=== PATIENT | female | born 1940 | race Caucasian/White ===

== ENCOUNTER → 2016-02-16 | Outpatient (CLI) | payer MEDICARE ==
[2016-02-16 12:26] LABS: Hemoglobin A1C 6.3 % (4.2-6.1)
== END | disposition home or self-care (01) ==
LOC: LABWHC1 11:14
PROVIDERS: ATTEND Family Medicine
DX: E11.9 Type 2 diabetes mellitus without complications (principal)
CPT/HCPCS: 36415; 83036

== ENCOUNTER → 2016-05-25 | Outpatient (CLI) | payer MEDICARE ==
[2016-05-25 08:27] LABS: CH 31.7; HDW 3.34; MCH 30.6 pg (25.0-35.0); MCHC 32.6 g/dL (31.0-37.0); Mean Platelet Volume 6.1; RBC 4.25 m/uL (3.80-5.40); RDW 14.9 % (11.5-15.5); WBC 7.7 k/uL (3.8-10.6)
[2016-05-25 08:42] LABS: ALT 33 U/L (9-52); AST 24 U/L (14-36); Alkaline Phosphatase 73 U/L (38-126); Anion Gap 12 mmol/L; Blood Urea Nitrogen 15 mg/dL (7-17); Calcium 9.3 mg/dL (8.4-10.2); Carbon Dioxide 30 mmol/L (22-30); Chloride 98 mmol/L (98-107); Cholesterol 159 mg/dL (<200); Glucose 171 mg/dL (74-99); HDL Cholesterol 44 mg/dL (40-60); Non-African American GFR(MDRD) >60 (>60 ml/min/1.73 sqM); Potassium 3.8 mmol/L (3.5-5.1); Sodium 140 mmol/L (137-145); Total Bilirubin 0.7 mg/dL (0.2-1.3); Total Protein 6.9 g/dL (6.3-8.2); Triglycerides 173 mg/dL (<150)
[2016-05-25 10:57] LABS: Hemoglobin A1C 6.3 % (4.2-6.1)
== END | disposition home or self-care (01) ==
LOC: LABWHC1 07:23
PROVIDERS: ATTEND Family Medicine
DX: I10 Essential (primary) hypertension (principal); M81.0 Age-related osteoporosis without current pathological fracture
CPT/HCPCS: 36415; 80053; 80061; 82306; 83036; 84443; 84550; 85027

== ENCOUNTER → 2016-08-25 | Outpatient (CLI) | payer MEDICARE ==
[2016-08-25 08:56] LABS: CH 31.8; CHCM 35.2; HCT 39.4 % (34.0-46.0); HDW 3.36; HGB 13.3 gm/dL (11.4-16.0); MCH 30.6 pg (25.0-35.0); MCHC 33.8 g/dL (31.0-37.0); MCV 90.7 fL (80.0-100.0); Mean Platelet Volume 6.7; RBC 4.34 m/uL (3.80-5.40); RDW 14.9 % (11.5-15.5); WBC 7.6 k/uL (3.8-10.6)
[2016-08-25 09:09] LABS: ALT 41 U/L (9-52); AST 25 U/L (14-36); Alkaline Phosphatase 73 U/L (38-126); Anion Gap 9 mmol/L; Blood Urea Nitrogen 15 mg/dL (7-17); Calcium 9.2 mg/dL (8.4-10.2); Carbon Dioxide 31 mmol/L (22-30); Chloride 99 mmol/L (98-107); Cholesterol 153 mg/dL (<200); Glucose 171 mg/dL (74-99); HDL Cholesterol 39 mg/dL (40-60); Non-African American GFR(MDRD) >60 (>60 ml/min/1.73 sqM); Potassium 3.7 mmol/L (3.5-5.1); Sodium 139 mmol/L (137-145); Total Bilirubin 0.6 mg/dL (0.2-1.3); Total Protein 6.6 g/dL (6.3-8.2); Triglycerides 160 mg/dL (<150); Uric Acid 4.9 mg/dL (3.7-7.4)
[2016-08-25 13:38] LABS: Hemoglobin A1C 6.6 % (4.2-6.1)
== END | disposition home or self-care (01) ==
LOC: LABWHC1 08:27
PROVIDERS: ATTEND Family Medicine
DX: M10.9 Gout, unspecified (principal); I10 Essential (primary) hypertension; E11.9 Type 2 diabetes mellitus without complications; M81.0 Age-related osteoporosis without current pathological fracture
CPT/HCPCS: 36415; 80053; 80061; 83036; 84550; 85027

== ENCOUNTER → 2017-04-26 | Outpatient (CLI) | payer MEDICARE ==
[2017-04-26 08:47] LABS: HCT 37.5 % (34.0-46.0); HGB 13.3 gm/dL (11.4-16.0); Hyperchromasia Slight; MCH 30.9 pg (25.0-35.0); MCHC 35.4 g/dL (31.0-37.0); MCV 87.2 fL (80.0-100.0); Platelet Count 241 k/uL (150-450); Poikilocytosis Slight; RDW 14.5 % (11.5-15.5); WBC 6.6 k/uL (3.8-10.6)
[2017-04-26 09:15] LABS: ALT 33 U/L (9-52); AST 22 U/L (14-36); Albumin 4.1 g/dL (3.5-5.0); Alkaline Phosphatase 73 U/L (38-126); Anion Gap 14 mmol/L; Blood Urea Nitrogen 14 mg/dL (7-17); Calcium 9.3 mg/dL (8.4-10.2); Carbon Dioxide 32 mmol/L (22-30); Chloride 97 mmol/L (98-107); Cholesterol 154 mg/dL (<200); Glucose 156 mg/dL (74-99); HDL Cholesterol 43 mg/dL (40-60); LDL Cholesterol,Calculated 80 mg/dL (0-99); Sodium 143 mmol/L (137-145); Total Bilirubin 0.6 mg/dL (0.2-1.3); Total Protein 6.7 g/dL (6.3-8.2); Triglycerides 154 mg/dL (<150); Uric Acid 5.8 mg/dL (3.7-7.4)
[2017-04-26 20:57] LABS: Hemoglobin A1C 6.1 % (4.0-6.0)
== END | disposition home or self-care (01) ==
LOC: LABWHC1 08:05
PROVIDERS: ATTEND Family Medicine
DX: I10 Essential (primary) hypertension (principal); M10.9 Gout, unspecified; R73.01 Impaired fasting glucose
CPT/HCPCS: 36415; 80053; 80061; 83036; 84443; 84550; 85027

== ENCOUNTER → 2017-08-11 | Outpatient (CLI) | payer MEDICARE ==
[2017-08-11 08:03] LABS: HCT 41.4 % (34.0-46.0); HGB 14.2 gm/dL (11.4-16.0); MCH 30.6 pg (25.0-35.0); MCHC 34.3 g/dL (31.0-37.0); MCV 89.4 fL (80.0-100.0); Platelet Count 259 k/uL (150-450); RBC 4.63 m/uL (3.80-5.40); WBC 8.4 k/uL (3.8-10.6)
[2017-08-11 08:07] LABS: ALT 40 U/L (9-52); AST 28 U/L (14-36); Albumin 4.2 g/dL (3.5-5.0); Alkaline Phosphatase 70 U/L (38-126); Anion Gap 13 mmol/L; Blood Urea Nitrogen 15 mg/dL (7-17); Calcium 9.1 mg/dL (8.4-10.2); Carbon Dioxide 31 mmol/L (22-30); Chloride 96 mmol/L (98-107); Glucose 144 mg/dL (74-99); Potassium 3.8 mmol/L (3.5-5.1); Sodium 140 mmol/L (137-145); Total Bilirubin 0.7 mg/dL (0.2-1.3); Total Protein 6.8 g/dL (6.3-8.2)
== END | disposition home or self-care (01) ==
LOC: LABWHC1 07:14
PROVIDERS: ATTEND Family Medicine
DX: E11.9 Type 2 diabetes mellitus without complications (principal)
CPT/HCPCS: 36415; 80053; 83036; 83721; 85027

== ENCOUNTER → 2018-01-16 | Outpatient (CLI) | payer MEDICARE ==
[2018-01-16 08:58] LABS: HCT 41.1 % (34.0-46.0); HGB 13.8 gm/dL (11.4-16.0); MCH 30.3 pg (25.0-35.0); MCHC 33.6 g/dL (31.0-37.0); MCV 90.4 fL (80.0-100.0); Mean Platelet Volume 6.5; Platelet Count 246 k/uL (150-450); RBC 4.55 m/uL (3.80-5.40); RDW 14.2 % (11.5-15.5); WBC 7.7 k/uL (3.8-10.6)
[2018-01-16 17:10] LABS: Albumin 4.4 g/dL (3.80-4.90); Albumin/Globulin Ratio 2.32 (1.20-2.10); Anion Gap 10.1 mmol/L (4.00-12.00); Calcium 9.1 mg/dL (8.7-10.3); Carbon Dioxide 29.9 mmol/L (21.6-31.8); Globulin 1.9 g/dL (2.1-3.7); LDL Cholesterol,Calculated 86.8 mg/dL (0.0-131.0); Potassium 3.9 mmol/L (3.5-5.5); Total Bilirubin 0.6 mg/dL (0.2-1.2); Total Protein 6.3 g/dL (6.2-8.2); VLDL Calculation 33.2 mg/dL (5.00-40.00)
[2018-01-16 18:18] LABS: Hemoglobin A1C 5.9 % (4.0-6.0)
== END ==
LOC: LABWHC1 07:48
PROVIDERS: ATTEND Family Medicine
DX: E11.9 Type 2 diabetes mellitus without complications (principal); E78.5 Hyperlipidemia, unspecified; I10 Essential (primary) hypertension
CPT/HCPCS: 36415; 80053; 80061; 83036; 84443; 85027

== ENCOUNTER → 2018-05-15 | Outpatient (CLI) | payer MEDICARE ==
[2018-05-15 16:29] LABS: Albumin 4.2 g/dL (3.80-4.90); Albumin/Globulin Ratio 2.21 (1.60-3.17); Anion Gap 12.2 mmol/L (4.00-12.00); Calcium 9.2 mg/dL (8.7-10.3); Carbon Dioxide 28.8 mmol/L (21.6-31.8); Globulin 1.9 g/dL (1.6-3.3); Total Bilirubin 0.6 mg/dL (0.2-1.2); Total Protein 6.1 g/dL (6.2-8.2); Uric Acid 5.1 mg/dL (2.9-7.7)
[2018-05-15 17:16] LABS: Hemoglobin A1C 6.2 % (4.0-6.0)
== END ==
LOC: LABWHC1 07:54
PROVIDERS: ATTEND Family Medicine
DX: E11.9 Type 2 diabetes mellitus without complications (principal); M10.9 Gout, unspecified
CPT/HCPCS: 36415; 80053; 83036; 84550

== ENCOUNTER → 2018-09-21 | Outpatient (CLI) | payer MEDICARE ==
[2018-09-21 16:04] LABS: African American GFR (CKD) 94.8 (60.0-200.0); Albumin 4.4 g/dL (3.80-4.90); Albumin/Globulin Ratio 2.32 (1.60-3.17); Anion Gap 10.4 mmol/L (4.00-12.00); BUN/Creat Ratio 24.29 Ratio (12.00-20.00); Calcium 9.2 mg/dL (8.7-10.3); Carbon Dioxide 31.6 mmol/L (21.6-31.8); Chol/HDL Ratio 3.45; Globulin 1.9 g/dL (1.6-3.3); LDL Cholesterol,Calculated 84.6 mg/dL (0.0-131.0); Potassium 3.9 mmol/L (3.5-5.5); Total Bilirubin 0.6 mg/dL (0.2-1.2); Total Protein 6.3 g/dL (6.2-8.2); Uric Acid 6.3 mg/dL (2.9-7.7); VLDL Calculation 35.4 mg/dL (5.00-40.00)
[2018-09-21 19:34] LABS: Hemoglobin A1C 6.4 % (4.0-6.0)
== END | disposition home or self-care (01) ==
LOC: LABWHC1 08:35
PROVIDERS: ATTEND Family Medicine
DX: E11.9 Type 2 diabetes mellitus without complications (principal); R82.998 Other abnormal findings in urine; M10.9 Gout, unspecified; I10 Essential (primary) hypertension
CPT/HCPCS: 36415; 80053; 80061; 83036; 84550

== ENCOUNTER → 2018-12-26 | Outpatient (CLI) | payer MEDICARE ==
[2018-12-26 08:47] LABS: HCT 41.8 % (34.0-46.0); MCH 30.1 pg (25.0-35.0); MCHC 33.4 g/dL (31.0-37.0); MCV 90.2 fL (80.0-100.0); Platelet Count 273 k/uL (150-450); RBC 4.64 m/uL (3.80-5.40); RDW 14.3 % (11.5-15.5); WBC 7.6 k/uL (3.8-10.6)
[2018-12-26 15:58] LABS: African American GFR (CKD) 94.8 (60.0-200.0); Albumin 4.3 g/dL (3.80-4.90); Albumin/Globulin Ratio 2.15 (1.60-3.17); Anion Gap 12.8 mmol/L (4.00-12.00); BUN/Creat Ratio 18.57 Ratio (12.00-20.00); Calcium 9.3 mg/dL (8.7-10.3); Carbon Dioxide 31.2 mmol/L (21.6-31.8); Chol/HDL Ratio 3.71; LDL Cholesterol,Calculated 84.2 mg/dL (0.0-131.0); Non-African American GFR(CKD) 81.8 (60.0-200.0); Potassium 3.6 mmol/L (3.5-5.5); Total Bilirubin 0.5 mg/dL (0.3-1.2); Total Protein 6.3 g/dL (6.2-8.2); VLDL Calculation 29.8 mg/dL (5.00-40.00)
[2018-12-26 16:38] LABS: Hemoglobin A1C 6.3 % (4.0-6.0)
== END | disposition home or self-care (01) ==
LOC: LABWHC1 07:38
PROVIDERS: ATTEND Family Medicine
DX: E11.9 Type 2 diabetes mellitus without complications (principal); I10 Essential (primary) hypertension
CPT/HCPCS: 36415; 80053; 80061; 83036; 85027

== ENCOUNTER → 2019-04-18 | Outpatient (CLI) | payer MEDICARE ==
[2019-04-18 09:48] LABS: Basophils % (A) 0 %; Eosinophils # (A) 0.2 k/uL (0-0.7); Eosinophils % (A) 3 %; HCT 40.9 % (34.0-46.0); HGB 13.6 gm/dL (11.4-16.0); Lymphocytes # (A) 2.3 k/uL (1.0-4.8); Lymphocytes % (A) 28 %; MCHC 33.3 g/dL (31.0-37.0); MCV 90.1 fL (80.0-100.0); Mean Platelet Volume 6.7; Monocytes # (A) 0.4 k/uL (0-1.0); Monocytes % (A) 5 %; Neutrophils % (A) 62 %; Platelet Count 249 k/uL (150-450); RBC 4.54 m/uL (3.80-5.40); RDW 14.2 % (11.5-15.5); WBC 8.1 k/uL (3.8-10.6)
[2019-04-18 16:51] LABS: African American GFR (CKD) 94.8 (60.0-200.0); Albumin 4.2 g/dL (3.80-4.90); Anion Gap 9.5 mmol/L (4.00-12.00); Calcium 9.3 mg/dL (8.7-10.3); Carbon Dioxide 33.5 mmol/L (21.6-31.8); Chol/HDL Ratio 3.73; Globulin 2.1 g/dL (1.6-3.3); LDL Cholesterol,Calculated 79.4 mg/dL (0.0-131.0); Non-African American GFR(CKD) 81.8 (60.0-200.0); Potassium 3.7 mmol/L (3.5-5.5); Total Bilirubin 0.6 mg/dL (0.2-1.2); Total Protein 6.3 g/dL (6.2-8.2); Uric Acid 6.1 mg/dL (2.9-7.7); VLDL Calculation 32.6 mg/dL (5.00-40.00)
[2019-04-18 18:11] LABS: Hemoglobin A1C 6.3 % (4.0-6.0)
== END | disposition home or self-care (01) ==
LOC: LABWHC1 07:57
PROVIDERS: ATTEND Physician Assistant
DX: E78.5 Hyperlipidemia, unspecified (principal); E79.0 Hyperuricemia without signs of inflammatory arthritis and tophaceous disease; E11.9 Type 2 diabetes mellitus without complications
CPT/HCPCS: 36415; 80053; 80061; 83036; 84443; 84550; 85025

== ENCOUNTER → 2019-11-07 | Outpatient (CLI) | payer MEDICARE ==
[2019-11-07 16:48] LABS: African American GFR (CKD) 99.1 (60.0-200.0); Albumin 4.3 g/dL (3.80-4.90); Albumin/Globulin Ratio 2.15 (1.60-3.17); Anion Gap 12.7 mmol/L (4.00-12.00); Calcium 9.3 mg/dL (8.7-10.3); Carbon Dioxide 30.3 mmol/L (21.6-31.8); Chol/HDL Ratio 3.97; LDL Cholesterol,Calculated 75.6 mg/dL (0.0-131.0); Non-African American GFR(CKD) 85.5 (60.0-200.0); Potassium 3.7 mmol/L (3.5-5.5); Total Bilirubin 0.6 mg/dL (0.3-1.2); Total Protein 6.3 g/dL (6.2-8.2); Uric Acid 5.8 mg/dL (2.9-7.7); VLDL Calculation 34.4 mg/dL (5.00-40.00)
== END | disposition home or self-care (01) ==
LOC: LABWHC1 07:58
PROVIDERS: ATTEND Family Medicine
DX: E11.9 Type 2 diabetes mellitus without complications (principal); M85.80 Other specified disorders of bone density and structure, unspecified site
CPT/HCPCS: 36415; 80053; 80061; 82306; 83036; 84550

== ENCOUNTER → 2020-04-17 | Outpatient (CLI) | payer MEDICARE ==
[2020-04-17 15:21] LABS: HCT 35.8 % (37.2-46.3); HGB 11.7 g/dL (12.0-15.0); MCH 28.5 pg (27.0-32.0); MCHC 32.7 g/dL (32.0-37.0); MCV 87.1 fL (80.0-97.0); Mean Platelet Volume 8.8 fL (9.5-12.2); Platelet Count 337 X 10*3/uL (140-440); RBC 4.11 X 10*6/uL (4.10-5.20); RDW 14.1 % (11.5-14.5); WBC 8.99 X 10*3/uL (4.50-10.00)
[2020-04-17 18:53] LABS: Hemoglobin A1C 5.4 % (4.0-6.0)
[2020-04-17 20:49] LABS: African American GFR (CKD) 99.1 (60.0-200.0); Albumin 4.6 g/dL (3.80-4.90); Albumin/Globulin Ratio 2.19 (1.60-3.17); BUN/Creat Ratio 18.33 Ratio (12.00-20.00); Calcium 9.8 mg/dL (8.7-10.3); Chol/HDL Ratio 4.47; Globulin 2.1 g/dL (1.6-3.3); LDL Cholesterol,Calculated 78.4 mg/dL (0.0-131.0); Non-African American GFR(CKD) 85.5 (60.0-200.0); Potassium 3.7 mmol/L (3.5-5.5); Total Bilirubin 0.5 mg/dL (0.2-1.2); Total Protein 6.7 g/dL (6.2-8.2); Uric Acid 5.9 mg/dL (2.9-7.7); VLDL Calculation 32.6 mg/dL (5.00-40.00)
== END | disposition home or self-care (01) ==
LOC: LABWHC1 07:25
PROVIDERS: ATTEND Family Medicine
DX: I10 Essential (primary) hypertension (principal); M10.9 Gout, unspecified
CPT/HCPCS: 36415; 80053; 80061; 83036; 84550; 85027

== ENCOUNTER 2020-04-24 13:27 | Inpatient (IN) | payer MEDICARE ==
[2020-04-24 14:58] LABS: Basophils % (A) 1 %; Eosinophils # (A) 0.1 k/uL (0-0.7); Eosinophils % (A) 2 %; HGB 12.7 gm/dL (11.4-16.0); Lymphocytes % (A) 23 %; MCH 29.2 pg (25.0-35.0); MCHC 34.3 g/dL (31.0-37.0); MCV 85.1 fL (80.0-100.0); Monocytes # (A) 0.6 k/uL (0-1.0); Monocytes % (A) 6 %; Neutrophils # (A) 5.8 k/uL (1.3-7.7); Neutrophils % (A) 67 %; Platelet Count 327 k/uL (150-450); RBC 4.35 m/uL (3.80-5.40); RDW 14.6 % (11.5-15.5); WBC 8.7 k/uL (3.8-10.6)
[2020-04-24 15:07] LABS: ALT 20 U/L (4-34); AST 32 U/L (14-36); African American GFR (CKD) >90 (>60 ml/min/1.73 sqM); Albumin 4.3 g/dL (3.5-5.0); Alkaline Phosphatase 69 U/L (38-126); Anion Gap 8 mmol/L; Blood Urea Nitrogen 11 mg/dL (7-17); Calcium 9.8 mg/dL (8.4-10.2); Carbon Dioxide 32 mmol/L (22-30); Chloride 92 mmol/L (98-107); Creatine Kinase 32 U/L (30-135); Glucose 111 mg/dL (74-99); Lipase 131 U/L (23-300); Magnesium 1.5 mg/dL (1.6-2.3); Non-African American GFR(CKD) >90 (>60 ml/min/1.73 sqM); Potassium 3.6 mmol/L (3.5-5.1); Sodium 132 mmol/L (137-145); Total Bilirubin 0.7 mg/dL (0.2-1.3); Total Protein 7.1 g/dL (6.3-8.2)
--- NOTE | 2020-04-24 15:12 | XR ---
EXAMINATION TYPE: XR chest 2V DATE OF EXAM: 04/24/2020 COMPARISON: 03/29/2011 HISTORY: 79-year-old female with chest pain TECHNIQUE: PA and lateral views FINDINGS: Heart normal size. Atherosclerotic arch calcifications. Mild interstitial prominence of the chronic a ppearance. No consolidation or pleural effusion. IMPRESSION: Chronic changes without acute cardiopulmonary process.
--- NOTE | 2020-04-24 15:13 | XR ---
EXAMINATION TYPE: XR KUB DATE OF EXAM: 04/24/2020 Comparison: 03/26/2011 Clinical History: 79-year-old female Left upper quadrant pain Findings: Cholecystectomy clips. Degenerated levoconvex scoliosis of the lumbar spine. Suspect a dropped clip i n the midline pelvis. Mild stool in the right side of the colon. Nonobstructive bowel gas pattern. No evidence for free intraperitoneal air. No suspicious calcifications seen. Impression: Mild stool in the right-sided the abdomen. No evidence for free air or bowel obstruction. Degenerated levoconvex scoliosis of the lumbar spine.
[2020-04-24 15:17] LABS: Prothrombin Time 10.9 sec (9.0-12.0)
[2020-04-24 15:20] LABS: D-Dimer 0.74 mg/L FEU (<0.60)
[2020-04-24] MEDS ORDERED: fentaNYL (PF) 50 MCG/ML 2 ML AMP IVP STA (15:26)
--- NOTE | 2020-04-24 15:39 | ED ---
Chest Pain HPI - General Chief Complaint: Chest Pain Stated Complaint: Chest pain Time Seen by Provider: 04/24/20 14:22 Source: patient, family, RN notes reviewed Mode of arrival: ambulatory Limitations: no limitations - History of Present Illness Initial Comments: This 79-year-old female who presents with complaints of chest and abdominal pain. She states that she started about one month ago but is getting progressively worse she states it's 8-9/10 severity achy in nature goes from her left upper quadrant area up into her lower chest. She states that years but her bra on. No fevers chills nausea vomiting sweats no cough no phlegm production no diarrhea no constipation reported she does have a history of a cholecystectomy in the past. No other current complaints or modifying factors nothing seems make the pain better or worse except for possibly landing on her left side. MD Complaint: chest pain, other - Related Data Home Medications Medication Instructions Recorded Confirmed Allopurinol [Zyloprim] 100 mg PO SUTUTH 04/24/20 04/24/20 Aspirin EC [Ecotrin Low Dose] 81 mg PO DAILY 04/24/20 04/24/20 Atenolol [Tenormin] 50 mg PO DAILY 04/24/20 04/24/20 Atorvastatin [Lipitor] 80 mg PO HS 04/24/20 04/24/20 Biotin 5 mg PO DAILY 04/24/20 04/24/20 Cholecalciferol (Vitamin D3) 125 mcg PO DAILY 04/24/20 04/24/20 [Vitamin D3 (5000 Iu)] Ferrous Sulfate [Slow Release Iron] 140 mg PO DAILY 04/24/20 04/24/20 Multivitamins, Thera [Multivitamin 1 tab PO DAILY 04/24/20 04/24/20 (formulary)] [place]-3 Fatty Acids/Fish Oil [Fish 1 cap PO DAILY 04/24/20 04/24/20 Oil 1,000 mg Softgel] Raloxifene [Evista] 60 mg PO DAILY 04/24/20 04/24/20 Triple Flex 1 tab PO DAILY 04/24/20 04/24/20 Ubidecarenone [Co Q-10] 100 mg PO DAILY 04/24/20 04/24/20 amLODIPine BESYLATE/BENAZEPRIL 1 cap PO DAILY 04/24/20 04/24/20 [Lotrel 10-40 MG] hydroCHLOROthiazide [Hydrodiuril] 25 mg PO MOWESA 04/24/20 04/24/20 metFORMIN HCL [Glucophage] 500 mg PO DAILY 04/24/20 04/24/20 Allergies Allergy/AdvReac Type Severity Reaction Status Date / Time shellfish derived [Lobster] Allergy Nausea & Verified 04/24/20 15:46 Vomiting Review of Systems ROS Statement: Those systems with pertinent positive or pertinent negative responses have been documented in the HPI. ROS Other: All systems not noted in ROS Statement are negative. EKG Findings - EKG Results: EKG: interpreted by ABEL, sinus rhythm (Normal sinus rhythm 84 PA interval 180 QRS 92 QT/QTC 384/[address]-T wave changes) Past Medical History Past Medical History: Hyperlipidemia, Hypertension History of Any Multi-Drug Resistant Organisms: None Reported Past Surgical History: Cholecystectomy, Tubal Ligation Past Psychological History: No Psychological Hx Reported Smoking Status: Never smoker Past Alcohol Use History: None Reported Past Drug Use History: None Reported General Exam - General Exam Comments Initial Comments: This is a well-developed well-nourished awake alert oriented 3 female Limitations: no limitations General appearance: alert, in no apparent distress Head exam: Present: atraumatic, normocephalic, normal inspection Eye exam: Present: normal appearance, PERRL, EOMI. Absent: scleral icterus, conjunctival injection, periorbital swelling ENT exam: Present: mucous membranes dry Neck exam: Present: normal inspection. Absent: tenderness, meningismus, lymphadenopathy Respiratory exam: Present: normal lung sounds bilaterally. Absent: respiratory distress, wheezes, rales, rhonchi, stridor Cardiovascular Exam: Present: regular rate, normal rhythm, normal heart sounds. Absent: systolic murmur, diastolic murmur, rubs, gallop, clicks GI/Abdominal exam: Present: soft, tenderness (Tenderness palpation of the left upper quadrant no overt guarding rebound), normal bowel sounds. Absent: distended, guarding, rebound, rigid Rectal exam: Present: deferred Extremities exam: Present: normal inspection, full ROM, normal capillary refill. Absent: tenderness, pedal edema, joint swelling, calf tenderness Back exam: Present: normal inspection Neurological exam: Present: alert, oriented X3, CN II-XII intact Psychiatric exam: Present: normal affect, normal mood Skin exam: Present: warm, dry, intact, normal color. Absent: rash Course Vital Signs 04/24/20 04/24/20 04/24/20 13:33 14:42 14:51 Temperature 99.2 F 100.6 F H Pulse Rate 87 77 Respiratory 18 16 18 Rate Blood Pressure 142/58 145/73 O2 Sat by Pulse 98 97 Oximetry 04/24/20 04/24/20 04/24/20 15:19 16:37 19:03 Temperature 98.6 F 98.8 F Pulse Rate 70 75 Respiratory 20 18 Rate Blood Pressure 142/67 142/70 O2 Sat by Pulse 96 97 Oximetry Chest Pain MDM - MDM I did review the imaging and report no evidence of pulmonary embolism there is however evidence of a mass likely pancreatic mass versus a gastric mass in the retroperitoneum. Please see complete CAT scan report. Evaluation patient finds that she is pain-free at this time. I did a long discussion with her and her son was present about the findings. Patient be admitted with consultation by surgery as well as by medical oncology. Case is discussed with Dr. España Disposition Clinical Impression: Abdominal pain, Pancreatic mass, Atypical chest pain Disposition: ADMITTED IP TO THIS HOSP Condition: Fair Referrals: Ely Aguero DO [Primary Care Provider] - 1-2 days
[2020-04-24] MEDS ORDERED: KETOROLAC 15 MG/ML 1 ML VIAL IVP STA (16:27)
[2020-04-24] MEDS ORDERED: diphenhydrAMINE 50 MG/ML 1 ML VIAL IVP STA (16:28)
[2020-04-24] MEDS ORDERED: methylPREDNISolone SOD SUCCI 125 MG/2 ML VIAL IV STA (16:28)
[2020-04-24] MEDS ORDERED: FAMOTIDINE 20 MG/2 ML VIAL IV STA (16:28)
[2020-04-24] MEDS ORDERED: MAGNESIUM SULFATE-D5W PMX 1 GM in DEXTROSE/WATER 1 100ML.BAG IVPB ONE (17:33)
--- NOTE | 2020-04-24 19:04 | CT ---
EXAMINATION TYPE: CT angio chest DATE OF EXAM: 04/24/2020 COMPARISON: None HISTORY: Chest and abdomen pain. Elevated d dimer CT DLP: 1355.7 mGycm Automated exposure control for dose reduction was used. CONTRAST: Performed with IV Contrast, patient injected with 100 mL of Isovue 370. There are 3-D post processed images. There is a patchy mild groundglass interstitial infiltrate in both lungs. There is no pleural effusio n. Heart appears slightly enlarged. There is no pericardial effusion. There are no hilar masses. There is no mediastinal adenopathy. Thoracic aorta is intact. There is no aneurysm or dissection. There is normal contrast opacification of the pulmonary arteries. There are no filling defects. Thora cic aorta is intact. There is no aneurysm or dissection. Bony thorax is intact. There is no thoracic compression fracture. Upper abdominal soft tissues are intact. IMPRESSION: No evidence of pulmonary embolism. Mild pulmonary groundglass interstitial edema. Cardiomegaly.
--- NOTE | 2020-04-24 19:32 | CT ---
EXAMINATION TYPE: CT abdomen pelvis w con DATE OF EXAM: 04/24/2020 COMPARISON: Pain HISTORY: Chest and abdomen pain. Elevated d dimer CT DLP: 1355.7 mGycm Automated exposure control for dose reduction was used. CONTRAST: Performed with IV Contrast, patient injected with 100 mL of Isovue 370. Images were obtained from the diaphragm to the floor the pelvis with IV contrast. Lung bases are clear. There is no pleural effusion. Heart size is normal. There is no pericardial eff usion. There are clips from cholecystectomy. Liver shows no focal defect. Spleen is intact. There is a irregular 10 x 11 cm mixed density mass in the upper abdomen. This is likely mass arising from the anterior head of the pancreas. There is anterior displacement of the transverse colon from t he mass. The gastric antrum is not distended and is adjacent to the mass. There is no evidence of a bowel obstruction. Stomach is not dilated. There is 3 cm fat-containing umb ilical hernia. There is no adrenal mass. Kidneys show satisfactory contrast opacification. There is n o hydronephrosis. Delayed images show normal renal excretion. Bladder distends smoothly. There is no retroperitoneal adenopathy. There is no mesenteric edema. There is no sign of mesenteric adenopathy. There is no ascites. There i s no evidence of free air. There are multiple diverticula of the sigmoid colon. There is no evidence of diverticulitis. Uterus is anteverted and has normal size and contour. There is thoracolumbar levoscoliosis. I see no focal bone destruction. The bony pelvis is intact. 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 Large gastric tumor is possible but less likely. No bowel obstruction. No dilated ducts.
[2020-04-24] MEDS ORDERED: NALOXONE 0.4 MG/ML 1 ML VIAL IV PRN (20:10)
[2020-04-24] MEDS ORDERED: ONDANSETRON 4 MG/2 ML VIAL IVP PRN (20:10)
[2020-04-24 21:23] LABS: Glucose,Whole Blood 179 mg/dL (75-99)
[2020-04-24] MEDS: SODIUM CHLORIDE 0.9% 1,000 ML IV SCH (21:27)
[2020-04-24] MEDS: ATORVASTATIN 80 MG TAB PO SCH (21:27)
[2020-04-24] MEDS: INSULIN ASPART (NovoLOG) 100 UNIT/ML VIAL SQ SCH (21:31)
[2020-04-24] MEDS: HYDROmorphone 0.5 MG/0.5 ML SYRINGE IVP PRN (22:10)
[2020-04-25] MEDS: amLODIPine 10 MG TAB PO SCH (08:32)
[2020-04-25] MEDS: lisinopriL 20 MG TAB PO SCH (08:32)
[2020-04-25] MEDS: atenoloL 50 MG TAB PO SCH (08:32)
[2020-04-25] MEDS: PANTOPRAZOLE 40 MG/10 ML VIAL IV SCH (08:33)
[2020-04-25] MEDS: HYDROmorphone 0.5 MG/0.5 ML SYRINGE IVP PRN ×3 (08:34→19:21)
[2020-04-25 08:45] LABS: Glucose,Whole Blood 160 mg/dL (75-99)
[2020-04-25] MEDS: INSULIN ASPART (NovoLOG) 100 UNIT/ML VIAL SQ SCH ×4 (09:02→21:16)
--- NOTE | 2020-04-25 11:51 | P.GSCN ---
<Manjula Dominguez - Last Filed: 04/25/20 11:40> History of Present Illness Consult date: 04/25/20 History of present illness: CHIEF COMPLAINT: Abdominal pain HISTORY OF PRESENT ILLNESS: This is a 79-year-old female with a known history of nicotine dependence several years ago, hypertension, hyperlipidemia and diabetic. She also has a history of cholecystectomy. Patient presents to the emergency room with complaints of upper abdominal pain that the pressure up into her chest. She does rates the pain about 8 out of 10. Patient reports having this pain for about 2 months. And over the last couple of days the severity of the pain has increased. She's had decrease in her appetite. She is noted await loss of about 30 pounds over the last 6 months. She does report she intentionally was trying to lose weight and with dieting. She denies any nausea or vomiting, fever, chills or sweats or bowel movement changes. She denies any family history of cancer. Patient had a computed tomography scan of the abdomen and pelvis showing a large retroperitoneal epigastric mass is probably a primary tumor of the pancreatic head. Large gastric tumor is possible but less likely. No bowel obstruction. No dilated ducts. Surgical service has been consulted regarding the epigastric mass. PAST MEDICAL HISTORY: See list. PAST SURGICAL HISTORY: See list. MEDICATIONS: See list. ALLERGIES: See list. SOCIAL HISTORY: No illicit drug use. REVIEW OF SYSTEMS: CONSTITUTIONAL: Denies fever or chills. HEENT: Denies blurred vision, vision changes, or eye pain. Denies hemoptysis CARDIOVASCULAR: Denies chest pain or pressure. RESPIRATORY: No shortness of breath. GASTROINTESTINAL: See HPI for pertinent findings HEMATOLOGIC: Denies bleeding disorders. GENITOURINARY: Denies any blood in urine or increased urinary frequency. SKIN: Denies pruitis. Denies rash. PHYSICAL EXAM: VITAL SIGNS: Reviewed GENERAL: Well-developed in no acute distress. HEENT: No sclera icterus. Extraocular movements grossly intact. Moist buccal mucosa. Head is atraumatic, normocephalic. No nasal drainage. ABDOMEN: Soft. Nondistended. Patient has a fullness and tenderness with palpation of the mid abdomen between the epigastric area and umbilicus NEUROLOGIC: Alert and oriented. Cranial nerves II through XII grossly intact. LABORATORY DATA: WBC 8.7 Hgb 12.7 platelets 327 d-dimer 0.74 creatinine 0.42 Magnesium 1.5 LFTs and total bilirubin normal lipase 131 IMAGING: Computed tomography scan of the abdomen and pelvis showing a large retroperitoneal epigastric mass is probably a primary tumor of the pancreatic head. Large gastric tumor is possible but less likely. No bowel obstruction. No dilated ducts. CT of the chest no evidence of PE. Mild pulmonary groundglass interstitial edema. Cardiomegaly ASSESSMENT: 1. Large retroperitoneal epigastric mass probably a primary tumor of the pancreatic head versus large gastric tumor which is less likely per computed tomography scan findings PLAN: -Patient scheduled for EGD today, 04/25/[address] Dias -Keep patient nothing by mouth -Agree with oncology consult -Further recommendations forthcoming per surgeon Thank you for this consultation Physician Finance Assistant note has been reviewed by physician. Signing provider agrees with the documented findings, assessment, and plan of care. Past Medical History Past Medical History: Hyperlipidemia, Hypertension History of Any Multi-Drug Resistant Organisms: None Reported Past Surgical History: Cholecystectomy, Tubal Ligation Past Psychological History: No Psychological Hx Reported Smoking Status: Never smoker Past Alcohol Use History: None Reported Past Drug Use History: None Reported Medications and Allergies Home Medications Medication Instructions Recorded Confirmed Type Allopurinol [Zyloprim] 100 mg PO SUTUTH 04/24/20 04/24/20 History Aspirin EC [Ecotrin Low Dose] 81 mg PO DAILY 04/24/20 04/24/20 History Atenolol [Tenormin] 50 mg PO DAILY 04/24/20 04/24/20 History Atorvastatin [Lipitor] 80 mg PO HS 04/24/20 04/24/20 History Biotin 5 mg PO DAILY 04/24/20 04/24/20 History Cholecalciferol (Vitamin D3) 125 mcg PO DAILY 04/24/20 04/24/20 History [Vitamin D3 (5000 Iu)] Ferrous Sulfate [Slow Release Iron] 140 mg PO DAILY 04/24/20 04/24/20 History Multivitamins, Thera [Multivitamin 1 tab PO DAILY 04/24/20 04/24/20 History (formulary)] [place]-3 Fatty Acids/Fish Oil [Fish 1 cap PO DAILY 04/24/20 04/24/20 History Oil 1,000 mg Softgel] Raloxifene [Evista] 60 mg PO DAILY 04/24/20 04/24/20 History Triple Flex 1 tab PO DAILY 04/24/20 04/24/20 History Ubidecarenone [Co Q-10] 100 mg PO DAILY 04/24/20 04/24/20 History amLODIPine BESYLATE/BENAZEPRIL 1 cap PO DAILY 04/24/20 04/24/20 History [Lotrel 10-40 MG] hydroCHLOROthiazide [Hydrodiuril] 25 mg PO MOWESA 04/24/20 04/24/20 History metFORMIN HCL [Glucophage] 500 mg PO DAILY 04/24/20 04/24/20 History Allergies Allergy/AdvReac Type Severity Reaction Status Date / Time shellfish derived [Lobster] Allergy Nausea & Verified 04/24/20 15:46 Vomiting Surgical - Exam Vital Signs Temp Pulse Resp BP Pulse Ox 99.2 F 87 18 142/58 98 04/24/20 13:33 04/24/20 13:33 04/24/20 13:33 04/24/20 13:33 04/24/20 13:33 Results - Labs 04/24/20 13:44 04/24/20 13:44 Abnormal Lab Results - Last 24 Hours (Table) 04/24/20 04/24/20 04/24/20 Range/Units 13:44 13:44 21:20 D-Dimer 0.74 H (<0.60) mg/L FEU Sodium 132 L (137-145) mmol/L Chloride 92 L (98-107) mmol/L Carbon Dioxide 32 H (22-30) mmol/L Creatinine 0.42 L (0.52-1.04) mg/dL Glucose 111 H (74-99) mg/dL POC Glucose (mg/dL) 179 H (75-99) mg/dL Magnesium 1.5 L (1.6-2.3) mg/dL 04/25/20 Range/Units 08:43 D-Dimer (<0.60) mg/L FEU Sodium (137-145) mmol/L Chloride (98-107) mmol/L Carbon Dioxide (22-30) mmol/L Creatinine (0.52-1.04) mg/dL Glucose (74-99) mg/dL POC Glucose (mg/dL) 160 H (75-99) mg/dL Magnesium (1.6-2.3) mg/dL Diabetes panel 04/24/20 Range/Units 13:44 Sodium 132 L (137-145) mmol/L Potassium 3.6 (3.5-5.1) mmol/L Chloride 92 L (98-107) mmol/L Carbon Dioxide 32 H (22-30) mmol/L BUN 11 (7-17) mg/dL Creatinine 0.42 L (0.52-1.04) mg/dL Glucose 111 H (74-99) mg/dL Calcium 9.8 (8.4-10.2) mg/dL AST 32 (14-36) U/L ALT 20 (4-34) U/L Alkaline Phosphatase 69 (38-126) U/L Total Protein 7.1 (6.3-8.2) g/dL Albumin 4.3 (3.5-5.0) g/dL Calcium panel 04/24/20 Range/Units 13:44 Calcium 9.8 (8.4-10.2) mg/dL Albumin 4.3 (3.5-5.0) g/dL Pituitary panel 04/24/20 Range/Units 13:44 Sodium 132 L (137-145) mmol/L Potassium 3.6 (3.5-5.1) mmol/L Chloride 92 L (98-107) mmol/L Carbon Dioxide 32 H (22-30) mmol/L BUN 11 (7-17) mg/dL Creatinine 0.42 L (0.52-1.04) mg/dL Glucose 111 H (74-99) mg/dL Calcium 9.8 (8.4-10.2) mg/dL Adrenal panel 04/24/20 Range/Units 13:44 Sodium 132 L (137-145) mmol/L Potassium 3.6 (3.5-5.1) mmol/L Chloride 92 L (98-107) mmol/L Carbon Dioxide 32 H (22-30) mmol/L BUN 11 (7-17) mg/dL Creatinine 0.42 L (0.52-1.04) mg/dL Glucose 111 H (74-99) mg/dL Calcium 9.8 (8.4-10.2) mg/dL Total Bilirubin 0.7 (0.2-1.3) mg/dL AST 32 (14-36) U/L ALT 20 (4-34) U/L Alkaline Phosphatase 69 (38-126) U/L Total Protein 7.1 (6.3-8.2) g/dL Albumin 4.3 (3.5-5.0) g/dL <Stew Dias - Last Filed: 04/25/20 14:47> History of Present Illness History of present illness: As above. CAT scan reviewed. Large mass between the antrum and the head of the pancreas. Difficult to say whether the stomach is involved. We'll proceed with upper endoscopy to see if biopsies can be obtained endoscopically. If not we'll consult interventional radiology for percutaneous biopsy. Await oncology evaluation. Surgical - Exam Vital Signs Temp Pulse Resp BP Pulse Ox 99.2 F 87 18 142/58 98 04/24/20 13:33 04/24/20 13:33 04/24/20 13:33 04/24/20 13:33 04/24/20 13:33 Results - Labs 04/24/20 13:44 04/24/20 13:44 Abnormal Lab Results - Last 24 Hours (Table) 04/24/20 04/24/20 04/24/20 Range/Units 13:44 13:44 21:20 D-Dimer 0.74 H (<0.60) mg/L FEU Sodium 132 L (137-145) mmol/L Chloride 92 L (98-107) mmol/L Carbon Dioxide 32 H (22-30) mmol/L Creatinine 0.42 L (0.52-1.04) mg/dL Glucose 111 H (74-99) mg/dL POC Glucose (mg/dL) 179 H (75-99) mg/dL Magnesium 1.5 L (1.6-2.3) mg/dL 04/25/20 04/25/20 Range/Units 08:43 12:47 D-Dimer (<0.60) mg/L FEU Sodium (137-145) mmol/L Chloride (98-107) mmol/L Carbon Dioxide (22-30) mmol/L Creatinine (0.52-1.04) mg/dL Glucose (74-99) mg/dL POC Glucose (mg/dL) 160 H 151 H (75-99) mg/dL Magnesium (1.6-2.3) mg/dL Diabetes panel 04/24/20 Range/Units 13:44 Sodium 132 L (137-145) mmol/L Potassium 3.6 (3.5-5.1) mmol/L Chloride 92 L (98-107) mmol/L Carbon Dioxide 32 H (22-30) mmol/L BUN 11 (7-17) mg/dL Creatinine 0.42 L (0.52-1.04) mg/dL Glucose 111 H (74-99) mg/dL Calcium 9.8 (8.4-10.2) mg/dL AST 32 (14-36) U/L ALT 20 (4-34) U/L Alkaline Phosphatase 69 (38-126) U/L Total Protein 7.1 (6.3-8.2) g/dL Albumin 4.3 (3.5-5.0) g/dL Calcium panel 04/24/20 Range/Units 13:44 Calcium 9.8 (8.4-10.2) mg/dL Albumin 4.3 (3.5-5.0) g/dL Pituitary panel 04/24/20 Range/Units 13:44 Sodium 132 L (137-145) mmol/L Potassium 3.6 (3.5-5.1) mmol/L Chloride 92 L (98-107) mmol/L Carbon Dioxide 32 H (22-30) mmol/L BUN 11 (7-17) mg/dL Creatinine 0.42 L (0.52-1.04) mg/dL Glucose 111 H (74-99) mg/dL Calcium 9.8 (8.4-10.2) mg/dL Adrenal panel 04/24/20 Range/Units 13:44 Sodium 132 L (137-145) mmol/L Potassium 3.6 (3.5-5.1) mmol/L Chloride 92 L (98-107) mmol/L Carbon Dioxide 32 H (22-30) mmol/L BUN 11 (7-17) mg/dL Creatinine 0.42 L (0.52-1.04) mg/dL Glucose 111 H (74-99) mg/dL Calcium 9.8 (8.4-10.2) mg/dL Total Bilirubin 0.7 (0.2-1.3) mg/dL AST 32 (14-36) U/L ALT 20 (4-34) U/L Alkaline Phosphatase 69 (38-126) U/L Total Protein 7.1 (6.3-8.2) g/dL Albumin 4.3 (3.5-5.0) g/dL
[2020-04-25 12:53] LABS: Glucose,Whole Blood 151 mg/dL (75-99)
[2020-04-25] MEDS ORDERED: PROPOFOL 10 MG/ML 20 ML VIAL IV ONE (16:20)
[2020-04-25] MEDS ORDERED: LIDOCAINE 1% INJ 10MG/ML (20 ML MDV) ONE (16:20)
[2020-04-25] MEDS ORDERED: IV FLUID CONTINUATION 1,000 ML IV ONE (16:28)
--- NOTE | 2020-04-25 17:01 | P.PCN ---
Date of Procedure: 04/25/20 Procedure(s) Performed: Preoperative Dx: Epigastric pain, epigastric mass Postoperative Dx: Gastritis, small hiatal hernia Procedure: EGD with Bx Anesthesia: Sedation Endoscopist: Dr. Dias Specimens: Antrum Endoscopic Procedure: The patient was on the endoscopy table in the left decubitus position. The Olympus gastroscope was inserted into the oropharynx and passed under direct visualization to the region of the third portion of the duodenum. From that point the scope was slowly withdrawn inspecting all surfaces carefully. There were no neoplastic inflammatory or polypoid lesions throughout the duodenum. The ampulla appeared normal. There was no extrinsic compression visualized. The pylorus was widely patent. The stomach was carefully inspected. There was gastritis. There was no extrinsic compression appreciated with certainty. A biopsy of the antrum took place to rule out H. pylori. Retroflexion revealed a small sliding hiatal hernia. The esophagus was then carefully examined. There were no neoplastic inflammatory or polypoid lesions throughout the visualized esophagus. The patient was then taken to the recovery room in stable condition per anesthesia guidelines. Recommendations: Will discuss with oncology regarding possible percutaneous biopsy of this epigastric mass. Continue analgesics. Resume diet.
[2020-04-25 17:45] LABS: Glucose,Whole Blood 106 mg/dL (75-99)
--- NOTE | 2020-04-25 17:48 | P.CONS ---
History of Present Illness - Reason for Consult Consult date: 04/25/20 mid abdominal and back pain. Epigastric mass on imaging - History of Present Illness the patient is an 79-year-old white female with overall well-controlled medical problems. The patient even to the emergency room, with complains of left upper abdomen/left lower chest pain. On questioning it appears that the pain appears to be localized towards the left mid abdomen with radiation into the left upper chest. There is also some radiation around and through to the back. In retrospect the patient feels that he started having some discomfort initially in late 11/26. Initially it was mild and intermittent, but has slowly become more persistent and progressive. She could not identify any obvious aggravating factors. There was some mild relief with laming on the left side. She feels that her appetite is mildly diminished, and she has lost some weight but has been trying to . He denied any difficulty in swallowing or early satiety. She also denied any major changes in her bowel habits. On admission the patient had x-ray of the abdomen including KUB, which did not show any significant pathology. CTA of the chest was also negative other than some minor bilateral groundglass opacities. However CT of the abdomen and pelvis with contrast showed a 10 x 11 cm mass in the epigastrium causing anterior displacement of the transverse colon. Report mentioned the mass to be retroperitoneal and possibly arising from the pancreatic head. There was no evidence of any biliary obstruction. Consult was placed for further evaluation and recommendations. She denied any prior history of malignancy. She states that her last colonoscopy was about 7 years ago, and last EGD 9-10 years ago. Review of Systems Constitutional: Reports chronic pain, Reports poor appetite Eyes: denies blurred vision, denies pain Ears: deny: decreased hearing, ear discharge, earache, tinnitus Ears, nose, mouth and throat: Denies headache, Denies sore throat Cardiovascular: Reports chest pain, Reports decreased exercise tolerance, Denies shortness of breath Respiratory: Denies cough Gastrointestinal: Reports abdominal pain Genitourinary: Reports urinary frequency, Denies dysuria, Denies hematuria Menstruation: Reports postmenopausal Musculoskeletal: Denies myalgias Integumentary: Denies pruritus, Denies rash Neurological: Denies numbness, Denies weakness Psychiatric: Denies anxiety, Denies depression Endocrine: Reports fatigue Hematologic/Lymphatic: Reports as per HPI Past Medical History Past Medical History: Hyperlipidemia, Hypertension History of Any Multi-Drug Resistant Organisms: None Reported Past Surgical History: Cholecystectomy, Tubal Ligation Past Psychological History: No Psychological Hx Reported Smoking Status: Never smoker Past Alcohol Use History: None Reported Past Drug Use History: None Reported Medications and Allergies Home Medications Medication Instructions Recorded Confirmed Type Allopurinol [Zyloprim] 100 mg PO SUTUTH 04/24/20 04/24/20 History Aspirin EC [Ecotrin Low Dose] 81 mg PO DAILY 04/24/20 04/24/20 History Atenolol [Tenormin] 50 mg PO DAILY 04/24/20 04/24/20 History Atorvastatin [Lipitor] 80 mg PO HS 04/24/20 04/24/20 History Biotin 5 mg PO DAILY 04/24/20 04/24/20 History Cholecalciferol (Vitamin D3) 125 mcg PO DAILY 04/24/20 04/24/20 History [Vitamin D3 (5000 Iu)] Ferrous Sulfate [Slow Release Iron] 140 mg PO DAILY 04/24/20 04/24/20 History Multivitamins, Thera [Multivitamin 1 tab PO DAILY 04/24/20 04/24/20 History (formulary)] [place]-3 Fatty Acids/Fish Oil [Fish 1 cap PO DAILY 04/24/20 04/24/20 History Oil 1,000 mg Softgel] Raloxifene [Evista] 60 mg PO DAILY 04/24/20 04/24/20 History Triple Flex 1 tab PO DAILY 04/24/20 04/24/20 History Ubidecarenone [Co Q-10] 100 mg PO DAILY 04/24/20 04/24/20 History amLODIPine BESYLATE/BENAZEPRIL 1 cap PO DAILY 04/24/20 04/24/20 History [Lotrel 10-40 MG] hydroCHLOROthiazide [Hydrodiuril] 25 mg PO MOWESA 04/24/20 04/24/20 History metFORMIN HCL [Glucophage] 500 mg PO DAILY 04/24/20 04/24/20 History Allergies Allergy/AdvReac Type Severity Reaction Status Date / Time shellfish derived [Lobster] Allergy Nausea & Verified 04/24/20 15:46 Vomiting Physical Exam Vitals: Vital Signs Temp Pulse Resp BP Pulse Ox 04/25/20 16:17 97.8 F 61 18 134/60 95 04/25/20 12:59 97.8 F 61 18 134/60 95 04/25/20 11:01 99.1 F 82 16 152/52 97 04/25/20 08:39 99.1 F 80 16 149/63 100 04/24/20 22:11 98.7 F 76 18 142/65 98 04/24/20 20:21 98.7 F 80 18 153/74 98 04/24/20 19:03 98.8 F 75 18 142/70 97 Intake and Output 04/25/20 04/25/20 04/25/20 06:59 14:59 22:59 Intake Total 200 Balance 200 Intake: IV 200 - Constitutional General appearance: no acute distress - EENT Eyes: EOMI, PERRLA ENT: hearing grossly normal, normal oropharynx - Neck Neck: lymphadenopathy (questionable, indistinct 1-2 lymph nodes left medial supraclavicular) Thyroid: bilateral: normal size - Respiratory Respiratory: bilateral: CTA - Cardiovascular Rhythm: regular Heart sounds: normal: S1, S2 - Gastrointestinal General gastrointestinal: normal bowel sounds, soft Localized gastrointestinal: tender: epigastric periumbilical - Integumentary Integumentary: normal - Neurologic Neurologic: CNII-XII intact - Musculoskeletal Musculoskeletal: strength equal bilaterally - Psychiatric Psychiatric: A&O x's 3, appropriate affect Results CBC & Chem 7: 04/24/20 13:44 04/24/20 13:44 Labs: Abnormal Lab Results - Last 24 Hours (Table) 04/24/20 04/25/20 04/25/20 Range/Units 21:20 08:43 12:47 POC Glucose (mg/dL) 179 H 160 H 151 H (75-99) mg/dL Chest x-ray: report reviewed Abdominal x-ray: report reviewed CT scan - abdomen: report reviewed CT scan - chest: report reviewed CT scan - pelvis: report reviewed Assessment and Plan (1) Epigastric mass Narrative/Plan: the patient is presenting with progressive upper abdominal pain, located in the left epigastrium. CT scan large mass in this area. Report states that the mass is retroperitoneal, and could be arising from the pancreatic head. It was however not definite for the organ of origin She was advised that the clinical presentation and imaging is definitely suspicious for malignancy. However at this time the origin of malignancy includes number of differentials. The next step would be to obtain a a tissue diagnosis. Patient has been seen by General surgery. Consult was reviewed. An EGD is planned. - they were advised that if an obvious lesion is seen, then it can be biopsied. If no gross abnormality is seen, but there is obvious extrinsic compression, then it returns bowel wall biopsy is also possibility. However if this procedure is not successful in obtaining a tissue diagnosis, then other options would include CT-guided needle biopsy, versus EUS. Given the location of the mass, will need to discuss with radiology if an image guided procedure will be able to get a good core biopsy. I did contact IR and am reading a call back. - If EGD is negative, and the patient is not felt to be a good candidate for image guided biopsy, then we would need to schedule EUS as an outpatient - CT chest abdomen and pelvis does not show any other obvious target. On my exam that appeared to be possibly palpable supraclavicular notes but these were indistinct. We will discuss with surgery if that area could also be a possible target, if needed. - Further recommendations will depend on tissue diagnosis. Current Visit: Yes Status: Acute Code(s): R19.06 - EPIGASTRIC SWELLING, MASS OR LUMP SNOMED Code(s): 165737744 Plan: defer to the admitting service for management of other medical problems
[2020-04-25] MEDS: ATORVASTATIN 80 MG TAB PO SCH (19:21)
[2020-04-25 20:41] LABS: Glucose,Whole Blood 176 mg/dL (75-99)
[2020-04-25] MEDS: SODIUM CHLORIDE 0.9% 1,000 ML IV SCH (20:52)
--- NOTE | 2020-04-25 22:47 | P.HPIM ---
History of Present Illness H&P Date: 04/25/20 Chief Complaint: abdominal pain Eli Cruz is an 79 yo F with PMH of HTN, T2DM who presented to the ED with worsening abdominal pain. She states that over the past few weeks she has noticed early satiety and bloating as well as pain. She feels things recently worsened and she began to experience some chest discomfort as well so came to the ED. No sweating or vomiting. On presentation vitals stable, labs unremarkable, trop negative, CT abd/pelvis with large pancreatic head mass. Review of Systems All systems: negative Constitutional: Reports malaise, Denies chills, Denies fever Eyes: denies blurred vision, denies pain Ears, nose, mouth and throat: Denies headache, Denies sore throat Cardiovascular: Denies chest pain, Denies shortness of breath Respiratory: Denies cough Gastrointestinal: Reports abdominal pain, Reports nausea, Denies diarrhea, Denies vomiting Genitourinary: Denies dysuria, Denies hematuria Musculoskeletal: Denies myalgias Integumentary: Denies pruritus, Denies rash Neurological: Denies numbness, Denies weakness Psychiatric: Denies anxiety, Denies depression Endocrine: Denies fatigue, Denies weight change Past Medical History Past Medical History: Hyperlipidemia, Hypertension History of Any Multi-Drug Resistant Organisms: None Reported Past Surgical History: Cholecystectomy, Tubal Ligation Past Anesthesia/Blood Transfusion Reactions: No Reported Reaction Past Psychological History: No Psychological Hx Reported Smoking Status: Never smoker Past Alcohol Use History: None Reported Past Drug Use History: None Reported Medications and Allergies Home Medications Medication Instructions Recorded Confirmed Type Allopurinol [Zyloprim] 100 mg PO SUTUTH 04/24/20 04/24/20 History Aspirin EC [Ecotrin Low Dose] 81 mg PO DAILY 04/24/20 04/24/20 History Atenolol [Tenormin] 50 mg PO DAILY 04/24/20 04/24/20 History Atorvastatin [Lipitor] 80 mg PO HS 04/24/20 04/24/20 History Biotin 5 mg PO DAILY 04/24/20 04/24/20 History Cholecalciferol (Vitamin D3) 125 mcg PO DAILY 04/24/20 04/24/20 History [Vitamin D3 (5000 Iu)] Ferrous Sulfate [Slow Release Iron] 140 mg PO DAILY 04/24/20 04/24/20 History Multivitamins, Thera [Multivitamin 1 tab PO DAILY 04/24/20 04/24/20 History (formulary)] [place]-3 Fatty Acids/Fish Oil [Fish 1 cap PO DAILY 04/24/20 04/24/20 History Oil 1,000 mg Softgel] Raloxifene [Evista] 60 mg PO DAILY 04/24/20 04/24/20 History Triple Flex 1 tab PO DAILY 04/24/20 04/24/20 History Ubidecarenone [Co Q-10] 100 mg PO DAILY 04/24/20 04/24/20 History amLODIPine BESYLATE/BENAZEPRIL 1 cap PO DAILY 04/24/20 04/24/20 History [Lotrel 10-40 MG] hydroCHLOROthiazide [Hydrodiuril] 25 mg PO MOWESA 04/24/20 04/24/20 History metFORMIN HCL [Glucophage] 500 mg PO DAILY 04/24/20 04/24/20 History Allergies Allergy/AdvReac Type Severity Reaction Status Date / Time shellfish derived [Lobster] Allergy Nausea & Verified 04/24/20 15:46 Vomiting Physical Exam Vitals: Vital Signs Temp Pulse Pulse Resp BP BP Pulse Ox 04/25/20 21:06 98.0 F 64 16 133/68 97 04/25/20 19:20 18 04/25/20 16:17 97.8 F 61 18 134/60 95 04/25/20 12:59 97.8 F 61 18 134/60 95 04/25/20 11:01 99.1 F 82 16 152/52 97 04/25/20 08:39 99.1 F 80 16 149/63 100 Intake and Output 04/25/20 04/25/20 04/25/20 06:59 14:59 22:59 Intake Total 200 Balance 200 Intake: IV 200 Other: # Voids 1 Weight 90.718 kg General: well nourished, well developed, NAD. Vitals reviewed Eyes: PERRL, EOMI, conjunctiva normal HENT: normocephalic, mucus membranes moist Neck: supple, no JVD Lungs: normal respiratory effort, no wheezes or rales CV: Regular rate and rhythm, no murmur. Peripheral pulses 2+ Abdomen: soft, nondistended, no organomegaly. generalized tenderness Lymph: no cervical or axillary LAD Skin: warm and dry. Neuro: A&Ox3, normal mood and affect Results CBC & Chem 7: 04/24/20 13:44 04/24/20 13:44 Labs: Abnormal Lab Results - Last 24 Hours (Table) 04/25/20 04/25/20 04/25/20 Range/Units 08:43 12:47 17:43 POC Glucose (mg/dL) 160 H 151 H 106 H (75-99) mg/dL 04/25/20 Range/Units 20:40 POC Glucose (mg/dL) 176 H (75-99) mg/dL Thrombosis Risk Factor Assmnt - Choose All That Apply Any of the Below Risk Factors Present?: Yes Each Factor Represents 1 point: Obesity (BMI >25) Other Risk Factors: Yes Each Risk Factor Represents 3 Points: Age 75 years or older Thrombosis Risk Factor Assessment Total Risk Factor Score: 4 Thrombosis Risk Factor Assessment Level: Moderate Risk Assessment and Plan (1) Hypertension Current Visit: Yes Status: Acute Code(s): I10 - ESSENTIAL (PRIMARY) HYPERTENSION SNOMED Code(s): 36180190 (2) Abdominal pain Current Visit: Yes Status: Acute Code(s): R10.9 - UNSPECIFIED ABDOMINAL PAIN SNOMED Code(s): 34450954 (3) Epigastric mass Current Visit: Yes Status: Acute Code(s): R19.06 - EPIGASTRIC SWELLING, MASS OR LUMP SNOMED Code(s): 579743858 (4) Pancreatic mass Current Visit: Yes Status: Acute Code(s): K86.89 - OTHER SPECIFIED DISEASES OF PANCREAS SNOMED Code(s): 477386158 Plan: 1. Pancreatic head mass. Consult to Oncology and Surgery. IV fluids, pain control 2. HTN. Continue lisinopril 3. T2DM. Accucheck, sliding scale. Hold metformin
[2020-04-26] MEDS: HYDROmorphone 0.5 MG/0.5 ML SYRINGE IVP PRN ×4 (03:31→19:03)
[2020-04-26 07:40] LABS: Glucose,Whole Blood 124 mg/dL (75-99)
[2020-04-26] MEDS: INSULIN ASPART (NovoLOG) 100 UNIT/ML VIAL SQ SCH ×4 (08:19→20:33)
[2020-04-26] MEDS: PANTOPRAZOLE 40 MG/10 ML VIAL IV SCH (08:22)
[2020-04-26] MEDS: amLODIPine 10 MG TAB PO SCH (08:22)
[2020-04-26] MEDS: lisinopriL 20 MG TAB PO SCH (08:22)
[2020-04-26] MEDS ORDERED: hydroCHLOROthiazide 25 MG TAB PO SCH (09:00)
--- NOTE | 2020-04-26 11:36 | P.PN ---
Subjective Progress Note Date: 04/26/20 Principal diagnosis: Pancreatic mass Patient still having pain in the upper abdomen and back. She is hungry. Tolerating liquids. Objective - Vital Signs Vital signs: Vital Signs Temp 97.6 F 04/26/20 04:57 Pulse 66 04/26/20 04:57 Resp 16 04/26/20 04:57 BP 136/69 04/26/20 04:57 Pulse Ox 97 04/26/20 04:57 Intake & Output 04/25/20 04/26/20 04/26/20 18:59 06:59 18:59 Intake Total 200 830 Balance 200 830 Weight 90.718 kg Intake: IV 200 Oral 830 Other: # Voids 1 2 - Exam Abdomen: Soft, nondistended, epigastric fullness and mild tenderness - Labs CBC & Chem 7: 04/24/20 13:44 04/24/20 13:44 Labs: Abnormal Lab Results - Last 24 Hours (Table) 04/25/20 04/25/20 04/25/20 Range/Units 12:47 17:43 20:40 POC Glucose (mg/dL) 151 H 106 H 176 H (75-99) mg/dL 04/26/20 Range/Units 07:38 POC Glucose (mg/dL) 124 H (75-99) mg/dL Assessment and Plan (1) Pancreatic mass Narrative/Plan: Will increase diet. We'll consult interventional radiology for percutaneous biopsy. Current Visit: Yes Status: Acute Code(s): K86.89 - OTHER SPECIFIED DISEASES OF PANCREAS SNOMED Code(s): 744276024
[2020-04-26 12:21] LABS: Glucose,Whole Blood 118 mg/dL (75-99)
[2020-04-26] MEDS: atenoloL 50 MG TAB PO SCH (12:57)
--- NOTE | 2020-04-26 13:30 | P.PN ---
Subjective Patient is admitted for epigastric abdominal and found to have recovered her renal mass underwent unsuccessful EGD and biopsy of the mass and patient will undergo CT-guided biopsy on Tuesday and pressure was consulted patient pain is better controlled on present pain regimen Constitutional: Denied any fatigue denied any fever. Cardio vascular: denied any chest pain, palpitations Gastrointestinal denied any nausea vomiting Pulmonary: Denied any shortness of breath cough Neurologic denied any new focal deficits All inpatient medications were reviewed and appropriate changes in these medications as dictated in the interval history and assessment and plan. Objective - Vital Signs Vital signs: Vital Signs Temp 97.6 F 04/26/20 04:57 Pulse 66 04/26/20 08:00 Resp 16 04/26/20 08:00 BP 136/69 04/26/20 04:57 Pulse Ox 97 04/26/20 04:57 Intake & Output 04/25/20 04/26/20 04/26/20 18:59 06:59 18:59 Intake Total 200 830 Balance 200 830 Weight 90.718 kg Intake: IV 200 Oral 830 Other: # Voids 1 2 - Exam PHYSICAL EXAMINATION: GENERAL: The patient is alert and oriented x3, not in any acute distress. Well developed, well nourished. HEENT: Pupils are round and equally reacting to light. EOMI. No scleral icterus. No conjunctival pallor. Normocephalic, atraumatic. No pharyngeal erythema. No thyromegaly. CARDIOVASCULAR: S1 and S2 present. No murmurs, rubs, or gallops. PULMONARY: Chest is clear to auscultation, no wheezing or crackles. ABDOMEN: Soft, nontender, nondistended, normoactive bowel sounds. No palpable organomegaly. MUSCULOSKELETAL: No joint swelling or deformity. EXTREMITIES: No cyanosis, clubbing, or pedal edema. NEUROLOGICAL: Gross neurological examination did not reveal any focal deficits. SKIN: No rashes. - Labs CBC & Chem 7: 04/24/20 13:44 04/24/20 13:44 Labs: Abnormal Lab Results - Last 24 Hours (Table) 04/25/20 04/25/20 04/26/20 Range/Units 17:43 20:40 07:38 POC Glucose (mg/dL) 106 H 176 H 124 H (75-99) mg/dL 04/26/20 Range/Units 12:18 POC Glucose (mg/dL) 118 H (75-99) mg/dL Assessment and Plan Plan: -Epigastric abdominal pain continue with her gastritis treatment and probably related to the retroperitoneal mass continue with present pain medications. Possible pancreatic mass -Hyponatremia secondary to diuretics which will be discontinued -Hypertension -Hyperlipidemia DVT prophylaxis with Lovenox
[2020-04-26] MEDS: MAGNESIUM SULFATE-D5W PMX 1 GM in DEXTROSE/WATER 1 100ML.BAG IVPB SCH ×2 (14:31→16:03)
[2020-04-26 18:08] LABS: Glucose,Whole Blood 159 mg/dL (75-99)
--- NOTE | 2020-04-26 19:39 | P.PN ---
Subjective Progress Note Date: 04/26/20 Patient's pain is currently well controlled. She reports a reasonable appetite. No significant nausea or vomiting, or change in bowel habits. Objective - Vital Signs Vital signs: Vital Signs Temp 97.9 F 04/26/20 13:33 Pulse 73 04/26/20 13:33 Resp 14 04/26/20 13:33 BP 160/69 04/26/20 13:33 Pulse Ox 99 04/26/20 13:33 Intake & Output 04/26/20 04/26/20 04/27/20 06:59 18:59 06:59 Intake Total 830 240 Balance 830 240 Intake: Oral 830 240 Other: # Voids 2 3 - Constitutional General appearance: Present: no acute distress - EENT Eyes: Present: EOMI ENT: Present: hearing grossly normal, normal oropharynx - Respiratory Respiratory: bilateral: CTA - Cardiovascular Rhythm: regular Heart sounds: normal: S1, S2 - Gastrointestinal General gastrointestinal: Present: normal bowel sounds, soft - Integumentary Integumentary: Present: normal - Neurologic Neurologic: Present: CNII-XII intact - Musculoskeletal Musculoskeletal: Present: strength equal bilaterally - Psychiatric Psychiatric: Present: A&O x's 3 - Labs CBC & Chem 7: 04/24/20 13:44 04/24/20 13:44 Labs: Abnormal Lab Results - Last 24 Hours (Table) 04/25/20 04/26/20 04/26/20 Range/Units 20:40 07:38 12:18 POC Glucose (mg/dL) 176 H 124 H 118 H (75-99) mg/dL 04/26/20 Range/Units 18:07 POC Glucose (mg/dL) 159 H (75-99) mg/dL Assessment and Plan (1) Epigastric mass Narrative/Plan: Patient's symptom of abdominal pain improved today with medication. EGD was negative for any target amenable to biopsy. Case was discussed in detail with the patient. She was advised that further surgical evaluation, the mass should be amenable to IR guided biopsy, as a portion of it appeared to be palpable on his exam. In addition on his review of the CT scans, there appeared to be a window for needle placement. - Consult to IR will be placed for image guided biopsy. Hold aspirin Current Visit: Yes Status: Acute Code(s): R19.06 - EPIGASTRIC SWELLING, MASS OR LUMP SNOMED Code(s): 912480341
[2020-04-26 20:26] LABS: Glucose,Whole Blood 132 mg/dL (75-99)
[2020-04-26] MEDS: SODIUM CHLORIDE 0.9% 1,000 ML IV SCH (20:32)
[2020-04-26] MEDS: ATORVASTATIN 80 MG TAB PO SCH (20:33)
[2020-04-27] MEDS: HYDROmorphone 0.5 MG/0.5 ML SYRINGE IVP PRN ×6 (00:03→23:40)
[2020-04-27 07:53] LABS: Glucose,Whole Blood 133 mg/dL (75-99)
[2020-04-27] MEDS ORDERED: allopurinoL 100 MG TAB PO SCH (09:00)
[2020-04-27] MEDS: amLODIPine 10 MG TAB PO SCH (09:04)
[2020-04-27] MEDS: PANTOPRAZOLE 40 MG/10 ML VIAL IV SCH (09:05)
[2020-04-27] MEDS: lisinopriL 20 MG TAB PO SCH (09:05)
[2020-04-27] MEDS: atenoloL 50 MG TAB PO SCH (09:05)
[2020-04-27] MEDS: INSULIN ASPART (NovoLOG) 100 UNIT/ML VIAL SQ SCH ×4 (09:06→21:42)
--- NOTE | 2020-04-27 11:38 | P.PN ---
Subjective Progress Note Date: 04/27/20 Principal diagnosis: Pancreatic mass Patient has no complaints. Pain is well-controlled. Tolerating diet. Objective - Vital Signs Vital signs: Vital Signs Temp 97.8 F 04/27/20 04:48 Pulse 76 04/27/20 08:00 Resp 16 04/27/20 08:00 BP 121/63 04/27/20 04:48 Pulse Ox 93 L 04/27/20 04:48 Intake & Output 04/26/20 04/27/20 04/27/20 18:59 06:59 18:59 Intake Total 240 950 Balance 240 950 Intake: Oral 240 950 Other: # Voids 3 3 - Exam No palpable supraclavicular adenopathy today. Abdomen soft nondistended, mild epigastric tenderness with fullness - Labs CBC & Chem 7: 04/24/20 13:44 04/24/20 13:44 Labs: Abnormal Lab Results - Last 24 Hours (Table) 04/26/20 04/26/20 04/26/20 Range/Units 12:18 18:07 20:25 POC Glucose (mg/dL) 118 H 159 H 132 H (75-99) mg/dL 04/27/20 Range/Units 07:52 POC Glucose (mg/dL) 133 H (75-99) mg/dL Assessment and Plan (1) Pancreatic mass Narrative/Plan: Nothing by mouth after midnight for percutaneous biopsy epigastric/pancreatic mass. We'll follow. Current Visit: Yes Status: Acute Code(s): K86.89 - OTHER SPECIFIED DISEASES OF PANCREAS SNOMED Code(s): 964096303
[2020-04-27 13:17] LABS: Glucose,Whole Blood 126 mg/dL (75-99)
[2020-04-27] MEDS ORDERED: KETOROLAC 15 MG/ML 1 ML VIAL IVP PRN (13:51)
--- NOTE | 2020-04-27 15:00 | P.PN ---
Subjective Patient is admitted for epigastric abdominal and found to have recovered her renal mass underwent unsuccessful EGD and biopsy of the mass and patient will undergo CT-guided biopsy on Tuesday and pressure was consulted patient pain is better controlled on present pain regimen 04/27/[address]-guided biopsy of the pancreatic/retroperitoneal mass tomorrow pain is well-controlled patient will be started on os her Dilantin fluid medications along with Pepcid for pain Constitutional: Denied any fatigue denied any fever. Cardio vascular: denied any chest pain, palpitations Gastrointestinal denied any nausea vomiting Pulmonary: Denied any shortness of breath cough Neurologic denied any new focal deficits All inpatient medications were reviewed and appropriate changes in these medications as dictated in the interval history and assessment and plan. Objective - Vital Signs Vital signs: Vital Signs Temp 98.3 F 04/27/20 13:00 Pulse 64 04/27/20 13:00 Resp 18 04/27/20 13:00 BP 126/75 04/27/20 13:00 Pulse Ox 97 04/27/20 13:00 Intake & Output 04/26/20 04/27/20 04/27/20 18:59 06:59 18:59 Intake Total 240 950 Balance 240 950 Intake: Oral 240 950 Other: # Voids 3 3 3 - Exam PHYSICAL EXAMINATION: GENERAL: The patient is alert and oriented x3, not in any acute distress. Well developed, well nourished. HEENT: Pupils are round and equally reacting to light. EOMI. No scleral icterus. No conjunctival pallor. Normocephalic, atraumatic. No pharyngeal erythema. No thyromegaly. CARDIOVASCULAR: S1 and S2 present. No murmurs, rubs, or gallops. PULMONARY: Chest is clear to auscultation, no wheezing or crackles. ABDOMEN: Soft, nontender, nondistended, normoactive bowel sounds. No palpable organomegaly. MUSCULOSKELETAL: No joint swelling or deformity. EXTREMITIES: No cyanosis, clubbing, or pedal edema. NEUROLOGICAL: Gross neurological examination did not reveal any focal deficits. SKIN: No rashes. - Labs CBC & Chem 7: 04/24/20 13:44 04/24/20 13:44 Labs: Abnormal Lab Results - Last 24 Hours (Table) 04/26/20 04/26/20 04/27/20 Range/Units 18:07 20:25 07:52 POC Glucose (mg/dL) 159 H 132 H 133 H (75-99) mg/dL 04/27/20 Range/Units 13:15 POC Glucose (mg/dL) 126 H (75-99) mg/dL Assessment and Plan Plan: -Epigastric abdominal pain continue with her gastritis treatment and probably related to the retroperitoneal mass continue with present pain medications. Possible pancreatic mass -Hyponatremia secondary to diuretics which will be discontinued. Repeat basic metabolic profile tomorrow -Hypertension -Hyperlipidemia DVT prophylaxis with Lovenox
[2020-04-27 18:00] LABS: Glucose,Whole Blood 145 mg/dL (75-99)
[2020-04-27 20:53] LABS: Glucose,Whole Blood 155 mg/dL (75-99)
[2020-04-27] MEDS: FAMOTIDINE 20 MG TAB PO SCH (21:42)
[2020-04-27] MEDS: ATORVASTATIN 80 MG TAB PO SCH (21:42)
[2020-04-28] MEDS: SODIUM CHLORIDE 0.9% 1,000 ML IV SCH (00:24)
[2020-04-28 05:32] VITALS: BP 152/75; PULSE 75; RESP 16; TEMP 97.3
[2020-04-28] MEDS: HYDROmorphone 0.5 MG/0.5 ML SYRINGE IVP PRN (06:00)
[2020-04-28 07:26] LABS: Glucose,Whole Blood 147 mg/dL (75-99)
[2020-04-28] MEDS: atenoloL 50 MG TAB PO SCH (08:17)
[2020-04-28] MEDS: INSULIN ASPART (NovoLOG) 100 UNIT/ML VIAL SQ SCH (08:17)
[2020-04-28] MEDS: FAMOTIDINE 20 MG TAB PO SCH (08:17)
[2020-04-28] MEDS: PANTOPRAZOLE 40 MG/10 ML VIAL IV SCH (08:17)
[2020-04-28] MEDS: amLODIPine 10 MG TAB PO SCH (08:17)
[2020-04-28] MEDS: lisinopriL 20 MG TAB PO SCH (08:17)
[2020-04-28 09:17] LABS: HCT 33.8 % (37.2-46.3); HGB 11.2 g/dL (12.0-15.0); MCH 28.9 pg (27.0-32.0); MCHC 33.1 g/dL (32.0-37.0); MCV 87.3 fL (80.0-97.0); Mean Platelet Volume 8.5 fL (9.5-12.2); Platelet Count 295 X 10*3/uL (140-440); RBC 3.87 X 10*6/uL (4.10-5.20); RDW 14.6 % (11.5-14.5); WBC 8.45 X 10*3/uL (4.50-10.00)
[2020-04-28 09:20] LABS: African American GFR (CKD) 105.2 (60.0-200.0); Calcium 9.2 mg/dL (8.7-10.3); Non-African American GFR(CKD) 90.8 (60.0-200.0); Potassium 3.8 mmol/L (3.5-5.5)
--- NOTE | 2020-04-28 10:57 | P.PN ---
<AngelicaManjula - Last Filed: 04/28/20 10:52> Subjective Progress Note Date: 04/28/20 CHIEF COMPLAINT: Pancreatic mass HISTORY OF PRESENT ILLNESS: Patient is being followed in regards to epigastric/pancreatic mass. She reports that her pain is controlled. She was currently nothing by mouth for a biopsy of the pancreatic mass by interventional radiology today. Unfortunately, her aspirin has only been on hold for 4 days. IR recommends a total of 7 days to hold the aspirin. Therefore biopsy was canceled for today. Patient denies any nausea or vomiting. She is afebrile. WBC 8.45 Hgb 11.2 platelets 295 creatinine 0.5 PHYSICAL EXAM: VITAL SIGNS: Reviewed. GENERAL: Well-developed in no acute distress. HEENT: No sclera icterus. Extraocular movements grossly intact. Moist buccal mucosa. Head is atraumatic, normocephalic. ABDOMEN: Soft. Nondistended. Mild epigastric tenderness with fullness noted NEUROLOGIC: Alert and oriented. Cranial nerves II through XII grossly intact. ASSESSMENT: 1. Epigastric/Pancreatic mass PLAN: -Patient can be discharge from surgical standpoint -Start patient on regular diet -Patient to follow-up outpatient with interventional radiology for percutaneous biopsy of the epigastric/pancreatic mass -Continue to hold aspirin in anticipation of biopsy Physician [employer] note has been reviewed by physician. Signing provider agrees with the documented findings, assessment, and plan of care. Objective - Vital Signs Vital signs: Vital Signs Temp 97.3 F L 04/28/20 05:00 Pulse 75 04/28/20 05:00 Resp 16 04/28/20 05:00 BP 152/75 04/28/20 05:00 Pulse Ox 95 04/28/20 05:00 Intake & Output 04/27/20 04/28/20 04/28/20 18:59 06:59 18:59 Intake Total 240 0 Balance 240 0 Intake: Oral 240 0 Other: Voiding Method Toilet # Voids 3 2 1 - Labs CBC & Chem 7: 04/28/20 05:01 04/28/20 05:01 Labs: Abnormal Lab Results - Last 24 Hours (Table) 04/27/20 04/27/20 04/27/20 Range/Units 13:15 17:54 20:52 RBC (4.10-5.20) X 10*6/uL Hgb (12.0-15.0) g/dL Hct (37.2-46.3) % RDW (11.5-14.5) % MPV (9.5-12.2) fL Carbon Dioxide (21.6-31.8) mmol/L Creatinine (0.6-1.5) mg/dL BUN/Creatinine Ratio (12.00-20.00) Ratio Glucose (70-110) mg/dL POC Glucose (mg/dL) 126 H 145 H 155 H (75-99) mg/dL 04/28/20 04/28/20 04/28/20 Range/Units 05:01 05:01 07:17 RBC 3.87 L (4.10-5.20) X 10*6/uL Hgb 11.2 L (12.0-15.0) g/dL Hct 33.8 L (37.2-46.3) % RDW 14.6 H (11.5-14.5) % MPV 8.5 L (9.5-12.2) fL Carbon Dioxide 33.0 H (21.6-31.8) mmol/L Creatinine 0.5 L (0.6-1.5) mg/dL BUN/Creatinine Ratio 22.00 H (12.00-20.00) Ratio Glucose 132 H (70-110) mg/dL POC Glucose (mg/dL) 147 H (75-99) mg/dL <Stew Dias - Last Filed: 04/28/20 14:49> Subjective As above. Spoke with radiology. They would recommend waiting until later this week to perform procedure. Patient will be discharged. Follow-up with oncology after biopsy. Objective - Vital Signs Vital signs: Vital Signs Temp 97.3 F L 04/28/20 05:00 Pulse 75 04/28/20 05:00 Resp 16 04/28/20 05:00 BP 152/75 04/28/20 05:00 Pulse Ox 95 04/28/20 05:00 Intake & Output 04/27/20 04/28/20 04/28/20 18:59 06:59 18:59 Intake Total 240 0 Balance 240 0 Intake: Oral 240 0 Other: Voiding Method Toilet # Voids 3 2 1 - Labs CBC & Chem 7: 04/28/20 05:01 04/28/20 05:01 Labs: Abnormal Lab Results - Last 24 Hours (Table) 04/27/20 04/27/20 04/28/20 Range/Units 17:54 20:52 05:01 RBC 3.87 L (4.10-5.20) X 10*6/uL Hgb 11.2 L (12.0-15.0) g/dL Hct 33.8 L (37.2-46.3) % RDW 14.6 H (11.5-14.5) % MPV 8.5 L (9.5-12.2) fL Carbon Dioxide (21.6-31.8) mmol/L Creatinine (0.6-1.5) mg/dL BUN/Creatinine Ratio (12.00-20.00) Ratio Glucose (70-110) mg/dL POC Glucose (mg/dL) 145 H 155 H (75-99) mg/dL 04/28/20 04/28/20 Range/Units 05:01 07:17 RBC (4.10-5.20) X 10*6/uL Hgb (12.0-15.0) g/dL Hct (37.2-46.3) % RDW (11.5-14.5) % MPV (9.5-12.2) fL Carbon Dioxide 33.0 H (21.6-31.8) mmol/L Creatinine 0.5 L (0.6-1.5) mg/dL BUN/Creatinine Ratio 22.00 H (12.00-20.00) Ratio Glucose 132 H (70-110) mg/dL POC Glucose (mg/dL) 147 H (75-99) mg/dL Assessment and Plan (1) Pancreatic mass Current Visit: Yes Status: Acute Code(s): K86.89 - OTHER SPECIFIED DISEASES OF PANCREAS SNOMED Code(s): 859531500
[2020-04-28] MEDS ORDERED: HYDROcodone/APAP 7.5-325MG 1 EACH TAB PO ONE (11:30)
--- NOTE | 2020-04-28 12:27 | P.DS ---
Providers Date of admission: 04/24/20 20:10 Expected date of discharge: 04/28/20 Attending physician: Raymond Coleman MD Consults: 04/24/20 20:11 Consult Physician Routine Consulting Provider: Deepak Ag Consult Reason/Comments: Pancreatic mass Do you want consulting provider notified?: Yes, Notify in am Consult Physician Routine Consulting Provider: Stew Dias Consult Reason/Comments: Pancreatic mass, abdominal pain Do you want consulting provider notified?: Yes, Notify in am Primary care physician: Ely Aguero [facility] Course: Final Diagnoses: -Epigastric abdominal pain continue with her gastritis treatment and probably related to the retroperitoneal mass, Possible pancreatic mass, biopsy pending -Hyponatremia, resolved -Hypertension -Hyperlipidemia Hospital course: Patient was admitted with epigastric/pancreatic mass. Initially scheduled for biopsy of pancreatic mass with interventional radiology. Biopsy to be rescheduled as patient had consumed an aspirin on and interventional radiology recommending patient to be off aspirin for a total of 7 days prior to procedure. Pain controlled. Denies any nausea vomiting or diarrhea. Denies chest pain, palpitations or shortness of breath. Afebrile, normal WBC. Hemoglobin 11.2, platelets 295, creatinine 0.5. Cleared by surgery for discharge. Patient will be discharged home today in stable condition with guarded prognosis, pending outpatient visit scheduled prior to discharge with interventional radiology for percutaneous biopsy of the epigastric/pancreatic mass. Patient has been instructed to continue holding aspirin. Patient will be sent home on [place] 7.5 for pain management. Patient will follow-up with Dr. Raymond Coleman for pain management. The impression and plan of care has been dictated as directed. : I performed a history and examination of this patient, discussed the same with the dictator. I agree with the dictator's note ,documented as a scribe. Any additional findings or plans will be noted. Patient Condition at Discharge: Stable Plan - Discharge Summary Discharge Rx Participant: Yes New Discharge Prescriptions: New HYDROcodone/APAP 7.5-325MG [[place] 7.5-325] 1 tab PO Q4H PRN 3 Days #18 tab PRN Reason: Pain Continue Wells-3 Fatty Acids/Fish Oil [Fish Oil 1,000 mg Softgel] 1 cap PO DAILY Cholecalciferol (Vitamin D3) [Vitamin D3 (5000 Iu)] 125 mcg PO DAILY Biotin 5 mg PO DAILY metFORMIN HCL [Glucophage] 500 mg PO DAILY Ubidecarenone [Co Q-10] 100 mg PO DAILY Raloxifene [Evista] 60 mg PO DAILY Multivitamins, Thera [Multivitamin (formulary)] 1 tab PO DAILY Ferrous Sulfate [Slow Release Iron] 140 mg PO DAILY hydroCHLOROthiazide [Hydrodiuril] 25 mg PO MOWESA Allopurinol [Zyloprim] 100 mg PO SUTUTH Atorvastatin [Lipitor] 80 mg PO HS amLODIPine BESYLATE/BENAZEPRIL [Lotrel 10-40 MG] 1 cap PO DAILY Atenolol [Tenormin] 50 mg PO DAILY Triple Flex 1 tab PO DAILY Discontinued Aspirin EC [Ecotrin Low Dose] 81 mg PO DAILY Discharge Medication List Allopurinol [Zyloprim] 100 mg PO SUTUTH 04/24/20 [History] Atenolol [Tenormin] 50 mg PO DAILY 04/24/20 [History] Atorvastatin [Lipitor] 80 mg PO HS 04/24/20 [History] Biotin 5 mg PO DAILY 04/24/20 [History] Cholecalciferol (Vitamin D3) [Vitamin D3 (5000 Iu)] 125 mcg PO DAILY 04/24/20 [History] Ferrous Sulfate [Slow Release Iron] 140 mg PO DAILY 04/24/20 [History] Multivitamins, Thera [Multivitamin (formulary)] 1 tab PO DAILY 04/24/20 [History] Wells-3 Fatty Acids/Fish Oil [Fish Oil 1,000 mg Softgel] 1 cap PO DAILY 04/24/20 [History] Raloxifene [Evista] 60 mg PO DAILY 04/24/20 [History] Triple Flex 1 tab PO DAILY 04/24/20 [History] Ubidecarenone [Co Q-10] 100 mg PO DAILY 04/24/20 [History] amLODIPine BESYLATE/BENAZEPRIL [Lotrel 10-40 MG] 1 cap PO DAILY 04/24/20 [H istory] hydroCHLOROthiazide [Hydrodiuril] 25 mg PO MOWESA 04/24/20 [History] metFORMIN HCL [Glucophage] 500 mg PO DAILY 04/24/20 [History] HYDROcodone/APAP 7.5-325MG [[place] 7.5-325] 1 tab PO Q4H PRN 3 Days #18 tab 04/28/20 [Rx] Follow up Appointment(s)/Referral(s): Stevan Chopra MD [STAFF PHYSICIAN] - 1 Week (new patient .office to get records together and then they will call her to schedule appt.) Ely Aguero DO [Primary Care Provider] - 05/05/20 4:45 pm Patient Instructions/Handouts: Hydrocodone/Acetaminophen (By mouth) Activity/Diet/Wound Care/Special Instructions: Hold ASA until after procedure. BX to be arranged as per surgery prior to dc.
== END 2020-04-28 15:00 | disposition home or self-care (01) | DRG 439 ==
LOC: EC 13:27 → 5NMEDONC 20:10
PROVIDERS: ADMIT Family Medicine; ATTEND Family Medicine
PROC: 0DB78ZX Excision of Stomach, Pylorus, Via Natural or Artificial Opening Endoscopic, Diagnostic (ICD-10-PCS; principal; 2020-04-25 09:30)
DX: K86.9 Disease of pancreas, unspecified (principal); E87.1 Hypo-osmolality and hyponatremia; R07.89 Other chest pain; R07.9 Chest pain, unspecified; Z79.82 Long term (current) use of aspirin; Z79.84 Long term (current) use of oral hypoglycemic drugs; E78.5 Hyperlipidemia, unspecified; I10 Essential (primary) hypertension; Z90.49 Acquired absence of other specified parts of digestive tract; K29.70 Gastritis, unspecified, without bleeding; K44.9 Diaphragmatic hernia without obstruction or gangrene; E11.9 Type 2 diabetes mellitus without complications; Z87.891 Personal history of nicotine dependence; N28.89 Other specified disorders of kidney and ureter; Z20.822 Contact with and (suspected) exposure to COVID-19
CPT/HCPCS: 36415; 43239; 71046; 71275; 74018; 74177; 80048; 80053; 82550; 83690; 83735; 83880; 84484; 85025; 85027; 85379; 85610; 85730; 87635; 88305; 93005; 96374; 96375; 99285

== ENCOUNTER 2020-05-05 09:09 | Day surgery (SDC) | payer MEDICARE ==
[2020-05-05 10:04] LABS: Mean Platelet Volume 6.4; Platelet Count 357 k/uL (150-450)
[2020-05-05 10:25] VITALS: RESP 16; TEMP 98.2
[2020-05-05] MEDS ORDERED: HYDROmorphone 0.5 MG/0.5 ML SYRINGE IVP STA (10:49)
--- NOTE | 2020-05-05 12:08 | US ---
EXAMINATION TYPE: US biopsy abd/retroperi mass DATE OF EXAM: 05/05/2020 HISTORY: Pancreatic mass., Correlation CT scan 04/24/2020 FINDINGS: Maximal barrier technique was utilized. Hand hygiene achieved with soap and water and alco hol-based hand rub. The skin overlying a suitable path to the patient's mass in the mid anterior abdo men was localized with ultrasound and the overlying skin prepped and draped. Ultrasound was utilized with sterile technique. Lidocaine was used for local anesthesia. A skin phillip was made with a scalp el. An 18-gauge needle was advanced under direct ultrasound guidance and core specimen obtained of t he mass. Single pass made. Specimen submitted in formalin to Pathology. Following the procedure, he mostasis achieved and the patient is discharged in stable condition without complication. IMPRESSION:STATUS POST ULTRASOUND GUIDED CORE BIOPSY OF pancreatic MASS, PATHOLOGY IS PENDING. THIS PROCEDURE IS PERFORMED BY THE UNDERSIGNED.
[2020-05-05 15:39] VITALS: BP 134/61; PULSE 72
== END 2020-05-05 14:59 | disposition home or self-care (01) ==
LOC: RADPROMAIN 09:09
PROVIDERS: ATTEND Surgery
DX: C76.2 Malignant neoplasm of abdomen (principal)
CPT/HCPCS: 88305; 82947; 85049; 85610; 96374; 36415; 76942; 48102; J1170; 49180

== ENCOUNTER → 2020-05-16 | Outpatient (CLI) | payer MEDICARE ==
--- NOTE | 2020-05-19 06:44 | PE ---
EXAMINATION TYPE: PET CT fusion skull to thigh DATE OF EXAM: 05/16/2020 COMPARISON: CTA chest April 24, 2020. CT abdomen and pelvis same date. HISTORY: Newly diagnosed adenocarcinoma of pancreatic origin on mesenteric mass biopsy May 05, 2020 . TECHNIQUE: Following the intravenous administration of 10.32 mCi of F-18 FDG, whole body images are performed from the skull base to the midthigh. Images are reviewed on the computer in the coronal, a xial, and sagittal planes. Reconstructed rotating images are created on independent workstation and reviewed on the computer. A localization and attenuation correction CT is performed in conjunction with the PET scan. Blood glucose level equals 158. SCAN: Initial Scan FINDINGS: SKULL BASE AND NECK: No areas of abnormal hypermetabolic uptake. CHEST, MEDIASTINUM, AND HILAR REGION: No areas of abnormal hypermetabolic uptake. ABDOMEN AND PELVIS: Persistent large anterior lobulated heterogeneous right mid abdominal mass with l ocal mass effect measuring roughly 11 x 11 cm axial image 151, abnormalHypermetabolic uptake greatest in the periphery, max SUV is 11.22 on axial image 150 along the right aspect. Some adjacent scattered subcentimeter nodules without abnormal hypermetabolic uptake. Nonspecific are as of bowel uptake. No definitive areas of suspicious hypermetabolic pancreatic uptake. No pancreatic ductal dilatation. No additional areas of abnormal hypermetabolic uptake clearly seen. OSSEOUS STRUCTURES: No areas of abnormal hypermetabolic uptake. OTHER CT: [id number] calcified plaque bilateral carotid bulb level. Cardiomegaly is present. Mild underlying emphysematous change is seen. Coronary artery calcification redemonstrated. Calcification at level of the aortic valve. Cholecystectomy clips. Some displaced clips. No bowel obstruction. Large umbilical hernia containing fat and tiny mesenteric vessels. Levoconvex scoliosis centered at L3 level. [id number] calcified plaque of the aorta extends int o branch vessels. IMPRESSION: Abnormal hypermetabolic uptake in large right-sided peritoneal mass or biopsy-proven neop lasm. Local mass effect redemonstrated. No additional areas of abnormal hypermetabolic uptake to sugg est metastatic disease.
== END | disposition home or self-care (01) ==
LOC: RADPETMAIN 10:32
PROVIDERS: ATTEND Internal Medicine Hematology & Oncology
DX: C25.1 Malignant neoplasm of body of pancreas (principal)
CPT/HCPCS: 78815; A9552

== ENCOUNTER 2020-05-19 09:16 | Day surgery (SDC) | payer MEDICARE ==
[2020-05-15 16:19] VITALS: BMI 31.6
[~2020-05-19 09:16] MED LIST: ACETAMINOPHEN TAB 500 MG TAB PO PRN; HEPARIN SODIUM,PORCINE/PF 5,000 UNIT/0.5 ML SYRINGE SQ PRN
[2020-05-19] MEDS ORDERED: LACTATED RINGERS 1,000 ML IV ONE (09:36)
[2020-05-19 09:48] LABS: Glucose,Whole Blood 158 mg/dL (75-99)
[2020-05-19] MEDS ORDERED: ONDANSETRON 4 MG/2 ML VIAL IVP ONE (09:58)
[2020-05-19] MEDS ORDERED: DEXAMETHASONE SOD PHOSPHATE 4 MG/ML 1 ML VIAL IVP ONE (09:59)
--- NOTE | 2020-05-19 10:17 | P.GSHP ---
History of Present Illness H&P Date: 05/19/20 Chief Complaint: Pancreatic cancer 79-year-old female known to our service. Patient was recently admitted after findings of a large retroperitoneal/epigastric mass. Biopsies suggest pancreatic cancer. Here today for Port-A-Cath placement for IV chemotherapy administration. She has an appointment with [facility] this week for evaluation urine Past Medical History Past Medical History: Cancer, Diabetes Mellitus, Hyperlipidemia, Hypertension Additional Past Medical History / Comment(s): colon polyps History of Any Multi-Drug Resistant Organisms: None Reported Past Surgical History: Breast Surgery, Cholecystectomy, Tubal Ligation Additional Past Surgical History / Comment(s): colonoscopy, bx of mass 05/05/20, left breast lumpectomy benign 40 years ago, jaw surgery 50 years ago r/t broken jaw, eyelid surgery to "get the bags out" Past Anesthesia/Blood Transfusion Reactions: Motion Sickness Smoking Status: Former smoker - Past Family History Mother Additional Family Medical History / Comment(s): addisons disease Father Family Medical History: Coronary Artery Disease (CAD) Medications and Allergies Home Medications Medication Instructions Recorded Confirmed Type Allopurinol [Zyloprim] 100 mg PO SUTUTH 04/24/20 05/15/20 History Atenolol [Tenormin] 50 mg PO HS 04/24/20 05/15/20 History Atorvastatin [Lipitor] 80 mg PO HS 04/24/20 05/15/20 History Biotin 5 mg PO DAILY 04/24/20 05/15/20 History Cholecalciferol (Vitamin D3) 125 mcg PO LAWSON 04/24/20 05/15/20 History [Vitamin D3 (5000 Iu)] Ferrous Sulfate [Slow Release Iron] 140 mg PO DAILY 04/24/20 05/15/20 History Multivitamins, Thera [Multivitamin 1 tab PO DAILY 04/24/20 05/15/20 History (formulary)] Elora-3 Fatty Acids/Fish Oil [Fish 1 cap PO DAILY 04/24/20 05/15/20 History Oil 1,000 mg Softgel] Raloxifene [Evista] 60 mg PO DAILY 04/24/20 05/15/20 History Triple Flex 1 tab PO DAILY 04/24/20 05/15/20 History Ubidecarenone [Co Q-10] 100 mg PO DAILY 04/24/20 05/15/20 History amLODIPine BESYLATE/BENAZEPRIL 1 cap PO QAM 04/24/20 05/15/20 History [Lotrel 10-40 MG] hydroCHLOROthiazide [Hydrodiuril] 25 mg PO MOWESA 04/24/20 05/15/20 History metFORMIN HCL [Glucophage] 500 mg PO DAILY 04/24/20 05/15/20 History Aspirin [Adult Low Dose Aspirin EC] 81 mg PO DAILY 04/29/20 05/15/20 History HYDROcodone/APAP 7.5-325MG [[place] 2 tab PO Q6H PRN 05/15/20 05/15/20 History 7.5-325] Allergies Allergy/AdvReac Type Severity Reaction Status Date / Time shellfish derived [Lobster] Allergy Nausea & Verified 05/15/20 16:13 Vomiting Surgical - Exam Vital Signs Temp Pulse Resp BP Pulse Ox 97.3 F L 75 18 167/58 98 05/19/20 09:35 05/19/20 09:35 05/19/20 09:35 05/19/20 09:35 05/19/20 09:35 Physical exam: General: Well-developed, well-nourished HEENT: Normocephalic, sclerae nonicteric Abdomen: Epigastric tenderness and fullness, nondistended Extremities: No edema Neuro: Alert and oriented Results - Labs Abnormal Lab Results - Last 24 Hours (Table) 05/19/20 Range/Units 09:46 POC Glucose (mg/dL) 158 H (75-99) mg/dL Assessment and Plan (1) Pancreatic cancer Narrative/Plan: Will proceed with Port-A-Cath placement at this time. Risks of bleeding, infection, DVT, pneumothorax, catheter malfunction, anesthesia related complications were discussed. The patient understands and wishes to proceed. Current Visit: Yes Status: Acute Code(s): C25.9 - MALIGNANT NEOPLASM OF PANCREAS, UNSPECIFIED SNOMED Code(s): 452105565
[2020-05-19] MEDS ORDERED: MIDAZOLAM 2 MG/2 ML VIAL ONE (10:55)
[2020-05-19] MEDS ORDERED: SUCCINYLCHOLINE CHLORIDE 100 MG/5 ML SYR IV ONE (10:55)
[2020-05-19] MEDS ORDERED: fentaNYL (PF) 50 MCG/ML 2 ML AMP ONE (10:55)
[2020-05-19] MEDS ORDERED: PROPOFOL 10 MG/ML 20 ML VIAL IV ONE (10:55)
[2020-05-19] MEDS ORDERED: LIDOCAINE 1% INJ 10MG/ML (20 ML MDV) ONE (10:55)
[2020-05-19] MEDS ORDERED: PHENYLEPHRINE-0.9% NACL SYG 1,000 MCG/10 ML SYRINGE ONE (10:55)
[2020-05-19] MEDS ORDERED: LIDOCAINE (PF) 10 MG/ML 2 ML VIAL SQ ONE ×2 (11:11)
[2020-05-19] MEDS ORDERED: HEPARIN SODIUM,PORCINE 100 UNIT/ML 5 ML VIAL IV ONE (11:11)
[2020-05-19] MEDS ORDERED: NALOXONE 0.4 MG/ML 1 ML VIAL IV PRN (11:41)
[2020-05-19] MEDS ORDERED: HYDROcodone/APAP 5-325MG 1 EACH TAB PO PRN (11:41)
--- NOTE | 2020-05-19 11:43 | P.OP ---
Date of Procedure: 05/19/20 Procedure(s) Performed: PREOPERATIVE DIAGNOSIS: Pancreatic cancer POSTOPERATIVE DIAGNOSIS: Same PROCEDURE: Port-A-Cath placement with fluoroscopic and ultrasound guidance SURGEON: Larissa EBL: Minimal ANESTHESIA: Sedation COMPLICATIONS: None OPERATIVE PROCEDURE: Patient was brought and placed on the operative table in the supine position. The patient was sedated per anesthesia that time. The chest and neck were prepped and draped in usual sterile fashion. The ultrasound probe was used to identify the location of the right internal jugular vein. The skin was localized with lidocaine. The Seldinger needle was advanced into the IJ under ultrasound guidance. The wire was advanced through the needle under fluoroscopic guidance into the superior vena cava. A port pocket was created in the right infraclavicular location. The catheter was tunneled from the wire entrance site to the port pocket. The port was then connected to the catheter. The dilator introducer was threaded over the guidewire. The guidewire and dilator were then removed. The catheter was advanced through the introducer and introducer was then removed. The tip was seen to be in the right atrial junction via fluoroscopy. A picture of the radiograph showing the tip at the radial digital junction was taken. Port was flushed with both saline and a Hep- Lock solution. There was good flow both in and out of the port. The port was sutured in underlying tissues using 3-0 silk sutures. The subcutaneous tissues were reapproximated using 3-0 Vicryl sutures and the skin at both locations using 4-0 Monocryl sutures. Skin glue and sterile dressings then applied. DISPOSITION: Stable to recovery room
[2020-05-19 11:47] VITALS: TEMP 97.9
[2020-05-19 11:55] LABS: Glucose,Whole Blood 168 mg/dL (75-99)
--- NOTE | 2020-05-19 12:25 | XR ---
EXAMINATION TYPE: XR chest 1V confirm line plcnm DATE OF EXAM: 05/19/2020 COMPARISON: 04/24/2020 HISTORY: 79-year-old female check line placement TECHNIQUE: Single frontal view of the chest is obtained. FINDINGS: Right anterior chest wall injection port with catheter tip at the lower SVC. Heart upper limits of no rmal in size. Atherosclerotic arch calcifications. No consolidation or pleural effusion seen. IMPRESSION: Right-sided injection port. Catheter tip at the lower SVC. No acute process seen.
[2020-05-19 12:36] VITALS: RESP 18
[2020-05-19 12:52] VITALS: BP 144/77; PULSE 74
--- NOTE | 2020-05-19 21:00 | FL ---
EXAMINATION TYPE: FL guided central line placement DATE OF EXAM: 05/19/2020 FLUOROSCOPY Fluoroscopy time of 16 seconds was used during Port-A-Cath insertion. 1 image/s document/s sofya dejesus.
== END 2020-05-19 13:07 | disposition home or self-care (01) ==
LOC: OR 09:16
PROVIDERS: ATTEND Surgery
DX: C25.9 Malignant neoplasm of pancreas, unspecified (principal); E11.9 Type 2 diabetes mellitus without complications; E78.5 Hyperlipidemia, unspecified; I10 Essential (primary) hypertension; K21.9 Gastro-esophageal reflux disease without esophagitis; Z79.82 Long term (current) use of aspirin; Z79.84 Long term (current) use of oral hypoglycemic drugs; Z79.899 Other long term (current) drug therapy; Z86.010 Personal history of colon polyps; Z87.891 Personal history of nicotine dependence; Z82.49 Family history of ischemic heart disease and other diseases of the circulatory system; Z84.89 Family history of other specified conditions; Z91.013 Allergy to seafood
CPT/HCPCS: 77001; 36561; C1788; J2250; J2001 ×2; J1642; J1100; J0690; J2405; J3010; J2370; J0330; J2704; J1644

== ENCOUNTER 2020-06-04 08:58 | Inpatient (IN) | payer MEDICARE ==
[2020-06-04] MEDS ORDERED: HYDROcodone/APAP 10-325MG 1 EACH TAB PO ONE (09:46)
[2020-06-04 10:09] LABS: Basophils % (A) 0 %; Eosinophils # (A) 0.1 k/uL (0-0.7); Eosinophils % (A) 1 %; HCT 25.4 % (34.0-46.0); Lymphocytes # (A) 0.6 k/uL (1.0-4.8); Lymphocytes % (A) 7 %; MCH 28.6 pg (25.0-35.0); MCV 81.7 fL (80.0-100.0); Monocytes # (A) 0.5 k/uL (0-1.0); Monocytes % (A) 6 %; Neutrophils # (A) 7.3 k/uL (1.3-7.7); Neutrophils % (A) 85 %; Platelet Count 279 k/uL (150-450); Poikilocytosis Slight; RBC 3.11 m/uL (3.80-5.40); WBC 8.6 k/uL (3.8-10.6)
[2020-06-04] MEDS: SODIUM CHLORIDE 0.9% 1,000 ML IV SCH ×2 (10:09→16:55)
[2020-06-04 10:16] LABS: HGB 8.9 gm/dL (11.4-16.0)
[2020-06-04 10:25] LABS: ALT 31 U/L (4-34); AST 28 U/L (14-36); African American GFR (CKD) >90 (>60 ml/min/1.73 sqM); Albumin 2.9 g/dL (3.5-5.0); Alkaline Phosphatase 94 U/L (38-126); Anion Gap 10 mmol/L; Blood Urea Nitrogen 26 mg/dL (7-17); Calcium 8.4 mg/dL (8.4-10.2); Carbon Dioxide 27 mmol/L (22-30); Chloride 87 mmol/L (98-107); Glucose 175 mg/dL (74-99); Magnesium 1.5 mg/dL (1.6-2.3); Non-African American GFR(CKD) 81 (>60 ml/min/1.73 sqM); Potassium 3.8 mmol/L (3.5-5.1); Sodium 124 mmol/L (137-145); Total Bilirubin 0.7 mg/dL (0.2-1.3); Total Protein 5.3 g/dL (6.3-8.2)
[2020-06-04 10:32] LABS: INR 1.1 (<1.2); Prothrombin Time 11.6 sec (9.0-12.0)
[2020-06-04 10:52] LABS: Partial Thromboplastin Time 18.5 sec (22.0-30.0)
--- NOTE | 2020-06-04 11:50 | CT ---
EXAMINATION TYPE: CT abdomen pelvis w con DATE OF EXAM: 06/04/2020 HISTORY: Rectal bleeding CT DLP: 1120.1mGycm Automated Exposure Control for Dose Reduction was Utilized. CONTRAST: CT scan of the abdomen and pelvis is performed without oral but with IV Contrast, patient injected wi th 100 ml mL of Isovue 300. COMPARISON: CT abdomen and pelvis April 24, 2020 FINDINGS: LUNG BASES: No significant abnormality is appreciated. LIVER/GB: Cholecystectomy clips are redemonstrated. PANCREAS: Large heterogeneous mass in the mid abdominal mesentery with lobulated margins and measures approximately 10.0 x 10.7 x 13 cm craniocaudal dimension axial image 42 and coronal image 29 on curr ent study is redemonstrated. Significant local mass effect is redemonstrated. This mass redemonstrate s indistinct margins from the inferior head and uncinate process of the pancreas. It is redemonstrated causing focal suspected ductal dilatation in the pancreatic head up to 15 mm cor onal image 39. There is no significant pancreatic dilatation distal to this or more central intrahepa tic or extrahepatic biliary dilatation. Difficult to localize but suspect this is distal common bile duct. There is now heterogeneous foci of gas along the anterior aspect of the lesion greater right of midli ne. SPLEEN: No significant abnormality is seen. ADRENALS: No significant abnormality is seen. KIDNEYS: No significant abnormality is seen. BOWEL: Suboptimal evaluation of bowel without enteric contrast. No suspicious new small or large kale l dilatation. Mass effect on the gastric antrum deviated superiorly with severe wall thickening is re demonstrated extending into first portion of duodenum. No new areas of colonic wall thickening identi fied. Mild wall thickening left colon favor Proctocort distention. Some distal diverticula greatest i n sigmoid colon without convincing CT evidence for acute diverticulitis. UTERUS/ADNEXA: Anteverted uterus. Slight prominence of the central hypodense endometrium for a postme nopausal female sagittal image 66 is redemonstrated. No abnormal hypermetabolic uptake on recent PET/ CT. This could reflect entrapped fluid. Consider correlating with pelvic ultrasound. Tiny amount of f ree fluid in the pelvis on current study right of midline axial image 68 is new from older studies. LYMPH NODES: Prominent but subcentimeter lymph nodes near pancreatic head and superior aspect of mass are noted. OSSEOUS STRUCTURES: Underlying scoliosis redemonstrated centered L3 level. Multilevel spondylolisthes is and disc space narrowing in the mid to lower lumbar spine. Moderate narrowing of both hip joints. OTHER: Moderate sized Umbilical hernia containing fat and tiny mesenteric vessels redemonstrated. IMPRESSION: Source of new rectal bleeding not identified. Redemonstration of large mesenteric mass or neoplasm with local mass effect. Indistinct margins with mass effect near gastroduodenal junction no karen. New Foci of air in the anterior right aspect of heterogeneous lesion could reflect product of sa mpling, product of new infection within this mass cannot be excluded.
[2020-06-04] MEDS ORDERED: NALOXONE 0.4 MG/ML 1 ML VIAL IV PRN (12:24)
--- NOTE | 2020-06-04 12:24 | ED ---
GI Bleed HPI - General Chief complaint: GI Bleed Stated complaint: rectal bleeding Time Seen by Provider: 06/04/20 09:00 Source: patient, EMS Mode of arrival: EMS Limitations: no limitations - History of Present Illness Initial comments: Patient is an 79-year-old female with past medical history of pancreatic cancer on current chemotherapy who presents emergency Department with melanic stools. Patient reports that she had 2 episodes of loose stool that was dark in color and concerning for blood. Patient is not on any blood thinners. Has had associ ated nausea with poor oral intake. No previous history of GI bleeding in the past. She denies any abdominal pain. Patient does have a known pancreatic mass invading her mesentery. She is under chemotherapy treatment with Dr. Ag. Last treatment was on . She usually goes to exam with only cough. Patient had a colonoscopy greater than 10 years ago. Reports is positive for polyps. Denies any changes in her urination. Admits to fatigue. No known fevers. No other alleviating, precipitating or modifying factors - Related Data Home Medications Medication Instructions Recorded Confirmed Allopurinol [Zyloprim] 100 mg PO SUTUTH 04/24/20 06/04/20 Atenolol [Tenormin] 50 mg PO HS 04/24/20 06/04/20 Atorvastatin [Lipitor] 80 mg PO HS 04/24/20 06/04/20 Biotin 5 mg PO DAILY 04/24/20 06/04/20 Cholecalciferol (Vitamin D3) 125 mcg PO LAWSON 04/24/20 06/04/20 [Vitamin D3 (5000 Iu)] Ferrous Sulfate [Slow Release Iron] 140 mg PO DAILY 04/24/20 06/04/20 Multivitamins, Thera [Multivitamin 1 tab PO DAILY 04/24/20 06/04/20 (formulary)] [place]-3 Fatty Acids/Fish Oil [Fish 1 cap PO DAILY 04/24/20 06/04/20 Oil 1,000 mg Softgel] Raloxifene [Evista] 60 mg PO DAILY 04/24/20 06/04/20 Triple Flex 1 tab PO DAILY 04/24/20 06/04/20 Ubidecarenone [Co Q-10] 100 mg PO DAILY 04/24/20 06/04/20 amLODIPine BESYLATE/BENAZEPRIL 1 cap PO DAILY 04/24/20 06/04/20 [Lotrel 10-40 MG] hydroCHLOROthiazide [Hydrodiuril] 25 mg PO MOWESA 04/24/20 06/04/20 metFORMIN HCL [Glucophage] 500 mg PO DAILY 04/24/20 06/04/20 Aspirin [Adult Low Dose Aspirin EC] 81 mg PO DAILY 04/29/20 06/04/20 HYDROcodone/APAP 10-325MG [[place] 1 tab PO Q4HR PRN 06/04/20 06/04/20 10-325] Ondansetron Odt [Zofran Odt] 4 mg PO Q6H PRN 06/04/20 06/04/20 Sennosides/Docusate Sodium [Senna 1 cap PO HS 06/04/20 06/04/20 Plus 8.6-50 mg Softgel] fentaNYL 25MCG/HR PATCH [Duragesic 1 patch TRANSDERM Q72H 06/04/20 06/04/20 25MCG/HR] Allergies Allergy/AdvReac Type Severity Reaction Status Date / Time shellfish derived [Lobster] Allergy Nausea & Verified 06/04/20 12:17 Vomiting Review of Systems ROS Statement: Those systems with pertinent positive or pertinent negative responses have been documented in the HPI. ROS Other: All systems not noted in ROS Statement are negative. Past Medical History Past Medical History: Cancer, Diabetes Mellitus, Hyperlipidemia, Hypertension Additional Past Medical History / Comment(s): colon polyps History of Any Multi-Drug Resistant Organisms: None Reported Past Surgical History: Breast Surgery, Cholecystectomy, Tubal Ligation Additional Past Surgical History / Comment(s): colonoscopy, bx of mass 05/05/20, left breast lumpectomy benign 40 years ago, jaw surgery 50 years ago r/t broken jaw, eyelid surgery to "get the bags out" Past Anesthesia/Blood Transfusion Reactions: Motion Sickness Past Psychological History: No Psychological Hx Reported Smoking Status: Former smoker - Past Family History Mother Additional Family Medical History / Comment(s): addisons disease Father Family Medical History: Coronary Artery Disease (CAD) General Exam Limitations: no limitations General appearance: alert, in no apparent distress Head exam: Present: atraumatic, normocephalic, normal inspection Eye exam: Present: normal appearance, PERRL, EOMI. Absent: scleral icterus, conjunctival injection, periorbital swelling ENT exam: Present: normal exam, mucous membranes moist Neck exam: Present: normal inspection. Absent: meningismus, lymphadenopathy Respiratory exam: Present: normal lung sounds bilaterally. Absent: respiratory distress, wheezes, rales, rhonchi, stridor Cardiovascular Exam: Present: regular rate, normal rhythm, normal heart sounds. Absent: systolic murmur, diastolic murmur, rubs, gallop, clicks GI/Abdominal exam: Present: soft, distended, tenderness (ruq), normal bowel sounds, organomegaly. Absent: guarding, rebound, rigid Rectal exam: Present: bloody stool, hemorrhoids Extremities exam: Present: normal inspection, full ROM, normal capillary refill. Absent: tenderness, pedal edema, joint swelling, calf tenderness Back exam: Present: normal inspection Neurological exam: Present: alert, oriented X3, CN II-XII intact Psychiatric exam: Present: normal affect, normal mood Skin exam: Present: warm, dry, intact, normal color. Absent: rash Course Vital Signs 06/04/20 06/04/20 06/04/20 08:58 10:14 11:59 Temperature 100.8 F H Pulse Rate 78 78 70 Respiratory 18 18 18 Rate Blood Pressure 114/56 119/49 116/52 O2 Sat by Pulse 96 96 93 L Oximetry 06/04/20 12:49 Temperature Pulse Rate 67 Respiratory 18 Rate Blood Pressure 104/60 O2 Sat by Pulse 94 L Oximetry Medical Decision Making - Medical Decision Making Upon arrival patient was placed into room 21. Thorough history and physical exam was performed. Rectal exam is performed and does demonstrate gross melenic stools. PIV is established. We did access the patient's port. Laboratory studies were conducted. Hemoglobin is 8.9 from previous of 11.2. Sodium 124. Occult is positive. CT of abdomen and pelvis was performed because the patient's known pancreatic mass. It does demonstrate a large mesenteric mass with mass affect. Indistinct margins are GE junction. Source of new rectal bleeding identified. There is a foci of air within the lesion which could reflect infection. As the patient is febrile upon vitals here that she is covered with dose of Zosyn. Patient has had no further episodes in the emergency room. Blood pressure remained stable. Recommend admission for consult with surgery, GI and oncology. Patient did agree to this. She is made nothing by mouth, given a dose of protonix and is currently waiting on the floor - Lab Data Result diagrams: 06/05/20 15:39 06/05/20 04:17 Lab Results 06/04/20 06/04/20 06/04/20 Range/Units 09:41 09:41 09:41 WBC 8.6 (3.8-10.6) k/uL RBC 3.11 L (3.80-5.40) m/uL Hgb 8.9 L D (11.4-16.0) gm/dL Hct 25.4 L (34.0-46.0) % MCV 81.7 (80.0-100.0) fL MCH 28.6 (25.0-35.0) pg MCHC 35.0 (31.0-37.0) g/dL RDW 15.0 (11.5-15.5) % Plt Count 279 (150-450) k/uL MPV 6.0 Neutrophils % 85 % Lymphocytes % 7 % Monocytes % 6 % Eosinophils % 1 % Basophils % 0 % Neutrophils # 7.3 (1.3-7.7) k/uL Lymphocytes # 0.6 L (1.0-4.8) k/uL Monocytes # 0.5 (0-1.0) k/uL Eosinophils # 0.1 (0-0.7) k/uL Basophils # 0.0 (0-0.2) k/uL Poikilocytosis Slight PT 11.6 (9.0-12.0) sec INR 1.1 (<1.2) APTT 18.5 L (22.0-30.0) sec Sodium (137-145) mmol/L Potassium (3.5-5.1) mmol/L Chloride (98-107) mmol/L Carbon Dioxide (22-30) mmol/L Anion Gap mmol/L BUN (7-17) mg/dL Creatinine (0.52-1.04) mg/dL Est GFR (CKD-EPI)AfAm (>60 ml/min/1.73 sqM) Est GFR (CKD-EPI)NonAf (>60 ml/min/1.73 sqM) Glucose (74-99) mg/dL Plasma Lactic Acid Zohaib (0.7-2.0) mmol/L Calcium (8.4-10.2) mg/dL Magnesium (1.6-2.3) mg/dL Total Bilirubin (0.2-1.3) mg/dL AST (14-36) U/L ALT (4-34) U/L Alkaline Phosphatase (38-126) U/L Troponin I (0.000-0.034) ng/mL Total Protein (6.3-8.2) g/dL Albumin (3.5-5.0) g/dL Stool Occult Blood Positive H (Negative) Blood Type Blood Type Confirm Blood Type Recheck Bld Type Recheck Status Antibody Screen Crossmatch Spec Expiration Date 06/04/20 06/04/20 06/04/20 Range/Units 09:41 09:41 09:41 WBC (3.8-10.6) k/uL RBC (3.80-5.40) m/uL Hgb (11.4-16.0) gm/dL Hct (34.0-46.0) % MCV (80.0-100.0) fL MCH (25.0-35.0) pg MCHC (31.0-37.0) g/dL RDW (11.5-15.5) % Plt Count (150-450) k/uL MPV Neutrophils % % Lymphocytes % % Monocytes % % Eosinophils % % Basophils % % Neutrophils # (1.3-7.7) k/uL Lymphocytes # (1.0-4.8) k/uL Monocytes # (0-1.0) k/uL Eosinophils # (0-0.7) k/uL Basophils # (0-0.2) k/uL Poikilocytosis PT (9.0-12.0) sec INR (<1.2) APTT (22.0-30.0) sec Sodium 124 L (137-145) mmol/L Potassium 3.8 (3.5-5.1) mmol/L Chloride 87 L (98-107) mmol/L Carbon Dioxide 27 (22-30) mmol/L Anion Gap 10 mmol/L BUN 26 H (7-17) mg/dL Creatinine 0.71 (0.52-1.04) mg/dL Est GFR (CKD-EPI)AfAm >90 (>60 ml/min/1.73 sqM) Est GFR (CKD-EPI)NonAf 81 (>60 ml/min/1.73 sqM) Glucose 175 H (74-99) mg/dL Plasma Lactic Acid Zohaib 1.3 (0.7-2.0) mmol/L Calcium 8.4 (8.4-10.2) mg/dL Magnesium 1.5 L (1.6-2.3) mg/dL Total Bilirubin 0.7 (0.2-1.3) mg/dL AST 28 (14-36) U/L ALT 31 (4-34) U/L Alkaline Phosphatase 94 (38-126) U/L Troponin I <0.012 (0.000-0.034) ng/mL Total Protein 5.3 L (6.3-8.2) g/dL Albumin 2.9 L (3.5-5.0) g/dL Stool Occult Blood (Negative) Blood Type Blood Type Confirm Blood Type Recheck Bld Type Recheck Status Antibody Screen Crossmatch Spec Expiration Date 06/04/20 06/04/20 Range/Units 09:50 10:10 WBC (3.8-10.6) k/uL RBC (3.80-5.40) m/uL Hgb (11.4-16.0) gm/dL Hct (34.0-46.0) % MCV (80.0-100.0) fL MCH (25.0-35.0) pg MCHC (31.0-37.0) g/dL RDW (11.5-15.5) % Plt Count (150-450) k/uL MPV Neutrophils % % Lymphocytes % % Monocytes % % Eosinophils % % Basophils % % Neutrophils # (1.3-7.7) k/uL Lymphocytes # (1.0-4.8) k/uL Monocytes # (0-1.0) k/uL Eosinophils # (0-0.7) k/uL Basophils # (0-0.2) k/uL Poikilocytosis PT (9.0-12.0) sec INR (<1.2) APTT (22.0-30.0) sec Sodium (137-145) mmol/L Potassium (3.5-5.1) mmol/L Chloride (98-107) mmol/L Carbon Dioxide (22-30) mmol/L Anion Gap mmol/L BUN (7-17) mg/dL Creatinine (0.52-1.04) mg/dL Est GFR (CKD-EPI)AfAm (>60 ml/min/1.73 sqM) Est GFR (CKD-EPI)NonAf (>60 ml/min/1.73 sqM) Glucose (74-99) mg/dL Plasma Lactic Acid Zohaib (0.7-2.0) mmol/L Calcium (8.4-10.2) mg/dL Magnesium (1.6-2.3) mg/dL Total Bilirubin (0.2-1.3) mg/dL AST (14-36) U/L ALT (4-34) U/L Alkaline Phosphatase (38-126) U/L Troponin I (0.000-0.034) ng/mL Total Protein (6.3-8.2) g/dL Albumin (3.5-5.0) g/dL Stool Occult Blood (Negative) Blood Type A Negative Blood Type Confirm A Negative Blood Type Recheck No Previous Record Bld Type Recheck Status CABO Indicated Antibody Screen NEGATIVE Crossmatch See Detail Spec Expiration Date 06/07/20202349 Disposition Clinical Impression: Pancreatic mass, GI bleed, Fever, Hyponatremia Disposition: ADMITTED IP TO THIS [facility] Condition: Stable Is patient prescribed a controlled substance at d/c from ED?: No Decision to Admit Reason: Admit from EC Decision Date: 06/04/20 Decision Time: 12:24
[2020-06-04] MEDS ORDERED: PANTOPRAZOLE 40 MG/10 ML VIAL IVP ONE (12:32)
[2020-06-04] MEDS ORDERED: ONDANSETRON ODT 4 MG TAB PO PRN (15:09)
--- NOTE | 2020-06-04 16:08 | P.GSCN ---
History of Present Illness Consult date: 06/04/20 History of present illness: CHIEF COMPLAINT: Blood in stool HISTORY OF PRESENT ILLNESS: This is a 79-year-old female with a known history of pancreatic cancer and currently on chemotherapy. Her last chemotherapy was on . She presented to the emergency room with complaints of maroon-colored stools. Patient had a total of 2 large loose maroon-colored bowel movements and then came to the emergency room. Patient lives with her daughter. Patient's daughter reports that her mom was sick yesterday with nausea and vomiting and could not keep anything down. She denies any hematemesis or coffee ground emesis. Then this morning her mom woke up with abdominal cramping and called for assistance to the bathroom and that is when she had her first loose maroon bowel movement. Patient also has been having some dizziness and lightheadedness. She does denies any prior history of GI bleed. Her last colonoscopy was about 10 years ago she reports that a noncancerous polyp was removed. Hemoglobin on admission was 8.9 stool for occult blood is positive. She did have a temp of 100.8. Patient had biopsy of her pancreas around the end of April and diagnosed with pancreatic cancer. Dr. Ag is her oncologist. Computed tomography scan of the abdomen and pelvis shows source of new rectal bleeding not identified. Redemonstration of large mesenteric mass or neoplasm with local mass effect. Indistinct margins with mass effect near gastroduodenal junction noted. New foci of air in the anterior right aspect of heterogenous lesion could reflect product of sampling, product of new infection within the mass cannot be excluded. PAST MEDICAL HISTORY: See list. PAST SURGICAL HISTORY: See list. MEDICATIONS: See list. ALLERGIES: See list. SOCIAL HISTORY: No illicit drug use. REVIEW OF SYSTEMS: CONSTITUTIONAL: Denies fever or chills. HEENT: Denies blurred vision, vision changes, or eye pain. Denies hemoptysis CARDIOVASCULAR: Denies chest pain or pressure. RESPIRATORY: No shortness of breath. GASTROINTESTINAL: See HPI for pertinent findings HEMATOLOGIC: Denies bleeding disorders. GENITOURINARY: Denies any blood in urine or increased urinary frequency. SKIN: Denies pruitis. Denies rash. PHYSICAL EXAM: VITAL SIGNS: Reviewed GENERAL: Well-developed in no acute distress. HEENT: No sclera icterus. Extraocular movements grossly intact. Moist buccal mucosa. Head is atraumatic, normocephalic. No nasal drainage. ABDOMEN: Distended. Epigastric tenderness NEUROLOGIC: Alert and oriented. Cranial nerves II through XII grossly intact. LABORATORY DATA: WBC 8.6 hemoglobin 8.9 platelets 279 sodium 124 creatinine 0.71 lactic 1.3 magnesium 1.5 LFTs normal stool for occult blood positive Influenza RSV and Covid not detected IMAGING: Computed tomography scan of the abdomen and pelvis shows source of new rectal bleeding not identified. Redemonstration of large mesenteric mass or neoplasm with local mass effect. Indistinct margins with mass effect near gastroduodenal junction noted. New foci of air in the anterior right aspect of heterogenous lesion could reflect product of sampling, product of new infection within the mass cannot be excluded. ASSESSMENT: 1. Abdominal pain 2. Acute GI bleed 3. New foci of air in the anterior aspect of heterogenous lesion could reflect product of sampling, product of new infection within the mass cannot be excluded noted on CAT scan 4. Pancreatic cancer 5. Acute blood loss anemia PLAN: -Further recommendations forthcoming per surgeon -Continue IV fluids -Continue Protonix -Continue antibiotics -Continue to monitor hemoglobin closely -Keep patient nothing by mouth -Continue to hold aspirin Thank you for this consultation Physician Purse Seining Hand note has been reviewed by physician. Signing provider agrees with the documented findings, assessment, and plan of care. Past Medical History Past Medical History: Cancer, Diabetes Mellitus, Hyperlipidemia, Hypertension Additional Past Medical History / Comment(s): colon polyps History of Any Multi-Drug Resistant Organisms: None Reported Past Surgical History: Breast Surgery, Cholecystectomy, Tubal Ligation Additional Past Surgical History / Comment(s): colonoscopy, bx of mass 05/05/20, left breast lumpectomy benign 40 years ago, jaw surgery 50 years ago r/t broken jaw, eyelid surgery to "get the bags out" Past Anesthesia/Blood Transfusion Reactions: Motion Sickness Past Psychological History: No Psychological Hx Reported Smoking Status: Former smoker - Past Family History Mother Additional Family Medical History / Comment(s): addisons disease Father Family Medical History: Coronary Artery Disease (CAD) Medications and Allergies Home Medications Medication Instructions Recorded Confirmed Type Allopurinol [Zyloprim] 100 mg PO SUTUTH 04/24/20 06/04/20 History Atenolol [Tenormin] 50 mg PO HS 04/24/20 06/04/20 History Atorvastatin [Lipitor] 80 mg PO HS 04/24/20 06/04/20 History Biotin 5 mg PO DAILY 04/24/20 06/04/20 History Cholecalciferol (Vitamin D3) 125 mcg PO LAWSON 04/24/20 06/04/20 History [Vitamin D3 (5000 Iu)] Ferrous Sulfate [Slow Release Iron] 140 mg PO DAILY 04/24/20 06/04/20 History Multivitamins, Thera [Multivitamin 1 tab PO DAILY 04/24/20 06/04/20 History (formulary)] [place]-3 Fatty Acids/Fish Oil [Fish 1 cap PO DAILY 04/24/20 06/04/20 History Oil 1,000 mg Softgel] Raloxifene [Evista] 60 mg PO DAILY 04/24/20 06/04/20 History Triple Flex 1 tab PO DAILY 04/24/20 06/04/20 History Ubidecarenone [Co Q-10] 100 mg PO DAILY 04/24/20 06/04/20 History amLODIPine BESYLATE/BENAZEPRIL 1 cap PO DAILY 04/24/20 06/04/20 History [Lotrel 10-40 MG] hydroCHLOROthiazide [Hydrodiuril] 25 mg PO MOWESA 04/24/20 06/04/20 History metFORMIN HCL [Glucophage] 500 mg PO DAILY 04/24/20 06/04/20 History Aspirin [Adult Low Dose Aspirin EC] 81 mg PO DAILY 04/29/20 06/04/20 History HYDROcodone/APAP 10-325MG [[place] 1 tab PO Q4HR PRN 06/04/20 06/04/20 History 10-325] Ondansetron Odt [Zofran Odt] 4 mg PO Q6H PRN 06/04/20 06/04/20 History Sennosides/Docusate Sodium [Senna 1 cap PO HS 06/04/20 06/04/20 History Plus 8.6-50 mg Softgel] fentaNYL 25MCG/HR PATCH [Duragesic 1 patch TRANSDERM Q72H 06/04/20 06/04/20 History 25MCG/HR] Allergies Allergy/AdvReac Type Severity Reaction Status Date / Time shellfish derived [Lobster] Allergy Nausea & Verified 06/04/20 12:17 Vomiting Surgical - Exam Vital Signs Temp Pulse Resp BP Pulse Ox 100.8 F H 78 18 114/56 96 06/04/20 08:58 06/04/20 08:58 06/04/20 08:58 06/04/20 08:58 06/04/20 08:58 Results - Labs 06/05/20 04:17 06/04/20 09:41 Abnormal Lab Results - Last 24 Hours (Table) 06/04/20 06/04/20 06/04/20 Range/Units 09:41 09:41 09:41 RBC 3.11 L (3.80-5.40) m/uL Hgb 8.9 L D (11.4-16.0) gm/dL Hct 25.4 L (34.0-46.0) % Lymphocytes # 0.6 L (1.0-4.8) k/uL APTT 18.5 L (22.0-30.0) sec Sodium (137-145) mmol/L Chloride (98-107) mmol/L BUN (7-17) mg/dL Glucose (74-99) mg/dL Magnesium (1.6-2.3) mg/dL Total Protein (6.3-8.2) g/dL Albumin (3.5-5.0) g/dL Stool Occult Blood Positive H (Negative) 06/04/20 Range/Units 09:41 RBC (3.80-5.40) m/uL Hgb (11.4-16.0) gm/dL Hct (34.0-46.0) % Lymphocytes # (1.0-4.8) k/uL APTT (22.0-30.0) sec Sodium 124 L (137-145) mmol/L Chloride 87 L (98-107) mmol/L BUN 26 H (7-17) mg/dL Glucose 175 H (74-99) mg/dL Magnesium 1.5 L (1.6-2.3) mg/dL Total Protein 5.3 L (6.3-8.2) g/dL Albumin 2.9 L (3.5-5.0) g/dL Stool Occult Blood (Negative) Diabetes panel 06/04/20 Range/Units 09:41 Sodium 124 L (137-145) mmol/L Potassium 3.8 (3.5-5.1) mmol/L Chloride 87 L (98-107) mmol/L Carbon Dioxide 27 (22-30) mmol/L BUN 26 H (7-17) mg/dL Creatinine 0.71 (0.52-1.04) mg/dL Glucose 175 H (74-99) mg/dL Calcium 8.4 (8.4-10.2) mg/dL AST 28 (14-36) U/L ALT 31 (4-34) U/L Alkaline Phosphatase 94 (38-126) U/L Total Protein 5.3 L (6.3-8.2) g/dL Albumin 2.9 L (3.5-5.0) g/dL Calcium panel 06/04/20 Range/Units 09:41 Calcium 8.4 (8.4-10.2) mg/dL Albumin 2.9 L (3.5-5.0) g/dL Pituitary panel 06/04/20 Range/Units 09:41 Sodium 124 L (137-145) mmol/L Potassium 3.8 (3.5-5.1) mmol/L Chloride 87 L (98-107) mmol/L Carbon Dioxide 27 (22-30) mmol/L BUN 26 H (7-17) mg/dL Creatinine 0.71 (0.52-1.04) mg/dL Glucose 175 H (74-99) mg/dL Calcium 8.4 (8.4-10.2) mg/dL Adrenal panel 06/04/20 Range/Units 09:41 Sodium 124 L (137-145) mmol/L Potassium 3.8 (3.5-5.1) mmol/L Chloride 87 L (98-107) mmol/L Carbon Dioxide 27 (22-30) mmol/L BUN 26 H (7-17) mg/dL Creatinine 0.71 (0.52-1.04) mg/dL Glucose 175 H (74-99) mg/dL Calcium 8.4 (8.4-10.2) mg/dL Total Bilirubin 0.7 (0.2-1.3) mg/dL AST 28 (14-36) U/L ALT 31 (4-34) U/L Alkaline Phosphatase 94 (38-126) U/L Total Protein 5.3 L (6.3-8.2) g/dL Albumin 2.9 L (3.5-5.0) g/dL
[2020-06-04] MEDS: HYDROcodone/APAP 10-325MG 1 EACH TAB PO PRN ×2 (16:46→21:23)
[2020-06-04] MEDS: PIPERACILLIN-TAZOBACTAM 3.375 GM in SODIUM CHLORIDE 0.9% 100 ML IVPB SCH ×2 (16:51→23:36)
--- NOTE | 2020-06-04 17:33 | P.HPIM ---
History of Present Illness 79-year-old pleasant female came in with complaints of dark stools 2 large bowel movements today. Patient is found to have drop in hemoglobin patient was subsequently admitted for GI workup and the gastric body was consulted. Patient has history of pancreatic cancer has a large pancreatic mass. Patient was having epigastric abdominal pain as well, patient was complaining of nausea vomiting and dizziness and lightheadedness. Patient had a GI bleed in the past patient had a low-grade temperature of 100.8 patient had was diagnosed with a pancreatic cancer month of April received 1 cycle of chemotherapy and supposed to get second cycle starting tomorrow CT of the abdomen was done which showed mesenteric mass or neoplasm with local mass effect and new foci of failure and anterior aspect of heterogeneous lesion and infection cannot be excluded because of this reason patient was started on Zosyn. Patient was also found to be hyponatremic and patient was started on IV fluids patient is hypomagnesemic as well which is being replaced at this time. Review of Systems REVIEW OF SYSTEMS: CONSTITUTIONAL: No fever, no malaise, no fatigue. HEENT: No recent visual problems or hearing problems. Denied any sore throat. CARDIOVASCULAR: No chest pain, orthopnea, PND, no palpitations, no syncope. PULMONARY: No shortness of breath, no cough, no hemoptysis. GASTROINTESTINAL: As mentioned in HPI NEUROLOGICAL: No headaches, no weakness, no numbness. HEMATOLOGICAL: Denies any bleeding or petechiae. GENITOURINARY: Denies any burning micturition, frequency, or urgency. MUSCULOSKELETAL/RHEUMATOLOGICAL: Denies any joint pain, swelling, or any muscle pain. ENDOCRINE: Denies any polyuria or polydipsia. The rest of the 14-point review of systems is negative. Past Medical History Past Medical History: Cancer, Diabetes Mellitus, Hyperlipidemia, Hypertension Additional Past Medical History / Comment(s): colon polyps History of Any Multi-Drug Resistant Organisms: None Reported Past Surgical History: Breast Surgery, Cholecystectomy, Tubal Ligation Additional Past Surgical History / Comment(s): colonoscopy, bx of mass 05/05/20, left breast lumpectomy benign 40 years ago, jaw surgery 50 years ago r/t broken jaw, eyelid surgery to "get the bags out" Past Anesthesia/Blood Transfusion Reactions: Motion Sickness Past Psychological History: No Psychological Hx Reported Smoking Status: Former smoker - Past Family History Mother Additional Family Medical History / Comment(s): addisons disease Father Family Medical History: Coronary Artery Disease (CAD) Medications and Allergies Home Medications Medication Instructions Recorded Confirmed Type Allopurinol [Zyloprim] 100 mg PO SUTUTH 04/24/20 06/04/20 History Atenolol [Tenormin] 50 mg PO HS 04/24/20 06/04/20 History Atorvastatin [Lipitor] 80 mg PO HS 04/24/20 06/04/20 History Biotin 5 mg PO DAILY 04/24/20 06/04/20 History Cholecalciferol (Vitamin D3) 125 mcg PO LAWSON 04/24/20 06/04/20 History [Vitamin D3 (5000 Iu)] Ferrous Sulfate [Slow Release Iron] 140 mg PO DAILY 04/24/20 06/04/20 History Multivitamins, Thera [Multivitamin 1 tab PO DAILY 04/24/20 06/04/20 History (formulary)] [place]-3 Fatty Acids/Fish Oil [Fish 1 cap PO DAILY 04/24/20 06/04/20 History Oil 1,000 mg Softgel] Raloxifene [Evista] 60 mg PO DAILY 04/24/20 06/04/20 History Triple Flex 1 tab PO DAILY 04/24/20 06/04/20 History Ubidecarenone [Co Q-10] 100 mg PO DAILY 04/24/20 06/04/20 History amLODIPine BESYLATE/BENAZEPRIL 1 cap PO DAILY 04/24/20 06/04/20 History [Lotrel 10-40 MG] hydroCHLOROthiazide [Hydrodiuril] 25 mg PO MOWESA 04/24/20 06/04/20 History metFORMIN HCL [Glucophage] 500 mg PO DAILY 04/24/20 06/04/20 History Aspirin [Adult Low Dose Aspirin EC] 81 mg PO DAILY 04/29/20 06/04/20 History HYDROcodone/APAP 10-325MG [[place] 1 tab PO Q4HR PRN 06/04/20 06/04/20 History 10-325] Ondansetron Odt [Zofran Odt] 4 mg PO Q6H PRN 06/04/20 06/04/20 History Sennosides/Docusate Sodium [Senna 1 cap PO HS 06/04/20 06/04/20 History Plus 8.6-50 mg Softgel] fentaNYL 25MCG/HR PATCH [Duragesic 1 patch TRANSDERM Q72H 06/04/20 06/04/20 History 25MCG/HR] Allergies Allergy/AdvReac Type Severity Reaction Status Date / Time shellfish derived [Lobster] Allergy Nausea & Verified 06/04/20 12:17 Vomiting Physical Exam Vitals: Vital Signs Temp Pulse Pulse Resp BP BP Pulse Ox 06/04/20 16:41 98.2 F 75 118/74 96 06/04/20 12:49 67 18 104/60 94 L 06/04/20 11:59 70 18 116/52 93 L 06/04/20 10:14 78 18 119/49 96 06/04/20 08:58 100.8 F H 78 18 114/56 96 Intake and Output 06/04/20 06/04/20 06/04/20 06:59 14:59 22:59 Intake Total 130 Balance 130 Intake: Intake, IV Titration 130 Amount Sodium Chloride 0.9% 1, 130 000 ml @ 130 mls/hr IV . [facility] Rx#:[id number] Other: # Voids 1 Weight 78.471 kg PHYSICAL EXAMINATION: GENERAL: The patient is alert and oriented x3, not in any acute distress. Obese HEENT: Pupils are round and equally reacting to light. EOMI. No scleral icterus. No conjunctival pallor. Normocephalic, atraumatic. No pharyngeal erythema. No thyromegaly. CARDIOVASCULAR: S1 and S2 present. No murmurs, rubs, or gallops. PULMONARY: Chest is clear to auscultation, no wheezing or crackles. ABDOMEN: Patient has a mildly tender appreciable mass in the epigastric area bowel sounds are present MUSCULOSKELETAL: No joint swelling or deformity. EXTREMITIES: No cyanosis, clubbing, or pedal edema. NEUROLOGICAL: Gross neurological examination did not reveal any focal deficits. SKIN: No rashes. Results CBC & Chem 7: 06/04/20 09:41 06/04/20 09:41 Labs: Abnormal Lab Results - Last 24 Hours (Table) 06/04/20 06/04/20 06/04/20 Range/Units 09:41 09:41 09:41 RBC 3.11 L (3.80-5.40) m/uL Hgb 8.9 L D (11.4-16.0) gm/dL Hct 25.4 L (34.0-46.0) % Lymphocytes # 0.6 L (1.0-4.8) k/uL APTT 18.5 L (22.0-30.0) sec Sodium (137-145) mmol/L Chloride (98-107) mmol/L BUN (7-17) mg/dL Glucose (74-99) mg/dL Magnesium (1.6-2.3) mg/dL Total Protein (6.3-8.2) g/dL Albumin (3.5-5.0) g/dL Stool Occult Blood Positive H (Negative) 06/04/20 Range/Units 09:41 RBC (3.80-5.40) m/uL Hgb (11.4-16.0) gm/dL Hct (34.0-46.0) % Lymphocytes # (1.0-4.8) k/uL APTT (22.0-30.0) sec Sodium 124 L (137-145) mmol/L Chloride 87 L (98-107) mmol/L BUN 26 H (7-17) mg/dL Glucose 175 H (74-99) mg/dL Magnesium 1.5 L (1.6-2.3) mg/dL Total Protein 5.3 L (6.3-8.2) g/dL Albumin 2.9 L (3.5-5.0) g/dL Stool Occult Blood (Negative) Thrombosis Risk Factor Assmnt - Choose All That Apply Each Factor Represents 1 point: Obesity (BMI >25) Other Risk Factors: Yes Each Risk Factor Represents 2 Points: Malignancy Each Risk Factor Represents 3 Points: Age 75 years or older Other congenital or acquired thrombophilia - If yes, enter type in comment: No Thrombosis Risk Factor Assessment Total Risk Factor Score: 6 Thrombosis Risk Factor Assessment Level: High Risk Assessment and Plan Plan: -Possibly acute upper/ lower GI bleed Patient was started on Protonix which will be continued, gastroenterology was consulted. Although daughter was complaining of blood in the stools, because of which can be lower GI bleed. Patient was complaining of dark stools. -Epigastric abdominal pain secondary to pancreatic mass all infection cannot be ruled out because of which patient was started on Zosyn -Acute blood loss anemia secondary to GI bleed -Pancreatic cancer: Dysuria and one cycle of chemotherapy oncology will be consulted -Fever possibility of intra-abdominal Infection cannot be ruled out as mentioned above patient will be on antibiotics -Hyponatremia most probably hypovolemic hyponatremia continue with fluids and if the sodium doesn't improve then we will do further workup for hyponatremia at the time -Type 2 diabetes mellitus patient was started on sliding scale insulin -Hyperlipidemia -Hypertension patient is presently hypotensive to follow the heparin antibody was medications except for beta blockers -DVT prophylaxis: No pharmacologic DVT prophylaxis because of GI bleed
[2020-06-04] MEDS: ATORVASTATIN 80 MG TAB PO SCH (20:04)
[2020-06-04] MEDS: atenoloL 50 MG TAB PO SCH (20:04)
[2020-06-04] MEDS: MAGNESIUM SULFATE-D5W PMX 1 GM in DEXTROSE/WATER 1 100ML.BAG IVPB SCH ×2 (20:06→21:55)
--- NOTE | 2020-06-05 04:10 | P.PN ---
Progress Note - Text Progress Note Date: 06/05/20 A team note Patient seen at the bedside for bloody bowel movement. Review the chart and discussed the case with RN. The patient was admitted to the hospital on morning of 06/04 due to acute GI bleeding. The patient's hemoglobin had dropped from a baseline of 11-8.7. The patient was started on IV Protonix and was admitted for further management with surgery in consult. She subsequently had another episode of dark red stool which prompted the A-team. The patient reported being at her baseline and denied active complaints. Her vitals upon arrival at the scene were BP 100/53, pulse 76, SpO2 92% and temperature 98.8F. She denied abdominal pain, nausea, vomiting, or dizziness. General: Non-toxic, in no acute distress, appears stated age HEENT: NC/AT, anicteric sclerae, moist conjunctiva, no lid-lag, PERRLA Cardiovascular: S1/S2 wnl, systolic murmur appreciated, rubs, or gallops Lungs: Clear to auscultation, normal respiratory effort, no accessory muscle use Abdominal: Soft, mild periumbilical tenderness, non-distended, no guarding, rebound, or rigidity Skin: Warm, dry Extremities: No edema or contractures Psychiatric: Alert and oriented Neuro: Moving all extremities: No gross focal deficits noted Assessment/plan Acute blood loss anemia secondary to GI bleeding -Repeat CBC stat ordered -Recommend transfer to medical ICU if drop in Hgb or patient becomes symptomatic -Protonix 40 mg IV every 12 hourly -Nothing by mouth -Transfuse with PRBCs if hemoglobin < 7 or if patient becomes symptomatic -Primary notified by RN
[2020-06-05 04:40] LABS: Basophils % (A) 0 %; Eosinophils # (A) 0.1 k/uL (0-0.7); Eosinophils % (A) 1 %; HCT 20.1 % (34.0-46.0); Lymphocytes # (A) 0.5 k/uL (1.0-4.8); Lymphocytes % (A) 5 %; MCH 27.2 pg (25.0-35.0); MCHC 32.4 g/dL (31.0-37.0); MCV 83.8 fL (80.0-100.0); Mean Platelet Volume 6.2; Monocytes # (A) 0.5 k/uL (0-1.0); Monocytes % (A) 6 %; Neutrophils # (A) 7.7 k/uL (1.3-7.7); Neutrophils % (A) 88 %; Platelet Count 274 k/uL (150-450); Poikilocytosis Slight; RDW 15.9 % (11.5-15.5); WBC 8.8 k/uL (3.8-10.6)
[2020-06-05 05:04] LABS: HGB 6.5 gm/dL (11.4-16.0)
[2020-06-05 05:51] LABS: Glucose,Whole Blood 204 mg/dL (75-99)
[2020-06-05] MEDS: SODIUM CHLORIDE 0.9% 1,000 ML IV SCH ×3 (06:06→22:36)
[2020-06-05] MEDS: PIPERACILLIN-TAZOBACTAM 3.375 GM in SODIUM CHLORIDE 0.9% 100 ML IVPB SCH ×2 (08:33→16:04)
[2020-06-05] MEDS ORDERED: PANTOPRAZOLE 40 MG/10 ML VIAL IV SCH (09:00)
[2020-06-05] MEDS ORDERED: FERROUS SULFATE 325 MG TAB PO SCH (09:00)
[2020-06-05] MEDS ORDERED: RALOXIFENE 60 MG TAB PO SCH (09:00)
[2020-06-05 10:15] LABS: African American GFR (CKD) 94.2 (60.0-200.0); Anion Gap 10.4 mmol/L (4.00-12.00); BUN/Creat Ratio 37.14 Ratio (12.00-20.00); Calcium 7.9 mg/dL (8.7-10.3); Carbon Dioxide 25.6 mmol/L (21.6-31.8); Non-African American GFR(CKD) 81.3 (60.0-200.0); Potassium 3.9 mmol/L (3.5-5.5)
[2020-06-05 11:48] LABS: Glucose,Whole Blood 200 mg/dL (75-99)
[2020-06-05] MEDS: INSULIN ASPART (NovoLOG) 100 UNIT/ML VIAL SQ SCH ×3 (11:55→21:06)
[2020-06-05] MEDS ORDERED: DESMOPRESSIN ACETATE 23 MCG in SODIUM CHLORIDE 0.9% 50 ML IVPB ONE (12:44)
--- NOTE | 2020-06-05 12:57 | P.CONS ---
History of Present Illness - Reason for Consult Consult date: 06/05/20 Pancreatic Cancer on Chemo Requesting physician: Liza Ford - Chief Complaint Bleeding - History of Present Illness Mrs. Cruz is a 79-year-old white female with overall well-controlled medical problems. The patient even to the emergency room, with complains of left upper abdomen/left lower chest pain. On questioning it appears that the pain appears to be localized towards the left mid abdomen with radiation into the left upper chest. There is also some radiation around and through to the back. In retrospect the patient feels that he started having some discomfort initially in late 11/26. Initially it was mild and intermittent, but has slowly become more persistent and progressive. She could not identify any obvious aggravating factors. There was some mild relief with laming on the left side. She feels that her appetite is mildly diminished, and she has lost some weight but has been trying to . He denied any difficulty in swallowing or early satiety. She also denied any major changes in her bowel habits. On admission the patient had x-ray of the abdomen including KUB, which did not show any significant pathology. CTA of the chest was also negative other than some minor bilateral groundglass opacities. However CT of the abdomen and pelvi s with contrast showed a 10 x 11 cm mass in the epigastrium causing anterior displacement of the transverse colon. Report mentioned the mass to be retroperitoneal and possibly arising from the pancreatic head. There was no evidence of any biliary obstruction. She denied any prior history of malignancy. She states that her last colonoscopy was about 7 years ago, and last EGD 9-10 years ago. Unfortunetley after further work-up and tissue biopsy diagnosis with Pancreatic cancer was determined. She was initiated on chemotherapt and status post cycle 1 day 1 of Gemzar and Abraxane on 05/29/20. She now presents to [facility] ER with Bloody stools, she has been admitted to ICU for active bleeding and close monitoring. She was seen and evaluated this am by Dr. Chopra. Review of Systems All systems: negative Constitutional: Reports as per HPI Past Medical History Past Medical History: Cancer, Diabetes Mellitus, Hyperlipidemia, Hypertension Additional Past Medical History / Comment(s): colon polyps History of Any Multi-Drug Resistant Organisms: None Reported Past Surgical History: Breast Surgery, Cholecystectomy, Tubal Ligation Additional Past Surgical History / Comment(s): colonoscopy, bx of mass 05/05/20, left breast lumpectomy benign 40 years ago, jaw surgery 50 years ago r/t broken jaw, eyelid surgery to "get the bags out" Past Anesthesia/Blood Transfusion Reactions: Motion Sickness Past Psychological History: No Psychological Hx Reported Smoking Status: Former smoker - Past Family History Mother Additional Family Medical History / Comment(s): addisons disease Father Family Medical History: Coronary Artery Disease (CAD) Medications and Allergies Home Medications Medication Instructions Recorded Confirmed Type Allopurinol [Zyloprim] 100 mg PO SUTUTH 04/24/20 06/04/20 History Atenolol [Tenormin] 50 mg PO HS 04/24/20 06/04/20 History Atorvastatin [Lipitor] 80 mg PO HS 04/24/20 06/04/20 History Biotin 5 mg PO DAILY 04/24/20 06/04/20 History Cholecalciferol (Vitamin D3) 125 mcg PO LAWSON 04/24/20 06/04/20 History [Vitamin D3 (5000 Iu)] Ferrous Sulfate [Slow Release Iron] 140 mg PO DAILY 04/24/20 06/04/20 History Multivitamins, Thera [Multivitamin 1 tab PO DAILY 04/24/20 06/04/20 History (formulary)] [place]-3 Fatty Acids/Fish Oil [Fish 1 cap PO DAILY 04/24/20 06/04/20 History Oil 1,000 mg Softgel] Raloxifene [Evista] 60 mg PO DAILY 04/24/20 06/04/20 History Triple Flex 1 tab PO DAILY 04/24/20 06/04/20 History Ubidecarenone [Co Q-10] 100 mg PO DAILY 04/24/20 06/04/20 History amLODIPine BESYLATE/BENAZEPRIL 1 cap PO DAILY 04/24/20 06/04/20 History [Lotrel 10-40 MG] hydroCHLOROthiazide [Hydrodiuril] 25 mg PO MOWESA 04/24/20 06/04/20 History metFORMIN HCL [Glucophage] 500 mg PO DAILY 04/24/20 06/04/20 History Aspirin [Adult Low Dose Aspirin EC] 81 mg PO DAILY 04/29/20 06/04/20 History HYDROcodone/APAP 10-325MG [[place] 1 tab PO Q4HR PRN 06/04/20 06/04/20 History 10-325] Ondansetron Odt [Zofran Odt] 4 mg PO Q6H PRN 06/04/20 06/04/20 History Sennosides/Docusate Sodium [Senna 1 cap PO HS 06/04/20 06/04/20 History Plus 8.6-50 mg Softgel] fentaNYL 25MCG/HR PATCH [Duragesic 1 patch TRANSDERM Q72H 06/04/20 06/04/20 History 25MCG/HR] Allergies Allergy/AdvReac Type Severity Reaction Status Date / Time shellfish derived [Lobster] Allergy Nausea & Verified 06/04/20 12:17 Vomiting Physical Exam Vitals: Vital Signs Temp Pulse Pulse Resp BP BP BP 06/05/20 07:01 71 14 06/05/20 06:57 70 97/46 06/05/20 06:00 14 06/05/20 05:57 71 99/39 06/05/20 05:51 98.4 F 70 14 106/52 06/05/20 05:34 74 88/50 06/04/20 19:50 99.3 F 77 14 112/64 06/04/20 16:41 98.2 F 75 118/74 06/04/20 12:49 67 18 104/60 06/04/20 11:59 70 18 116/52 06/04/20 10:14 78 18 119/49 06/04/20 08:58 100.8 F H 78 18 114/56 Pulse Ox 06/05/20 07:01 06/05/20 06:57 06/05/20 06:00 96 06/05/20 05:57 06/05/20 05:51 88 L 06/05/20 05:34 06/04/20 19:50 99 06/04/20 16:41 96 06/04/20 12:49 94 L 06/04/20 11:59 93 L 06/04/20 10:14 96 06/04/20 08:58 96 Intake and Output 06/04/20 06/05/20 06/05/20 22:59 06:59 14:59 Intake Total 130 100 Balance 130 100 Intake: Intake, IV Titration 130 100 Amount Sodium Chloride 0.9% 1, 130 100 000 ml @ 100 mls/hr IV . Q10H [facility] Rx#:[id number] Oral 0 Other: Voiding Method Toilet Toilet # Voids 1 0 # Bowel Movements 0 - Constitutional General appearance: cooperative, no acute distress - EENT Eyes: EOMI ENT: hard of hearing, NA/AT - Neck Neck: normal ROM - Respiratory Respiratory: bilateral: diminished - Cardiovascular Rhythm: regularly irregular - Gastrointestinal General gastrointestinal: soft, tenderness - Integumentary Integumentary: pale - Neurologic NOn-Focal - Musculoskeletal Musculoskeletal: generalized weakness - Psychiatric Lethargic Results CBC & Chem 7: 06/05/20 15:39 06/05/20 04:17 Labs: Abnormal Lab Results - Last 24 Hours (Table) 06/04/20 06/04/20 06/04/20 Range/Units 09:41 09:41 09:41 RBC 3.11 L (3.80-5.40) m/uL Hgb 8.9 L D (11.4-16.0) gm/dL Hct 25.4 L (34.0-46.0) % RDW (11.5-15.5) % Lymphocytes # 0.6 L (1.0-4.8) k/uL APTT 18.5 L (22.0-30.0) sec Sodium (137-145) mmol/L Chloride (98-107) mmol/L BUN (7-17) mg/dL Glucose (74-99) mg/dL POC Glucose (mg/dL) (75-99) mg/dL Magnesium (1.6-2.3) mg/dL Total Protein (6.3-8.2) g/dL Albumin (3.5-5.0) g/dL Stool Occult Blood Positive H (Negative) Crossmatch 06/04/20 06/04/20 06/05/20 Range/Units 09:41 09:50 04:17 RBC 2.40 L (3.80-5.40) m/uL Hgb 6.5 L* D (11.4-16.0) gm/dL Hct 20.1 L (34.0-46.0) % RDW 15.9 H (11.5-15.5) % Lymphocytes # 0.5 L (1.0-4.8) k/uL APTT (22.0-30.0) sec Sodium 124 L (137-145) mmol/L Chloride 87 L (98-107) mmol/L BUN 26 H (7-17) mg/dL Glucose 175 H (74-99) mg/dL POC Glucose (mg/dL) (75-99) mg/dL Magnesium 1.5 L (1.6-2.3) mg/dL Total Protein 5.3 L (6.3-8.2) g/dL Albumin 2.9 L (3.5-5.0) g/dL Stool Occult Blood (Negative) Crossmatch See Detail 06/05/20 Range/Units 05:49 RBC (3.80-5.40) m/uL Hgb (11.4-16.0) gm/dL Hct (34.0-46.0) % RDW (11.5-15.5) % Lymphocytes # (1.0-4.8) k/uL APTT (22.0-30.0) sec Sodium (137-145) mmol/L Chloride (98-107) mmol/L BUN (7-17) mg/dL Glucose (74-99) mg/dL POC Glucose (mg/dL) 204 H (75-99) mg/dL Magnesium (1.6-2.3) mg/dL Total Protein (6.3-8.2) g/dL Albumin (3.5-5.0) g/dL Stool Occult Blood (Negative) Crossmatch CT scan - abdomen: report reviewed CT scan - pelvis: report reviewed Assessment and Plan (1) GI bleed Current Visit: Yes Status: Acute Code(s): K92.2 - GASTROINTESTINAL HEMORRHAGE, UNSPECIFIED SNOMED Code(s): 69468219 (2) Pancreatic mass Current Visit: Yes Status: Acute Code(s): K86.89 - OTHER SPECIFIED DISEASES OF PANCREAS SNOMED Code(s): 411852048 (3) Pancreatic cancer Current Visit: No Status: Acute Code(s): C25.9 - MALIGNANT NEOPLASM OF PANCREAS, UNSPECIFIED SNOMED Code(s): 721483203 Plan: Assessment and Recommendations: Pancreatic Cancer: Recently diagnosed - Status Post chemo cycle 1, day 1 on 05/29/20 - Large Mesenteric Mass - Likely source of bleeding - Will consult [facility] onc in event palative xrt needed to assist in stopping bleeding Anemia with Positive GI bleeding: - Monitor Coags and clotting factors - Transfuse PRBC less than 7 - DDAVP x1 now - Sandostatin Drip without bolus for 24 hours, if bleeding not improved GI evaluation and xrt to assist in control Family with questions, will return to floor to discuss and answer these today. Long discussion with son Kris, while patient was taken to endoscopy with Dr. Magaña. [place] Attest: I have completed the full history and physical and agree with above dictation dictated as a scribe
[2020-06-05] MEDS ORDERED: OCTREOTIDE 500 MCG in SODIUM CHLORIDE 0.9% 250 ML IV SCH (13:15)
--- NOTE | 2020-06-05 14:01 | CONS ---
CONSULTATION DATE OF DICTATION: June 05, 2020 REASON FOR CONSULTATION: Acute GI bleed. HISTORY OF PRESENT ILLNESS: The patient is an 79-year-old pleasant white female with history of pancreatic cancer diagnosed in April of this year, presently undergoing chemotherapy. She finished her first cycle of chemotherapy last week. The patient presented to the hospital with maroon-colored stools since yesterday. She had large bowel movements yesterday but none since then. She came into the emergency room and was noted to have a hemoglobin of 7.5, subsequently dropped to 6 g/dL, 1 unit of PRBC transfusion. She has been complaining of severe epigastric pain, but no nausea, no vomiting. No recent NSAID use. The patient presented with epigastric pain and epigastric mass in March of 2020. She had an upper endoscopy done by Dr. Dias on April 25 and was noted to have a small hiatal hernia and gastritis. Subsequently she had a CT-guided biopsy done and was diagnosed with pancreatic cancer and being followed by Dr. Chopra. PAST MEDICAL HISTORY: Significant for hypertension, diabetes mellitus, hyperlipidemia, newly diagnosed pancreatic cancer. PAST SURGICAL HISTORY: Colonoscopy about 7 or 8 years ago, history of left breast lumpectomy, jaw surgery, eyelid surgery. MEDICATIONS: Medications at home include Lipitor, Biotin, vitamin D3, multivitamin, Evista, benazepril, HydroDIURIL, Glucophage, aspirin, [place], Zofran, Senna, fentanyl patch, atenolol, and Zyloprim. SOCIAL HISTORY: No smoking. No alcohol use. FAMILY HISTORY: Mother had Tyler's disease and father had coronary artery disease. ALLERGIES: SHELLFISH. REVIEW OF SYSTEMS: CARDIOPULMONARY: No chest pain or shortness of breath. GENITOURINARY: No dysuria or hematuria. MUSCULOSKELETAL: Unremarkable. SKIN: Unremarkable. ENDOCRINE: Unremarkable. PSYCHIATRIC: Unremarkable. ONCOLOGY: As mentioned above. HEMATOLOGY: Anemia. ENT/VISION: Unremarkable. CONSTITUTIONAL: Weight loss of 10 pounds. No fever, chills, night sweats. PHYSICAL EXAMINATION: She appears comfortable. No apparent distress. Vital signs are stable. Blood pressure is 112/88, pulse rate 86 per minute, temperature 98.1. HEENT EXAMINATION: Unremarkable. Conjunctivae pink. Sclerae anicteric. Oral cavity no lesions. NECK: No JVD or lymph node enlargement. CHEST: Was clear to auscultation. HEART: Regular rate and rhythm. ABDOMEN: Soft. There was severe tenderness in the epigastric area. There was epigastric fullness noted. Rest of the abdomen was benign. Bowel sounds are positive. No organomegaly. EXTREMITIES: No pedal edema. SKIN: No rashes. NEUROLOGIC: Alert and oriented x3. No focal deficits. LABS: WBC 8.6, hemoglobin was 8.9 yesterday, today it dropped to 6.5, platelets normal. PT, INR within normal limits. BUN is 26, creatinine 0.71. AST, ALT, T-bilirubin and alkaline phosphatase are within normal limits. Stool occult blood is positive. Coronavirus PCR is negative. IMPRESSION: 1. Acute gastrointestinal bleed, possibly upper in etiology. Patient presented with dark colored stools/fresh maroon-colored stool since yesterday. She dropped hemoglobin from 8.9-6.5 g/dL requiring a unit of PRBC transfusion. At this time possibility of an upper versus colonic source of bleeding cannot be excluded. Her last EGD by Dr. Dias on April 25 showed small hiatal hernia and mild gastritis. 2. Newly diagnosed pancreatic cancer, pancreatic adenocarcinoma, undergoing chemotherapy. Her first cycle was last week. 3. History of hypertension and hyperlipidemia. 4. History of diabetes mellitus. RECOMMENDATIONS: 1. Continue with Protonix 40 mg twice daily. 2. Monitor CBC q.12 hours and transfuse if the hemoglobin is less than 7. 3. We will proceed with an upper endoscopy today. 4. Continue with symptomatic and supportive care. 5. We will follow with you closely. Thank you for this consultation. MMODL / IJN: [id number] /
[2020-06-05] MEDS ORDERED: PROPOFOL 10 MG/ML 20 ML VIAL IV ONE (14:22)
[2020-06-05] MEDS ORDERED: LIDOCAINE 1% INJ 10MG/ML (20 ML MDV) ONE (14:22)
[2020-06-05] MEDS ORDERED: SODIUM CHLORIDE 0.9% 1,000 ML IV ONE (14:23)
--- NOTE | 2020-06-05 14:32 | P.PCN ---
Date of Procedure: 06/05/20 Procedure(s) Performed: BRIEF HISTORY: Patient is a 79-year-old, pleasant, white female admitted hospital with multiple episodes of maroon-colored stools that started yesterday morning. She dropped hemoglobin to 6.3 g/dL requiring 1 units of PRBC transfusion. She is scheduled for an upper endoscopy to evaluate upper GI source of bleeding. She was recently diagnosed with pancreatic cancer and is undergoing chemotherapy and a first cycle was last week. PROCEDURE PERFORMED: Esophagogastroduodenoscopy. PREOPERATIVE DIAGNOSIS: Acute GI bleed, rule out upper GI source. IV sedation per anesthesia. PROCEDURE: After informed consent was obtained, the patient was brought into the endoscopy unit. IV sedation was administered by Anesthesia under continuous monitoring. Initially the Olympus GIF-140 video endoscope was inserted into the mouth. Esophagus intubated without any difficulty. It was gradually advanced into the stomach and duodenum and carefully examined. The bulb and the second part of the duodenum appeared normal. The scope at this time was withdrawn to the stomach, adequately insufflated with air, and upon careful examination, mucosa of the antrum had mild diffuse gastritis. The, body, cardia and the fundus appeared normal. The scope was then withdrawn into the esophagus. The GE junction was located at 39 cm from the incisors. Small sliding type hiatal hernia noted. The esophagus appeared normal. There were no erosions or ulcerations seen and the patient tolerated the procedure well. IMPRESSION: 1. Mild antral gastritis, no evidence of acute upper GI. 2. Small hiatal hernia. RECOMMENDATIONS: The findings of this examination were discussed with the patient as well as a family. She will be scheduled for colonoscopy tomorrow. Start on clear liquid diet today. Monitor CBC daily..
[2020-06-05 15:38] VITALS: RESP 16
--- NOTE | 2020-06-05 16:12 | P.PN ---
Subjective Patient with the pain clinic cancer was admitted for acute upper GI bleed patient has a large pancreatic mass received 1 cycle of chemotherapy this mass appears to be increased in size may be eroding the stomach and leading to upper GI bleed. Patient remains on Protonix and patient was started on octreotide by oncology. Patient had a low-grade fever as well can be from the bleed patient was evaluated by gastroenterology, patient may undergo upper GI endoscopy today patient was transferred to ICU last night because of active episodes of GI bleed and patient hemoglobin dropped to 6.5 received 2 units of PRBC transfusion after that. Patient is on Zosyn for intra-abdominal source of infection. Patient did have fever. Patient had hyponatremia. To be safe secondary to hypovolemia is a minimal improvement with IV fluids. Constitutional: Still tired and fatigued Cardio vascular: denied any chest pain, palpitations Gastrointestinal as mentioned in HPI Pulmonary: Denied any shortness of breath cough Neurologic denied any new focal deficits All inpatient medications were reviewed and appropriate changes in these medications as dictated in the interval history and assessment and plan. Objective - Vital Signs Vital signs: Vital Signs Temp 98.4 F 06/05/20 12:21 Pulse 68 06/05/20 15:37 Resp 16 06/05/20 15:37 BP 102/51 06/05/20 15:37 Pulse Ox 100 06/05/20 15:37 Intake & Output 06/04/20 06/05/20 06/05/20 18:59 06:59 18:59 Intake Total 130 100 360 Output Total 25 Balance 130 100 335 Weight 78.471 kg Intake: IV 50 Intake, IV Titration 130 100 Amount Sodium Chloride 0.9% 1, 130 100 000 ml @ 100 mls/hr IV . Q10H [facility] Rx#:[id number] Oral 0 Blood Product 310 Rc As-1 Unit 310 [id number] Output: Urine/Stool Mix 25 Other: Voiding Method Toilet Toilet Toilet # Voids 1 0 # Bowel Movements 0 - Exam PHYSICAL EXAMINATION: GENERAL: The patient is alert and oriented x3, not in any acute distress. Obese HEENT: Pupils are round and equally reacting to light. EOMI. No scleral icterus. Does have conjunctival pallor. Normocephalic, atraumatic. No pharyngeal erythema. No thyromegaly. CARDIOVASCULAR: S1 and S2 present. No murmurs, rubs, or gallops. PULMONARY: Chest is clear to auscultation, no wheezing or crackles. ABDOMEN: Patient has a mildly tender appreciable mass in the epigastric area bowel sounds are present MUSCULOSKELETAL: No joint swelling or deformity. EXTREMITIES: No cyanosis, clubbing, or pedal edema. NEUROLOGICAL: Gross neurological examination did not reveal any focal deficits. SKIN: No rashes. - Labs CBC & Chem 7: 06/05/20 04:17 06/05/20 04:17 Labs: Abnormal Lab Results - Last 24 Hours (Table) 06/04/20 06/05/20 06/05/20 Range/Units 09:50 04:17 04:17 RBC 2.40 L (3.80-5.40) m/uL Hgb 6.5 L* D (11.4-16.0) gm/dL Hct 20.1 L (34.0-46.0) % RDW 15.9 H (11.5-15.5) % Lymphocytes # 0.5 L (1.0-4.8) k/uL Sodium 129 L (135-145) mmol/L Chloride 93 L (96-109) mmol/L BUN/Creatinine Ratio 37.14 H (12.00-20.00) Ratio Glucose 195 H (70-110) mg/dL POC Glucose (mg/dL) (75-99) mg/dL Calcium 7.9 L (8.7-10.3) mg/dL Crossmatch See Detail 06/05/20 06/05/20 Range/Units 05:49 11:46 RBC (3.80-5.40) m/uL Hgb (11.4-16.0) gm/dL Hct (34.0-46.0) % RDW (11.5-15.5) % Lymphocytes # (1.0-4.8) k/uL Sodium (135-145) mmol/L Chloride (96-109) mmol/L BUN/Creatinine Ratio (12.00-20.00) Ratio Glucose (70-110) mg/dL POC Glucose (mg/dL) 204 H 200 H (75-99) mg/dL Calcium (8.7-10.3) mg/dL Crossmatch Microbiology - Last 24 Hours (Table) 06/04/20 13:30 Blood Culture - Preliminary Blood No Growth after 24 hours 06/04/20 13:15 Blood Culture - Preliminary Blood No Growth after 24 hours Assessment and Plan Plan: -Acute upper GI bleed: Probably secondary to peptic is a disease or erosion of the pancreatic mass into the stomach. Patient is presently on Protonix and octreotide was started by oncology. Patient will undergo upper GI endoscopy as mentioned above -Epigastric abdominal pain secondary to pancreatic mass all infection cannot be ruled out because of which patient was started on Zosyn patient did have fever. As per oncology patient will need radiation therapy for the mass. -Acute blood loss anemia secondary to GI bleed -Pancreatic cancer: Patient so far received 1 cycle of chemotherapy -Fever possibility of intra-abdominal Infection cannot be ruled out as mentioned above patient will be on antibiotics -Hyponatremia most probably hypovolemic hyponatremia continue with fluids , there is improvement in sodium continue with IV fluids. -Type 2 diabetes mellitus patient was started on sliding scale insulin -Hyperlipidemia -Hypertension patient is presently hypotensive, hold off and if his medications except for beta blockers -DVT prophylaxis: No pharmacologic DVT prophylaxis because of GI bleed
[2020-06-05] MEDS: HYDROcodone/APAP 10-325MG 1 EACH TAB PO PRN ×2 (16:18→22:28)
[2020-06-05 16:30] LABS: Basophils % (A) 0 %; Eosinophils % (A) 0 %; HCT 20.2 % (34.0-46.0); Hypochromasia Slight; Lymphocytes # (A) 1.2 k/uL (1.0-4.8); Lymphocytes % (A) 12 %; MCHC 31.6 g/dL (31.0-37.0); MCV 85.6 fL (80.0-100.0); Mean Platelet Volume 6.4; Monocytes # (A) 0.6 k/uL (0-1.0); Monocytes % (A) 6 %; Neutrophils # (A) 7.9 k/uL (1.3-7.7); Neutrophils % (A) 79 %; Platelet Count 246 k/uL (150-450); Poikilocytosis Slight; RBC 2.36 m/uL (3.80-5.40); RDW 15.9 % (11.5-15.5); WBC 10.1 k/uL (3.8-10.6)
[2020-06-05 16:38] LABS: HGB 6.4 gm/dL (11.4-16.0)
[2020-06-05 16:50] LABS: Glucose,Whole Blood 165 mg/dL (75-99)
--- NOTE | 2020-06-05 17:36 | P.PN ---
Subjective Progress Note Date: 06/05/20 Principal diagnosis: GI bleeding Patient underwent EGD today. No communication to the stomach or duodenum was appreciated on that study by GI. Patient has had additional bloody stools with clots today. Hemoglobin was 6.5 and after transfusion of 1 unit it is 6.4. Patient with no significant increase in abdominal discomfort from baseline. She is afebrile. She did have a fever of 100.8 on initial admission. White blood cell count normal. Objective - Vital Signs Vital signs: Vital Signs Temp 98.4 F 06/05/20 12:21 Pulse 68 06/05/20 15:37 Resp 16 06/05/20 15:37 BP 102/51 06/05/20 15:37 Pulse Ox 100 06/05/20 15:37 Intake & Output 06/04/20 06/05/20 06/05/20 18:59 06:59 18:59 Intake Total 130 100 360 Output Total 25 Balance 130 100 335 Weight 78.471 kg Intake: IV 50 Intake, IV Titration 130 100 Amount Sodium Chloride 0.9% 1, 130 100 000 ml @ 100 mls/hr IV . Q10H [facility] Rx#:[id number] Oral 0 Blood Product 310 Rc As-1 Unit 310 [id number] Output: Urine/Stool Mix 25 Other: Voiding Method Toilet Toilet Toilet # Voids 1 0 # Bowel Movements 0 - Exam Abdomen: Soft, mild distention, upper abdominal fullness unchanged with mild tenderness - Labs CBC & Chem 7: 06/05/20 15:39 06/05/20 04:17 Labs: Abnormal Lab Results - Last 24 Hours (Table) 06/04/20 06/05/20 06/05/20 Range/Units 09:50 04:17 04:17 RBC 2.40 L (3.80-5.40) m/uL Hgb 6.5 L* D (11.4-16.0) gm/dL Hct 20.1 L (34.0-46.0) % RDW 15.9 H (11.5-15.5) % Neutrophils # (1.3-7.7) k/uL Lymphocytes # 0.5 L (1.0-4.8) k/uL Sodium 129 L (135-145) mmol/L Chloride 93 L (96-109) mmol/L BUN/Creatinine Ratio 37.14 H (12.00-20.00) Ratio Glucose 195 H (70-110) mg/dL POC Glucose (mg/dL) (75-99) mg/dL Calcium 7.9 L (8.7-10.3) mg/dL Crossmatch See Detail 06/05/20 06/05/20 06/05/20 Range/Units 05:49 11:46 15:39 RBC 2.36 L (3.80-5.40) m/uL Hgb 6.4 L* (11.4-16.0) gm/dL Hct 20.2 L (34.0-46.0) % RDW 15.9 H (11.5-15.5) % Neutrophils # 7.9 H (1.3-7.7) k/uL Lymphocytes # (1.0-4.8) k/uL Sodium (135-145) mmol/L Chloride (96-109) mmol/L BUN/Creatinine Ratio (12.00-20.00) Ratio Glucose (70-110) mg/dL POC Glucose (mg/dL) 204 H 200 H (75-99) mg/dL Calcium (8.7-10.3) mg/dL Crossmatch 06/05/20 Range/Units 16:48 RBC (3.80-5.40) m/uL Hgb (11.4-16.0) gm/dL Hct (34.0-46.0) % RDW (11.5-15.5) % Neutrophils # (1.3-7.7) k/uL Lymphocytes # (1.0-4.8) k/uL Sodium (135-145) mmol/L Chloride (96-109) mmol/L BUN/Creatinine Ratio (12.00-20.00) Ratio Glucose (70-110) mg/dL POC Glucose (mg/dL) 165 H (75-99) mg/dL Calcium (8.7-10.3) mg/dL Crossmatch Microbiology - Last 24 Hours (Table) 06/04/20 13:30 Blood Culture - Preliminary Blood No Growth after 24 hours 06/04/20 13:15 Blood Culture - Preliminary Blood No Growth after 24 hours Assessment and Plan (1) GI bleed Narrative/Plan: 79-year-old female with large epigastric mass. Biopsy suggest pancreatic origin. CAT scan reviewed. Moderate volume of air within the tumor possibly on the basis of necrosis or more concerning for fistulous communication to the bowel possibly transverse colon. Case was discussed with GI. She has already been seen by [facility] pancreatic surgery service Dr. Jang. At this point I am recommending transfer back to [facility] for either angioembolization or surgical intervention by the hepatobiliary service. Family is agreeable. GI is also agreeable with that plan. Current Visit: Yes Status: Acute Code(s): K92.2 - GASTROINTESTINAL HEMORRHAGE, UNSPECIFIED SNOMED Code(s): 68769000
--- NOTE | 2020-06-05 18:50 | P.DS ---
Providers Date of admission: 06/04/20 12:25 Attending physician: Leonides Jasso Consults: 06/04/20 12:27 Consult Physician Urgent Consulting Provider: Stew Dias Consult Reason/Comments: pancreatic mass, new gas foci Do you want consulting provider notified?: Yes Consult Physician Urgent Consulting Provider: Meseret Magaña Consult Reason/Comments: gi bleed, pancreatic cancer Do you want consulting provider notified?: Yes 06/04/20 12:29 Consult Physician Urgent Consulting Provider: Deepak gA Consult Reason/Comments: pancreatic cancer on chemo Do you want consulting provider notified?: Yes Primary care physician: Ely [facility] Course: Patient with the pain clinic cancer was admitted for acute upper GI bleed patient has a large pancreatic mass received 1 cycle of chemotherapy this mass appears to be increased in size may be eroding the stomach and leading to upper GI bleed. Patient remains on Protonix and patient was started on octreotide by oncology. Patient had a low-grade fever as well can be from the bleed patient was evaluated by gastroenterology, patient may undergo upper GI endoscopy today patient was transferred to ICU last night because of active episodes of GI bleed and patient hemoglobin dropped to 6.5 received 2 units of PRBC transfusion after that. Patient is on Zosyn for intra-abdominal source of infection. Patient did have fever. Patient had hyponatremia. To be safe secondary to hypovolemia is a minimal improvement with IV fluids. Patient underwent upper GI endoscopy only showed mild is a pharyngitis and gastritis. Patient was later evaluated by general surgery as well. Patient is supposed to undergo colonoscopy tomorrow. After review of CAT scans Genaced he believes it may be a cyst Liska medication between the tumor and the transverse colon and recommending angioma laser patient for this. Just surgery recommending transferred to [facility] where patient was taken care of for her pancreatic mass. Patient had pancreatic surgery in the past there. Patient hemoglobin is presently 6.4 patient had of 4 large bloody bowel movements patient will be transfused with 2 more units patient is presently hemodynamically stable. PHYSICAL EXAMINATION: GENERAL: The patient is alert and oriented x3, not in any acute distress. Obese HEENT: Pupils are round and equally reacting to light. EOMI. No scleral icterus. Does have conjunctival pallor. Normocephalic, atraumatic. No pharyngeal erythema. No thyromegaly. CARDIOVASCULAR: S1 and S2 present. No murmurs, rubs, or gallops. PULMONARY: Chest is clear to auscultation, no wheezing or crackles. ABDOMEN: Patient has a mildly tender appreciable mass in the epigastric area bowel sounds are present MUSCULOSKELETAL: No joint swelling or deformity. EXTREMITIES: No cyanosis, clubbing, or pedal edema. NEUROLOGICAL: Gross neurological examination did not reveal any focal deficits. SKIN: No rashes. Assessment and Plan Plan: -Acute GI bleed initially believed to be upper GI bleed because of the dark stools although upper GI endoscopy only showed mild esophagitis and gastritis and patient appears to have this fistulous, medication between the tumor which is larger and transverse colon and patient appears to have active lower GI bleed now. Will be transferred to [facility] as mentioned above -Epigastric abdominal pain secondary to pancreatic mass , infection cannot be ruled out because of which patient is being continued on on Zosyn patient did have fever. As per oncology patient will need radiation therapy for the mass. -Acute blood loss anemia secondary to GI bleed -Pancreatic cancer: Patient so far received 1 cycle of chemotherapy -Fever possibility of intra-abdominal Infection cannot be ruled out as mentioned above patient will be on antibiotics -Hyponatremia most probably hypovolemic hyponatremia continue with fluids , there is improvement in sodium continue with IV fluids. -Type 2 diabetes mellitus patient was started on sliding scale insulin -Hyperlipidemia -Hypertension patient is presently hypotensive, hold off and if his medications except for beta blockers -DVT prophylaxis: No pharmacologic DVT prophylaxis because of GI bleed Patient Condition at Discharge: Stable Plan - Discharge Summary Discharge Rx Participant: No New Discharge Prescriptions: No Action [place]-3 Fatty Acids/Fish Oil [Fish Oil 1,000 mg Softgel] 1 cap PO DAILY Cholecalciferol (Vitamin D3) [Vitamin D3 (5000 Iu)] 125 mcg PO LAWSON Biotin 5 mg PO DAILY metFORMIN HCL [Glucophage] 500 mg PO DAILY Ubidecarenone [Co Q-10] 100 mg PO DAILY Raloxifene [Evista] 60 mg PO DAILY Multivitamins, Thera [Multivitamin (formulary)] 1 tab PO DAILY Ferrous Sulfate [Slow Release Iron] 140 mg PO DAILY hydroCHLOROthiazide [Hydrodiuril] 25 mg PO MOWESA Allopurinol [Zyloprim] 100 mg PO SUTUTH Atorvastatin [Lipitor] 80 mg PO HS amLODIPine BESYLATE/BENAZEPRIL [Lotrel 10-40 MG] 1 cap PO DAILY Atenolol [Tenormin] 50 mg PO HS Triple Flex 1 tab PO DAILY Aspirin [Adult Low Dose Aspirin EC] 81 mg PO DAILY fentaNYL 25MCG/HR PATCH [Duragesic 25MCG/HR] 1 patch TRANSDERM Q72H HYDROcodone/APAP 10-325MG [Avoca 10-325] 1 tab PO Q4HR PRN PRN Reason: Pain Sennosides/Docusate Sodium [Senna Plus 8.6-50 mg Softgel] 1 cap PO HS Ondansetron Odt [Zofran Odt] 4 mg PO Q6H PRN PRN Reason: Nausea Discharge Medication List Allopurinol [Zyloprim] 100 mg PO SUTUTH 04/24/20 [History] Atenolol [Tenormin] 50 mg PO HS 04/24/20 [History] Atorvastatin [Lipitor] 80 mg PO HS 04/24/20 [History] Biotin 5 mg PO DAILY 04/24/20 [History] Cholecalciferol (Vitamin D3) [Vitamin D3 (5000 Iu)] 125 mcg PO LAWSON 04/24/20 [History] Ferrous Sulfate [Slow Release Iron] 140 mg PO DAILY 04/24/20 [History] Multivitamins, Thera [Multivitamin (formulary)] 1 tab PO DAILY 04/24/20 [History] [place]-3 Fatty Acids/Fish Oil [Fish Oil 1,000 mg Softgel] 1 cap PO DAILY 04/24/20 [History] Raloxifene [Evista] 60 mg PO DAILY 04/24/20 [History] Triple Flex 1 tab PO DAILY 04/24/20 [History] Ubidecarenone [Co Q-10] 100 mg PO DAILY 04/24/20 [History] amLODIPine BESYLATE/BENAZEPRIL [Lotrel 10-40 MG] 1 cap PO DAILY 04/24/20 [History] hydroCHLOROthiazide [Hydrodiuril] 25 mg PO MOWESA 04/24/20 [History] metFORMIN HCL [Glucophage] 500 mg PO DAILY 04/24/20 [History] Aspirin [Adult Low Dose Aspirin EC] 81 mg PO DAILY 04/29/20 [History] HYDROcodone/APAP 10-325MG [Avoca 10-325] 1 tab PO Q4HR PRN 06/04/20 [History] Ondansetron Odt [Zofran Odt] 4 mg PO Q6H PRN 06/04/20 [History] Sennosides/Docusate Sodium [Senna Plus 8.6-50 mg Softgel] 1 cap PO HS 06/04/20 [History] fentaNYL 25MCG/HR PATCH [Duragesic 25MCG/HR] 1 patch TRANSDERM Q72H 06/04/20 [History] Follow up Appointment(s)/Referral(s): Ely Aguero DO [Primary Care Provider] - 1-2 days
[2020-06-05 19:58] LABS: Glucose,Whole Blood 195 mg/dL (75-99)
[2020-06-05] MEDS: atenoloL 50 MG TAB PO SCH (21:05)
[2020-06-05] MEDS: ATORVASTATIN 80 MG TAB PO SCH (21:06)
[2020-06-06 00:02] VITALS: BP 118/55; PULSE 63; TEMP 98.2
[2020-06-06] MEDS: PIPERACILLIN-TAZOBACTAM 3.375 GM in SODIUM CHLORIDE 0.9% 100 ML IVPB SCH (00:02)
== END 2020-06-06 01:22 | disposition short-term general hospital (02) | DRG 378 ==
LOC: EC 08:58 → 5NMEDONC 12:25 → 2SICU 06-05 05:45 → 3SCARD 06-05 14:20
PROVIDERS: ADMIT Internal Medicine; ATTEND Internal Medicine
PROC: 0DJ08ZZ Inspection of Upper Intestinal Tract, Via Natural or Artificial Opening Endoscopic (ICD-10-PCS; 2020-06-05)
PROC: 30243N1 Transfusion of Nonautologous Red Blood Cells into Central Vein, Percutaneous Approach (ICD-10-PCS; principal; 2020-06-05 08:20)
DX: K92.1 Melena (principal); C25.9 Malignant neoplasm of pancreas, unspecified; E87.1 Hypo-osmolality and hyponatremia; D62 Acute posthemorrhagic anemia; C50.912 Malignant neoplasm of unspecified site of left female breast; I95.9 Hypotension, unspecified; E86.1 Hypovolemia; E11.9 Type 2 diabetes mellitus without complications; Z20.822 Contact with and (suspected) exposure to COVID-19; R50.9 Fever, unspecified; E78.5 Hyperlipidemia, unspecified; K44.9 Diaphragmatic hernia without obstruction or gangrene; K29.70 Gastritis, unspecified, without bleeding; K20.90 Esophagitis, unspecified without bleeding; E83.42 Hypomagnesemia; J02.9 Acute pharyngitis, unspecified; I10 Essential (primary) hypertension; K64.9 Unspecified hemorrhoids; E66.9 Obesity, unspecified; Z68.27 Body mass index [BMI] 27.0-27.9, adult; Z79.82 Long term (current) use of aspirin; Z79.84 Long term (current) use of oral hypoglycemic drugs; Z79.810 Long term (current) use of selective estrogen receptor modulators (SERMs); Z79.891 Long term (current) use of opiate analgesic; Z79.899 Other long term (current) drug therapy; Z87.891 Personal history of nicotine dependence; Z86.010 Personal history of colon polyps; Z98.51 Tubal ligation status; Z90.49 Acquired absence of other specified parts of digestive tract; Z87.81 Personal history of (healed) traumatic fracture; Z98.890 Other specified postprocedural states; Z91.013 Allergy to seafood; Z83.49 Family history of other endocrine, nutritional and metabolic diseases; Z82.49 Family history of ischemic heart disease and other diseases of the circulatory system
CPT/HCPCS: 36415; 43235; 74177; 80048; 80053; 82272; 83605; 83735; 84484; 85025; 85610; 85730; 86850; 86900; 86901; 86920; 87040; 87636; 94760; 99285

== ENCOUNTER → 2020-08-20 | Outpatient (CLI) | payer MEDICARE ==
[2020-08-20 09:14] LABS: African American GFR (CKD) >90 (>60 ml/min/1.73 sqM); Blood Urea Nitrogen 12 mg/dL (7-17); Non-African American GFR(CKD) >90 (>60 ml/min/1.73 sqM)
--- NOTE | 2020-08-20 11:17 | CT ---
And EXAMINATION TYPE: CT abdomen pelvis w con DATE OF EXAM: 08/20/2020 COMPARISON: 06/04/2020 HISTORY: Pancreatic CA CT DLP: 910.8 mGycm CONTRAST: CT scan of the abdomen and pelvis is performed with Oral Contrast and with IV Contrast, patient injec karen with 100 mL of Isovue 300. FINDINGS: LUNG BASES-: No visible nodule. No infiltrate. LIVER/GB: The gallbladder is surgically absent. No space occupying hepatic lesion. Biliary tree is of normal caliber. PANCREAS: Redemonstrated is a large mesenteric mass arising from the pancreatic head extending into t he lesser sac measuring 9.6 x 6.2 x 7.4 cm versus previous measurement of 10.0 x 10.7 x 13.0 cm. Inte rnal foci of air are redemonstrated as well as a metallic clip. This may reflect superimposed infecti on. There is increased mass effect upon the stomach at its greater curvature at the level of the pylo karen. Infiltration into the stomach is difficult to exclude. There is no evidence for obstruction as c ontrast is noted to flow distally. SPLEEN: No splenic enlargement. No lesion seen. ADRENALS: No nodule. No thickening. KIDNEYS/BLADDER: No hydronephrosis. No nephrolithiasis. No distinct renal mass. Urinary bladder g rossly unremarkable. BOWEL: Normal appendix. Normal bowel caliber. No inflammation. GENITAL ORGANS: No gross abnormality. LYMPH NODES: No greater than 1cm abdominal or pelvic lymph nodes are appreciated. AORTA: No significant abnormality. OSSEOUS STRUCTURES: No significant abnormality is seen. OTHER: Fat-containing umbilical hernia redemonstrated. IMPRESSION: 1. Large mesenteric mass arising from the pancreatic head with extension into the lesser sac persist s and is slightly smaller in size. There is internal air as noted previously which may reflect underl vanda infection or necrosis. Mass effect upon the stomach with the infiltration into the wall of the p ylorus difficult to exclude.
== END | disposition home or self-care (01) ==
LOC: RADCTMAIN 07:59
PROVIDERS: ATTEND Internal Medicine Hematology & Oncology
DX: C25.0 Malignant neoplasm of head of pancreas (principal); K31.89 Other diseases of stomach and duodenum
CPT/HCPCS: 82565; 84520; 74177; J1642; Q9967 ×2

== ENCOUNTER → 2020-08-20 | Outpatient (CLI) | payer MEDICARE ==
--- NOTE | 2020-08-20 13:02 | MR ---
EXAMINATION TYPE: MR lumbar spine wo/w con DATE OF EXAM: 08/20/2020 COMPARISON: 08/20/2020 HISTORY: Low back pain, pancreatic ca TECHNIQUE: Multiplanar, multisequence images of the lumbar spine were acquired utilizing [address] gadolinium contrast. L1-L2: Normal disc appearance without desiccation. No herniation, protrusion or disc bulging. No ca nal stenosis is present. Foramina are patent bilaterally. L2-L3: There is a disc bulge with mild bilateral facet arthropathy resulting in mild bilateral neural foraminal narrowing. L3-L4: There is a disc bulge with moderate bilateral facet arthropathy resulting in moderate bilatera l neural foraminal narrowing. L4-L5: There is mild anterolisthesis measuring 3 mm with a disc bulge and moderate bilateral facet ar thropathy resulting in mild bilateral neural foraminal narrowing. L5-S1: There is mild bilateral facet arthropathy with mild left neural foraminal narrowing. Lumbar segments are intact. No paraspinal masses are identified. Conus medullaris has a normal appe arance. This study was not tailored to evaluate the kidneys and there are T2 dark and bright lesions seen in both kidneys; ultrasound could be performed if clinically warranted. No definite areas of enhancement, however, postcontrast T1 fat saturation imaging and subtraction zeynep ging were not performed. 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
== END | disposition home or self-care (01) ==
LOC: RADMRIMAIN 08:22
PROVIDERS: ATTEND Internal Medicine Hematology & Oncology
DX: C25.9 Malignant neoplasm of pancreas, unspecified (principal); M51.36 Other intervertebral disc degeneration, lumbar region; M47.816 Spondylosis without myelopathy or radiculopathy, lumbar region
CPT/HCPCS: 72158; A9585

== ENCOUNTER 2020-09-05 14:40 | Emergency (ER) | payer MEDICARE ==
[2020-09-05 14:48] VITALS: BP 114/68; PULSE 75; RESP 20; TEMP 98.3
[2020-09-05 15:35] LABS: Appearance,Urine Clear (Clear); Bilirubin,Urine Negative (Negative); Blood,Urine Moderate (Negative); Color,Urine Yellow; Glucose,Urine (UA) Negative (Negative); Ketones,Urine Negative (Negative); Leukocyte Esterase,Urine Negative (Negative); Nitrite,Urine Negative (Negative); Protein,Urine Negative (Negative); RBC,Urine 46 /hpf (0-5); Specific Gravity,Urine 1.012 (1.001-1.035); Squamous Epithelial Cell,Urine <1 /hpf (0-4); WBC,Urine 1 /hpf (0-5)
[2020-09-05 16:01] LABS: Anisocytosis Slight; Basophils % (A) 0 %; Eosinophils # (A) 0.2 k/uL (0-0.7); Eosinophils % (A) 3 %; HCT 29.4 % (34.0-46.0); HGB 10.7 gm/dL (11.4-16.0); Hyperchromasia Slight; Lymphocytes # (A) 1.2 k/uL (1.0-4.8); Lymphocytes % (A) 16 %; MCH 30.3 pg (25.0-35.0); MCHC 36.4 g/dL (31.0-37.0); MCV 83.1 fL (80.0-100.0); Mean Platelet Volume 7.3; Monocytes # (A) 0.6 k/uL (0-1.0); Monocytes % (A) 8 %; Neutrophils # (A) 5.3 k/uL (1.3-7.7); Neutrophils % (A) 70 %; Platelet Count 115 k/uL (150-450); Poikilocytosis Moderate; RBC 3.54 m/uL (3.80-5.40); RDW 16.9 % (11.5-15.5); WBC 7.6 k/uL (3.8-10.6)
[2020-09-05 16:10] LABS: INR 1.1 (<1.2); Prothrombin Time 11.7 sec (9.0-12.0)
[2020-09-05 16:18] LABS: ALT 30 U/L (4-34); AST 30 U/L (14-36); African American GFR (CKD) >90 (>60 ml/min/1.73 sqM); Albumin 3.2 g/dL (3.5-5.0); Alkaline Phosphatase 81 U/L (38-126); Anion Gap 8 mmol/L; Blood Urea Nitrogen 8 mg/dL (7-17); Calcium 8.5 mg/dL (8.4-10.2); Carbon Dioxide 25 mmol/L (22-30); Chloride 88 mmol/L (98-107); Glucose 126 mg/dL (74-99); Non-African American GFR(CKD) >90 (>60 ml/min/1.73 sqM); Potassium 3.7 mmol/L (3.5-5.1); Sodium 121 mmol/L (137-145); Total Protein 5.7 g/dL (6.3-8.2)
--- NOTE | 2020-09-05 16:24 | ED ---
Female Urogenital HPI - General Chief complaint: Vaginal Bleeding Stated complaint: Vaginal bleeding Time Seen by Provider: 09/05/20 14:52 Source: patient Mode of arrival: wheelchair Limitations: no limitations - History of Present Illness Initial comments: Patient is an 80-year-old female, currently undergoing chemo for pancreatic cancer, presenting to the emergency Department with complaints of vaginal bleeding that she noted yesterday. Patient is also complaining of some lower back pain going on for a few weeks now. She had follow-up with Dr. Ag yesterday to check her blood work as well as go over her recent lumbar MRI and CT of her abdomen and pelvis secondary to his back pain, no other issues arise from the scans other than the current pancreatic cancer and degenerative disc disease. She denies any lower abdominal pain, no dysuria, does admit to frequency. She denies any fevers or chills, no chest pain or shortness of breath. She has no further complaints at this time. Her vitals are stable upon arrival. - Related Data Home Medications Medication Instructions Recorded Confirmed Atenolol [Tenormin] 25 mg PO BID 04/24/20 09/02/20 Atorvastatin [Lipitor] 80 mg PO HS 04/24/20 09/02/20 Cholecalciferol (Vitamin D3) 125 mcg PO LAWSON 04/24/20 09/02/20 [Vitamin D3 (5000 Iu)] Multivitamins, Thera [Multivitamin 1 tab PO DAILY 04/24/20 09/02/20 (formulary)] [place]-3 Fatty Acids/Fish Oil [Fish 1 cap PO DAILY 04/24/20 09/02/20 Oil 1,000 mg Softgel] Raloxifene [Evista] 60 mg PO DAILY 04/24/20 09/02/20 Triple Flex 1 tab PO DAILY 04/24/20 09/02/20 Ubidecarenone [Co Q-10] 100 mg PO DAILY 04/24/20 09/02/20 amLODIPine BESYLATE/BENAZEPRIL 1 cap PO DAILY 04/24/20 09/02/20 [Lotrel 10-40 MG] hydroCHLOROthiazide [Hydrodiuril] 25 mg PO MOWESA 04/24/20 09/02/20 metFORMIN HCL [Glucophage] 500 mg PO DAILY 04/24/20 09/02/20 Aspirin [Adult Low Dose Aspirin EC] 81 mg PO DAILY 04/29/20 09/02/20 HYDROcodone/APAP 10-325MG [[place] 1 tab PO Q4HR PRN 06/04/20 09/02/20 10-325] Ondansetron Odt [Zofran Odt] 4 mg PO Q6H PRN 06/04/20 09/02/20 Sennosides/Docusate Sodium [Senna 1 cap PO HS 06/04/20 09/02/20 Plus 8.6-50 mg Softgel] fentaNYL 25MCG/HR PATCH [Duragesic 50 patch TRANSDERM Q72H 06/04/20 09/02/20 25MCG/HR] Allergies Allergy/AdvReac Type Severity Reaction Status Date / Time shellfish derived [Lobster] Allergy Nausea & Verified 09/05/20 14:48 Vomiting Review of Systems ROS Statement: Those systems with pertinent positive or pertinent negative responses have been documented in the HPI. ROS Other: All systems not noted in ROS Statement are negative. Past Medical History Past Medical History: Cancer, Diabetes Mellitus, Hyperlipidemia, Hypertension Additional Past Medical History / Comment(s): colon polyps. PANCREATIC CANCER. History of Any Multi-Drug Resistant Organisms: None Reported Past Surgical History: Breast Surgery, Cholecystectomy, Tubal Ligation Additional Past Surgical History / Comment(s): colonoscopy, bx of mass 05/05/20, left breast lumpectomy benign 40 years ago, jaw surgery 50 years ago r/t broken jaw, eyelid surgery to "get the bags out" Past Anesthesia/Blood Transfusion Reactions: Motion Sickness Past Psychological History: No Psychological Hx Reported Smoking Status: Former smoker Past Alcohol Use History: None Reported Past Drug Use History: None Reported - Past Family History Mother Additional Family Medical History / Comment(s): addisons disease Father Family Medical History: Coronary Artery Disease (CAD) General Exam - General Exam Comments Initial Comments: GENERAL: Patient is well-developed and well-nourished. Patient is nontoxic and in no acute distress. HEAD: Atraumatic, normocephalic. EYES: Pupils equal round and reactive to light, extraocular movements intact, sclera anicteric, conjunctiva are normal. Eyelids were unremarkable. ENT: Nares patent, oropharynx clear without exudates. Moist mucous membranes. NECK: Normal range of motion, supple without lymphadenopathy or JVD. LUNGS: Unlabored respirations. Breath sounds clear to auscultation bilaterally and equal. No wheezes rales or rhonchi. HEART: Regular rate and rhythm without murmurs, rubs or gallops. ABDOMEN: Soft, tender in the upper abdomen secondary to known pancreatic mass, no lower abdominal tenderness, normoactive bowel sounds. No guarding, no rebound. No masses appreciated. MUSCULOSKELETAL: Normal extremities with adequate strength and normal range of motion, no pitting or edema. No clubbing or cyanosis. NEUROLOGICAL: Patient is alert and oriented x 3. Motor and sensory are also intact. Cranial nerves II through XII grossly intact. Symmetrical smile. Normal speech. PSYCH: Normal mood, normal affect. SKIN: Warm, Dry, normal turgor, no rashes or lesions noted. Limitations: no limitations External exam: Present: normal external exam, other (Mild bleeding from urethra) Speculum exam: Present: vaginal bleeding Course Vital Signs 09/05/20 14:45 Temperature 98.3 F Pulse Rate 75 Respiratory 20 Rate Blood Pressure 114/68 O2 Sat by Pulse 97 Oximetry Medical Decision Making - Medical Decision Making Patient is a 80-year-old female, currently undergoing chemotherapy for pancreatic cancer, presenting with vaginal bleeding that she noticed yesterday. Her vitals are stable. She does have some mild bleeding coming from her urethra and possibly her vagina, very hard to tell where it is coming from. This is mild, not hemorrhagic. Labs are stable including a normal hemoglobin at 10.7, coags are normal, sodium is low at 121, urine shows no evidence of infection, moderate blood. States she's been dealing with low sodium levels over the past few months, and her o ncologist is aware of this. Ultrasound today shows no abnormality of the pelvis. Patient is resting comfortably. I did give her some fluids. I did offer patient admission for hyponatremia however patient refuses. She states she is used to this and just wants to follow-up with her doctor on Tuesday. I am agreeable to this. Patient is stable for discharge, she'll follow-up with her oncologist. Return parameters were discussed with her and her daughter and they both verbalized understanding. Case discussed with Dr. Cotto. - Lab Data Result diagrams: 09/05/20 15:50 09/05/20 15:50 Lab Results 09/05/20 09/05/20 09/05/20 Range/Units 15:28 15:48 15:50 WBC 7.6 (3.8-10.6) k/uL RBC 3.54 L (3.80-5.40) m/uL Hgb 10.7 L (11.4-16.0) gm/dL Hct 29.4 L (34.0-46.0) % MCV 83.1 (80.0-100.0) fL MCH 30.3 (25.0-35.0) pg MCHC 36.4 (31.0-37.0) g/dL RDW 16.9 H (11.5-15.5) % Plt Count 115 L (150-450) k/uL MPV 7.3 Neutrophils % 70 % Lymphocytes % 16 % Monocytes % 8 % Eosinophils % 3 % Basophils % 0 % Neutrophils # 5.3 (1.3-7.7) k/uL Lymphocytes # 1.2 (1.0-4.8) k/uL Monocytes # 0.6 (0-1.0) k/uL Eosinophils # 0.2 (0-0.7) k/uL Basophils # 0.0 (0-0.2) k/uL Hyperchromasia Slight Poikilocytosis Moderate Anisocytosis Slight PT (9.0-12.0) sec INR (<1.2) APTT (22.0-30.0) sec Sodium (137-145) mmol/L Potassium (3.5-5.1) mmol/L Chloride (98-107) mmol/L Carbon Dioxide (22-30) mmol/L Anion Gap mmol/L BUN (7-17) mg/dL Creatinine (0.52-1.04) mg/dL Est GFR (CKD-EPI)AfAm (>60 ml/min/1.73 sqM) Est GFR (CKD-EPI)NonAf (>60 ml/min/1.73 sqM) Glucose (74-99) mg/dL Plasma Lactic Acid Zohaib (0.7-2.0) mmol/L Calcium (8.4-10.2) mg/dL Total Bilirubin (0.2-1.3) mg/dL AST (14-36) U/L ALT (4-34) U/L Alkaline Phosphatase (38-126) U/L Total Protein (6.3-8.2) g/dL Albumin (3.5-5.0) g/dL Urine Color Yellow Urine Appearance Clear (Clear) Urine pH 7.0 (5.0-8.0) Ur Specific [place] 1.012 (1.001-1.035) Urine Protein Negative (Negative) Urine Glucose (UA) Negative (Negative) Urine Ketones Negative (Negative) Urine Blood Moderate H (Negative) Urine Nitrite Negative (Negative) Urine Bilirubin Negative (Negative) Urine Urobilinogen 2.0 (<2.0) mg/dL Ur Leukocyte Esterase Negative (Negative) Urine RBC 46 H (0-5) /hpf Urine WBC 1 (0-5) /hpf Ur Squamous Epith Cells <1 (0-4) /hpf Blood Type A Negative Blood Type Recheck A Neg Bld Type Recheck Status No Antibody Screen NEGATIVE Spec Expiration Date 09/08/2020 - 234709/05/20 09/05/20 09/05/20 Range/Units 15:50 15:50 15:50 WBC (3.8-10.6) k/uL RBC (3.80-5.40) m/uL Hgb (11.4-16.0) gm/dL Hct (34.0-46.0) % MCV (80.0-100.0) fL MCH (25.0-35.0) pg MCHC (31.0-37.0) g/dL RDW (11.5-15.5) % Plt Count (150-450) k/uL MPV Neutrophils % % Lymphocytes % % Monocytes % % Eosinophils % % Basophils % % Neutrophils # (1.3-7.7) k/uL Lymphocytes # (1.0-4.8) k/uL Monocytes # (0-1.0) k/uL Eosinophils # (0-0.7) k/uL Basophils # (0-0.2) k/uL Hyperchromasia Poikilocytosis Anisocytosis PT 11.7 (9.0-12.0) sec INR 1.1 (<1.2) APTT 27.0 (22.0-30.0) sec Sodium 121 L (137-145) mmol/L Potassium 3.7 (3.5-5.1) mmol/L Chloride 88 L (98-107) mmol/L Carbon Dioxide 25 (22-30) mmol/L Anion Gap 8 mmol/L BUN 8 (7-17) mg/dL Creatinine 0.30 L (0.52-1.04) mg/dL Est GFR (CKD-EPI)AfAm >90 (>60 ml/min/1.73 sqM) Est GFR (CKD-EPI)NonAf >90 (>60 ml/min/1.73 sqM) Glucose 126 H (74-99) mg/dL Plasma Lactic Acid Zohaib 0.8 (0.7-2.0) mmol/L Calcium 8.5 (8.4-10.2) mg/dL Total Bilirubin 1.0 (0.2-1.3) mg/dL AST 30 (14-36) U/L ALT 30 (4-34) U/L Alkaline Phosphatase 81 (38-126) U/L Total Protein 5.7 L (6.3-8.2) g/dL Albumin 3.2 L (3.5-5.0) g/dL Urine Color Urine Appearance (Clear) Urine pH (5.0-8.0) Ur Specific [place] (1.001-1.035) Urine Protein (Negative) Urine Glucose (UA) (Negative) Urine Ketones (Negative) Urine Blood (Negative) Urine Nitrite (Negative) Urine Bilirubin (Negative) Urine Urobilinogen (<2.0) mg/dL Ur Leukocyte Esterase (Negative) Urine RBC (0-5) /hpf Urine WBC (0-5) /hpf Ur Squamous Epith Cells (0-4) /hpf Blood Type Blood Type Recheck Bld Type Recheck Status Antibody Screen Spec Expiration Date - EKG Data EKG Comments: Normal sinus rhythm, minimal voltage criteria for LVH, no signs of acute ST segment elevation. Ventricular rate 73, IA interval 184, QT 382. Disposition Clinical Impression: Dysfunctional uterine bleeding, Hyponatremia, Hematuria Disposition: HOME SELF-CARE Condition: Stable Instructions (If sedation given, give patient instructions): Hyponatremia (ED) Additional Instructions: Please return to the Emergency Department if symptoms worsen or any other concerns. Please follow-up with your oncologist as discussed. Please recheck your sodium levels next week. Is patient prescribed a controlled substance at d/c from ED?: No Referrals: Ely Aguero DO [Primary Care Provider] - 1-2 days Deepak Ag MD [STAFF PHYSICIAN] - 1-2 days Time of Disposition: 17:18
[2020-09-05] MEDS: SODIUM CHLORIDE 0.9% 500 ML 500 ML IV STA (16:44)
--- NOTE | 2020-09-05 16:52 | US ---
EXAMINATION TYPE: US pelvic complete DATE OF EXAM: 09/05/2020 COMPARISON: CT 08/20/2020 CLINICAL HISTORY: vaginal bleeding. TECHNIQUE: Transabdominal (TA). Date of LMP: postmenopausal, HRT. EXAM MEASUREMENTS: Uterus: 5.6 x 2.6 x 3.5 cm Endometrial Stripe: 0.4 cm Right Ovary: not visualized Left Ovary: not visualized 1. Uterus: Anteverted heterogeneous echotexture 2. Endometrium: wnl 3. Right Ovary: not visualized 4. Left Ovary: not visualized 5. Bilateral Adnexa: wnl 6. Posterior cul-de-sac: wnl IMPRESSION: No acute abnormality. Endometrium within normal limits. Bilateral increased none visualized.
== END 2020-09-05 17:50 | disposition home or self-care (01) ==
LOC: EC 14:40
DX: N93.8 Other specified abnormal uterine and vaginal bleeding (principal); E87.1 Hypo-osmolality and hyponatremia; R31.9 Hematuria, unspecified; I10 Essential (primary) hypertension; E11.9 Type 2 diabetes mellitus without complications; E78.5 Hyperlipidemia, unspecified; Z87.891 Personal history of nicotine dependence; Z91.013 Allergy to seafood; Z79.899 Other long term (current) drug therapy; Z79.84 Long term (current) use of oral hypoglycemic drugs
CPT/HCPCS: 36415; 76856; 80053; 81001; 83605; 85025; 85610; 85730; 86850; 86900; 86901; 93005; 96360; 99284

== ENCOUNTER 2020-09-08 21:17 | Inpatient (IN) | payer MEDICARE ==
[2020-09-08] MEDS ORDERED: SODIUM CHLORIDE 0.9% 1,000 ML IV STA (21:28)
--- NOTE | 2020-09-08 22:16 | ED ---
Altered Mental Status HPI - General Chief Complaint: Altered Mental Status Stated Complaint: Revisit Confused Time Seen by Provider: 09/08/20 21:25 Source: family, RN notes reviewed, old records reviewed Mode of arrival: wheelchair Limitations: no limitations - History of Present Illness Initial Comments: This is a 80-year-old female to the ER by family today. Patient Dese for altered mental status and confusion patient with difficulty answering simple questions at home per the family. Patient also slipped a lot today per the family. Patient is going through chemo for pancreatic cancer, she is and has been eating and drinking appropriately with no significant weight loss, patient without fever, without headache. Patient has had some vaginal bleeding. She has had a prior transfusion, patient does feel weak and fatigued. This has not is not complaining of headache shortness of breath chest pain or abdominal pain MD Complaint: altered mental status, confusion -: hour(s) Consistency of Symptoms: waxing and waning Context: history of similar presentation Associated Symptoms: weakness - Related Data Home Medications Medication Instructions Recorded Confirmed Atorvastatin [Lipitor] 80 mg PO HS 04/24/20 09/08/20 Cholecalciferol (Vitamin D3) 125 mcg PO LAWSON 04/24/20 09/08/20 [Vitamin D3 (5000 Iu)] Multivitamins, Thera [Multivitamin 1 tab PO DAILY 04/24/20 09/08/20 (formulary)] [place]-3 Fatty Acids/Fish Oil [Fish 1 cap PO DAILY 04/24/20 09/08/20 Oil 1,000 mg Softgel] Raloxifene [Evista] 60 mg PO DAILY 04/24/20 09/08/20 Triple Flex 1 tab PO DAILY 04/24/20 09/08/20 Ubidecarenone [Co Q-10] 100 mg PO DAILY 04/24/20 09/08/20 amLODIPine BESYLATE/BENAZEPRIL 1 cap PO DAILY 04/24/20 09/08/20 [Lotrel 10-40 MG] hydroCHLOROthiazide [Hydrodiuril] 25 mg PO MOWESA 04/24/20 09/08/20 Aspirin [Adult Low Dose Aspirin EC] 81 mg PO DAILY 04/29/20 09/08/20 Ondansetron Odt [Zofran Odt] 4 mg PO Q6H PRN 06/04/20 09/08/20 Sennosides/Docusate Sodium [Senna 1 cap PO HS PRN 06/04/20 09/08/20 Plus 8.6-50 mg Softgel] Dronabinol [Marinol] 2.5 mg PO AC-BID 09/08/20 09/08/20 Famotidine [Pepcid] 20 mg PO BID PRN 09/08/20 09/08/20 Ferrous Sulf Ec 324mg 324 mg PO DAILY 09/08/20 09/08/20 Magnesium Oxide [Magox 400] 400 mg PO BID 09/08/20 09/08/20 Megestrol Acetate 400 mg PO DAILY 09/08/20 09/08/20 Metoclopramide HCl [Reglan] 5 mg PO Q6H PRN 09/08/20 09/08/20 Pantoprazole Sodium 40 mg PO DAILY 09/08/20 09/08/20 atenoloL [Atenolol] 25 mg PO BID 09/08/20 09/08/20 fentaNYL 50MCG/HR PATCH [Duragesic 1 patch TRANSDERM Q72H 09/08/20 09/08/20 50MCG/HR] metFORMIN HCL ER [Glucophage XR] 500 mg PO DAILY 09/08/20 09/08/20 oxyCODONE HCL [OxyIR] 5 mg PO Q4H PRN 09/08/20 09/08/20 Allergies Allergy/AdvReac Type Severity Reaction Status Date / Time shellfish derived [Lobster] Allergy Nausea & Verified 09/08/20 21:21 Vomiting Review of Systems ROS Statement: Those systems with pertinent positive or pertinent negative responses have been documented in the HPI. ROS Other: All systems not noted in ROS Statement are negative. Past Medical History Past Medical History: Cancer, Diabetes Mellitus, Hyperlipidemia, Hypertension Additional Past Medical History / Comment(s): colon polyps. PANCREATIC CANCER. History of Any Multi-Drug Resistant Organisms: None Reported Past Surgical History: Breast Surgery, Cholecystectomy, Tubal Ligation Additional Past Surgical History / Comment(s): colonoscopy, bx of mass 05/05/20, left breast lumpectomy benign 40 years ago, jaw surgery 50 years ago r/t broken jaw, eyelid surgery to "get the bags out" Past Anesthesia/Blood Transfusion Reactions: Motion Sickness Past Psychological History: No Psychological Hx Reported Smoking Status: Former smoker Past Alcohol Use History: None Reported Past Drug Use History: None Reported - Past Family History Mother Additional Family Medical History / Comment(s): addisons disease Father Family Medical History: Coronary Artery Disease (CAD) General Exam Limitations: no limitations General appearance: alert, in no apparent distress Head exam: Present: atraumatic, normocephalic, normal inspection Eye exam: Present: normal appearance, PERRL, EOMI. Absent: scleral icterus, conjunctival injection, periorbital swelling ENT exam: Present: normal exam, mucous membranes dry Neck exam: Present: normal inspection. Absent: tenderness, meningismus, lymphadenopathy Respiratory exam: Present: normal lung sounds bilaterally. Absent: respiratory distress, wheezes, rales, rhonchi, stridor Cardiovascular Exam: Present: regular rate, normal rhythm, normal heart sounds. Absent: systolic murmur, diastolic murmur, rubs, gallop, clicks GI/Abdominal exam: Present: soft, normal bowel sounds. Absent: distended, tenderness, guarding, rebound, rigid Extremities exam: Present: normal inspection, full ROM, normal capillary refill. Absent: tenderness, pedal edema, joint swelling, calf tenderness Back exam: Present: normal inspection Neurological exam: Present: alert, oriented X3, CN II-XII intact Psychiatric exam: Present: normal affect, normal mood Skin exam: Present: warm, dry, intact, normal color. Absent: rash Course Vital Signs 09/08/20 21:21 Temperature 98.7 F Pulse Rate 89 Respiratory 16 Rate Blood Pressure 121/57 O2 Sat by Pulse 99 Oximetry - Reevaluation(s) Reevaluation #1: 09/08/20 23:09 Medical record is reviewed Reevaluation #2: 09/08/20 23:09 Patient's prior ER visits and imaging has been reviewed Reevaluation #3: 09/08/20 23:10 Spoke with family at bedside, at length regarding findings, questions answered Reevaluation #4: 09/08/20 23:10 patient's mental status continues to improve Medical Decision Making - Medical Decision Making 80 female to the ER with persistent altered mental status, patient is also found to have persistent vaginal bleeding. Patient mental status is mildly improved here in the ER especially with IV saline. Patient be admitted for evaluation of hyponatremia - Lab Data Result diagrams: 09/08/20 22:05 09/08/20 22:05 Lab Results 09/08/20 09/08/20 09/08/20 Range/Units 22:05 22:05 22:05 WBC 12.2 H (3.8-10.6) k/uL RBC 3.48 L (3.80-5.40) m/uL Hgb 10.5 L (11.4-16.0) gm/dL Hct 28.9 L (34.0-46.0) % MCV 82.8 (80.0-100.0) fL MCH 30.2 (25.0-35.0) pg MCHC 36.5 (31.0-37.0) g/dL RDW 16.7 H (11.5-15.5) % Plt Count 319 D (150-450) k/uL MPV 6.8 Neutrophils % 76 % Lymphocytes % 10 % Monocytes % 9 % Eosinophils % 2 % Basophils % 0 % Neutrophils # 9.3 H (1.3-7.7) k/uL Lymphocytes # 1.2 (1.0-4.8) k/uL Monocytes # 1.1 H (0-1.0) k/uL Eosinophils # 0.2 (0-0.7) k/uL Basophils # 0.0 (0-0.2) k/uL Hyperchromasia Slight Poikilocytosis Moderate Anisocytosis Slight Sodium 119 L* (137-145) mmol/L Potassium 4.0 (3.5-5.1) mmol/L Chloride 83 L (98-107) mmol/L Carbon Dioxide 27 (22-30) mmol/L Anion Gap 9 mmol/L BUN 8 (7-17) mg/dL Creatinine 0.35 L (0.52-1.04) mg/dL Est GFR (CKD-EPI)AfAm >90 (>60 ml/min/1.73 sqM) Est GFR (CKD-EPI)NonAf >90 (>60 ml/min/1.73 sqM) Glucose 134 H (74-99) mg/dL Plasma Lactic Acid Zohaib 0.9 (0.7-2.0) mmol/L Calcium 8.7 (8.4-10.2) mg/dL Phosphorus 3.0 (2.5-4.5) mg/dL Magnesium 1.4 L (1.6-2.3) mg/dL Total Bilirubin 0.8 (0.2-1.3) mg/dL AST 25 (14-36) U/L ALT 22 (4-34) U/L Alkaline Phosphatase 96 (38-126) U/L Ammonia 15 (<30) umol/L Creatine Kinase <20 L (30-135) U/L Troponin I (0.000-0.034) ng/mL Total Protein 5.6 L (6.3-8.2) g/dL Albumin 3.0 L (3.5-5.0) g/dL 09/08/20 Range/Units 22:05 WBC (3.8-10.6) k/uL RBC (3.80-5.40) m/uL Hgb (11.4-16.0) gm/dL Hct (34.0-46.0) % MCV (80.0-100.0) fL MCH (25.0-35.0) pg MCHC (31.0-37.0) g/dL RDW (11.5-15.5) % Plt Count (150-450) k/uL MPV Neutrophils % % Lymphocytes % % Monocytes % % Eosinophils % % Basophils % % Neutrophils # (1.3-7.7) k/uL Lymphocytes # (1.0-4.8) k/uL Monocytes # (0-1.0) k/uL Eosinophils # (0-0.7) k/uL Basophils # (0-0.2) k/uL Hyperchromasia Poikilocytosis Anisocytosis Sodium (137-145) mmol/L Potassium (3.5-5.1) mmol/L Chloride (98-107) mmol/L Carbon Dioxide (22-30) mmol/L Anion Gap mmol/L BUN (7-17) mg/dL Creatinine (0.52-1.04) mg/dL Est GFR (CKD-EPI)AfAm (>60 ml/min/1.73 sqM) Est GFR (CKD-EPI)NonAf (>60 ml/min/1.73 sqM) Glucose (74-99) mg/dL Plasma Lactic Acid Zohaib (0.7-2.0) mmol/L Calcium (8.4-10.2) mg/dL Phosphorus (2.5-4.5) mg/dL Magnesium (1.6-2.3) mg/dL Total Bilirubin (0.2-1.3) mg/dL AST (14-36) U/L ALT (4-34) U/L Alkaline Phosphatase (38-126) U/L Ammonia (<30) umol/L Creatine Kinase (30-135) U/L Troponin I <0.012 (0.000-0.034) ng/mL Total Protein (6.3-8.2) g/dL Albumin (3.5-5.0) g/dL - EKG Data -: EKG Interpreted by Me (EKG is normal sinus rhythm 75 NM 190 QRS 90 QTC is 4 28) Disposition Clinical Impression: Altered mental status, Dysfunctional uterine bleeding, Hyponatremia Disposition: ADMITTED IP TO THIS HOSP Condition: Fair Is patient prescribed a controlled substance at d/c from ED?: No Referrals: Ely Aguero DO [Primary Care Provider] - 1-2 days
[2020-09-08 22:21] LABS: Anisocytosis Slight; Basophils % (A) 0 %; Eosinophils # (A) 0.2 k/uL (0-0.7); Eosinophils % (A) 2 %; HCT 28.9 % (34.0-46.0); HGB 10.5 gm/dL (11.4-16.0); Hyperchromasia Slight; Lymphocytes # (A) 1.2 k/uL (1.0-4.8); Lymphocytes % (A) 10 %; MCH 30.2 pg (25.0-35.0); MCHC 36.5 g/dL (31.0-37.0); MCV 82.8 fL (80.0-100.0); Mean Platelet Volume 6.8; Monocytes # (A) 1.1 k/uL (0-1.0); Monocytes % (A) 9 %; Neutrophils # (A) 9.3 k/uL (1.3-7.7); Neutrophils % (A) 76 %; Poikilocytosis Moderate; RBC 3.48 m/uL (3.80-5.40); RDW 16.7 % (11.5-15.5); WBC 12.2 k/uL (3.8-10.6)
[2020-09-08 22:33] LABS: Lactic Acid, Venous 0.9 mmol/L (0.7-2.0)
[2020-09-08 22:35] LABS: ALT 22 U/L (4-34); AST 25 U/L (14-36); African American GFR (CKD) >90 (>60 ml/min/1.73 sqM); Alkaline Phosphatase 96 U/L (38-126); Anion Gap 9 mmol/L; Blood Urea Nitrogen 8 mg/dL (7-17); Calcium 8.7 mg/dL (8.4-10.2); Carbon Dioxide 27 mmol/L (22-30); Chloride 83 mmol/L (98-107); Creatine Kinase <20 U/L (30-135); Glucose 134 mg/dL (74-99); Magnesium 1.4 mg/dL (1.6-2.3); Non-African American GFR(CKD) >90 (>60 ml/min/1.73 sqM); Total Bilirubin 0.8 mg/dL (0.2-1.3); Total Protein 5.6 g/dL (6.3-8.2)
[2020-09-08 22:40] LABS: Sodium 119 mmol/L (137-145)
[2020-09-08 23:00] LABS: Platelet Count 319 k/uL (150-450)
[2020-09-08 23:09] LABS: INR 1.2 (<1.2); Prothrombin Time 12.2 sec (9.0-12.0)
[2020-09-08] MEDS ORDERED: NALOXONE 0.4 MG/ML 1 ML VIAL IV PRN (23:11)
[2020-09-08 23:50] LABS: Appearance,Urine Clear (Clear); Bacteria,Urine Rare /hpf; Bilirubin,Urine Negative (Negative); Blood,Urine Large (Negative); Color,Urine Yellow; Glucose,Urine (UA) Negative (Negative); Hyaline Casts,Urine 1 /lpf (0-2); Ketones,Urine Negative (Negative); Leukocyte Esterase,Urine Negative (Negative); Mucus,Urine Rare /hpf; Nitrite,Urine Negative (Negative); PH, Urine 7.5 (5.0-8.0); Protein,Urine Trace (Negative); RBC,Urine >182 /hpf (0-5); Specific Gravity,Urine 1.012 (1.001-1.035); Squamous Epithelial Cell,Urine 2 /hpf (0-4); WBC,Urine 5 /hpf (0-5)
[2020-09-09] MEDS: ONDANSETRON ODT 4 MG TAB PO PRN (00:27)
[2020-09-09] MEDS: SODIUM CHLORIDE 0.9% 1,000 ML IV SCH ×3 (00:30→15:41)
[2020-09-09] MEDS: oxyCODONE-APAP 5-325MG 1 EACH TAB PO PRN ×4 (00:31→20:49)
[2020-09-09 06:10] LABS: Anisocytosis Slight; Basophils % (A) 0 %; Eosinophils # (A) 0.2 k/uL (0-0.7); Eosinophils % (A) 2 %; HCT 28.4 % (34.0-46.0); HGB 9.9 gm/dL (11.4-16.0); Hyperchromasia Slight; Lymphocytes # (A) 1.7 k/uL (1.0-4.8); Lymphocytes % (A) 18 %; MCH 29.8 pg (25.0-35.0); MCHC 34.9 g/dL (31.0-37.0); MCV 85.4 fL (80.0-100.0); Mean Platelet Volume 6.7; Monocytes # (A) 0.8 k/uL (0-1.0); Monocytes % (A) 9 %; Neutrophils # (A) 6.3 k/uL (1.3-7.7); Neutrophils % (A) 68 %; Platelet Count 355 k/uL (150-450); Poikilocytosis Moderate; RBC 3.33 m/uL (3.80-5.40); RDW 17.6 % (11.5-15.5); WBC 9.3 k/uL (3.8-10.6)
[2020-09-09 06:12] LABS: ALT 20 U/L (4-34); AST 22 U/L (14-36); African American GFR (CKD) >90 (>60 ml/min/1.73 sqM); Albumin 2.7 g/dL (3.5-5.0); Alkaline Phosphatase 76 U/L (38-126); Anion Gap 7 mmol/L; Blood Urea Nitrogen 9 mg/dL (7-17); Calcium 8.4 mg/dL (8.4-10.2); Carbon Dioxide 28 mmol/L (22-30); Chloride 89 mmol/L (98-107); Glucose 108 mg/dL (74-99); Magnesium 1.5 mg/dL (1.6-2.3); Non-African American GFR(CKD) >90 (>60 ml/min/1.73 sqM); Phosphorus 3.3 mg/dL (2.5-4.5); Potassium 3.8 mmol/L (3.5-5.1); Sodium 124 mmol/L (137-145); Total Bilirubin 0.6 mg/dL (0.2-1.3); Total Protein 5.2 g/dL (6.3-8.2)
[2020-09-09] MEDS ORDERED: METOCLOPRAMIDE 5 MG TAB PO PRN (08:33)
[2020-09-09] MEDS ORDERED: NA PHOS,M-B/NA PHOS,DI-BA 133 ML ENEMA RECTAL ONE (09:45)
[2020-09-09] MEDS: atenoloL 25 MG TAB PO SCH ×2 (10:10→20:49)
[2020-09-09] MEDS: MEGESTROL 400 MG/10 ML CUP PO SCH (10:10)
[2020-09-09] MEDS: MAGNESIUM OXIDE 400 MG TAB PO SCH ×2 (10:10→20:49)
[2020-09-09] MEDS: PANTOPRAZOLE 40 MG TABLET PO SCH (10:11)
[2020-09-09] MEDS: RALOXIFENE 60 MG TAB PO SCH (10:11)
[2020-09-09] MEDS ORDERED: Magnesium Replacement Protocol 1 EACH MISC MISCELLANE PRN ×2 (13:38→14:10)
[2020-09-09] MEDS: MAGNESIUM SULFATE-D5W PMX 1 GM in DEXTROSE/WATER 1 100ML.BAG IVPB SCH ×2 (14:33→15:42)
--- NOTE | 2020-09-09 15:09 | P.CONS ---
History of Present Illness - Reason for Consult Consult date: 09/09/20 oncology care Requesting physician: Mike Webster - Chief Complaint AMS - History of Present Illness Mrs. Cruz is a very pleasant 80-year-old female patient of Dr. Ag who presented to [facility] 04/27 with c/o progressive abdomen and back pain with associated anorexia and weight loss 45 pounds in 6 months. She was found to have a large 10 cm mass in the retroperitoneal space, thought to represent a pancreatic tumor. EGD was negative. 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 She ended up being admitted again at the end of May with a GI bleed, she had a prolonged hospitalization and rehabilitation at [facility]. She was finally seen for her first follow-up visit May 2020, was referred to Dr. Jang at [facility] to evaluate patient and see if she is a candidate for surgical resection, which she was. She currently has completed 3 full cycles of neoadjuvant Gemzar/Abraxane plus an additional 1 day. She has had overall poor physical tolerance to treatment, hematologically she has done ok. She is due for CT imaging and follow-up this week and f/u with Dr. Jang for possible Whipple procedure. After each cycle patient has struggled with weakness, decreased appetite and prolonged fatigue, all starting very soon after treatment (same day soon). Patient states that prior to this admission she had 5 days of constipation, 2 days ago she began experiencing nausea and vomiting, her oral intake decreased substantially, she became weak in general and last evening she became confused which is what prompted family to bring her in to hospital for evaluation. On admission her sodium level was 119, as of note patient's sodium level has been decreased in the mid 120 range since at least May of this year. Mild chemotherapy-induced anemia. Vital signs stable. When seen, patient feels better today, her mental status is significantly improved, family agrees. Patient is beginning to tolerate oral intake. She was given an enema with a bowel movement yesterday. She has mild abdominal discomfort, denies any cramping or severe pain. No fevers, oral irritation, difficulty in breathing, chest pain, dysuria, hematuria. She is noticing some mild lower extremity edema, she has had 3 bags of normal saline since coming to the hospital. Review of Systems 10 point review of systems is negative except as stated in HPI Past Medical History Past Medical History: Cancer, Diabetes Mellitus, Hyperlipidemia, Hypertension Additional Past Medical History / Comment(s): colon polyps. PANCREATIC CANCER. History of Any Multi-Drug Resistant Organisms: None Reported Past Surgical History: Breast Surgery, Cholecystectomy, Tubal Ligation Additional Past Surgical History / Comment(s): colonoscopy, bx of mass 05/05/20, left breast lumpectomy benign 40 years ago, jaw surgery 50 years ago r/t broken jaw, eyelid surgery to "get the bags out" Past Anesthesia/Blood Transfusion Reactions: Motion Sickness Past Psychological History: No Psychological Hx Reported Additional Psychological History / Comment(s): Pt resides at home, daughter has been staying with her since April. She has been using a rollator walker. Her serena has been doing the driving. Smoking Status: Former smoker Past Alcohol Use History: None Reported Additional Past Alcohol Use History / Comment(s): Pt started smoking in 1954 and quit in 1995 but was always a lite smoker. Past Drug Use History: None Reported - Past Family History Mother Additional Family Medical History / Comment(s): addisons disease Father Family Medical History: Coronary Artery Disease (CAD) Medications and Allergies Home Medications Medication Instructions Recorded Confirmed Type Atorvastatin [Lipitor] 80 mg PO HS 04/24/20 09/08/20 History Cholecalciferol (Vitamin D3) 125 mcg PO LAWSON 04/24/20 09/08/20 History [Vitamin D3 (5000 Iu)] Multivitamins, Thera [Multivitamin 1 tab PO DAILY 04/24/20 09/08/20 History (formulary)] [place]-3 Fatty Acids/Fish Oil [Fish 1 cap PO DAILY 04/24/20 09/08/20 History Oil 1,000 mg Softgel] Raloxifene [Evista] 60 mg PO DAILY 04/24/20 09/08/20 History Triple Flex 1 tab PO DAILY 04/24/20 09/08/20 History Ubidecarenone [Co Q-10] 100 mg PO DAILY 04/24/20 09/08/20 History amLODIPine BESYLATE/BENAZEPRIL 1 cap PO DAILY 04/24/20 09/08/20 History [Lotrel 10-40 MG] hydroCHLOROthiazide [Hydrodiuril] 25 mg PO MOWESA 04/24/20 09/08/20 History Aspirin [Adult Low Dose Aspirin EC] 81 mg PO DAILY 04/29/20 09/08/20 History Ondansetron Odt [Zofran Odt] 4 mg PO Q6H PRN 06/04/20 09/08/20 History Sennosides/Docusate Sodium [Senna 1 cap PO HS PRN 06/04/20 09/08/20 History Plus 8.6-50 mg Softgel] Dronabinol [Marinol] 2.5 mg PO AC-BID 09/08/20 09/08/20 History Famotidine [Pepcid] 20 mg PO BID PRN 09/08/20 09/08/20 History Ferrous Sulf Ec 324mg 324 mg PO DAILY 09/08/20 09/08/20 History Magnesium Oxide [Magox 400] 400 mg PO BID 09/08/20 09/08/20 History Megestrol Acetate 400 mg PO DAILY 09/08/20 09/08/20 History Metoclopramide HCl [Reglan] 5 mg PO Q6H PRN 09/08/20 09/08/20 History Pantoprazole Sodium 40 mg PO DAILY 09/08/20 09/08/20 History atenoloL [Atenolol] 25 mg PO BID 09/08/20 09/08/20 History fentaNYL 50MCG/HR PATCH [Duragesic 1 patch TRANSDERM Q72H 09/08/20 09/08/20 History 50MCG/HR] metFORMIN HCL ER [Glucophage XR] 500 mg PO DAILY 09/08/20 09/08/20 History oxyCODONE HCL [OxyIR] 5 mg PO Q4H PRN 09/08/20 09/08/20 History Allergies Allergy/AdvReac Type Severity Reaction Status Date / Time shellfish derived [Lobster] Allergy Nausea & Verified 09/08/20 21:21 Vomiting Physical Exam Vitals: Vital Signs Temp Pulse Pulse Resp BP BP Pulse Ox 09/09/20 05:46 98.1 F 61 16 118/63 94 L 09/09/20 00:04 98.5 F 70 16 122/69 93 L 09/08/20 23:45 98.3 F 74 20 124/48 93 L 09/08/20 23:22 73 18 122/48 95 09/08/20 21:21 98.7 F 89 16 121/57 99 Intake and Output 09/08/20 09/09/20 09/09/20 22:59 06:59 14:59 Intake Total 1800 Balance 1800 Intake: Intake, IV Titration 1560 Amount Sodium Chloride 0.9% 1, 1560 000 ml @ 130 mls/hr IV . Q7H42M [facility] Rx#:[id number] Oral 240 Other: # Voids 1 1 Weight 73.936 kg 73.936 kg - Constitutional General appearance: average body habitus, cooperative, no acute distress - EENT mucous membranes pale, slightly dry, no ulcerations or thrush Eyes: anicteric sclerae, EOMI ENT: hearing grossly normal, normal oropharynx - Neck Neck: no lymphadenopathy - Respiratory Respiratory: bilateral: CTA - Cardiovascular Rhythm: regular Heart sounds: normal: S1, S2 Abnormal Heart Sounds: systolic murmur leg Peripheral Edema: bilateral: Trace - Gastrointestinal General gastrointestinal: no absent bowel sounds, no decreased bowel sounds, distended, no hepatomegaly, hyperactive bowel sounds, no normal bowel sounds, no organomegaly, no rigid, no scaphoid, soft, no splenomegaly, tenderness, no umbilical hernia, no ventral hernia - Integumentary Integumentary: normal turgor, pale - Neurologic Neurologic: CNII-XII intact - Musculoskeletal Musculoskeletal: generalized weakness, strength equal bilaterally - Psychiatric Psychiatric: A&O x's 3, appropriate affect, intact judgment & insight Results CBC & Chem 7: 09/09/20 05:35 09/09/20 05:35 Labs: Abnormal Lab Results - Last 24 Hours (Table) 09/08/20 09/08/20 09/08/20 Range/Units 22:05 22:05 22:05 WBC 12.2 H (3.8-10.6) k/uL RBC 3.48 L (3.80-5.40) m/uL Hgb 10.5 L (11.4-16.0) gm/dL Hct 28.9 L (34.0-46.0) % RDW 16.7 H (11.5-15.5) % Neutrophils # 9.3 H (1.3-7.7) k/uL Monocytes # 1.1 H (0-1.0) k/uL PT 12.2 H (9.0-12.0) sec INR 1.2 H (<1.2) Sodium 119 L* (137-145) mmol/L Chloride 83 L (98-107) mmol/L Creatinine 0.35 L (0.52-1.04) mg/dL Glucose 134 H (74-99) mg/dL Osmolality (280-301) mosm/kg Magnesium 1.4 L (1.6-2.3) mg/dL Creatine Kinase <20 L (30-135) U/L Total Protein 5.6 L (6.3-8.2) g/dL Albumin 3.0 L (3.5-5.0) g/dL Urine Protein (Negative) Urine Blood (Negative) Urine RBC (0-5) /hpf Urine Bacteria (None) /hpf Urine Mucus (None) /hpf 09/08/20 09/08/20 09/09/20 Range/Units 23:19 23:22 05:35 WBC (3.8-10.6) k/uL RBC 3.33 L (3.80-5.40) m/uL Hgb 9.9 L (11.4-16.0) gm/dL Hct 28.4 L (34.0-46.0) % RDW 17.6 H (11.5-15.5) % Neutrophils # (1.3-7.7) k/uL Monocytes # (0-1.0) k/uL PT (9.0-12.0) sec INR (<1.2) Sodium (137-145) mmol/L Chloride (98-107) mmol/L Creatinine (0.52-1.04) mg/dL Glucose (74-99) mg/dL Osmolality 250 L (280-301) mosm/kg Magnesium (1.6-2.3) mg/dL Creatine Kinase (30-135) U/L Total Protein (6.3-8.2) g/dL Albumin (3.5-5.0) g/dL Urine Protein Trace H (Negative) Urine Blood Large H (Negative) Urine RBC >182 H (0-5) /hpf Urine Bacteria Rare H (None) /hpf Urine Mucus Rare H (None) /hpf 09/09/20 Range/Units 05:35 WBC (3.8-10.6) k/uL RBC (3.80-5.40) m/uL Hgb (11.4-16.0) gm/dL Hct (34.0-46.0) % RDW (11.5-15.5) % Neutrophils # (1.3-7.7) k/uL Monocytes # (0-1.0) k/uL PT (9.0-12.0) sec INR (<1.2) Sodium 124 L (137-145) mmol/L Chloride 89 L (98-107) mmol/L Creatinine 0.37 L (0.52-1.04) mg/dL Glucose 108 H (74-99) mg/dL Osmolality (280-301) mosm/kg Magnesium 1.5 L (1.6-2.3) mg/dL Creatine Kinase (30-135) U/L Total Protein 5.2 L (6.3-8.2) g/dL Albumin 2.7 L (3.5-5.0) g/dL Urine Protein (Negative) Urine Blood (Negative) Urine RBC (0-5) /hpf Urine Bacteria (None) /hpf Urine Mucus (None) /hpf Assessment and Plan (1) Altered mental status Narrative/Plan: secondary to hyponatremia Current Visit: Yes Status: Acute Priority: High Code(s): R41.82 - ALTERED MENTAL STATUS, UNSPECIFIED SNOMED Code(s): 614768232 (2) Hyponatremia Narrative/Plan: patient is back at her sodium baseline after hydration. Serum and urine osmolality ordered for evaluation Current Visit: Yes Status: Acute Priority: High Code(s): E87.1 - HYPO- OSMOLALITY AND HYPONATREMIA SNOMED Code(s): 72768355 (3) Pancreatic cancer Narrative/Plan: Patient has completed neoadjuvant chemotherapy. She is supposed to be seen by [facility] surgeon with repeat imaging to see if she is a surgical candidate for Whipple. Hopefully patient's condition improves quickly as these appointments are at the end of this week Current Visit: Yes Status: Acute Priority: Medium Code(s): C25.9 - MALIGNANT NEOPLASM OF PANCREAS, UNSPECIFIED SNOMED Code(s): 163716205 Plan: Doctor attests: I performed a history and physical examination of this patient, developed impression and plan of care, discussed with dictator. I agree with dictators note, documented as a scribe.
[2020-09-09] MEDS: ATORVASTATIN 80 MG TAB PO SCH (20:49)
[2020-09-10] MEDS: SODIUM CHLORIDE 0.9% 1,000 ML IV SCH ×3 (01:19→16:11)
[2020-09-10] MEDS: oxyCODONE-APAP 5-325MG 1 EACH TAB PO PRN ×2 (04:38→18:17)
[2020-09-10 06:59] LABS: Anisocytosis Slight; Basophils # (A) 0.1 k/uL (0-0.2); Basophils % (A) 1 %; Eosinophils # (A) 0.2 k/uL (0-0.7); Eosinophils % (A) 2 %; HCT 29.7 % (34.0-46.0); HGB 10.1 gm/dL (11.4-16.0); Lymphocytes # (A) 1.1 k/uL (1.0-4.8); Lymphocytes % (A) 11 %; MCH 29.6 pg (25.0-35.0); MCHC 33.9 g/dL (31.0-37.0); MCV 87.3 fL (80.0-100.0); Mean Platelet Volume 7.1; Monocytes # (A) 0.9 k/uL (0-1.0); Monocytes % (A) 9 %; Neutrophils # (A) 7.5 k/uL (1.3-7.7); Neutrophils % (A) 75 %; Platelet Count 415 k/uL (150-450); Poikilocytosis Moderate; RDW 17.2 % (11.5-15.5)
[2020-09-10] MEDS: RALOXIFENE 60 MG TAB PO SCH (07:35)
[2020-09-10] MEDS: PANTOPRAZOLE 40 MG TABLET PO SCH (07:35)
[2020-09-10] MEDS: MAGNESIUM OXIDE 400 MG TAB PO SCH ×2 (07:35→19:55)
[2020-09-10] MEDS: MEGESTROL 400 MG/10 ML CUP PO SCH (07:35)
[2020-09-10] MEDS: atenoloL 25 MG TAB PO SCH ×2 (07:35→19:55)
[2020-09-10] MEDS ORDERED: hydroCHLOROthiazide 25 MG TAB PO SCH (09:00)
--- NOTE | 2020-09-10 09:01 | P.HPIM ---
History of Present Illness H&P Date: 09/09/20 Eli Cruz is an 80 yo F who is being treated for pancreatic cancer who presented to the ED complaining of weakness nausea, vomiting and poor PO intake. She has been following with Dr. Ag and is s/p chemotherapy, pt notes that she typically becomes very weak and has had decreased appetite after chemo. Family states that pt had been confused and not responding appropriately at home. She also complains of constipation with no BM in more than 5 days. She does have some mild abdominal pain. On presentation her vitals were stable, WBC 12.2, Hgb 10.5, Na 119, EKG NSR. Review of Systems All systems: negative Constitutional: Reports malaise, Reports weakness, Denies chills, Denies fever Eyes: denies blurred vision, denies pain Ears, nose, mouth and throat: Denies headache, Denies sore throat Cardiovascular: Denies chest pain, Denies shortness of breath Respiratory: Denies cough Gastrointestinal: Reports abdominal pain, Reports nausea, Denies diarrhea, Denies vomiting Genitourinary: Denies dysuria, Denies hematuria Musculoskeletal: Denies myalgias Integumentary: Denies pruritus, Denies rash Neurological: Denies numbness, Denies weakness Psychiatric: Denies anxiety, Denies depression Endocrine: Denies fatigue, Denies weight change Past Medical History Past Medical History: Cancer, Diabetes Mellitus, Hyperlipidemia, Hypertension Additional Past Medical History / Comment(s): colon polyps. PANCREATIC CANCER. History of Any Multi-Drug Resistant Organisms: None Reported Past Surgical History: Breast Surgery, Cholecystectomy, Tubal Ligation Additional Past Surgical History / Comment(s): colonoscopy, bx of mass 05/05/20, left breast lumpectomy benign 40 years ago, jaw surgery 50 years ago r/t broken jaw, eyelid surgery to "get the bags out" Past Anesthesia/Blood Transfusion Reactions: Motion Sickness Past Psychological History: No Psychological Hx Reported Additional Psychological History / Comment(s): Pt resides at home, daughter has been staying with her since April. She has been using a rollator walker. Her serena has been doing the driving. Smoking Status: Former smoker Past Alcohol Use History: None Reported Additional Past Alcohol Use History / Comment(s): Pt started smoking in 1954 and quit in 1995 but was always a lite smoker. Past Drug Use History: None Reported - Past Family History Mother Additional Family Medical History / Comment(s): addisons disease Father Family Medical History: Coronary Artery Disease (CAD) Medications and Allergies Home Medications Medication Instructions Recorded Confirmed Type Atorvastatin [Lipitor] 80 mg PO HS 04/24/20 09/08/20 History Cholecalciferol (Vitamin D3) 125 mcg PO LAWSON 04/24/20 09/08/20 History [Vitamin D3 (5000 Iu)] Multivitamins, Thera [Multivitamin 1 tab PO DAILY 04/24/20 09/08/20 History (formulary)] [place]-3 Fatty Acids/Fish Oil [Fish 1 cap PO DAILY 04/24/20 09/08/20 History Oil 1,000 mg Softgel] Raloxifene [Evista] 60 mg PO DAILY 04/24/20 09/08/20 History Triple Flex 1 tab PO DAILY 04/24/20 09/08/20 History Ubidecarenone [Co Q-10] 100 mg PO DAILY 04/24/20 09/08/20 History amLODIPine BESYLATE/BENAZEPRIL 1 cap PO DAILY 04/24/20 09/08/20 History [Lotrel 10-40 MG] hydroCHLOROthiazide [Hydrodiuril] 25 mg PO MOWESA 04/24/20 09/08/20 History Aspirin [Adult Low Dose Aspirin EC] 81 mg PO DAILY 04/29/20 09/08/20 History Ondansetron Odt [Zofran Odt] 4 mg PO Q6H PRN 06/04/20 09/08/20 History Sennosides/Docusate Sodium [Senna 1 cap PO HS PRN 06/04/20 09/08/20 History Plus 8.6-50 mg Softgel] Dronabinol [Marinol] 2.5 mg PO AC-BID 09/08/20 09/08/20 History Famotidine [Pepcid] 20 mg PO BID PRN 09/08/20 09/08/20 History Magnesium Oxide [Magox 400] 400 mg PO BID 09/08/20 09/08/20 History Megestrol Acetate 400 mg PO DAILY 09/08/20 09/08/20 History Metoclopramide HCl [Reglan] 5 mg PO Q6H PRN 09/08/20 09/08/20 History Pantoprazole Sodium 40 mg PO DAILY 09/08/20 09/08/20 History atenoloL [Atenolol] 25 mg PO BID 09/08/20 09/08/20 History fentaNYL 50MCG/HR PATCH [Duragesic 1 patch TRANSDERM Q72H 09/08/20 09/08/20 History 50MCG/HR] metFORMIN HCL ER [Glucophage XR] 500 mg PO DAILY 09/08/20 09/08/20 History oxyCODONE HCL [OxyIR] 5 mg PO Q4H PRN 09/08/20 09/08/20 History Allergies Allergy/AdvReac Type Severity Reaction Status Date / Time shellfish derived [Lobster] Allergy Nausea & Verified 09/08/20 21:21 Vomiting Physical Exam Vitals: Vital Signs Temp Pulse Resp BP Pulse Ox 09/10/20 05:00 98.2 F 72 16 126/61 94 L 09/09/20 21:00 98.2 F 67 18 123/68 93 L 09/09/20 19:54 94 L 09/09/20 12:09 98 F 64 17 121/65 96 Intake and Output 09/09/20 09/10/20 09/10/20 22:59 06:59 14:59 Intake Total 1740 Balance 1740 Intake: Intake, IV Titration 1500 Amount Magnesium Sulfate-D5w Pmx 200 1 gm In Dextrose/Water 1 100ml.bag @ 100 mls/hr IVPB Q1H [facility] Rx#: [id number] Sodium Chloride 0.9% 1, 1300 000 ml @ 130 mls/hr IV . Q7H42M [facility] Rx#:[id number] Oral 240 Other: Voiding Method Toilet # Voids 1 1 1 # Bowel Movements 2 General: well developed, anasarca, NAD. Vitals reviewed HEENT: Normocephalic, atrauamtic, mucus membranes moist Neck: supple, no thyromegaly, No JVD CV: RRR, no murmur. Pulses 2+ Lungs: Normal effort, clear throughout Abd: soft, nontender, bowel sounds hypoactive MSK; Trace edema BLE Neuro: alert and oriented x3, no focal deficit Skin: warm and dry Results CBC & Chem 7: 09/10/20 05:37 09/09/20 05:35 Labs: Abnormal Lab Results - Last 24 Hours (Table) 09/10/20 Range/Units 05:37 RBC 3.40 L (3.80-5.40) m/uL Hgb 10.1 L (11.4-16.0) gm/dL Hct 29.7 L (34.0-46.0) % RDW 17.2 H (11.5-15.5) % Microbiology - Last 24 Hours (Table) 09/08/20 22:18 Blood Culture - Preliminary Blood No Growth after 24 hours 09/08/20 22:15 Blood Culture - Preliminary Blood No Growth after 24 hours Thrombosis Risk Factor Assmnt - Choose All That Apply Any of the Below Risk Factors Present?: Yes Each Factor Represents 1 point: Obesity (BMI >25) Other Risk Factors: Yes Each Risk Factor Represents 2 Points: Malignancy Each Risk Factor Represents 3 Points: Age 75 years or older Other congenital or acquired thrombophilia - If yes, enter type in comment: No Thrombosis Risk Factor Assessment Total Risk Factor Score: 6 Thrombosis Risk Factor Assessment Level: High Risk Assessment and Plan Plan: 1. Hyponatremia. Likely secondary to poor PO intake and vomiting. IV fluid rehydration, continue to closely monitor sodium 2. Chemotherapy induced nausea and vomiting. Zofran and reglan prn. Continue megace 3. Chemotherapy induced anemia 4. Constipation
[2020-09-10 10:50] LABS: African American GFR (CKD) 123.6 (60.0-200.0); Anion Gap 9.6 mmol/L (4.00-12.00); Calcium 7.9 mg/dL (8.7-10.3); Carbon Dioxide 24.4 mmol/L (21.6-31.8); Magnesium 2.2 mg/dL (1.5-2.4); Non-African American GFR(CKD) 106.6 (60.0-200.0); Potassium 3.9 mmol/L (3.5-5.5)
[2020-09-10] MEDS ORDERED: SODIUM CHLORIDE TAB 1 GM TAB PO STA (11:58)
[2020-09-10] MEDS ORDERED: RX INFO: IV CONTRAST WAS GIVEN 1 EACH MISC MISCELLANE PRN (12:31)
--- NOTE | 2020-09-10 14:21 | P.PN ---
Subjective Progress Note Date: 09/10/20 Eli Cruz is an 80 yo F who is being treated for pancreatic cancer who presented to the ED complaining of weakness nausea, vomiting and poor PO intake. She has been following with Dr. Ag and is s/p chemotherapy, pt notes that she typically becomes very weak and has had decreased appetite after chemo. Family states that pt had been confused and not responding appropriately at home. She also complains of constipation with no BM in more than 5 days. She does have some mild abdominal pain. On presentation her vitals were stable, WBC 12.2, Hgb 10.5, Na 119, EKG NSR. 09/10/2020 positive bowel movement yesterday. Positive diet intake with no nausea or vomiting. Feels better, ambulating with a walker, tolerated exertion well. Maintained on IV fluid resuscitation, with sodium improving up to 128. Sensorium significantly improved. Afebrile, normal WBC. VSS, maintaining O2 sats in the 90s on room air. Objective - Vital Signs Vital signs: Vital Signs Temp 98.2 F 09/10/20 11:04 Pulse 69 09/10/20 11:04 Resp 16 09/10/20 11:04 BP 123/57 09/10/20 11:04 Pulse Ox 94 L 09/10/20 11:04 Intake & Output 09/09/20 09/10/20 09/10/20 18:59 06:59 18:59 Intake Total 1740 Balance 1740 Intake: Intake, IV Titration 1500 Amount Magnesium Sulfate-D5w Pmx 200 1 gm In Dextrose/Water 1 100ml.bag @ 100 mls/hr IVPB Q1H [facility] Rx#: [id number] Sodium Chloride 0.9% 1, 1300 000 ml @ 130 mls/hr IV . Q7H42M [facility] Rx#:[id number] Oral 240 Other: Voiding Method Toilet Toilet # Voids 1 1 1 # Bowel Movements 2 - Exam General: well developed, anasarca, NAD. Vitals reviewed HEENT: Normocephalic, atrauamtic, mucus membranes moist Neck: supple, no thyromegaly, No JVD CV: RRR, no murmur. Pulses 2+ Lungs: Normal effort, clear throughout Abd: soft, nontender, pos. bowel sounds MSK; Trace edema BLE Neuro: alert and oriented x3, no focal deficit Skin: warm and dry - Labs CBC & Chem 7: 09/10/20 05:37 09/10/20 05:37 Labs: Abnormal Lab Results - Last 24 Hours (Table) 09/10/20 09/10/20 Range/Units 05:37 05:37 RBC 3.40 L (3.80-5.40) m/uL Hgb 10.1 L (11.4-16.0) gm/dL Hct 29.7 L (34.0-46.0) % RDW 17.2 H (11.5-15.5) % Sodium 128 L (135-145) mmol/L Chloride 94 L (96-109) mmol/L BUN 6.0 L (9.0-27.0) mg/dL Creatinine 0.3 L (0.6-1.5) mg/dL Glucose 140 H (70-110) mg/dL Calcium 7.9 L (8.7-10.3) mg/dL Microbiology - Last 24 Hours (Table) 09/08/20 22:18 Blood Culture - Preliminary Blood No Growth after 24 hours 09/08/20 22:15 Blood Culture - Preliminary Blood No Growth after 24 hours Assessment and Plan Assessment: 1. Hyponatremia, hypo-osmolality. Likely secondary to poor PO intake and vomiting. 2. Acute metabolic encephalopathy secondary to the above, improved 3. Chemotherapy induced nausea and vomiting. Zofran and reglan prn. Continue megace 4. Chemotherapy induced anemia 5. Constipation, resolved Plan: Continue on current medication regimen, monitoring and symptomatic treatment. Oral sodium chloride as ordered 1, in addition to IV fluid hydration. Close monitoring of sodium with repeat labs ordered for a.m. Discharge planning in progress pending sodium within normal limits. Patient has a [facility] appointment this Tuesday. The impression and plan of care has been dictated as directed. : I performed a history and examination of this patient, discussed the same with the dictator. I agree with the dictator's note ,documented as a scribe. Any additional findings or plans will be noted.
--- NOTE | 2020-09-10 16:23 | CT ---
EXAMINATION TYPE: CT chest w con DATE OF EXAM: 09/10/2020 COMPARISON: 04/24/2020, 08/20/2020 HISTORY: 80-year-old female Cough with history of pancreatic cancer. TECHNIQUE: Contiguous axial scanning of the chest after the administration of 80 mL of Isovue 300. C oronal/sagittal reconstructions performed. CT DLP: 633mGycm. Automatic exposure control utilized for a dose reduction. FINDINGS: Heart normal size without pericardial effusion. Mild aortic valvular, LAD, and aortic arch atheroscle rotic calcifications. Conventional contrast branching anatomy. Right anterior chest wall injection port with catheter tip at the lower SVC. Large caliber to the main right and left pulmonary arteries measuring up to 3.4 cm suggesting underly ing pulmonary artery hypertension. Mildly enlarged 1.2 cm lower right paratracheal lymph nodes not significantly changed, probably react denise. Lungs show mild centrilobular emphysema and mosaic attenuation groundglass densities, similar to prio r exam. However, new in the interval is new left hilar consolidation, refer to axial images 27 through 31. As sociated air bronchograms. No pleural effusion. Impression visualized large pancreatic head mass extending to the region of the 5 hours with some int ernal areas of air and fluid. Portacaval centrally necrotic lymph node measures 3.9 cm versus 3.4 cm on 08/20/2020. Cholecystectomy clips Peripheral hypervascularity segment 2 left liver lobe, axial image 55 was seen on 04/24/2020 as well s uggesting some vascular shunting. Bones degenerative change of the shoulders. Accentuated mid thoracic kyphosis. IMPRESSION: 1. COPD with mild emphysema and similar mosaic attenuation groundglass densities diffusely in the [place] gs probably relating to small airways disease. Also, suspect pulmonary arterial hypertension. 2. New left perihilar consolidation, favor pneumonia rather than neoplastic spread here. Follow-up af ter treatment to ensure clearance. 3. Previously visualized known pancreatic head mass extending into the lesser sac with suspected inva ana into the pyloric region of the stomach and probably into the proximal transverse colon accountin g for the intratumoral fluid and air. 4. A necrotic portacaval lymph node is slightly larger at 3.9 cm versus 3.4 cm, previously.
--- NOTE | 2020-09-10 16:49 | P.PN ---
Subjective Progress Note Date: 09/10/20 Principal diagnosis: Pancreatic adenocarcinoma, chemo, AMS In f/u today pt mental status is at baseline, her family is reporting that pt is seeing fog and dark lines-has Hx of glaucoma and signs of cataracts. Pt feels well, denies pain, wants something for constipation, anxious to go home. Objective - Vital Signs Vital signs: Vital Signs Temp 98.2 F 09/10/20 11:04 Pulse 69 09/10/20 11:04 Resp 16 09/10/20 11:04 BP 123/57 09/10/20 11:04 Pulse Ox 94 L 09/10/20 11:04 Intake & Output 09/09/20 09/10/20 09/10/20 18:59 06:59 18:59 Intake Total 1740 Balance 1740 Intake: Intake, IV Titration 1500 Amount Magnesium Sulfate-D5w Pmx 200 1 gm In Dextrose/Water 1 100ml.bag @ 100 mls/hr IVPB Q1H [facility] Rx#: [id number] Sodium Chloride 0.9% 1, 1300 000 ml @ 130 mls/hr IV . Q7H42M [facility] Rx#:[id number] Oral 240 Other: Voiding Method Toilet Toilet # Voids 1 1 1 # Bowel Movements 2 - Constitutional General appearance: Present: average body habitus, cooperative, no acute distress - EENT Eyes: Present: anicteric sclerae, edentulous ENT: Present: hearing grossly normal - Respiratory Respiratory: right: rales, left: CTA - Cardiovascular Rhythm: regular Heart sounds: normal: S1, S2 Abnormal Heart Sounds: Present: systolic murmur (4/6) - Peripheral edema leg Peripheral Edema: bilateral: Trace - Gastrointestinal General gastrointestinal: Present: decreased bowel sounds, soft. Absent: absent bowel sounds, distended, hepatomegaly, hyperactive bowel sounds, normal bowel sounds, organomegaly, rigid, scaphoid, splenomegaly, tenderness, umbilical hernia, ventral hernia - Neurologic Neurologic: Present: CNII-XII intact - Musculoskeletal Musculoskeletal: Present: generalized weakness - Psychiatric Psychiatric: Present: A&O x's 3, appropriate affect, intact judgment & insight - Labs CBC & Chem 7: 09/10/20 05:37 09/10/20 05:37 Labs: Abnormal Lab Results - Last 24 Hours (Table) 09/10/20 09/10/20 Range/Units 05:37 05:37 RBC 3.40 L (3.80-5.40) m/uL Hgb 10.1 L (11.4-16.0) gm/dL Hct 29.7 L (34.0-46.0) % RDW 17.2 H (11.5-15.5) % Sodium 128 L (135-145) mmol/L Chloride 94 L (96-109) mmol/L BUN 6.0 L (9.0-27.0) mg/dL Creatinine 0.3 L (0.6-1.5) mg/dL Glucose 140 H (70-110) mg/dL Calcium 7.9 L (8.7-10.3) mg/dL Microbiology - Last 24 Hours (Table) 09/08/20 22:18 Blood Culture - Preliminary Blood No Growth after 24 hours 09/08/20 22:15 Blood Culture - Preliminary Blood No Growth after 24 hours Assessment and Plan (1) Altered mental status Narrative/Plan: secondary to hyponatremia, improved Current Visit: Yes Status: Acute Priority: High Code(s): R41.82 - ALTERED MENTAL STATUS, UNSPECIFIED SNOMED Code(s): 547591960 (2) Hyponatremia Narrative/Plan: patient is back at her sodium baseline after hydration. Serum and urine osmolality reviewed. Nephrology consult. CT chest. Current Visit: Yes Status: Acute Priority: High Code(s): E87.1 - HYPO- OSMOLALITY AND HYPONATREMIA SNOMED Code(s): 50912379 (3) Pancreatic cancer Narrative/Plan: Patient has completed neoadjuvant chemotherapy. She is supposed to be seen by [facility] surgeon with repeat imaging Tuesday to see if she is a surgical candidate for Whipple. Hopefully patient's condition improves quickly as these appointments are at the end of this week Current Visit: Yes Status: Acute Priority: Medium Code(s): C25.9 - MALIGNANT NEOPLASM OF PANCREAS, UNSPECIFIED SNOMED Code(s): 473985049
[2020-09-10] MEDS: ATORVASTATIN 80 MG TAB PO SCH (19:55)
[2020-09-10] MEDS: SENNOSIDES-DOCUSATE SODIUM 1 EACH TAB PO SCH (19:55)
[2020-09-10 20:15] VITALS: RESP 18; TEMP 98.1
[2020-09-11 06:20] VITALS: BP 137/73; PULSE 71
[2020-09-11] MEDS: oxyCODONE-APAP 5-325MG 1 EACH TAB PO PRN (08:37)
[2020-09-11] MEDS: ONDANSETRON ODT 4 MG TAB PO PRN (08:37)
[2020-09-11] MEDS: atenoloL 25 MG TAB PO SCH (08:37)
[2020-09-11] MEDS: PANTOPRAZOLE 40 MG TABLET PO SCH (08:37)
[2020-09-11] MEDS: MAGNESIUM OXIDE 400 MG TAB PO SCH (08:38)
[2020-09-11] MEDS: MEGESTROL 400 MG/10 ML CUP PO SCH (08:38)
[2020-09-11] MEDS: SENNOSIDES-DOCUSATE SODIUM 1 EACH TAB PO SCH (08:38)
[2020-09-11] MEDS: RALOXIFENE 60 MG TAB PO SCH (08:38)
--- NOTE | 2020-09-11 08:55 | P.NPCON ---
History of Present Illness - Reason for Consult hyponatremia - History of Present Illness Reason for consultation: Hyponatremia History of present illness: Patient is a 80-year-old female seen in renal consultation for hyponatremia. Patient's sodium level on admission was 119 on September 08 around 11 PM. As of yesterday morning it was up to 128. She is currently on normal saline at 50 mL an hour. Oral intake has been good. She was on hydrochlorothiazide which was stopped yesterday. Patient has been treated cancer and has been undergoing chemotherapy outpatient. Last chemotherapy was about a week ago. Good urine output. No edema. No chest pain or shortness of breath. No vomiting or diarrhea. Blood pressure stable. I don't see any nonsteroidals in her home medication list. No fever or chills. No history of kidney disease. Creatinine 0.3 today. Family is present at bedside. Vital signs are stable. General: The patient appeared well nourished and normally developed. HEENT: Head exam is unremarkable. Neck is without jugular venous distension. LUNGS: Breath sounds decreased. HEART: Rate and Rhythm are regular. ABDOMEN: Soft, no distention. EXTREMITITES: No edema. Past Medical History Past Medical History: Cancer, Diabetes Mellitus, Hyperlipidemia, Hypertension Additional Past Medical History / Comment(s): colon polyps. PANCREATIC CANCER. History of Any Multi-Drug Resistant Organisms: None Reported Past Surgical History: Breast Surgery, Cholecystectomy, Tubal Ligation Additional Past Surgical History / Comment(s): colonoscopy, bx of mass 05/05/20, left breast lumpectomy benign 40 years ago, jaw surgery 50 years ago r/t broken jaw, eyelid surgery to "get the bags out" Past Anesthesia/Blood Transfusion Reactions: Motion Sickness Past Psychological History: No Psychological Hx Reported Additional Psychological History / Comment(s): Pt resides at home, daughter has been staying with her since April. She has been using a rollator walker. Her serena has been doing the driving. Smoking Status: Former smoker Past Alcohol Use History: None Reported Additional Past Alcohol Use History / Comment(s): Pt started smoking in 1954 and quit in 1995 but was always a lite smoker. Past Drug Use History: None Reported - Past Family History Mother Additional Family Medical History / Comment(s): addisons disease Father Family Medical History: Coronary Artery Disease (CAD) Medications and Allergies Home Medications Medication Instructions Recorded Confirmed Type Atorvastatin [Lipitor] 80 mg PO HS 04/24/20 09/08/20 History Cholecalciferol (Vitamin D3) 125 mcg PO LAWSON 04/24/20 09/08/20 History [Vitamin D3 (5000 Iu)] Multivitamins, Thera [Multivitamin 1 tab PO DAILY 04/24/20 09/08/20 History (formulary)] [place]-3 Fatty Acids/Fish Oil [Fish 1 cap PO DAILY 04/24/20 09/08/20 History Oil 1,000 mg Softgel] Raloxifene [Evista] 60 mg PO DAILY 04/24/20 09/08/20 History Triple Flex 1 tab PO DAILY 04/24/20 09/08/20 History Ubidecarenone [Co Q-10] 100 mg PO DAILY 04/24/20 09/08/20 History amLODIPine BESYLATE/BENAZEPRIL 1 cap PO DAILY 04/24/20 09/08/20 History [Lotrel 10-40 MG] hydroCHLOROthiazide [Hydrodiuril] 25 mg PO MOWESA 04/24/20 09/08/20 History Aspirin [Adult Low Dose Aspirin EC] 81 mg PO DAILY 04/29/20 09/08/20 History Ondansetron Odt [Zofran Odt] 4 mg PO Q6H PRN 06/04/20 09/08/20 History Sennosides/Docusate Sodium [Senna 1 cap PO HS PRN 06/04/20 09/08/20 History Plus 8.6-50 mg Softgel] Dronabinol [Marinol] 2.5 mg PO AC-BID 09/08/20 09/08/20 History Famotidine [Pepcid] 20 mg PO BID PRN 09/08/20 09/08/20 History Magnesium Oxide [Magox 400] 400 mg PO BID 09/08/20 09/08/20 History Megestrol Acetate 400 mg PO DAILY 09/08/20 09/08/20 History Metoclopramide HCl [Reglan] 5 mg PO Q6H PRN 09/08/20 09/08/20 History Pantoprazole Sodium 40 mg PO DAILY 09/08/20 09/08/20 History atenoloL [Atenolol] 25 mg PO BID 09/08/20 09/08/20 History fentaNYL 50MCG/HR PATCH [Duragesic 1 patch TRANSDERM Q72H 09/08/20 09/08/20 History 50MCG/HR] metFORMIN HCL ER [Glucophage XR] 500 mg PO DAILY 09/08/20 09/08/20 History oxyCODONE HCL [OxyIR] 5 mg PO Q4H PRN 09/08/20 09/08/20 History Allergies Allergy/AdvReac Type Severity Reaction Status Date / Time shellfish derived [Lobster] Allergy Nausea & Verified 09/08/20 21:21 Vomiting Physical Exam Vitals: Vital Signs Temp Pulse Resp BP Pulse Ox 09/11/20 05:00 98.1 F 71 18 137/73 94 L 09/10/20 20:15 98.1 F 73 18 131/71 94 L 09/10/20 11:04 98.2 F 69 16 123/57 94 L Intake and Output 09/10/20 09/11/20 09/11/20 22:59 06:59 14:59 Intake Total 2160 900 Balance 2160 900 Intake: Intake, IV Titration 1180 400 Amount Sodium Chloride 0.9% 1, 1180 400 000 ml @ 50 mls/hr IV . Q20H [facility] Rx#:[id number] Oral 980 500 Other: Voiding Method Toilet # Voids 2 # Bowel Movements 1 Results - Lab Results Most recent lab results Calcium 7.9 mg/dL (8.7-10.3) L 09/10/20 05:37 Phosphorus 3.3 mg/dL (2.5-4.5) 09/09/20 05:35 Magnesium 2.2 mg/dL (1.5-2.4) 09/10/20 05:37 09/10/20 05:37 09/10/20 05:37 Assessment and Plan Plan: Assessment: 1. Hypovolemic hyponatremia improved with IV hydration. 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 Urine osmolality 356 and urine sodium 51. 2. Pancreatic cancer. Undergoing chemotherapy outpatient. 3. Hypomagnesemia from poor intake and diuretic. Replace. Better. Plan: Maintain normal saline at 50 mL an hour for now. 1200 mL fluid restriction. Encourage oral intake, particularly protein. Follow-up TSH. Stop hydrochlorothiazide. Morning labs pending. Case discussed with the patient as well as family members present at bedside. Thank you for the consultation. I will continue to follow the patient with you during her hospital stay.
[2020-09-11] MEDS ORDERED: LEVOFLOXACIN 500 MG TAB PO STA (10:22)
--- NOTE | 2020-09-11 10:32 | P.PN ---
Subjective Progress Note Date: 09/11/20 Principal diagnosis: Pancreatic adenocarcinoma, chemo, AMS In f/u today pt mental status continues to be stable, pt states she feels "good", no acute c/o, denies fever, cough or chest pain. She and her family want DC today as pt has HFH Surgical f/u tomorrow. Objective - Vital Signs Vital signs: Vital Signs Temp 98.1 F 09/11/20 05:00 Pulse 71 09/11/20 05:00 Resp 18 09/11/20 05:00 BP 137/73 09/11/20 05:00 Pulse Ox 94 L 09/11/20 05:00 Intake & Output 09/10/20 09/11/20 09/11/20 18:59 06:59 18:59 Intake Total 2160 900 Balance 2160 900 Intake: Intake, IV Titration 1180 400 Amount Sodium Chloride 0.9% 1, 1180 400 000 ml @ 50 mls/hr IV . Q20H [facility] Rx#:[id number] Oral 980 500 Other: Voiding Method Toilet # Voids 1 2 # Bowel Movements 1 - Constitutional General appearance: Present: average body habitus, cooperative, no acute distress - EENT Eyes: Present: anicteric sclerae, EOMI ENT: Present: hearing grossly normal, normal oropharynx - Respiratory Respiratory: left: diminished, bilateral: CTA - Cardiovascular Rhythm: regular Heart sounds: normal: S1, S2 Abnormal Heart Sounds: Present: systolic murmur - Peripheral edema leg Peripheral Edema: bilateral: None - Gastrointestinal General gastrointestinal: Present: normal bowel sounds, soft - Neurologic Neurologic: Present: CNII-XII intact - Musculoskeletal Musculoskeletal: Present: generalized weakness, strength equal bilaterally - Psychiatric Psychiatric: Present: A&O x's 3, appropriate affect, intact judgment & insight - Labs CBC & Chem 7: 09/10/20 05:37 09/10/20 05:37 Labs: Abnormal Lab Results - Last 24 Hours (Table) 09/10/20 Range/Units 05:37 Sodium 128 L (135-145) mmol/L Chloride 94 L (96-109) mmol/L BUN 6.0 L (9.0-27.0) mg/dL Creatinine 0.3 L (0.6-1.5) mg/dL Glucose 140 H (70-110) mg/dL Calcium 7.9 L (8.7-10.3) mg/dL Microbiology - Last 24 Hours (Table) 09/08/20 22:18 Blood Culture - Preliminary Blood No Growth after 48 hours 09/08/20 22:15 Blood Culture - Preliminary Blood No Growth after 48 hours - Imaging and Cardiology CT scan - chest: report reviewed Assessment and Plan (1) Altered mental status Narrative/Plan: Secondary to hyponatremia, improved Current Visit: Yes Status: Acute Priority: High Code(s): R41.82 - ALTERED MENTAL STATUS, UNSPECIFIED SNOMED Code(s): 844623772 (2) Hyponatremia Narrative/Plan: Pt baseline Na+ after hydration. Nephrology notes and recommendations noted. CT chest consolidation. Asked Pulmonary to review scan and it was recommended 10 days of levaquin with f/u CT. Appreciate the collaboration. 1st dose given, Rx sent to complete 10 days. Will plan f/u CT outpt 1 mo. Current Visit: Yes Status: Acute Priority: High Code(s): E87.1 - HYPO- OSMOLALITY AND HYPONATREMIA SNOMED Code(s): 34794268 (3) Pancreatic cancer Narrative/Plan: Patient has completed neoadjuvant chemotherapy. She is supposed to be seen by [facility] surgeon with repeat imaging Tuesday to see if she is a surgical candidate for Whipple. Discussed with Attending SOCIAL SERVICES ANALYST, pending Na+ level today prior to DC. Agree with their plan Current Visit: Yes Status: Acute Priority: Medium Code(s): C25.9 - MALIGNANT NEOPLASM OF PANCREAS, UNSPECIFIED SNOMED Code(s): 212266487 Plan: Pt family reports needing fentanyl and marinol refills. Dr. Ag fills these so, ofc will fill. Sent to [facility] per pt family request
[2020-09-11] MEDS: SODIUM CHLORIDE 0.9% 1,000 ML IV SCH (11:16)
[2020-09-11 11:22] LABS: African American GFR (CKD) 123.6 (60.0-200.0); BUN/Creat Ratio 16.67 Ratio (12.00-20.00); Calcium 8.3 mg/dL (8.7-10.3); Magnesium 1.6 mg/dL (1.5-2.4); Non-African American GFR(CKD) 106.6 (60.0-200.0); Potassium 4.3 mmol/L (3.5-5.5)
[2020-09-11] MEDS ORDERED: SODIUM CHLORIDE TAB 1 GM TAB PO STA (12:02)
--- NOTE | 2020-09-11 12:04 | P.DS ---
Providers Date of admission: 09/08/20 23:07 Expected date of discharge: 09/11/20 Attending physician: Raymond Coleman MD Consults: 09/08/20 23:12 Consult Physician Routine Consulting Provider: Deepak Ag Consult Reason/Comments: known Do you want consulting provider notified?: Yes 09/10/20 12:32 Consult Physician Routine Consulting Provider: Amor Headley Consult Reason/Comments: hyponatremia Do you want consulting provider notified?: Yes Primary care physician: Ely Aguero Hospital Course: Final Diagnoses: 1. Hyponatremia, hypo-osmolality. Likely secondary to poor PO intake and vomiting with underlying SIADH secondary to malignancy .HCTZ discontinued 2. Acute metabolic encephalopathy secondary to the above, improved 3. Chemotherapy induced nausea and vomiting. Zofran and reglan prn. Continue megace 4. Chemotherapy induced anemia 5. Constipation, resolved Hospital course:Eli Cruz is an 80 yo F who is being treated for pancreatic cancer who presented to the ED complaining of weakness nausea, vomiting and poor PO intake. She has been following with Dr. Ag and is s/p chemotherapy, pt notes that she typically becomes very weak and has had decreased appetite after chemo. Family states that pt had been confused and not responding appropriately at home. She also complains of constipation with no BM in more than 5 days. She does have some mild abdominal pain. On presentation her vitals were stable, WBC 12.2, Hgb 10.5, Na 119, EKG NSR. 09/10/2020 positive bowel movement yesterday. Positive diet intake with no nausea or vomiting. Feels better, ambulating with a walker, tolerated exertion well. Maintained on IV fluid resuscitation, with sodium improving up to 128. Sensorium significantly improved. Afebrile, normal WBC. VSS, maintaining O2 sats in the 90s on room air. Significant clinical improvement. Sodium increased to 128 yesterday .Denies chest pain, palpitations or shortness of breath. Afebrile, denies cough. Labs p ending. Denies lightheadedness, dizziness or focal deficits. Patient is being discharged home in stable condition with guarded prognosis. Hydrochlorothiazide discontinued secondary to suspected underlying SIADH secondary to malignancy. Systolic blood pressures averaging in the 120s to 130s with Lotrel discontinued at this time. Chest CT noted with new left perihilar consolidation, suspect mucous related as per pulmonary review versus pneumonia or neoplastic spread with Levaquin recommended secondary to patient is immunocompromised. Chest CT also reported known pancreatic head mass extending into the lesser sac with suspected invasion into the pyloric region of the stomach and probably into the proximal transverse colon, necrotic portacaval lymph node slightly larger at 3.9. Patient is scheduled to follow up with [facility] tomorrow. The impression and plan of care has been dictated as directed. : I performed a history and examination of this patient, discussed the same with the dictator. I agree with the dictator's note ,documented as a scribe. Any additional findings or plans will be noted. Patient Condition at Discharge: Stable Plan - Discharge Summary New Discharge Prescriptions: New Levofloxacin [Levaquin] 500 mg PO DAILY 1 Days #9 tab Continue [place]-3 Fatty Acids/Fish Oil [Fish Oil 1,000 mg Softgel] 1 cap PO DAILY Cholecalciferol (Vitamin D3) [Vitamin D3 (5000 Iu)] 125 mcg PO LAWSON Ubidecarenone [Co Q-10] 100 mg PO DAILY Raloxifene [Evista] 60 mg PO DAILY Multivitamins, Thera [Multivitamin (formulary)] 1 tab PO DAILY Atorvastatin [Lipitor] 80 mg PO HS Triple Flex 1 tab PO DAILY Aspirin [Adult Low Dose Aspirin EC] 81 mg PO DAILY Megestrol Acetate 400 mg PO DAILY fentaNYL 50MCG/HR PATCH [Duragesic 50MCG/HR] 1 patch TRANSDERM Q72H atenoloL [Atenolol] 25 mg PO BID Sennosides/Docusate Sodium [Senna Plus 8.6-50 mg Softgel] 1 cap PO HS PRN PRN Reason: Constipation Ondansetron Odt [Zofran ODT] 4 mg PO Q6H PRN PRN Reason: Nausea oxyCODONE HCL [OxyIR] 5 mg PO Q4H PRN PRN Reason: Pain Metoclopramide HCl [Reglan] 5 mg PO Q6H PRN PRN Reason: Nausea metFORMIN HCL ER [Glucophage XR] 500 mg PO DAILY Magnesium Oxide [Magox 400] 400 mg PO BID Famotidine [Pepcid] 20 mg PO BID PRN PRN Reason: Gi Upset Dronabinol [Marinol] 2.5 mg PO AC-BID Pantoprazole Sodium 40 mg PO DAILY Discontinued amLODIPine BESYLATE/BENAZEPRIL [Lotrel 10-40 MG] 1 cap PO DAILY Discharge Medication List Atorvastatin [Lipitor] 80 mg PO HS 04/24/20 [History] Cholecalciferol (Vitamin D3) [Vitamin D3 (5000 Iu)] 125 mcg PO LAWSON 04/24/20 [History] Multivitamins, Thera [Multivitamin (formulary)] 1 tab PO DAILY 04/24/20 [History] [place]-3 Fatty Acids/Fish Oil [Fish Oil 1,000 mg Softgel] 1 cap PO DAILY 04/24/20 [History] Raloxifene [Evista] 60 mg PO DAILY 04/24/20 [History] Triple Flex 1 tab PO DAILY 04/24/20 [History] Ubidecarenone [Co Q-10] 100 mg PO DAILY 04/24/20 [History] Aspirin [Adult Low Dose Aspirin EC] 81 mg PO DAILY 04/29/20 [History] Ondansetron Odt [Zofran ODT] 4 mg PO Q6H PRN 06/04/20 [History] Sennosides/Docusate Sodium [Senna Plus 8.6-50 mg Softgel] 1 cap PO HS PRN 06/04/20 [History] Dronabinol [Marinol] 2.5 mg PO AC-BID 09/08/20 [History] Famotidine [Pepcid] 20 mg PO BID PRN 09/08/20 [History] Magnesium Oxide [Magox 400] 400 mg PO BID 09/08/20 [History] Megestrol Acetate 400 mg PO DAILY 09/08/20 [History] Metoclopramide HCl [Reglan] 5 mg PO Q6H PRN 09/08/20 [History] Pantoprazole Sodium 40 mg PO DAILY 09/08/20 [History] atenoloL [Atenolol] 25 mg PO BID 09/08/20 [History] fentaNYL 50MCG/HR PATCH [Duragesic 50MCG/HR] 1 patch TRANSDERM Q72H 09/08/20 [History] metFORMIN HCL ER [Glucophage XR] 500 mg PO DAILY 09/08/20 [History] oxyCODONE HCL [OxyIR] 5 mg PO Q4H PRN 09/08/20 [History] Levofloxacin [Levaquin] 500 mg PO DAILY 1 Days #9 tab 09/11/20 [Rx] Follow up Appointment(s)/Referral(s): [facility], [NON-STAFF] - 1 Week Raymond Coleman MD [STAFF PHYSICIAN] - 1 Week (Family will make appointment.) Deepak Ag MD [STAFF PHYSICIAN] - 10/08/20 10:00 am Ambulatory/Diagnostic Orders: Basic Metabolic Panel [LAB.AMB] Time Frame: 3 Days, Location: None Selected Activity/Diet/Wound Care/Special Instructions: HF APT. tomorrow Fentanyl and marinol Rx sent to [facility] per family request. Sent from Onc ofc Follow-up CT in 1 month as per oncology
== END 2020-09-11 13:43 | disposition home health service (06) | DRG 643 ==
LOC: EC 21:17 → 5NMEDONC 23:07
PROVIDERS: ADMIT Family Medicine; ATTEND Family Medicine
DX: E22.2 Syndrome of inappropriate secretion of antidiuretic hormone (principal); G93.41 Metabolic encephalopathy; D84.9 Immunodeficiency, unspecified; C25.9 Malignant neoplasm of pancreas, unspecified; D64.81 Anemia due to antineoplastic chemotherapy; T50.2X5A Adverse effect of carbonic-anhydrase inhibitors, benzothiadiazides and other diuretics, initial encounter; T45.1X5A Adverse effect of antineoplastic and immunosuppressive drugs, initial encounter; R11.2 Nausea with vomiting, unspecified; E11.9 Type 2 diabetes mellitus without complications; E78.5 Hyperlipidemia, unspecified; E83.42 Hypomagnesemia; E86.1 Hypovolemia; H40.9 Unspecified glaucoma; I10 Essential (primary) hypertension; K59.00 Constipation, unspecified; N93.8 Other specified abnormal uterine and vaginal bleeding; Z79.82 Long term (current) use of aspirin; Z79.84 Long term (current) use of oral hypoglycemic drugs; Z79.899 Other long term (current) drug therapy; Z87.19 Personal history of other diseases of the digestive system; Z87.891 Personal history of nicotine dependence; Z86.010 Personal history of colon polyps; Z91.013 Allergy to seafood; Z90.49 Acquired absence of other specified parts of digestive tract; Z98.51 Tubal ligation status; X58.XXXA Exposure to other specified factors, initial encounter
CPT/HCPCS: 36415; 71260; 80048; 80053; 81001; 82140; 82550; 83605; 83735; 83880; 83930; 83935; 84100; 84300; 84443; 84484; 85025; 85610; 85730; 86850; 86900; 86901; 87040; 93005; 96360; 99285

== ENCOUNTER 2020-09-27 18:15 | Inpatient (IN) | payer MEDICARE ==
[2020-09-27] MEDS ORDERED: SODIUM CHLORIDE 0.9% 500 ML 500 ML IV ONE ×2 (18:26→20:45)
[2020-09-27 18:37] LABS: Glucose,Whole Blood 139 mg/dL (75-99)
--- NOTE | 2020-09-27 18:43 | ED ---
General Adult HPI - General Chief complaint: Altered Mental Status Stated complaint: Altered Mental Status Time Seen by Provider: 09/27/20 18:20 Source: patient, EMS, RN notes reviewed, old records reviewed Mode of arrival: EMS Limitations: altered mental status - History of Present Illness Initial comments: 80-year-old female with pancreatic cancer presenting with altered mental status. Proximally one hour prior to arrival the patient had complained of some abdominal pain and subsequently became minimally responsive. Patient is currently on chemotherapy. The exact details surrounding the patient's current medical conditions are not known to time of initial evaluation. She was transported by EMS. There was indication that the patient had previous altered mental status secondary to hyponatremia. There was no localizing features identified by paramedics. Patient would follow some simple commands. She had complained of abdominal pain. - Related Data Home Medications Medication Instructions Recorded Confirmed Atorvastatin [Lipitor] 80 mg PO DAILY@1800 04/24/20 09/27/20 Raloxifene [Evista] 60 mg PO DAILY@0600 04/24/20 09/27/20 Triple Flex 1 tab PO BID@1200,0000 04/24/20 09/27/20 Aspirin [Adult Low Dose Aspirin EC] 81 mg PO DAILY@0000 04/29/20 09/27/20 Ondansetron Odt [Zofran ODT] 4 mg PO Q6H PRN 06/04/20 09/27/20 Sennosides/Docusate Sodium [Senna 1 cap PO BID@0600,0000 06/04/20 09/27/20 Plus 8.6-50 mg Softgel] Dronabinol [Marinol] 2.5 mg PO BID@0600,0000 09/08/20 09/27/20 Famotidine [Pepcid] 20 mg PO BID@1200,1800 09/08/20 09/27/20 Magnesium Oxide [Magox 400] 400 mg PO BID@0600,0000 09/08/20 09/27/20 Pantoprazole Sodium 40 mg PO DAILY@0600 09/08/20 09/27/20 atenoloL 25 mg PO BID@1200,0000 09/08/20 09/27/20 fentaNYL 50MCG/HR PATCH [Duragesic 1 patch TRANSDERM Q72H 09/08/20 09/27/20 50MCG/HR] metFORMIN HCL ER [Glucophage XR] 500 mg PO DAILY@0600 09/08/20 09/27/20 oxyCODONE HCL [OxyIR] 5 mg PO QID@0600,12,18,0000 09/08/20 09/27/20 Ascorbic Acid [Vitamin C] 1,000 mg PO DAILY@1800 09/27/20 09/27/20 Docusate 250mg 250 mg PO DAILY@1200 09/27/20 09/27/20 Motion Sickness Patch 1 patch TRANSDERM Q72H PRN 09/27/20 09/27/20 Motion Sickness Relief 1 tab PO DAILY PRN 09/27/20 09/27/20 Pancreatic Enzyme 500 mg PO DAILY@0600 09/27/20 09/27/20 Vit C/E/Zn/Coppr/Lutein/Zeaxan 1 cap PO BID@1200,0000 09/27/20 09/27/20 [Preservision Areds 2 Softgel] Allergies Allergy/AdvReac Type Severity Reaction Status Date / Time shellfish derived [Lobster] Allergy Nausea & Verified 09/08/20 21:21 Vomiting Review of Systems ROS Statement: Those systems with pertinent positive or pertinent negative responses have been documented in the HPI. ROS Other: All systems not noted in ROS Statement are negative. Past Medical History Past Medical History: Cancer, Diabetes Mellitus, Hyperlipidemia, Hypertension Additional Past Medical History / Comment(s): colon polyps. PANCREATIC CANCER. History of Any Multi-Drug Resistant Organisms: None Reported Past Surgical History: Breast Surgery, Cholecystectomy, Tubal Ligation Additional Past Surgical History / Comment(s): colonoscopy, bx of mass 05/05/20, left breast lumpectomy benign 40 years ago, jaw surgery 50 years ago r/t broken jaw, eyelid surgery to "get the bags out" Past Anesthesia/Blood Transfusion Reactions: Motion Sickness Past Psychological History: No Psychological Hx Reported Smoking Status: Former smoker Past Alcohol Use History: Unable to Obtain Past Drug Use History: Unable to Obtain - Past Family History Mother Additional Family Medical History / Comment(s): addisons disease Father Family Medical History: Coronary Artery Disease (CAD) General Exam Limitations: altered mental status General appearance: alert, in no apparent distress Head exam: Present: atraumatic, normocephalic Eye exam: Present: normal appearance, PERRL ENT exam: Present: mucous membranes dry Neck exam: Present: normal inspection. Absent: tenderness, meningismus Respiratory exam: Present: normal lung sounds bilaterally. Absent: respiratory distress, wheezes Cardiovascular Exam: Present: regular rate, normal rhythm GI/Abdominal exam: Present: soft, distended, tenderness. Absent: guarding, rebound Extremities exam: Present: normal inspection, normal capillary refill. Absent: pedal edema, calf tenderness Neurological exam: Present: other (Patient will follow some simple commands, she has a weak but symmetric clock smith strength and is able to move both feet symmetrically.). Absent: motor sensory deficit Skin exam: Present: warm, dry Course Vital Signs 09/27/20 18:18 Temperature 98.9 F Pulse Rate 96 Respiratory 16 Rate Blood Pressure 93/49 O2 Sat by Pulse 98 Oximetry EKG Findings - EKG Comments: EKG Findings:: EKG: Normal sinus rhythm, left axis, LVH, ventricular rate of 94, FL interval 162, QRS duration 86, QTC 437, no ST segment elevation, T-wave inversion in lead 3. Medical Decision Making - Medical Decision Making 80-year-old female with altered mental status, metastatic pancreatic cancer. Patient is able to follow some commands upon arrival but is not alert. She has decreased strength throughout. Brain CT negative for intracranial hemorrhage or mass effect. I did CT the abdomen and she is complaining of some abdominal pa in that shows her pancreatic mass which is known. She has a leukocytosis of 15. Chest x-ray showing concern for infiltrate. She's given 2 g of Rocephin, as well as IV fluid. She has a sodium of 120. Normal lactic acid. Minimal elevated troponin at 0.05. This will be trended. Case discussed with Dr. Jasso who will admit this patient. I did place neurology on consult for altered mental status. She will be continued on sodium chloride for her hyponatremia. - Lab Data Result diagrams: 09/27/20 18:31 09/27/20 18:31 Lab Results 09/27/20 09/27/20 09/27/20 Range/Units 18:27 18:30 18:31 WBC 15.0 H (3.8-10.6) k/uL RBC 3.33 L (3.80-5.40) m/uL Hgb 9.9 L (11.4-16.0) gm/dL Hct 29.1 L (34.0-46.0) % MCV 87.3 (80.0-100.0) fL MCH 29.8 (25.0-35.0) pg MCHC 34.2 (31.0-37.0) g/dL RDW 18.2 H (11.5-15.5) % Plt Count 346 (150-450) k/uL MPV 7.2 Poikilocytosis Moderate Anisocytosis Slight PT (9.0-12.0) sec INR (<1.2) APTT (22.0-30.0) sec Sodium (137-145) mmol/L Potassium (3.5-5.1) mmol/L Chloride (98-107) mmol/L Carbon Dioxide (22-30) mmol/L Anion Gap mmol/L BUN (7-17) mg/dL Creatinine (0.52-1.04) mg/dL Est GFR (CKD-EPI)AfAm (>60 ml/min/1.73 sqM) Est GFR (CKD-EPI)NonAf (>60 ml/min/1.73 sqM) Glucose (74-99) mg/dL POC Glucose (mg/dL) 139 H (75-99) mg/dL POC Glu Net Mender ID Guera Ching Plasma Lactic Acid Zohaib 1.9 (0.7-2.0) mmol/L Calcium (8.4-10.2) mg/dL Magnesium (1.6-2.3) mg/dL Total Bilirubin (0.2-1.3) mg/dL AST (14-36) U/L ALT (4-34) U/L Alkaline Phosphatase (38-126) U/L Troponin I (0.000-0.034) ng/mL Total Protein (6.3-8.2) g/dL Albumin (3.5-5.0) g/dL 09/27/20 09/27/20 09/27/20 Range/Units 18:31 18:31 18:31 WBC (3.8-10.6) k/uL RBC (3.80-5.40) m/uL Hgb (11.4-16.0) gm/dL Hct (34.0-46.0) % MCV (80.0-100.0) fL MCH (25.0-35.0) pg MCHC (31.0-37.0) g/dL RDW (11.5-15.5) % Plt Count (150-450) k/uL MPV Poikilocytosis Anisocytosis PT 13.9 H (9.0-12.0) sec INR 1.4 H (<1.2) APTT 19.7 L (22.0-30.0) sec Sodium 121 L (137-145) mmol/L Potassium 4.1 (3.5-5.1) mmol/L Chloride 91 L (98-107) mmol/L Carbon Dioxide 21 L (22-30) mmol/L Anion Gap 9 mmol/L BUN 23 H (7-17) mg/dL Creatinine 0.62 (0.52-1.04) mg/dL Est GFR (CKD-EPI)AfAm >90 (>60 ml/min/1.73 sqM) Est GFR (CKD-EPI)NonAf 84 (>60 ml/min/1.73 sqM) Glucose 134 H (74-99) mg/dL POC Glucose (mg/dL) (75-99) mg/dL POC Glu Net Mender ID Plasma Lactic Acid Zohaib (0.7-2.0) mmol/L Calcium 8.3 L (8.4-10.2) mg/dL Magnesium 1.7 (1.6-2.3) mg/dL Total Bilirubin 1.0 (0.2-1.3) mg/dL AST 38 H (14-36) U/L ALT 30 (4-34) U/L Alkaline Phosphatase 110 (38-126) U/L Troponin I 0.050 H* (0.000-0.034) ng/mL Total Protein 5.2 L (6.3-8.2) g/dL Albumin 2.7 L (3.5-5.0) g/dL Disposition Clinical Impression: Altered mental status, Pancreatic cancer, Hyponatremia Disposition: ADMITTED IP TO THIS [facility] Condition: Stable Is patient prescribed a controlled substance at d/c from ED?: No Referrals: Ely Aguero DO [Primary Care Provider] - 1-2 days Decision to Admit Reason: Admit from EC Decision Date: 09/27/20 Decision Time: 20:49
[2020-09-27 18:59] LABS: ALT 30 U/L (4-34); AST 38 U/L (14-36); African American GFR (CKD) >90 (>60 ml/min/1.73 sqM); Albumin 2.7 g/dL (3.5-5.0); Alkaline Phosphatase 110 U/L (38-126); Anion Gap 9 mmol/L; Blood Urea Nitrogen 23 mg/dL (7-17); Calcium 8.3 mg/dL (8.4-10.2); Carbon Dioxide 21 mmol/L (22-30); Chloride 91 mmol/L (98-107); Glucose 134 mg/dL (74-99); Magnesium 1.7 mg/dL (1.6-2.3); Non-African American GFR(CKD) 84 (>60 ml/min/1.73 sqM); Potassium 4.1 mmol/L (3.5-5.1); Sodium 121 mmol/L (137-145); Total Protein 5.2 g/dL (6.3-8.2)
[2020-09-27 19:04] LABS: INR 1.4 (<1.2); Prothrombin Time 13.9 sec (9.0-12.0)
[2020-09-27 19:18] LABS: Partial Thromboplastin Time 19.7 sec (22.0-30.0)
[2020-09-27 19:20] LABS: Anisocytosis Slight; HCT 29.1 % (34.0-46.0); HGB 9.9 gm/dL (11.4-16.0); MCH 29.8 pg (25.0-35.0); MCHC 34.2 g/dL (31.0-37.0); MCV 87.3 fL (80.0-100.0); Mean Platelet Volume 7.2; Platelet Count 346 k/uL (150-450); Poikilocytosis Moderate; RBC 3.33 m/uL (3.80-5.40); RDW 18.2 % (11.5-15.5)
--- NOTE | 2020-09-27 19:38 | CT ---
EXAM: CT brain wo con CLINICAL HISTORY: Altered mental status. History of pancreatic cancer. COMPARISON: None TECHNIQUE: Contiguous axial noncontrast images of the brain were obtained. Coronal and sagittal refor mats were generated and reviewed. Automated dose control was used for this exam. FINDINGS: There is no evidence for intracranial hemorrhage, mass effect or midline shift. There is mild parench ymal volume loss and white matter disease. Ventricular size and configuration is within normal limits for degree of parenchymal volume. The paranasal sinuses are clear. The mastoid air cells are clear. No evidence for calvarial fracture. IMPRESSION: No acute intracranial abnormality.
--- NOTE | 2020-09-27 19:59 | CT ---
EXAMINATION TYPE: CT abdomen pelvis wo con DATE OF EXAM: 09/27/2020 COMPARISON: 08/20/2020. HISTORY: Pain, hx pancreatic ca. CT DLP: 742 mGycm Automated exposure control for dose reduction was used. TECHNIQUE: Helical acquisition of images was performed from the lung bases through the pelvis. FINDINGS: LUNG BASES: Mild bibasilar opacity, probably atelectasis. LIVER/GB: No acute abnormality is appreciated. Cholecystectomy. PANCREAS: Redemonstrated large mesenteric mass involving the pancreatic head and involving the adjace nt proximal duodenum and stomach. The lesion measures at least 9.2 x 8.2 x 7.3 cm. Stable dilated jimenez creatic duct at the head. Persistent moderate amount of gas within the lesion as well as surgical cli ps seen. SPLEEN: No significant abnormality is seen. ADRENALS: No significant abnormality is seen. KIDNEYS: No significant abnormality is seen. FREE AIR: No free air is visualized RETROPERITONEAL ADENOPATHY: None visualized REPRODUCTIVE ORGANS: No significant abnormality is seen URINARY BLADDER: No significant abnormality is seen. ADENOPATHY: Interval increase of nodule lesion in the portacaval region measuring 4.5 x 3.6 cm. OSSEOUS STRUCTURES: No acute abnormality is seen. Moderate lumbar spondylosis with mild levoconvex c urvature. BOWEL: No bowel obstruction or significant free fluid. Small fat-containing periumbilical hernia. OTHER: None IMPRESSION: LIMITED EVALUATION DUE TO lack of IV contrast. Redemonstrated large infiltrative mesenteric mass involving the pancreatic head and adjacent duodenum and stomach. Increased size of nodular lesion in the portacaval region, suggestive of lymphadenopathy. No bowel obstruction or free fluid.
--- NOTE | 2020-09-27 20:21 | XR ---
EXAMINATION TYPE: XR chest 2V DATE OF EXAM: 09/27/2020 COMPARISON: 05/19/2020. HISTORY: Altered mental status. TECHNIQUE: Frontal and lateral views of the chest are obtained. FINDINGS: There is mild bibasilar hazy opacity. Right IJ port catheter remains in place. No pleural effusion, or pneumothorax seen. The cardiac silhouette size is within normal limits. The osseous s tructures are intact. IMPRESSION: Mild bibasilar opacities, probably atelectasis. Developing infiltrates cannot be entirel y excluded.
[2020-09-27] MEDS ORDERED: cefTRIAXone IN SWFI 1,000 MG/10 ML SYRINGE IVP STA (20:42)
[2020-09-27] MEDS ORDERED: NALOXONE 0.4 MG/ML 1 ML VIAL IV PRN (20:45)
[2020-09-27] MEDS: SODIUM CHLORIDE 0.9% 1,000 ML IV SCH (20:55)
[2020-09-27 20:58] LABS: Band Neutrophils % 35 %; Eosinophils # (M) 0.15 k/uL (0-0.7); Lymphocytes # (M) 0.15 k/uL (1.0-4.8); Monocytes # (M) 0.15 k/uL (0-1.0); Neutrophils % (M) 63 %; Nucleated Red Blood Cells 0 /100 WBC (0-0); Total Cells Counted 200
[2020-09-27 20:59] LABS: Polychromasia Present; Toxic Vacuolation Present
[2020-09-27] MEDS: ASPIRIN 300 MG SUPP RECTAL STA ×2 (21:00→23:08)
[2020-09-27] MEDS ORDERED: ASPIRIN 325 MG TAB PO STA (23:08)
[2020-09-28] MEDS: SODIUM CHLORIDE 0.9% 1,000 ML IV SCH (11:10)
--- NOTE | 2020-09-28 11:32 | P.CNNES ---
History of Present Illness Consult date: 09/28/20 Requesting physician: Alok Cotto Reason for Consult: altered mental status History of Present Illness: This is an 80-year-old woman with medical history of chronic hyponatremia, diabetes mellitus (for past 5-6 years), hyperlipidemia, hypertension, pancreatic cancer (diagnosed on May 2020) on chemotherapy and macular degeneration of left eye who presented to the emergency department via EMS on 09/27/2020 for altered mental status. Her sond and her [id number] are at bedside and provide some of the history. Per her family members, they stated that the patient the received her chemotherapy this past and this was her fourth session and yesterday the patient was watching TV and was doing well and then when she got up she slumped over but she was a following commands per family members. They deny patient any confusion. They deny that the patient was having any foaming around the mouth, any gaze deviation, any urinary or bowel incontinence or any jerk in of any extremities at. She was just generalized weak. They stated that whenever the patient gets the chemotherapy the she declines. They stated that the [place] her systolic blood pressure was in the 80s. Patient does not have any history of stroke, TIA or seizure. They stated that after the patient received IV fluids she's doing drastically better responding following commands. It is also noted that she was having abdominal pain. She had similar episode also mental status and was due to altered mentation and 09/08/2020 her sodium was as low as 119. And per the son this happens as stated above after chemotherapy. Currently the patient feels she is drastically better and back to her baseline. She denies of any focal weakness, numbness, visual disturbance, difficulty getting her words out. She walks with a wheel walker at baseline. Some of the workup in the hospital consisted of: Upon presented to the hospital patient initial vitals: His blood pressure of 93/49, heart rate of the night he 6, respiratory of 16, temperature of 98.9 Fahrenheit oral and pulse ox of 98% room air her repeated the blood pressure was as low as 79/42 then became an 87/41. CBC with differential is the white blood cell is 15.0 which is slightly elevated and is increased neutrophilic as well. Creatinine is 0.62, AST of 38 and ALT of 30, magnesium is slightly low with 8.3. Serum glucose is 139 which is slightly elevated but not remarkable. Troponin is 0.05 and a repeat his 0.043 Sodium is 121 on this current admission the last sodium in our facility was on 09/15/2020 and it was 127. CT of the head is reported as no acute intracranial abnormality. Chest x-ray is reported as mild bibasilar opacity, probably atelectasis. Developing infiltrate cannot be entirely excluded. CT of the abdomen and pelvis is reported as redemonstrated large infiltrative mesenteric mass involving the pancreatic head and education duodenum and stomach. Increase size of nodule lesion in the portal caval region, suggestive of lymphadenopathy. No bowel obstruction or free fluid Review of Systems Review of system: The 12 point system was reviewed and apparent positive and negative per HPI. Past Medical History Past Medical History: Cancer, Diabetes Mellitus, Hyperlipidemia, Hypertension Additional Past Medical History / Comment(s): colon polyps. PANCREATIC CANCER. History of Any Multi-Drug Resistant Organisms: None Reported Past Surgical History: Breast Surgery, Cholecystectomy, Tubal Ligation Additional Past Surgical History / Comment(s): colonoscopy, bx of mass 05/05/20, left breast lumpectomy benign 40 years ago, jaw surgery 50 years ago r/t broken jaw, eyelid surgery to "get the bags out" Past Anesthesia/Blood Transfusion Reactions: Motion Sickness Past Psychological History: No Psychological Hx Reported Smoking Status: Former smoker Past Alcohol Use History: Unable to Obtain Past Drug Use History: Unable to Obtain - Past Family History Mother Additional Family Medical History / Comment(s): addisons disease Father Family Medical History: Coronary Artery Disease (CAD) Medications and Allergies Home Medications Medication Instructions Recorded Confirmed Type Atorvastatin [Lipitor] 80 mg PO DAILY@1800 04/24/20 09/27/20 History Raloxifene [Evista] 60 mg PO DAILY@0600 04/24/20 09/27/20 History Triple Flex 1 tab PO BID@1200,0000 04/24/20 09/27/20 History Aspirin [Adult Low Dose Aspirin EC] 81 mg PO DAILY@0000 04/29/20 09/27/20 History Ondansetron Odt [Zofran ODT] 4 mg PO Q6H PRN 06/04/20 09/27/20 History Sennosides/Docusate Sodium [Senna 1 cap PO BID@0600,0000 06/04/20 09/27/20 History Plus 8.6-50 mg Softgel] Dronabinol [Marinol] 2.5 mg PO BID@0600,0000 09/08/20 09/27/20 History Famotidine [Pepcid] 20 mg PO BID@1200,1800 09/08/20 09/27/20 History Magnesium Oxide [Magox 400] 400 mg PO BID@0600,0000 09/08/20 09/27/20 History Pantoprazole Sodium 40 mg PO DAILY@0600 09/08/20 09/27/20 History atenoloL 25 mg PO BID@1200,0000 09/08/20 09/27/20 History fentaNYL 50MCG/HR PATCH [Duragesic 1 patch TRANSDERM Q72H 09/08/20 09/27/20 History 50MCG/HR] metFORMIN HCL ER [Glucophage XR] 500 mg PO DAILY@0600 09/08/20 09/27/20 History oxyCODONE HCL [OxyIR] 5 mg PO QID@0600,12,18,0000 09/08/20 09/27/20 History Ascorbic Acid [Vitamin C] 1,000 mg PO DAILY@1800 09/27/20 09/27/20 History Docusate 250mg 250 mg PO DAILY@1200 09/27/20 09/27/20 History Motion Sickness Patch 1 patch TRANSDERM Q72H PRN 09/27/20 09/27/20 History Pancreatic Enzyme 500 mg PO DAILY@0600 09/27/20 09/27/20 History Vit C/E/Zn/Coppr/Lutein/Zeaxan 1 cap PO BID@1200,0000 09/27/20 09/27/20 History [Preservision Areds 2 Softgel] Meclizine [Antivert] 25 mg PO DAILY PRN 09/28/20 09/28/20 History Allergies Allergy/AdvReac Type Severity Reaction Status Date / Time shellfish derived [Lobster] Allergy Nausea & Verified 09/08/20 21:21 Vomiting Physical Examination - Vital Signs Vital Signs: Vital Signs Temp Pulse Resp BP Pulse Ox 09/28/20 07:00 64 19 97/49 09/28/20 03:43 64 16 87/41 100 09/28/20 00:00 67 16 79/42 100 09/27/20 18:18 98.9 F 96 16 93/49 98 Intake and Output 09/27/20 09/28/20 09/28/20 22:59 06:59 14:59 Other: Weight 81.647 kg GENERAL: The patient is lying in bed and is not in acute distress. CHEST: The heart rate is regular rate rhythm. No murmurs to auscultation. No carotid bruit bilaterally. LUNG: Clear to auscultation bilaterally no wheezing noted throughout. Not labored breathing. ABDOMEN/GI: Bowel sounds present in all 4 quadrants. No tenderness to palpation throughout. NEUROLOGICAL: Higher mental function: The patient is awake, alert, oriented to self, place and time. Patient is able to identify objects (pen, watch and cup). Patient is following commands. No aphasia and no neglect. Cranial nerves: The pupils are round, equal and reactive to light and accommodation. Visual lee are full to confrontation throughout. Extraocular movement is intact no nystagmus is noted. Facial sensation is normal to touch throughout. The facial strength is normal throughout. Tongue is midline and moved [id number] without any difficulty. No dysarthria is noted. Shoulder shrug is normal bilaterally. Motor: The strength is 5 over 5 throughout upper whiles lowers are 4+ bilateral ly. Normal tone and bulk. Cerebellum: Normal finger to nose. Sensation: Sensation is normal to touch throughout. Reflexes (right/left): 1+ throughout. Plantars are downgoing bilaterally. Results - Laboratory Findings CBC and BMP: 09/27/20 18:31 09/27/20 18:31 Abnormal Lab Findings: Abnormal Labs 09/27/20 09/27/20 09/27/20 18:30 18:31 18:31 WBC 15.0 H RBC 3.33 L Hgb 9.9 L Hct 29.1 L RDW 18.2 H Neutrophils # (Manual) 14.70 H Lymphocytes # (Manual) 0.15 L PT 13.9 H INR 1.4 H APTT 19.7 L Sodium Chloride Carbon Dioxide BUN Glucose POC Glucose (mg/dL) 139 H Calcium AST Troponin I Total Protein Albumin 09/27/20 09/27/20 09/27/20 18:31 18:31 21:29 WBC RBC Hgb Hct RDW Neutrophils # (Manual) Lymphocytes # (Manual) PT INR APTT Sodium 121 L Chloride 91 L Carbon Dioxide 21 L BUN 23 H Glucose 134 H POC Glucose (mg/dL) Calcium 8.3 L AST 38 H Troponin I 0.050 H* 0.043 H* Total Protein 5.2 L Albumin 2.7 L Assessment and Plan Assessment: * Encephalopathy due to multi-factorial: seem metabolic with electrolyte imbalance (acute on chronic hyponatremia) and hypotensive (as low as 79/42). She had recent chemotherapy and per son had similar episode in the past (per son he did not feel she was altered in mentaiton but was just generalized weakness). ---mentation is improved * Acute on chronic hyponatremia * Abdominal pain * Hypotensive --improving * History of pancreatic cancer (May 2020) on chemotherapy and last dose is this past * Diabetes mellitus with sugar seems controlled * History Hypertension Plan: I will not pursue with MRI of the brain or EEG at this time since this is unlikely stroke/TIA. Also this is not a seizure. Ordered orthostatic vitals and if abnormal will defer management to primary (consider salt tabs 1mg bid) or possibly cardiology management). Will defer the management of hyponatremia and hypotension to the primary team (please avoid rapid correction of sodium). We'll defer the rest of the medical management to the primary team. The plan is discussed with the family members and her nurse. Thank you for the consultation. There is no further neurological work-up. Neurology will sign off. Please reconsult neurology if neede. Chilango Mcdermott M.D. Neuro-hospitalist Time with Patient: Greater than 30
[2020-09-28 13:40] LABS: African American GFR (CKD) >90 (>60 ml/min/1.73 sqM); Anion Gap 6 mmol/L; Blood Urea Nitrogen 25 mg/dL (7-17); Calcium 7.8 mg/dL (8.4-10.2); Carbon Dioxide 21 mmol/L (22-30); Chloride 96 mmol/L (98-107); Glucose 121 mg/dL (74-99); Non-African American GFR(CKD) >90 (>60 ml/min/1.73 sqM); Potassium 3.9 mmol/L (3.5-5.1); Sodium 123 mmol/L (137-145)
[2020-09-28] MEDS ORDERED: MECLIZINE 25 MG TAB PO PRN (18:08)
--- NOTE | 2020-09-28 18:12 | P.HPIM ---
History of Present Illness H&P Date: 09/28/20 Chief Complaint: Altered mental status 80-year-old female with pancreatic cancer presenting with altered mental status. Proximally one hour prior to arrival the patient had complained of some abdominal pain and subsequently became minimally responsive. Patient is currently on chemotherapy. The exact details surrounding the patient's current medical conditions are not known to time of initial evaluation. She was transported by EMS. There was indication that the patient had previous altered mental status secondary to hyponatremia. There was no localizing features i dentified by paramedics. Patient would follow some simple commands. She had complained of abdominal pain. Workup in ED reveals; Creatinine is 0.62, AST of 38 and ALT of 30, magnesium is slightly low with 8.3. Serum glucose is 139 which is slightly elevated but not remarkable. Troponin is 0.05 and a repeat his 0.043 Sodium is 121 on this current admission the last sodium in our facility was on 0 09/15/2020 and it was 127. CT of the head is reported as no acute intracranial abnormality. Chest x-ray is reported as mild bibasilar opacity, probably atelectasis. Developing infiltrate cannot be entirely excluded. CT of the abdomen and pelvis is reported as redemonstrated large infiltrative mesenteric mass involving the pancreatic head and education duodenum and stomach. Increase size of nodule lesion in the portal caval region, suggestive of lymphadenopathy. No bowel obstruction or free fluid Review of Systems REVIEW OF SYSTEMS: CONSTITUTIONAL: No fever, no malaise, no fatigue. HEENT: No recent visual problems or hearing problems. Denied any sore throat. CARDIOVASCULAR: No chest pain, orthopnea, PND, no palpitations, no syncope. PULMONARY: No shortness of breath, no cough, no hemoptysis. GASTROINTESTINAL: No diarrhea, no nausea, no vomiting, no abdominal pain. NEUROLOGICAL: No headaches, no weakness, no numbness. HEMATOLOGICAL: Denies any bleeding or petechiae. GENITOURINARY: Denies any burning micturition, frequency, or urgency. MUSCULOSKELETAL/RHEUMATOLOGICAL: Denies any joint pain, swelling, or any muscle pain. ENDOCRINE: Denies any polyuria or polydipsia. The rest of the 14-point review of systems is negative. Past Medical History Past Medical History: Cancer, Diabetes Mellitus, Hyperlipidemia, Hypertension Additional Past Medical History / Comment(s): colon polyps. PANCREATIC CANCER. History of Any Multi-Drug Resistant Organisms: None Reported Past Surgical History: Breast Surgery, Cholecystectomy, Tubal Ligation Additional Past Surgical History / Comment(s): colonoscopy, bx of mass 05/05/20, left breast lumpectomy benign 40 years ago, jaw surgery 50 years ago r/t broken jaw, eyelid surgery to "get the bags out" Past Anesthesia/Blood Transfusion Reactions: Motion Sickness Past Psychological History: No Psychological Hx Reported Smoking Status: Former smoker Past Alcohol Use History: Unable to Obtain Past Drug Use History: Unable to Obtain - Past Family History Mother Additional Family Medical History / Comment(s): addisons disease Father Family Medical History: Coronary Artery Disease (CAD) Medications and Allergies Home Medications Medication Instructions Recorded Confirmed Type Atorvastatin [Lipitor] 80 mg PO DAILY@1800 04/24/20 09/27/20 History Raloxifene [Evista] 60 mg PO DAILY@0600 04/24/20 09/27/20 History Triple Flex 1 tab PO BID@1200,0000 04/24/20 09/27/20 History Aspirin [Adult Low Dose Aspirin EC] 81 mg PO DAILY@0000 04/29/20 09/27/20 History Ondansetron Odt [Zofran ODT] 4 mg PO Q6H PRN 06/04/20 09/27/20 History Sennosides/Docusate Sodium [Senna 1 cap PO BID@0600,0000 06/04/20 09/27/20 History Plus 8.6-50 mg Softgel] Dronabinol [Marinol] 2.5 mg PO BID@0600,0000 09/08/20 09/27/20 History Famotidine [Pepcid] 20 mg PO BID@1200,1800 09/08/20 09/27/20 History Magnesium Oxide [Magox 400] 400 mg PO BID@0600,0000 09/08/20 09/27/20 History Pantoprazole Sodium 40 mg PO DAILY@0600 09/08/20 09/27/20 History atenoloL 25 mg PO BID@1200,0000 09/08/20 09/27/20 History fentaNYL 50MCG/HR PATCH [Duragesic 1 patch TRANSDERM Q72H 09/08/20 09/27/20 History 50MCG/HR] metFORMIN HCL ER [Glucophage XR] 500 mg PO DAILY@0600 09/08/20 09/27/20 History oxyCODONE HCL [OxyIR] 5 mg PO QID@0600,12,18,0000 09/08/20 09/27/20 History Ascorbic Acid [Vitamin C] 1,000 mg PO DAILY@1800 09/27/20 09/27/20 History Docusate 250mg 250 mg PO DAILY@1200 09/27/20 09/27/20 History Motion Sickness Patch 1 patch TRANSDERM Q72H PRN 09/27/20 09/27/20 History Pancreatic Enzyme 500 mg PO DAILY@0600 09/27/20 09/27/20 History Vit C/E/Zn/Coppr/Lutein/Zeaxan 1 cap PO BID@1200,0000 09/27/20 09/27/20 History [Preservision Areds 2 Softgel] Meclizine [Antivert] 25 mg PO DAILY PRN 09/28/20 09/28/20 History Allergies Allergy/AdvReac Type Severity Reaction Status Date / Time shellfish derived [Lobster] Allergy Nausea & Verified 09/08/20 21:21 Vomiting Physical Exam Vitals: Vital Signs Temp Pulse Resp BP Pulse Ox 09/28/20 11:09 65 18 110/52 09/28/20 07:00 64 19 97/49 09/28/20 03:43 64 16 87/41 100 09/28/20 00:00 67 16 79/42 100 09/27/20 18:18 98.9 F 96 16 93/49 98 Intake and Output 09/27/20 09/28/20 09/28/20 22:59 06:59 14:59 Other: Weight 81.647 kg General appearance: alert, in no apparent distress Head exam: Present: atraumatic, normocephalic Eye exam: Present: normal appearance, PERRL ENT exam: Present: mucous membranes dry Neck exam: Present: normal inspection. Absent: tenderness, meningismus Respiratory exam: Present: normal lung sounds bilaterally. Absent: respiratory distress, wheezes Cardiovascular Exam: Present: regular rate, normal rhythm GI/Abdominal exam: Present: soft, distended, tenderness. Absent: guarding, rebound Extremities exam: Present: normal inspection, normal capillary refill. 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 Absent: motor sensory deficit Skin exam: Present: warm, dry Results CBC & Chem 7: 09/27/20 18:31 09/28/20 14:12 Labs: Abnormal Lab Results - Last 24 Hours (Table) 09/27/20 09/27/20 09/27/20 Range/Units 18:30 18:31 18:31 WBC 15.0 H (3.8-10.6) k/uL RBC 3.33 L (3.80-5.40) m/uL Hgb 9.9 L (11.4-16.0) gm/dL Hct 29.1 L (34.0-46.0) % RDW 18.2 H (11.5-15.5) % Neutrophils # (Manual) 14.70 H (1.3-7.7) k/uL Lymphocytes # (Manual) 0.15 L (1.0-4.8) k/uL PT 13.9 H (9.0-12.0) sec INR 1.4 H (<1.2) APTT 19.7 L (22.0-30.0) sec Sodium (137-145) mmol/L Chloride (98-107) mmol/L Carbon Dioxide (22-30) mmol/L BUN (7-17) mg/dL Glucose (74-99) mg/dL POC Glucose (mg/dL) 139 H (75-99) mg/dL Calcium (8.4-10.2) mg/dL AST (14-36) U/L Troponin I (0.000-0.034) ng/mL Total Protein (6.3-8.2) g/dL Albumin (3.5-5.0) g/dL 09/27/20 09/27/20 09/27/20 Range/Units 18:31 18:31 21:29 WBC (3.8-10.6) k/uL RBC (3.80-5.40) m/uL Hgb (11.4-16.0) gm/dL Hct (34.0-46.0) % RDW (11.5-15.5) % Neutrophils # (Manual) (1.3-7.7) k/uL Lymphocytes # (Manual) (1.0-4.8) k/uL PT (9.0-12.0) sec INR (<1.2) APTT (22.0-30.0) sec Sodium 121 L (137-145) mmol/L Chloride 91 L (98-107) mmol/L Carbon Dioxide 21 L (22-30) mmol/L BUN 23 H (7-17) mg/dL Glucose 134 H (74-99) mg/dL POC Glucose (mg/dL) (75-99) mg/dL Calcium 8.3 L (8.4-10.2) mg/dL AST 38 H (14-36) U/L Troponin I 0.050 H* 0.043 H* (0.000-0.034) ng/mL Total Protein 5.2 L (6.3-8.2) g/dL Albumin 2.7 L (3.5-5.0) g/dL Assessment and Plan Assessment: 1. Altered mental status; encephalopathy likely multifactorial; patient is admitted with electrolyte imbalance - Had recent chemotherapy done; per patient's son she had similar episode with past cycle of chemotherapy - Neurology is consulted and recommendations for MRI or EEG at this time; TIA/stroke or seizures are unlikely 2. Marked hyponatremia - Sodium level of 121 upon arrival to ED; up to 124 this afternoon; we will continue with slow IV fluid hydration and continue to monitor electrolytes closely 3. History of pancreatic cancer; consult oncology - Patient remains on fentanyl 50 MCG per hour patch for pain control; patient takes oxycodone 5 mg 4 times a day; we will hold off on oxycodone till mental status improves 4. Hypertension; currently hypotensive; remains on IV fluid resuscitation; possibly volume depletion; we will hold off on home dose of atenolol and monitor blood pressure closely 5. Hyperlipidemia; Lipitor 80 mg by mouth daily 6. Diabetes mellitus type 2; continue with home dose of metformin; monitor Accu-Cheks before meals and at bedtime with insulin sliding scale DVT prophylaxis; SCDs/subcu heparin CODE STATUS; full code
[2020-09-29] MEDS: SODIUM CHLORIDE 0.9% 1,000 ML IV SCH ×2 (01:05→14:26)
[2020-09-29] MEDS: SENNOSIDES-DOCUSATE SODIUM 1 EACH TAB PO SCH ×3 (01:40→22:58)
[2020-09-29] MEDS: MAGNESIUM OXIDE 400 MG TAB PO SCH ×3 (01:40→22:57)
[2020-09-29] MEDS: ASPIRIN 81 MG PO SCH ×2 (01:40→22:56)
[2020-09-29] MEDS ORDERED: PANCREATIC ENZYME PO SCH (06:00)
[2020-09-29] MEDS: RALOXIFENE 60 MG TAB PO SCH (08:55)
[2020-09-29] MEDS: PANTOPRAZOLE 40 MG TABLET PO SCH (08:55)
[2020-09-29] MEDS: metFORMIN 500 MG TAB PO SCH ×2 (08:55→18:41)
[2020-09-29 09:08] LABS: Basophils # (A) 0.01 X 10*3/uL (0.00-0.10); Basophils % (A) 0.2 %; Eosinophils # (A) 0.27 X 10*3/uL (0.04-0.35); Eosinophils % (A) 4.3 %; HCT 23.4 % (37.2-46.3); HGB 7.8 g/dL (12.0-15.0); MCH 29.7 pg (27.0-32.0); MCHC 33.3 g/dL (32.0-37.0); Mean Platelet Volume 8.3 fL (9.5-12.2); Monocytes # (A) 0.13 X 10*3/uL (0.20-1.00); Monocytes % (A) 2.1 %; Neutrophils # (A) 5.11 X 10*3/uL (1.80-7.70); Neutrophils % (A) 80.5 %; Platelet Count 195 X 10*3/uL (140-440); RBC 2.63 X 10*6/uL (4.10-5.20); RDW 17.7 % (11.5-14.5); WBC 6.34 X 10*3/uL (4.50-10.00)
--- NOTE | 2020-09-29 10:25 | P.NPCON ---
History of Present Illness - Reason for Consult hyponatremia - History of Present Illness Reason for consultation: Hyponatremia History of present illness: Patient is a 80-year-old female seen in renal consultation for hyponatremia. sodium level was 121 on admission on September 27 and was up to 124 yesterday. She is maintained on normal saline at 75 mL an hour. He denies excessive fluid intake. Oral intake has been fair. No vomiting or diarrhea. No chest pain or shortness of breath. No edema. She was diagnosed with pancreatic cancer in May 2020 and is maintained on chemotherapy. Her last chemotherapy was on . She denies use of nonsteroidals. Not on any thiazide diuretics. Blood sugars are stable. No fever or chills. Creatinine 0.5 as of yesterday. Vital signs are stable. General: The patient appeared well nourished and normally developed. HEENT: Head exam is unremarkable. Neck is without jugular venous distension. LUNGS: Breath sounds decreased. HEART: Rate and Rhythm are regular. ABDOMEN: Soft, no distention. EXTREMITITES: No edema. Past Medical History Past Medical History: Cancer, Diabetes Mellitus, Hyperlipidemia, Hypertension Additional Past Medical History / Comment(s): colon polyps. PANCREATIC CANCER. History of Any Multi-Drug Resistant Organisms: None Reported Past Surgical History: Breast Surgery, Cholecystectomy, Tubal Ligation Additional Past Surgical History / Comment(s): colonoscopy, bx of mass 05/05/20, left breast lumpectomy benign 40 years ago, jaw surgery 50 years ago r/t broken jaw, eyelid surgery to "get the bags out" Past Anesthesia/Blood Transfusion Reactions: Motion Sickness Past Psychological History: No Psychological Hx Reported Smoking Status: Former smoker Past Alcohol Use History: Unable to Obtain Past Drug Use History: Unable to Obtain - Past Family History Mother Additional Family Medical History / Comment(s): addisons disease Father Family Medical History: Coronary Artery Disease (CAD) Medications and Allergies Home Medications Medication Instructions Recorded Confirmed Type Atorvastatin [Lipitor] 80 mg PO DAILY@1800 04/24/20 09/27/20 History Raloxifene [Evista] 60 mg PO DAILY@0600 04/24/20 09/27/20 History Triple Flex 1 tab PO BID@1200,0000 04/24/20 09/27/20 History Aspirin [Adult Low Dose Aspirin EC] 81 mg PO DAILY@0000 04/29/20 09/27/20 History Ondansetron Odt [Zofran ODT] 4 mg PO Q6H PRN 06/04/20 09/27/20 History Sennosides/Docusate Sodium [Senna 1 cap PO BID@0600,0000 06/04/20 09/27/20 History Plus 8.6-50 mg Softgel] Dronabinol [Marinol] 2.5 mg PO BID@0600,0000 09/08/20 09/27/20 History Famotidine [Pepcid] 20 mg PO BID@1200,1800 09/08/20 09/27/20 History Magnesium Oxide [Magox 400] 400 mg PO BID@0600,0000 09/08/20 09/27/20 History Pantoprazole Sodium 40 mg PO DAILY@0600 09/08/20 09/27/20 History atenoloL 25 mg PO BID@1200,0000 09/08/20 09/27/20 History fentaNYL 50MCG/HR PATCH [Duragesic 1 patch TRANSDERM Q72H 09/08/20 09/27/20 History 50MCG/HR] metFORMIN HCL ER [Glucophage XR] 500 mg PO DAILY@0600 09/08/20 09/27/20 History oxyCODONE HCL [OxyIR] 5 mg PO QID@0600,12,18,0000 09/08/20 09/27/20 History Ascorbic Acid [Vitamin C] 1,000 mg PO DAILY@1800 09/27/20 09/27/20 History Docusate 250mg 250 mg PO DAILY@1200 09/27/20 09/27/20 History Motion Sickness Patch 1 patch TRANSDERM Q72H PRN 09/27/20 09/27/20 History Pancreatic Enzyme 500 mg PO DAILY@0600 09/27/20 09/27/20 History Vit C/E/Zn/Coppr/Lutein/Zeaxan 1 cap PO BID@1200,0000 09/27/20 09/27/20 History [Preservision Areds 2 Softgel] Meclizine [Antivert] 25 mg PO DAILY PRN 09/28/20 09/28/20 History Allergies Allergy/AdvReac Type Severity Reaction Status Date / Time shellfish derived [Lobster] Allergy Nausea & Verified 09/08/20 21:21 Vomiting Physical Exam Vitals: Vital Signs Temp Pulse Resp BP Pulse Ox 09/29/20 09:01 81 16 100 09/29/20 07:16 99.0 F 81 16 149/68 100 09/29/20 01:34 78 18 136/49 98 09/28/20 19:46 16 09/28/20 14:00 17 09/28/20 13:07 69 17 99/41 09/28/20 11:09 65 18 110/52 Results - Lab Results Most recent lab results Calcium 7.8 mg/dL (8.4-10.2) L 09/28/20 13:13 Magnesium 1.7 mg/dL (1.6-2.3) 09/27/20 18:31 09/29/20 05:06 09/28/20 14:12 Assessment and Plan Plan: Assessment: 1. Hyponatremia slightly hypovolemic and slowly improving with IV hydration. 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 Sodium level was 121 on admission and was up to 124 as of yesterday. 2. Pancreatic cancer maintained on chemotherapy. 3. Diabetes mellitus. Plan: Maintain normal saline. 1200 mL fluid restriction. Encouraged oral intake, especially protein. Check TSH and cortisol level. Check serum and urine osmolality and urine sodium level. Follow-up morning labs. Thank you for the consultation. I will continue to follow patient with you during her hospital stay.
[2020-09-29 11:56] LABS: African American GFR (CKD) >90 (>60 ml/min/1.73 sqM); Anion Gap 5 mmol/L; Blood Urea Nitrogen 15 mg/dL (7-17); Calcium 8.1 mg/dL (8.4-10.2); Carbon Dioxide 21 mmol/L (22-30); Chloride 96 mmol/L (98-107); Glucose 117 mg/dL (74-99); Non-African American GFR(CKD) >90 (>60 ml/min/1.73 sqM); Sodium 122 mmol/L (137-145)
[2020-09-29] MEDS: SODIUM CHLORIDE TAB 1 GM TAB PO SCH ×2 (14:27→22:57)
[2020-09-29] MEDS: DOCUSATE ORAL SOLN 100 MG/10 ML CUP PO SCH (14:31)
[2020-09-29] MEDS: ATORVASTATIN 80 MG TAB PO SCH (18:41)
[2020-09-29] MEDS: ASCORBIC ACID 500 MG TAB PO SCH (18:41)
[2020-09-30] MEDS: MAGNESIUM OXIDE 400 MG TAB PO SCH (06:25)
[2020-09-30] MEDS: SENNOSIDES-DOCUSATE SODIUM 1 EACH TAB PO SCH (06:25)
[2020-09-30] MEDS: RALOXIFENE 60 MG TAB PO SCH (06:25)
[2020-09-30] MEDS: PANTOPRAZOLE 40 MG TABLET PO SCH (06:25)
[2020-09-30 07:08] LABS: Glucose,Whole Blood 128 mg/dL (75-99)
[2020-09-30] MEDS: metFORMIN 500 MG TAB PO SCH ×2 (07:39→17:19)
[2020-09-30] MEDS: SODIUM CHLORIDE TAB 1 GM TAB PO SCH ×2 (07:39→20:44)
--- NOTE | 2020-09-30 08:17 | P.PN ---
Subjective Progress Note Date: 09/29/20 Principal diagnosis: hyponatremia Pt feeling significantly improved, thinking clearly and denies chest pain, shortness of breath, abdominal pain. She remains hyponatremic to 122 today. Appetite is poor. Objective - Vital Signs Vital signs: Vital Signs Temp 97.8 F 09/30/20 07:55 Pulse 76 09/30/20 07:55 Resp 16 09/30/20 07:55 BP 166/75 09/30/20 07:55 Pulse Ox 96 09/30/20 07:55 Intake & Output 09/29/20 09/30/20 09/30/20 18:59 06:59 18:59 Weight 81.647 kg Other: Voiding Method Toilet # Voids 1 - Exam Gen: thin, NAD, vitals reviewed CV: RRR, no murmur Lungs: normal effort, clear throughout Abd: soft, nontender non distended - Labs CBC & Chem 7: 09/29/20 05:06 09/29/20 05:06 Labs: Abnormal Lab Results - Last 24 Hours (Table) 09/29/20 09/29/20 09/29/20 Range/Units 05:06 05:06 05:06 RBC 2.63 L (4.10-5.20) X 10*6/uL Hgb 7.8 L (12.0-15.0) g/dL Hct 23.4 L (37.2-46.3) % RDW 17.7 H (11.5-14.5) % MPV 8.3 L (9.5-12.2) fL Absolute Nucleated RBC 0.02 H (0.00-0.00) X 10*3/uL Immature Gran # 0.12 H (0.00-0.04) X 10*3/uL Lymphocytes # 0.70 L (0.90-5.00) X 10*3/uL Monocytes # 0.13 L (0.20-1.00) X 10*3/uL NRBC/100 WBC Diff 0.3 H (0.0-0.0) /100 WBCS Sodium 122 L (137-145) mmol/L Chloride 96 L (98-107) mmol/L Carbon Dioxide 21 L (22-30) mmol/L Creatinine 0.33 L (0.52-1.04) mg/dL BUN/Creatinine Ratio 37.50 H (12.00-20.00) Ratio Glucose 117 H (74-99) mg/dL POC Glucose (mg/dL) (75-99) mg/dL Osmolality 259 L (280-301) mosm/kg Calcium 8.1 L (8.4-10.2) mg/dL 09/30/20 Range/Units 06:58 RBC (4.10-5.20) X 10*6/uL Hgb (12.0-15.0) g/dL Hct (37.2-46.3) % RDW (11.5-14.5) % MPV (9.5-12.2) fL Absolute Nucleated RBC (0.00-0.00) X 10*3/uL Immature Gran # (0.00-0.04) X 10*3/uL Lymphocytes # (0.90-5.00) X 10*3/uL Monocytes # (0.20-1.00) X 10*3/uL NRBC/100 WBC Diff (0.0-0.0) /100 WBCS Sodium (137-145) mmol/L Chloride (98-107) mmol/L Carbon Dioxide (22-30) mmol/L Creatinine (0.52-1.04) mg/dL BUN/Creatinine Ratio (12.00-20.00) Ratio Glucose (74-99) mg/dL POC Glucose (mg/dL) 128 H (75-99) mg/dL Osmolality (280-301) mosm/kg Calcium (8.4-10.2) mg/dL Assessment and Plan Plan: Continue with IV fluids at current rate. Nephrology following. Start oral sodium. Encourage PO intake. Pain control. Repeat labs in the morning
--- NOTE | 2020-09-30 09:35 | P.PN ---
Subjective Patient is seen in follow-up for hyponatremia. Sodium level dropped with normal saline yesterday and she was subsequently started on sodium chloride tabs and put on fluid resection. Oral intake is fair. Good urine output. Awake and alert. Family present at bedside. Vital signs are stable. General: The patient appeared well nourished and normally developed. HEENT: Head exam is unremarkable. Neck is without jugular venous distension. LUNGS: Breath sounds decreased. HEART: Rate and Rhythm are regular. ABDOMEN: Soft, no distention. EXTREMITITES: No edema. Objective - Vital Signs Vital signs: Vital Signs Temp 97.8 F 09/30/20 07:55 Pulse 76 09/30/20 07:55 Resp 16 09/30/20 07:55 BP 166/75 09/30/20 07:55 Pulse Ox 96 09/30/20 07:55 Intake & Output 09/29/20 09/30/20 09/30/20 18:59 06:59 18:59 Weight 81.647 kg Other: Voiding Method Toilet Toilet Diaper # Voids 1 - Labs CBC & Chem 7: 09/29/20 05:06 09/29/20 05:06 Labs: Abnormal Lab Results - Last 24 Hours (Table) 09/29/20 09/29/20 09/30/20 Range/Units 05:06 05:06 06:58 Sodium 122 L (137-145) mmol/L Chloride 96 L (98-107) mmol/L Carbon Dioxide 21 L (22-30) mmol/L Creatinine 0.33 L (0.52-1.04) mg/dL BUN/Creatinine Ratio 37.50 H (12.00-20.00) Ratio Glucose 117 H (74-99) mg/dL POC Glucose (mg/dL) 128 H (75-99) mg/dL Osmolality 259 L (280-301) mosm/kg Calcium 8.1 L (8.4-10.2) mg/dL Assessment and Plan Plan: Assessment: 1. 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 2. Pancreatic cancer maintained on chemotherapy. 3. Diabetes mellitus. Plan: 1200 mL fluid restriction. Maintain sodium chloride tabs. Encouraged oral intake, especially protein. Follow-up TSH and cortisol level. Follow-up serum and urine osmolality and urine sodium level - not collected so far. I will reorder. Follow-up morning labs.
[2020-09-30 10:31] LABS: Magnesium 1.6 mg/dL (1.5-2.4)
[2020-09-30 10:32] LABS: African American GFR (CKD) 141.2 (60.0-200.0); Anion Gap 7.3 mmol/L (4.00-12.00); Calcium 7.9 mg/dL (8.7-10.3); Carbon Dioxide 25.7 mmol/L (21.6-31.8); Non-African American GFR(CKD) 121.8 (60.0-200.0); Potassium 4.2 mmol/L (3.5-5.5)
[2020-09-30 11:43] LABS: Glucose,Whole Blood 125 mg/dL (75-99)
[2020-09-30] MEDS: DOCUSATE ORAL SOLN 100 MG/10 ML CUP PO SCH (11:52)
--- NOTE | 2020-09-30 16:08 | P.PN ---
Subjective Progress Note Date: 09/30/20 Principal diagnosis: Hyponatremia In f/u today pt is getting back and forth to bathroom with walker and 1 person assist, she feels better then when she came in, she is on fluid restriction and sodium tabs. No other c/o at this time Objective - Vital Signs Vital signs: Vital Signs Temp 98.0 F 09/30/20 14:00 Pulse 91 09/30/20 14:00 Resp 16 09/30/20 14:00 BP 152/70 09/30/20 14:00 Pulse Ox 97 09/30/20 14:00 Intake & Output 09/29/20 09/30/20 09/30/20 18:59 06:59 18:59 Weight 81.647 kg Other: Voiding Method Toilet Toilet Diaper # Voids 1 - Constitutional General appearance: Present: cooperative, no acute distress, thin - EENT Eyes: Present: anicteric sclerae, EOMI ENT: Present: hearing grossly normal - Respiratory Respiratory: bilateral: CTA - Cardiovascular Rhythm: regular Heart sounds: normal: S1, S2 Abnormal Heart Sounds: Absent: systolic murmur, diastolic murmur, rub, S3 Gallop, S4 Gallop, click, other - Peripheral edema leg Peripheral Edema: bilateral: None - Gastrointestinal General gastrointestinal: Present: normal bowel sounds, soft - Neurologic Neurologic: Present: CNII-XII intact - Musculoskeletal Musculoskeletal: Present: generalized weakness - Psychiatric Psychiatric: Present: A&O x's 3, appropriate affect, intact judgment & insight - Labs CBC & Chem 7: 09/29/20 05:06 09/30/20 06:14 Labs: Abnormal Lab Results - Last 24 Hours (Table) 09/30/20 09/30/20 09/30/20 Range/Units 06:14 06:14 06:58 Sodium 129 L (135-145) mmol/L BUN 7.0 L (9.0-27.0) mg/dL Creatinine 0.2 L (0.6-1.5) mg/dL BUN/Creatinine Ratio 35.00 H (12.00-20.00) Ratio POC Glucose (mg/dL) 128 H (75-99) mg/dL Osmolality 264 L (280-301) mosm/kg Calcium 7.9 L (8.7-10.3) mg/dL Cortisol 26.5 H (3.10-22.40) ug/dL 09/30/20 Range/Units 11:34 Sodium (135-145) mmol/L BUN (9.0-27.0) mg/dL Creatinine (0.6-1.5) mg/dL BUN/Creatinine Ratio (12.00-20.00) Ratio POC Glucose (mg/dL) 125 H (75-99) mg/dL Osmolality (280-301) mosm/kg Calcium (8.7-10.3) mg/dL Cortisol (3.10-22.40) ug/dL Assessment and Plan (1) Altered mental status Narrative/Plan: 2/2 hyponatremia, better today Current Visit: Yes Status: Acute Priority: High Code(s): R41.82 - ALTERED MENTAL STATUS, UNSPECIFIED SNOMED Code(s): 329695800 (2) Hyponatremia Narrative/Plan: SIADH, treatment/cancer related. Baseline Na+ in the mid to high 120's. Nephrology consulted. Pt is on fluid restrictions and started on sodium tablets Current Visit: Yes Status: Acute Priority: High Code(s): E87.1 - HYPO- OSMOLALITY AND HYPONATREMIA SNOMED Code(s): 80432726 (3) Pancreatic cancer Narrative/Plan: Pt is not a surgical candidate. Treatment was adjusted, 1 drug dropped and pt d id not tolerate. No more treatment until pt sees Primary Onc next week to discuss further plan of care Current Visit: Yes Status: Chronic Priority: Medium Code(s): C25.9 - MALIGNANT NEOPLASM OF PANCREAS, UNSPECIFIED SNOMED Code(s): 142605308
--- NOTE | 2020-09-30 16:16 | P.PN ---
Subjective Progress Note Date: 09/30/20 This is an 80-year-old female with pancreatic cancer admitted with hyponatremia, SIADH and multiple other medical issues. Sodium chloride tablets initiated yesterday as well as fluid restrictions, sodium increased up to 129. Feeling better. Consuming 50% of breakfast. Denies abdominal pain. Denies chest pain, palpitations or shortness of breath. Objective - Vital Signs Vital signs: Vital Signs Temp 98.0 F 09/30/20 14:00 Pulse 91 09/30/20 14:00 Resp 16 09/30/20 14:00 BP 152/70 09/30/20 14:00 Pulse Ox 97 09/30/20 14:00 Intake & Output 09/29/20 09/30/20 09/30/20 18:59 06:59 18:59 Weight 81.647 kg Other: Voiding Method Toilet Toilet Diaper # Voids 1 - Exam - Exam Gen: thin, NAD, vitals reviewed CV: RRR, no murmur Lungs: normal effort, clear throughout Abd: soft, nontender non distended - Labs CBC & Chem 7: 09/29/20 05:06 09/30/20 06:14 Labs: Abnormal Lab Results - Last 24 Hours (Table) 09/30/20 09/30/20 09/30/20 Range/Units 06:14 06:14 06:58 Sodium 129 L (135-145) mmol/L BUN 7.0 L (9.0-27.0) mg/dL Creatinine 0.2 L (0.6-1.5) mg/dL BUN/Creatinine Ratio 35.00 H (12.00-20.00) Ratio POC Glucose (mg/dL) 128 H (75-99) mg/dL Osmolality 264 L (280-301) mosm/kg Calcium 7.9 L (8.7-10.3) mg/dL Cortisol 26.5 H (3.10-22.40) ug/dL 09/30/20 Range/Units 11:34 Sodium (135-145) mmol/L BUN (9.0-27.0) mg/dL Creatinine (0.6-1.5) mg/dL BUN/Creatinine Ratio (12.00-20.00) Ratio POC Glucose (mg/dL) 125 H (75-99) mg/dL Osmolality (280-301) mosm/kg Calcium (8.7-10.3) mg/dL Cortisol (3.10-22.40) ug/dL Assessment and Plan Assessment: Acute on chronic hyponatremia, 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 Family reports mental status at baseline, patient had increased weakness post chemotherapy-similar presentation with past chemotherapy. History of pancreatic cancer, maintained on chemotherapy Diabetes mellitus 2 Hypotension, hypovolemic, resolved Acute hypoxic respiratory failure, resolved Hypertension Hyperlipidemia Plan: Continue on current medication regime ,monitoring and symptomatic treatment. Maintain fluid restrictions, oral sodium chloride. Urine sodium, Serum and urine osmolality pending. AM F/U labs ordered. Discharge planning in progress for tomorrow pending continued improvement. The impression and plan of care has been dictated as directed. : I performed a history and examination of this patient, discussed the same with the dictator. I agree with the dictator's note ,documented as a scribe. Any additional findings or plans will be noted.
[2020-09-30 16:54] LABS: Glucose,Whole Blood 181 mg/dL (75-99)
[2020-09-30] MEDS: ATORVASTATIN 80 MG TAB PO SCH (17:19)
[2020-09-30] MEDS: ASCORBIC ACID 500 MG TAB PO SCH (17:19)
[2020-09-30 20:05] LABS: Glucose,Whole Blood 176 mg/dL (75-99)
[2020-10-01] MEDS: ASPIRIN 81 MG PO SCH ×2 (00:33→23:15)
[2020-10-01] MEDS: MAGNESIUM OXIDE 400 MG TAB PO SCH ×3 (00:33→23:15)
[2020-10-01] MEDS: SENNOSIDES-DOCUSATE SODIUM 1 EACH TAB PO SCH ×3 (00:33→23:15)
[2020-10-01] MEDS: PANTOPRAZOLE 40 MG TABLET PO SCH (06:21)
[2020-10-01] MEDS: RALOXIFENE 60 MG TAB PO SCH (06:21)
[2020-10-01 07:03] LABS: Glucose,Whole Blood 127 mg/dL (75-99)
[2020-10-01] MEDS: metFORMIN 500 MG TAB PO SCH ×2 (08:33→17:28)
[2020-10-01] MEDS: SODIUM CHLORIDE TAB 1 GM TAB PO SCH ×2 (08:34→20:03)
--- NOTE | 2020-10-01 09:19 | P.PN ---
Subjective Patient is seen in follow-up for hyponatremia. Sodium level improving. Oral intake is fair. Good urine output. Awake and alert. Family present at bedside. Vital signs are stable. General: The patient appeared well nourished and normally developed. HEENT: Head exam is unremarkable. Neck is without jugular venous distension. LUNGS: Breath sounds decreased. HEART: Rate and Rhythm are regular. ABDOMEN: Soft, no distention. EXTREMITITES: No edema. Objective - Vital Signs Vital signs: Vital Signs Temp 98.4 F 10/01/20 06:53 Pulse 94 10/01/20 06:53 Resp 17 10/01/20 06:53 BP 109/63 10/01/20 06:53 Pulse Ox 100 10/01/20 08:21 Intake & Output 09/30/20 10/01/20 10/01/20 18:59 06:59 18:59 Other: Voiding Method Toilet Diaper # Voids 4 1 # Bowel Movements 1 - Labs CBC & Chem 7: 09/29/20 05:06 09/30/20 06:14 Labs: Abnormal Lab Results - Last 24 Hours (Table) 09/30/20 09/30/20 09/30/20 Range/Units 06:14 06:14 11:34 Sodium 129 L (135-145) mmol/L BUN 7.0 L (9.0-27.0) mg/dL Creatinine 0.2 L (0.6-1.5) mg/dL BUN/Creatinine Ratio 35.00 H (12.00-20.00) Ratio POC Glucose (mg/dL) 125 H (75-99) mg/dL Osmolality 264 L (280-301) mosm/kg Calcium 7.9 L (8.7-10.3) mg/dL Cortisol 26.5 H (3.10-22.40) ug/dL 09/30/20 09/30/20 10/01/20 Range/Units 16:40 20:04 06:54 Sodium (135-145) mmol/L BUN (9.0-27.0) mg/dL Creatinine (0.6-1.5) mg/dL BUN/Creatinine Ratio (12.00-20.00) Ratio POC Glucose (mg/dL) 181 H 176 H 127 H (75-99) mg/dL Osmolality (280-301) mosm/kg Calcium (8.7-10.3) mg/dL Cortisol (3.10-22.40) ug/dL Assessment and Plan Plan: Assessment: 1. 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 Urine sodium 109 and urine osmolality 563. Sodium level 129 yesterday. TSH normal. Cortisol level not low. 2. Pancreatic cancer maintained on chemotherapy. 3. Diabetes mellitus. Plan: 1200 mL fluid restriction. Maintain sodium chloride tabs. Encouraged oral intake, especially protein. Follow-up morning labs. Anticipate discharge soon. Repeat BMP and magnesium level 3-4 days postdischarge. Follow up outpatient in 1 week.
[2020-10-01 10:25] LABS: African American GFR (CKD) 123.6 (60.0-200.0); Anion Gap 8.7 mmol/L (4.00-12.00); Calcium 7.9 mg/dL (8.7-10.3); Carbon Dioxide 25.3 mmol/L (21.6-31.8); Magnesium 1.5 mg/dL (1.5-2.4); Non-African American GFR(CKD) 106.6 (60.0-200.0)
[2020-10-01 11:31] LABS: Glucose,Whole Blood 207 mg/dL (75-99)
[2020-10-01] MEDS ORDERED: METOPROLOL TARTRATE 5 MG/5 ML VIAL IVP ONE (11:48)
[2020-10-01] MEDS ORDERED: METOPROLOL TARTRATE 5 MG/5 ML VIAL IVP STA (11:49)
--- NOTE | 2020-10-01 12:06 | P.EN ---
I responded to the rapid response team called by nursing staff regarding patient's altered mental status and tachycardia. Upon arrival to the room, patient was awake and alert. She was minimally responsive or answering questions. She did not have any neurological focal deficit. Nursing staff informed me that this is an acute change in her mentation compared to this morning when she was alert and oriented 4. Patient was only oriented to herself at the time of my evaluation. She was having some tremors in her upper extremities but able to follow simple commands. Heart rate was in the 140s to 150s with blood pressure in the 180s systolic and 90s diastolic. I advised the patient will be given a one-time dose of IV metoprolol 2.5 mg and a stat computed tomography scan of the head ordered. Apparently patient is a full code and has underlying pancreatic cancer and was seen by neurology during this admission as she presented with altered mental status and hyponatremia. Advised nursing staff to notify attending physician and follow-up on computed tomography scan results.
[2020-10-01] MEDS ORDERED: Magnesium Replacement Protocol 1 EACH MISC MISCELLANE PRN (12:28)
[2020-10-01] MEDS: DOCUSATE ORAL SOLN 100 MG/10 ML CUP PO SCH (12:37)
--- NOTE | 2020-10-01 12:44 | CT ---
EXAMINATION TYPE: CT brain wo con DATE OF EXAM: 10/01/2020 COMPARISON: 09/27/2020 HISTORY: 80-year-old female confusion, Altered mental status TECHNIQUE: Examination was done in axial plane without intravenous contrast. Coronal and sagittal r econstructions performed. CT DLP: 1056.4 mGycm Automated exposure control for dose reduction was used. FINDINGS: There is no evidence of acute intracranial hemorrhage, acute ischemic changes, mass, mass-effect, or extra-axial fluid collection. There is no effacement of cerebral sulci or basal subarachnoid cister ns. There is no hydrocephalus. There is no midline shift. Stuart-white matter distinction is preserv ed. Mild generalized supratentorial volume loss. Mild patchy white matter hypodensities in both cerebral hemispheres unchanged. Partially empty sella. The patient's gaze is divergent suggesting underlying strabismus. Paranasal sinuses and mastoid air c ells well pneumatized. IMPRESSION: No acute intracranial abnormality seen. Stable mild generalized atrophy and mild burden of chronic sm all vessel ischemic disease.
--- NOTE | 2020-10-01 15:10 | P.PN ---
Subjective Progress Note Date: 10/01/20 Principal diagnosis: Hyponatremia, Metastatic pancreatic cancer In f/u today pt is In the bathroom with a person, family is at the bedside. Family reports patient is doing significantly better, back to her baseline mentation, still weak but certainly has the strength to be more active. Objective - Vital Signs Vital signs: Vital Signs Temp 98.4 F 10/01/20 06:53 Pulse 94 10/01/20 06:53 Resp 17 10/01/20 06:53 BP 109/63 10/01/20 06:53 Pulse Ox 100 10/01/20 08:21 Intake & Output 09/30/20 10/01/20 10/01/20 18:59 06:59 18:59 Other: Voiding Method Toilet Diaper # Voids 4 1 # Bowel Movements 1 - Constitutional General appearance: Present: cooperative, no acute distress, thin - EENT Eyes: Present: anicteric sclerae, EOMI ENT: Present: hearing grossly normal - Respiratory Details: Patient visualized ambulating short distances without the walker and standby assist, no respiratory distress or significantly labored breathing noted - Neurologic Neurologic: Present: CNII-XII intact - Musculoskeletal Musculoskeletal: Present: generalized weakness - Psychiatric Psychiatric: Present: A&O x's 3, appropriate affect, intact judgment & insight - Labs CBC & Chem 7: 09/29/20 05:06 10/01/20 06:45 Labs: Abnormal Lab Results - Last 24 Hours (Table) 09/30/20 09/30/20 10/01/20 Range/Units 16:40 20:04 06:45 Sodium 129 L (135-145) mmol/L Chloride 95 L (96-109) mmol/L Creatinine 0.3 L (0.6-1.5) mg/dL BUN/Creatinine Ratio 30.00 H (12.00-20.00) Ratio Glucose 116 H (70-110) mg/dL POC Glucose (mg/dL) 181 H 176 H (75-99) mg/dL Calcium 7.9 L (8.7-10.3) mg/dL 10/01/20 10/01/20 Range/Units 06:54 11:29 Sodium (135-145) mmol/L Chloride (96-109) mmol/L Creatinine (0.6-1.5) mg/dL BUN/Creatinine Ratio (12.00-20.00) Ratio Glucose (70-110) mg/dL POC Glucose (mg/dL) 127 H 207 H (75-99) mg/dL Calcium (8.7-10.3) mg/dL Assessment and Plan (1) Altered mental status Narrative/Plan: 2/2 hyponatremia, Improved since admission, stable today Current Visit: Yes Status: Acute Priority: High Code(s): R41.82 - ALTERED MENTAL STATUS, UNSPECIFIED SNOMED Code(s): 736666761 (2) Hyponatremia Narrative/Plan: SIADH, treatment/cancer related. Baseline Na+ in the mid to high 120's. Nephrology consulted. Pt is on fluid restrictions and started on sodium tablets. Sodium stable at 129 today Current Visit: Yes Status: Acute Priority: High Code(s): E87.1 - HYPO- OSMOLALITY AND HYPONATREMIA SNOMED Code(s): 23197281 (3) Pancreatic cancer Narrative/Plan: Pt is not a surgical candidate. Treatment was adjusted, 1 drug dropped and pt still did not tolerate treatment. No more treatment until pt sees Primary Onc next week to discuss further plan of care. Patient and family are in agreement with this plan. They know appoi ntment date and time. It has been documented in the chart as well Current Visit: Yes Status: Chronic Priority: Medium Code(s): C25.9 - MALIGNANT NEOPLASM OF PANCREAS, UNSPECIFIED SNOMED Code(s): 524599083
--- NOTE | 2020-10-01 15:35 | P.PN ---
Subjective Progress Note Date: 10/01/20 This is an 80-year-old female with pancreatic cancer admitted with hyponatremia, SIADH and multiple other medical issues. Sodium chloride tablets initiated yesterday as well as fluid restrictions, sodium increased up to 129. Feeling better. Consuming 50% of breakfast. Denies abdominal pain. Denies chest pain, palpitations or shortness of breath. 10/01/2020 sitting up in chair, no acute distress. Sodium maintained at 129 on sodium tablets. Later in the afternoon upon ambulating back from bathroom patient developed altered mental status, shaking, unable to follow commands but did respond to her name, heart rate increased up to the 140s to 150s for systolic blood pressure increased, received a dose of IV metoprolol with improvement. Brain CT completed reporting no acute intracranial abnormality. Evaluated further by urology, scheduled for EEG. Tremors/shaking resolved. Currently alert and conversing with family at bedside. Denies chest pain, palpitations or shortness of breath. Maintaining O2 sats in the high 90s on room air. Magnesium 1.5, replacement protocol ordered. Objective - Vital Signs Vital signs: Vital Signs Temp 98.4 F 10/01/20 06:53 Pulse 94 10/01/20 06:53 Resp 17 10/01/20 06:53 BP 109/63 10/01/20 06:53 Pulse Ox 100 10/01/20 08:21 Intake & Output 09/30/20 10/01/20 10/01/20 18:59 06:59 18:59 Other: Voiding Method Toilet Diaper # Voids 4 1 # Bowel Movements 1 - Exam - Exam Gen: thin, NAD, vitals reviewed CV: RRR, no murmur Lungs: normal effort, clear throughout Abd: soft, nontender non distended - Labs CBC & Chem 7: 09/29/20 05:06 10/01/20 06:45 Labs: Abnormal Lab Results - Last 24 Hours (Table) 09/30/20 09/30/20 10/01/20 Range/Units 16:40 20:04 06:45 Sodium 129 L (135-145) mmol/L Chloride 95 L (96-109) mmol/L Creatinine 0.3 L (0.6-1.5) mg/dL BUN/Creatinine Ratio 30.00 H (12.00-20.00) Ratio Glucose 116 H (70-110) mg/dL POC Glucose (mg/dL) 181 H 176 H (75-99) mg/dL Calcium 7.9 L (8.7-10.3) mg/dL 10/01/20 10/01/20 Range/Units 06:54 11:29 Sodium (135-145) mmol/L Chloride (96-109) mmol/L Creatinine (0.6-1.5) mg/dL BUN/Creatinine Ratio (12.00-20.00) Ratio Glucose (70-110) mg/dL POC Glucose (mg/dL) 127 H 207 H (75-99) mg/dL Calcium (8.7-10.3) mg/dL Assessment and Plan Assessment: Acute on chronic hyponatremia, 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 Family reports mental status at baseline, patient had increased weakness post chemotherapy-similar presentation with past chemotherapy. Repeat occurrence of altered mental status with additional shakes, possible seizures, EEG pending. History of pancreatic cancer, maintained on chemotherapy Diabetes mellitus 2 Hypotension, hypovolemic, resolved Acute hypoxic respiratory failure, resolved Hypertension Hyperlipidemia Plan: Continue on current medication regime ,monitoring and symptomatic treatment. Magnesium replacement as per protocol .Maintain fluid restrictions, oral sodium chloride. AM F/U labs ordered. Discharge planning in progress for tomorrow pending continued improvement. Questions and concerns addressed with family at bedside, support given. The impression and plan of care has been dictated as directed. : I performed a history and examination of this patient, discussed the same with the dictator. I agree with the dictator's note ,documented as a scribe. Any additional findings or plans will be noted.
--- NOTE | 2020-10-01 16:26 | EEG ---
ELECTROENCEPHALOGRAM REPORT DATE OF SERVICE: 10/01/2020 PREAMBLE: This is an 80-year-old female with episodes of altered mental status versus seizure. This study is performed to evaluate for any epileptiform activity. EEG FINDINGS: This is a 21-channel routine EEG recording in a patient utilizing 10/20 international system with referential and bipolar montages. Background consists of presence of diffuse moderate voltage activity in mixed frequencies of 6 hertz theta, with some lower frequency theta and 1-2 hertz delta activity seen in bihemispheric region. Some triphasic waves were seen periodically. Background does not seem to be reactive to eye opening or closing. Photic driving response was not seen. No definitive focal or generalized epileptiform activity was seen. Different stages of sleep were not seen. IMPRESSION: This is an abnormal EEG due to background slowing of at least moderate degree. This is suggestive of generalized cerebral dysfunction as can be seen with toxic metabolic encephalopathy or due to diffuse structural brain abnormality. Triphasic waves can be seen with hepatic encephalopathy. Clinical correlation is recommended. No definitive epileptiform activity was seen. MMODL / IJN: [id number] / MTDD
[2020-10-01 16:56] LABS: Glucose,Whole Blood 244 mg/dL (75-99)
[2020-10-01] MEDS: ATORVASTATIN 80 MG TAB PO SCH (17:28)
[2020-10-01] MEDS: ASCORBIC ACID 500 MG TAB PO SCH (17:28)
[2020-10-01] MEDS: MAGNESIUM SULFATE-D5W PMX 1 GM in DEXTROSE/WATER 1 100ML.BAG IVPB SCH ×2 (17:28→20:03)
[2020-10-01] MEDS: levETIRAcetam 250 MG TAB PO SCH (20:15)
[2020-10-01 20:22] LABS: Glucose,Whole Blood 259 mg/dL (75-99)
[2020-10-02] MEDS: MAGNESIUM OXIDE 400 MG TAB PO SCH ×2 (05:38→23:47)
[2020-10-02] MEDS: PANTOPRAZOLE 40 MG TABLET PO SCH (05:38)
[2020-10-02] MEDS: SENNOSIDES-DOCUSATE SODIUM 1 EACH TAB PO SCH ×2 (05:38→23:46)
[2020-10-02 07:21] LABS: Glucose,Whole Blood 145 mg/dL (75-99)
[2020-10-02] MEDS: metFORMIN 500 MG TAB PO SCH ×2 (08:07→17:49)
[2020-10-02] MEDS: METOPROLOL SUCCINATE (ER) 25 MG TAB.ER.24H PO SCH (08:07)
[2020-10-02] MEDS: RALOXIFENE 60 MG TAB PO SCH (08:08)
[2020-10-02] MEDS: SODIUM CHLORIDE TAB 1 GM TAB PO SCH ×2 (08:08→20:48)
[2020-10-02] MEDS: levETIRAcetam 250 MG TAB PO SCH (08:08)
--- NOTE | 2020-10-02 08:35 | US ---
EXAMINATION TYPE: US carotid duplex BILAT DATE OF EXAM: 10/02/2020 COMPARISON: NONE CLINICAL HISTORY: 80-year-old female, confusion, Altered mental status, rule out TIA. Patient states passing out yesterday. TECHNIQUE: Carotid duplex ultrasound examination. Indirect Doppler criteria was utilized. FINDINGS: EXAM MEASUREMENTS: RIGHT: Peak Systolic Velocity (PSV) cm/sec ----- Right CCA: 60.1 ----- Right ICA: 84.3 ----- Right ECA: 66.3 ICA/CCA ratio: 1.4 RIGHT: End Diastole cm/sec ----- Right CCA: 13.9 ----- Right ICA: 22.9 ----- Right ECA: 0.0 LEFT: Peak Systolic Velocity (PSV) cm/sec ----- Left CCA: 76.9 ----- Left ICA: 124.6 ----- Left ECA: 100.0 ICA/CCA ratio: 1.6 LEFT: End Diastole cm/sec ----- Left CCA: 14.2 ----- Left ICA: 31.9 ----- Left ECA: 9.5 VERTEBRALS (direction of flow): Right Vertebral: Antegrade Left Vertebral: Antegrade Rhythm: Normal Stuart scale images: There is [id number] atherosclerotic change at both bifurcations. IMPRESSION: Moderate atherosclerotic change at the bifurcations but without any hemodynamically significant ICA s tenosis on either side. Criteria for Assigning % of Stenosis / Diameter reduction (Estimation based on the indirect measurements of the internal carotid artery velocities (ICA PSV). 1. Normal (no stenosis)=ICA PSV < 125 cm/s: ratio < 2.0: ICA EDV<40 cm/s. 2. Less than 50% stenosis=ICA PSV < 125 cm/s: ratio < 2.0: ICA EDV<40 cm/s. 3. 50 to 69% stenosis=ICA PSV of 125 to 230 cm/s: ration 2.0 ? 4.0: ICA EDV 40-100 cm/s. 4. Greater than 70% stenosis to near occlusion= ICA PSV > 230 cm/s: ratio > 4.0: ICA EDV > 100 cm/s. 5. Near occlusion= ICA PSV velocities may be low or undetectable: variable ratio and ICA EDV. 6. Total occlusion=unable to detect flow.
[2020-10-02 09:27] LABS: African American GFR (CKD) >90 (>60 ml/min/1.73 sqM); Anion Gap 8 mmol/L; Blood Urea Nitrogen 11 mg/dL (7-17); Calcium 8.3 mg/dL (8.4-10.2); Carbon Dioxide 26 mmol/L (22-30); Chloride 92 mmol/L (98-107); Glucose 131 mg/dL (74-99); Non-African American GFR(CKD) >90 (>60 ml/min/1.73 sqM); Potassium 3.5 mmol/L (3.5-5.1); Sodium 126 mmol/L (137-145)
--- NOTE | 2020-10-02 09:51 | P.PN ---
Subjective Progress Note Date: 10/01/20 Patient is a 80-year-old female initially seen by Dr. Chilango Mcdermott. Please refer to his note for details. Patient came with altered mental status. Patient has stage IV pancreatic cancer. She was found to have low sodium of 121. Her blood pressure was also low 70. When patient was examined by Dr. Mcdermott, patient was alert and oriented 3. Neurology had signed off. Neurology was reconsulted today for an acute episode of altered mental status and unresponsiveness, that occurred at around 12 noon. Patient's son and [id number] are present. They reported that patient was doing fine in the morning. She had her breakfast. Patient was later sitting in the recliner when she started shivering, shaking. She then broke out in sweat. The nurse was getting a heated blanket, the patient started having a seizure-like episode in which she stiffened up with arms flexed on the chest, and was shaking and became unresponsive. Her blood pressure at that time was systolic between 160-170, heart rate in the 150s. Patient did not bite her tongue or lost control of urine. The episode lasted for a few minutes. Stat computed tomography scan was performed, which showed no acute intracranial abnormality. Stable mild generalized atrophy and mild burden of chronic small vessel ischemic disease. I came to seek patient immediately. Patient was laying in the bed, very lethargic, somnolent. Patient would open her eyes, follows minimal commands as mentioned in the examination. Her examination was relatively nonfocal. No seizure-like activity was noted at that time. Objective - Vital Signs Vital signs: Vital Signs Temp 98.4 F 10/01/20 06:53 Pulse 94 10/01/20 06:53 Resp 17 10/01/20 06:53 BP 109/63 10/01/20 06:53 Pulse Ox 100 10/01/20 08:21 Intake & Output 09/30/20 10/01/20 10/01/20 18:59 06:59 18:59 Other: Voiding Method Toilet Diaper # Voids 4 1 # Bowel Movements 1 - Exam Patient laying in the bed, in no respiratory distress. She appears to be sleeping, but not completely arousable. She would slightly open her eyes, makes eye contact then drifts back to sleep. Possible post ictal. Patient pupils are round and reacting to light. Gaze is midline. Oculocephalics were present. Face appears symmetric. Patient spoke just a couple words and named "eyeglasses" and a few words, which were clear with no dysarthria and about appropriate. Patient's tone is equal in the arms and legs. Patient holds her arms up, and slowly brings it down equally with no flaccidity noted. Patient would wiggle her toes slightly, but would not lift her legs up. On painful stimuli, she did moan equally with both legs. Reflexes are symmetric, and plantars downgoing. No clonus. - Labs CBC & Chem 7: 09/29/20 05:06 10/02/20 06:59 Labs: Abnormal Lab Results - Last 24 Hours (Table) 09/30/20 09/30/20 10/01/20 Range/Units 16:40 20:04 06:45 Sodium 129 L (135-145) mmol/L Chloride 95 L (96-109) mmol/L Creatinine 0.3 L (0.6-1.5) mg/dL BUN/Creatinine Ratio 30.00 H (12.00-20.00) Ratio Glucose 116 H (70-110) mg/dL POC Glucose (mg/dL) 181 H 176 H (75-99) mg/dL Calcium 7.9 L (8.7-10.3) mg/dL 10/01/20 10/01/20 Range/Units 06:54 11:29 Sodium (135-145) mmol/L Chloride (96-109) mmol/L Creatinine (0.6-1.5) mg/dL BUN/Creatinine Ratio (12.00-20.00) Ratio Glucose (70-110) mg/dL POC Glucose (mg/dL) 127 H 207 H (75-99) mg/dL Calcium (8.7-10.3) mg/dL Assessment and Plan Assessment: * Possible seizure/seizure-like activity. Syncope unlikely, as patient's vitals were relatively normal, patient was tachycardic and blood pressure was in 160- 170 systolic. At present patient appears postictal. * History of hyponatremia, but her sodium at present appears much better, 129 as compared to 121 on admission. Hyponatremia likely not the cause of current spell. * Acute on chronic hyponatremia * Abdominal pain * History of pancreatic cancer (May 2020) on chemotherapy and last dose is this past * Diabetes mellitus with sugar seems controlled * History Hypertension Plan: * Stat EEG was performed. It was an abnormal EEG due to background slowing of at least moderate degree. This is suggestive of generalized cerebral dysfunction as can be seen with toxic metabolic encephalopathy or related to diffuse structural brain abnormality. Triphasics waves were occasionally seen, which can be seen with hepatic encephalopathy. Clinical correlation is recommended. We will check ammonia. * Patient's examination is nonfocal. Sony possibly a seizure versus syncope, therefore patient not a candidate for TPA. * Carotid Doppler * 2-D echo Addendum 7 PM: Patient apparently has reverted back to normal. She denies headache at this time. She is fully alert and awake. Her examination is nonfocal. Patient's mental status is normal. Visual lee are full, face is symmetric. Muscle strength appears normal. No ataxia. Patient does remember that she got up, sat in the chair, then felt cold, started shaking and then she passed out. Patient will be started on Keppra 250 mg twice a day empirically. I spoke to patient's daughter on the phone as well, who states that patient has been receiving oxycodone, every 4 hours prior to the admission, however since she is hospitalized, has not received her oxycodone for last 3-4 days. She was concerned if patient is undergoing opiate withdrawal pills. Patient has been maintained on her 50 g fentanyl patch. Therefore doubt would be opiate withdrawal, and typically opiate withdrawal does not resolve that fast. Time with Patient: Greater than 30
[2020-10-02] MEDS ORDERED: POTASSIUM CHLORIDE ER 20 MEQ TAB.ER PO STA (10:03)
--- NOTE | 2020-10-02 10:05 | P.PN ---
Subjective Patient is seen in follow-up for hyponatremia. Sodium level 126 today. Oral intake is fair. Good urine output. Awake and alert. Family present at bedside. Had a seizure yesterday. Vital signs are stable. General: The patient appeared well nourished and normally developed. HEENT: Head exam is unremarkable. Neck is without jugular venous distension. LUNGS: Breath sounds decreased. HEART: Rate and Rhythm are regular. ABDOMEN: Soft, no distention. EXTREMITITES: No edema. Objective - Vital Signs Vital signs: Vital Signs Temp 98.6 F 10/02/20 07:39 Pulse 97 10/02/20 07:39 Resp 18 10/02/20 07:39 BP 128/67 10/02/20 07:39 Pulse Ox 97 10/02/20 07:39 Intake & Output 10/01/20 10/02/20 10/02/20 18:59 06:59 18:59 Intake Total 450 250 Balance 450 250 Intake: Intake, IV Titration 200 Amount Magnesium Sulfate-D5w Pmx 200 1 gm In Dextrose/Water 1 100ml.bag @ 100 mls/hr IVPB Q1H [facility] Rx#: [id number] Oral 250 250 Other: # Voids 2 - Labs CBC & Chem 7: 09/29/20 05:06 10/02/20 06:59 Labs: Abnormal Lab Results - Last 24 Hours (Table) 10/01/20 10/01/20 10/01/20 Range/Units 06:45 11:29 16:53 Sodium 129 L (135-145) mmol/L Chloride 95 L (96-109) mmol/L Creatinine 0.3 L (0.6-1.5) mg/dL BUN/Creatinine Ratio 30.00 H (12.00-20.00) Ratio Glucose 116 H (70-110) mg/dL POC Glucose (mg/dL) 207 H 244 H (75-99) mg/dL Calcium 7.9 L (8.7-10.3) mg/dL 10/01/20 10/02/20 10/02/20 Range/Units 20:19 06:51 06:59 Sodium 126 L (135-145) mmol/L Chloride 92 L (96-109) mmol/L Creatinine 0.34 L (0.6-1.5) mg/dL BUN/Creatinine Ratio (12.00-20.00) Ratio Glucose 131 H (70-110) mg/dL POC Glucose (mg/dL) 259 H 145 H (75-99) mg/dL Calcium 8.3 L (8.7-10.3) mg/dL Assessment and Plan Plan: Assessment: 1. 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 Urine sodium 109 and urine osmolality 563. Sodium level 126. TSH normal. Cortisol level not low. 2. Pancreatic cancer maintained on chemotherapy. 3. Diabetes mellitus. 4. Hypokalemia from poor intake. 5. Seizure. On Keppra. Neurology following. 6. Mild hypomagnesemia from poor intake. Status post IV magnesium. Also on oral magnesium oxide. Plan: 1200 mL fluid restriction. Maintain sodium chloride tabs. Encouraged oral intake, especially protein. Replace potassium. Repeat sodium level this evening. If drops further, I will give her a dose of [place].
--- NOTE | 2020-10-02 11:00 | ECHOF ---
Referral Reason:Altered mental status, rule out TIA MEASUREMENTS -------- HEIGHT: 172.7 cm WEIGHT: 81.6 kg BP: 107/60 IVSd: 1.3 cm (0.6 - 1.1) LVIDd: 3.1 cm (3.9 - 5.3) LVPWd: 1.3 cm (0.6 - 1.1) IVSs: 2.0 cm LVIDs: 1.4 cm LVPWs: 1.7 cm LAESV Index (A-L): 11.70 ml/m Ao Diam: 3.0 cm (2.0 - 3.7) AV Cusp: 1.3 cm (1.5 - 2.6) LA Diam: 3.8 cm (2.7 - 3.8) MV EXCURSION: 14.230 mm (> 18.000) MV EF SLOPE: 67 mm/s (70 - 150) EPSS: 1.3 cm MV E Cale: 0.73 m/s MV DecT: 226 ms MV A Cale: 1.10 m/s MV E/A Ratio: 0.66 AV maxP.25 mmHg AV meanP.38 mmHg AR PHT: 644 ms RAP: 5.00 mmHg RVSP: 21.84 mmHg FINDINGS -------- This was a technically good study. The left ventricular size is normal. There is mild concentric left ventricular hypertrophy. Overa ll left ventricular systolic function is normal with, an EF between 55 - 60 %. The diastolic fillin g pattern is normal for the age of the patient 8.66. The right ventricle is normal in size. The left atrial size is normal. Normal LA size by volume 22+/-6 ml/m2. The right atrial size is normal. Interatrial and interventricular septum intact. Aortic valve is trileaflet and is moderately thickened. Trace amount of aortic regurgitation. Th ere is moderate aortic stenosis present. Peak/mean gradient across the Aortic Valve is 37.25mmHg / 25.38mmHg. The mitral valve is normal. Mild mitral regurgitation is present. The tricuspid valve appears structurally normal. Mild tricuspid regurgitation present. Right vent ricular systolic pressure is normal at < 35 mmHg. There is no pulmonic regurgitation present. The aortic root size is normal. Normal inferior vena cava with normal inspiratory collapse consistent with estimated right atrial pre ssure of 5 mmHg. There is no pericardial effusion. CONCLUSIONS -------- 1. The left ventricular size is normal. 2. There is mild concentric left ventricular hypertrophy. 3. Overall left ventricular systolic function is normal with, an EF between 55 - 60 %. 4. The diastolic filling pattern is normal for the age of the patient 8.66 5. Aortic valve is trileaflet and is moderately thickened. 6. Trace amount of aortic regurgitation. 7. There is moderate aortic stenosis present. 8. Peak/mean gradient across the Aortic Valve is 37.25mmHg / 25.38mmHg. 9. Mild mitral regurgitation is present. 10. Mild tricuspid regurgitation present. 11. There is no pericardial effusion. SUBWAY GUARD: Yuni Lucero RDCS
[2020-10-02] MEDS ORDERED: levETIRAcetam IV 500 MG in SODIUM CHLORIDE 0.9% 100 ML IVPB STA (11:22)
[2020-10-02 11:23] LABS: Glucose,Whole Blood 199 mg/dL (75-99)
[2020-10-02] MEDS: DOCUSATE ORAL SOLN 100 MG/10 ML CUP PO SCH (12:09)
[2020-10-02 12:27] LABS: Basophils # (A) 0.01 X 10*3/uL (0.00-0.10); Basophils % (A) 0.1 %; Eosinophils # (A) 0.22 X 10*3/uL (0.04-0.35); Eosinophils % (A) 2.2 %; Lymphocytes # (A) 1.66 X 10*3/uL (0.90-5.00); Lymphocytes % (A) 16.5 %; Monocytes # (A) 0.66 X 10*3/uL (0.20-1.00); Monocytes % (A) 6.5 %; Neutrophils # (A) 7.44 X 10*3/uL (1.80-7.70); Neutrophils % (A) 73.8 %
[2020-10-02 12:45] LABS: HCT 19.4 % (37.2-46.3); HGB 6.3 g/dL (12.0-15.0); MCH 28.5 pg (27.0-32.0); MCHC 32.5 g/dL (32.0-37.0); MCV 87.8 fL (80.0-97.0); Mean Platelet Volume 8.4 fL (9.5-12.2); Platelet Count 109 X 10*3/uL (140-440); RBC 2.21 X 10*6/uL (4.10-5.20); RDW 17.5 % (11.5-14.5); WBC 10.08 X 10*3/uL (4.50-10.00)
[2020-10-02 12:46] LABS: Acanthocytes 2+
[2020-10-02 13:55] VITALS: BMI 27.3
[2020-10-02] MEDS: ACETAMINOPHEN TAB 325 MG TAB PO PRN (14:00)
[2020-10-02] MEDS ORDERED: Potassium Replacement Protocol 1 EACH MISC MISCELLANE PRN (14:04)
--- NOTE | 2020-10-02 14:07 | US ---
EXAMINATION TYPE: US transvaginal DATE OF EXAM: 10/02/2020 COMPARISON: CT & US CLINICAL HISTORY: POSTMENOPAUSAL BLEEING. Pancreatic CA pt having post menopausal bleeding TECHNIQUE: Transvaginal (TV). Transvaginal sonographic images of the pelvis were acquired. EXAM MEASUREMENTS: Uterus: 6.3 x 3.3 x 4.9 cm Endometrial Stripe: 1.2 cm 1. Uterus: Retroverted Heterogeneous, difficult to visualize 2. Endometrium: Thickened with cystic components 3. Right Ovary: Obscured by overlying bowel gas 4. Left Ovary: Obscured by overlying bowel gas 5. Bilateral Adnexa: wnl 6. Posterior cul-de-sac: wnl IMPRESSION: Uterine myometrial heterogeneity may reflect small leiomyomatous change. Thickened endometrium. Consi rasheeda direct visualization.
--- NOTE | 2020-10-02 14:19 | P.PN ---
Subjective Progress Note Date: 10/02/20 This is an 80-year-old female with pancreatic cancer admitted with hyponatremia, SIADH and multiple other medical issues. Sodium chloride tablets initiated yesterday as well as fluid restrictions, sodium increased up to 129. Feeling better. Consuming 50% of breakfast. Denies abdominal pain. Denies chest pain, palpitations or shortness of breath. 10/01/2020 sitting up in chair, no acute distress. Sodium maintained at 129 on sodium tablets. Later in the afternoon upon ambulating back from bathroom patient developed altered mental status, shaking, unable to follow commands but did respond to her name, heart rate increased up to the 140s to 150s for systolic blood pressure increased, received a dose of IV metoprolol with improvement. Brain CT completed reporting no acute intracranial abnormality. Evaluated further by urology, scheduled for EEG. Tremors/shaking resolved. Currently alert and conversing with family at bedside. Denies chest pain, palpitations or shortness of breath. Maintaining O2 sats in the high 90s on room air. Magnesium 1.5, replacement protocol ordered. 10/02/2020 Continues on oral sodium chloride, fluid restriction, sodium decreased to 126. Suspected seizures, Keppra initiated. Patient had another seizure-like activity later this morning, MRI ordered. Hemoglobin down to 6.3, receiving one unit of packed RBCs. Carotid Doppler reporting no significant hemodynamic stenosis. CODE STATUS discussed at bedside, patient's son stated they had already discussed this in the office with Dr. Ag and requesting a full code with no intubation. Echo pending. Objective - Vital Signs Vital signs: Vital Signs Temp 98.6 F 10/02/20 07:39 Pulse 97 10/02/20 07:39 Resp 18 10/02/20 07:39 BP 128/67 10/02/20 07:39 Pulse Ox 97 10/02/20 07:39 Intake & Output 10/01/20 10/02/20 10/02/20 18:59 06:59 18:59 Intake Total 450 250 Balance 450 250 Intake: Intake, IV Titration 200 Amount Magnesium Sulfate-D5w Pmx 200 1 gm In Dextrose/Water 1 100ml.bag @ 100 mls/hr IVPB Q1H [facility] Rx#: [id number] Oral 250 250 Other: # Voids 2 - Exam - Exam Gen: thin, NAD, weak, vitals reviewed CV: RRR, no murmur Lungs: normal effort, clear throughout Abd: soft, minimal diffuse tenderness, non distended - Labs CBC & Chem 7: 10/02/20 06:59 10/02/20 06:59 Labs: Abnormal Lab Results - Last 24 Hours (Table) 10/01/20 10/01/20 10/02/20 Range/Units 16:53 20:19 06:51 WBC (4.50-10.00) X 10*3/uL RBC (4.10-5.20) X 10*6/uL Hgb (12.0-15.0) g/dL Hct (37.2-46.3) % RDW (11.5-14.5) % Plt Count (140-440) X 10*3/uL Plt Count Comment MPV (9.5-12.2) fL Immature Gran # (0.00-0.04) X 10*3/uL Sodium (137-145) mmol/L Chloride (98-107) mmol/L Creatinine (0.52-1.04) mg/dL Glucose (74-99) mg/dL POC Glucose (mg/dL) 244 H 259 H 145 H (75-99) mg/dL Calcium (8.4-10.2) mg/dL 10/02/20 10/02/20 10/02/20 Range/Units 06:59 06:59 11:00 WBC 10.08 H (4.50-10.00) X 10*3/uL RBC 2.21 L (4.10-5.20) X 10*6/uL Hgb 6.3 L* (12.0-15.0) g/dL Hct 19.4 L* (37.2-46.3) % RDW 17.5 H (11.5-14.5) % Plt Count 109 L (140-440) X 10*3/uL Plt Count Comment DECREASED A MPV 8.4 L (9.5-12.2) fL Immature Gran # 0.09 H (0.00-0.04) X 10*3/uL Sodium 126 L (137-145) mmol/L Chloride 92 L (98-107) mmol/L Creatinine 0.34 L (0.52-1.04) mg/dL Glucose 131 H (74-99) mg/dL POC Glucose (mg/dL) 199 H (75-99) mg/dL Calcium 8.3 L (8.4-10.2) mg/dL Assessment and Plan Assessment: Acute on chronic hyponatremia, 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 Family reports mental status at baseline, patient had increased weakness post chemotherapy-similar presentation with past chemotherapy. Repeat occurrence of altered mental status with additional shakes, possible seizures, possible metastases, MRI pending. History of pancreatic cancer, maintained on chemotherapy Diabetes mellitus 2 Hypotension, hypovolemic, resolved Acute hypoxic respiratory failure, resolved Hypertension Hyperlipidemia Plan: Continue on current medication regime ,monitoring and symptomatic treatment. Potassium replacement as per protocol .Maintain fluid restrictions, oral sodium chloride. AM F/U labs ordered. One unit of packed RBCs ordered. Brain MRI ordered. CODE STATUS changed to full code with no intubation per son's request at the bedside. Prognosis guarded given multiple complex medical issues. The impression and plan of care has been dictated as directed. : I performed a history and examination of this patient, discussed the same with the dictator. I agree with the dictator's note ,documented as a scribe. Any additional findings or plans will be noted.
[2020-10-02] MEDS ORDERED: TOLVAPTAN 15 MG 1/2 TABLET PO ONE (17:30)
--- NOTE | 2020-10-02 17:34 | P.PN ---
Subjective Progress Note Date: 10/02/20 Principal diagnosis: Hyponatremia, Metastatic pancreatic cancer In f/u today pt is confused, not responding to questions, she feels clammy to the touch. Objective - Vital Signs Vital signs: Vital Signs Temp 98.1 F 10/02/20 16:58 Pulse 80 10/02/20 16:58 Resp 16 10/02/20 16:58 BP 99/59 10/02/20 16:58 Pulse Ox 97 10/02/20 16:58 Intake & Output 10/01/20 10/02/20 10/02/20 18:59 06:59 18:59 Intake Total 450 250 Balance 450 250 Weight 81.647 kg Intake: Intake, IV Titration 200 Amount Magnesium Sulfate-D5w Pmx 200 1 gm In Dextrose/Water 1 100ml.bag @ 100 mls/hr IVPB Q1H [facility] Rx#: [id number] Oral 250 250 Blood Product 0 Rc Pheresis 2 As3 Unit 0 [id number] Other: Voiding Method Toilet Diaper # Voids 2 - Constitutional General appearance: Present: no acute distress, thin - EENT Eyes: Present: anicteric sclerae - Respiratory Respiratory: bilateral: CTA - Cardiovascular Details: tachycardia, systolic murmur - Peripheral edema leg Peripheral Edema: bilateral: Trace - Gastrointestinal Gastrointestinal Comment(s): patient was not able to verbally response my questions about any abdominal pain, she did push her abd out when I palpated the suprapubic area General gastrointestinal: Present: normal bowel sounds, soft - Integumentary Integumentary Comment(s): pale, clammy to the touch - Psychiatric Psychiatric Comment(s): she would answer yes and no, she didn't state that she was at [facility] when asked where she was, unable to answer year, or other questions Psychiatric: Absent: appropriate affect, intact judgment & insight - Labs CBC & Chem 7: 10/02/20 06:59 10/02/20 15:06 Labs: Abnormal Lab Results - Last 24 Hours (Table) 10/01/20 10/02/20 10/02/20 Range/Units 20:19 06:51 06:59 WBC 10.08 H (4.50-10.00) X 10*3/uL RBC 2.21 L (4.10-5.20) X 10*6/uL Hgb 6.3 L* (12.0-15.0) g/dL Hct 19.4 L* (37.2-46.3) % RDW 17.5 H (11.5-14.5) % Plt Count 109 L (140-440) X 10*3/uL Plt Count Comment DECREASED A MPV 8.4 L (9.5-12.2) fL Immature Gran # 0.09 H (0.00-0.04) X 10*3/uL Sodium (137-145) mmol/L Chloride (98-107) mmol/L Creatinine (0.52-1.04) mg/dL Glucose (74-99) mg/dL POC Glucose (mg/dL) 259 H 145 H (75-99) mg/dL Calcium (8.4-10.2) mg/dL Crossmatch 10/02/20 10/02/20 10/02/20 Range/Units 06:59 11:00 13:34 WBC (4.50-10.00) X 10*3/uL RBC (4.10-5.20) X 10*6/uL Hgb (12.0-15.0) g/dL Hct (37.2-46.3) % RDW (11.5-14.5) % Plt Count (140-440) X 10*3/uL Plt Count Comment MPV (9.5-12.2) fL Immature Gran # (0.00-0.04) X 10*3/uL Sodium 126 L (137-145) mmol/L Chloride 92 L (98-107) mmol/L Creatinine 0.34 L (0.52-1.04) mg/dL Glucose 131 H (74-99) mg/dL POC Glucose (mg/dL) 199 H (75-99) mg/dL Calcium 8.3 L (8.4-10.2) mg/dL Crossmatch See Detail 10/02/20 Range/Units 15:06 WBC (4.50-10.00) X 10*3/uL RBC (4.10-5.20) X 10*6/uL Hgb (12.0-15.0) g/dL Hct (37.2-46.3) % RDW (11.5-14.5) % Plt Count (140-440) X 10*3/uL Plt Count Comment MPV (9.5-12.2) fL Immature Gran # (0.00-0.04) X 10*3/uL Sodium 121 L (137-145) mmol/L Chloride (98-107) mmol/L Creatinine (0.52-1.04) mg/dL Glucose (74-99) mg/dL POC Glucose (mg/dL) (75-99) mg/dL Calcium (8.4-10.2) mg/dL Crossmatch Assessment and Plan (1) Altered mental status Narrative/Plan: hyponatremia was improved on this morning's labs but, when patient was seen and examined she began to have another episode of confusion, lethargy, staff and family states similar symptoms yesterday and suspicion for seizure. Urinary analysis, blood cultures one from the port and one peripherally requested. Current Visit: Yes Status: Acute Priority: High Code(s): R41.82 - ALTERED MENTAL STATUS, UNSPECIFIED SNOMED Code(s): 079234272 (2) Hyponatremia Narrative/Plan: SIADH, treatment/cancer related. Baseline Na+ in the mid to high 120's. Nephrology consulted. Pt is on fluid restrictions and started on sodium tablets. Current Visit: Yes Status: Acute Priority: High Code(s): E87.1 - HYPO- OSMOLALITY AND HYPONATREMIA SNOMED Code(s): 97426947 (3) Pancreatic cancer Narrative/Plan: Pt is not a surgical candidate. Treatment was adjusted, 1 drug dropped and pt still did not tolerate treatment. No more treatment until pt sees Primary Onc next week to discuss further plan of care. Patient and family are in agreement with this plan. They know appointment date and time. It has been documented in the chart as well Current Visit: Yes Status: Chronic Priority: Medium Code(s): C25.9 - MALIGNANT NEOPLASM OF PANCREAS, UNSPECIFIED SNOMED Code(s): 416739218 Plan: Reviewed labs from later in the day. Hemoglobin has decreased over the last several days, patient is needing a transfusion at this time, platelets of decreased, white blood cell count increased. Yusuf cultures ordered. DIC workup ordered. CTA was ordered but patient was not stable enough to have the testing done. Hold for now, possibly reorder in a.m. if pt more stable
[2020-10-02 17:44] LABS: Glucose,Whole Blood 218 mg/dL (75-99)
[2020-10-02] MEDS: ATORVASTATIN 80 MG TAB PO SCH (17:49)
[2020-10-02] MEDS: ASCORBIC ACID 500 MG TAB PO SCH (17:50)
[2020-10-02 19:27] LABS: INR 1.2 (<1.2); Partial Thromboplastin Time 18.1 sec (22.0-30.0); Prothrombin Time 12.5 sec (9.0-12.0)
[2020-10-02] MEDS: levETIRAcetam 500 MG TAB PO SCH (20:48)
[2020-10-02 22:03] LABS: Glucose,Whole Blood 184 mg/dL (75-99)
[2020-10-02] MEDS: ASPIRIN 81 MG PO SCH (23:46)
[2020-10-03] MEDS: MAGNESIUM OXIDE 400 MG TAB PO SCH (05:31)
[2020-10-03] MEDS: RALOXIFENE 60 MG TAB PO SCH (05:32)
[2020-10-03] MEDS: SENNOSIDES-DOCUSATE SODIUM 1 EACH TAB PO SCH (05:32)
[2020-10-03] MEDS: PANTOPRAZOLE 40 MG TABLET PO SCH (05:32)
[2020-10-03 06:07] LABS: African American GFR (CKD) >90 (>60 ml/min/1.73 sqM); Anion Gap 6 mmol/L; Blood Urea Nitrogen 11 mg/dL (7-17); Calcium 8.4 mg/dL (8.4-10.2); Carbon Dioxide 27 mmol/L (22-30); Chloride 97 mmol/L (98-107); Glucose 174 mg/dL (74-99); Magnesium 1.7 mg/dL (1.6-2.3); Non-African American GFR(CKD) >90 (>60 ml/min/1.73 sqM); Potassium 4.7 mmol/L (3.5-5.1); Sodium 130 mmol/L (137-145)
[2020-10-03 06:18] LABS: Anisocytosis Slight; Basophils % (A) 0 %; Eosinophils % (A) 0 %; HCT 24.3 % (34.0-46.0); Lymphocytes # (A) 0.8 k/uL (1.0-4.8); Lymphocytes % (A) 6 %; MCH 30.4 pg (25.0-35.0); MCHC 33.9 g/dL (31.0-37.0); MCV 89.6 fL (80.0-100.0); Mean Platelet Volume 6.8; Monocytes # (A) 0.4 k/uL (0-1.0); Monocytes % (A) 3 %; Neutrophils # (A) 11.3 k/uL (1.3-7.7); Neutrophils % (A) 89 %; Poikilocytosis Slight; RBC 2.72 m/uL (3.80-5.40); RDW 18.2 % (11.5-15.5); WBC 12.7 k/uL (3.8-10.6)
[2020-10-03 06:27] LABS: HGB 8.2 gm/dL (11.4-16.0)
[2020-10-03 06:28] LABS: Platelet Count 101 k/uL (150-450)
[2020-10-03 07:25] LABS: Glucose,Whole Blood 203 mg/dL (75-99)
[2020-10-03] MEDS: SODIUM CHLORIDE TAB 1 GM TAB PO SCH ×2 (07:36→21:45)
[2020-10-03] MEDS: metFORMIN 500 MG TAB PO SCH ×2 (07:36→17:02)
[2020-10-03] MEDS: levETIRAcetam 500 MG TAB PO SCH ×2 (07:37→21:45)
[2020-10-03] MEDS: METOPROLOL SUCCINATE (ER) 25 MG TAB.ER.24H PO SCH (07:37)
[2020-10-03] MEDS: DOCUSATE ORAL SOLN 100 MG/10 ML CUP PO SCH ×2 (07:38→07:41)
--- NOTE | 2020-10-03 09:24 | P.CRDCN ---
History of Present Illness History of present illness: HISTORY OF PRESENTING ILLNESS This is a pleasant 80-year-old female past medical history significant for hypertension, dyslipidemia, diabetes mellitus, SIADH and pancreatic cancer. Denies prior history of coronary artery disease and does not follow in the office with a explosive ordnance disposal specialist. We have been asked to see in consultation for abnormal echocardiogram. And echocardiogram was obtained revealing preserved LV systolic function with ejection fraction 55% and moderate aortic stenosis with a mean gradient of 25 mmHg. She is currently being treated for hyponatremia, possible seizure and altered mental status. Neurology is following as well as oncology. She is seen and examined resting comfortably in bed with family at the bedside in no acute distress. She is awake and alert and denying any chest discomfort, shortness of breath, dizziness or palpitations. DIAGNOSTICS EKG reveals sinus mechanism heart rate of 94 with LVH criteria and nonspecific abnormalities in the inferior leads. Telemetry tracings indicate sinus rhythm with some sinus tachycardia. Laboratory reviewed, WBC 12.7, hemoglobin 8.2, platelets 101, sodium 1:30, potassium 4.7, creatinine 0.34, magnesium 1.7, TSH 1.84 and troponin 0.027, 0.043 and 0.050. Current cardiac medications include atenolol 25 mg BID, aspirin 81 mg daily and atorvastatin 80 mg daily. REVIEW OF SYSTEMS At the time of my exam: CONSTITUTIONAL: Denies fever or chills. CARDIOVASCULAR: Denies chest pain, shortness of breath, orthopnea, PND or palpitations. RESPIRATORY: Denies cough. GASTROINTESTINAL: Denies abdominal pain, diarrhea, constipation, nausea or vomiting. MUSCULOSKELETAL: Denies myalgias. NEUROLOGIC: Denies numbness, tingling, headache or weakness. ENDOCRINE: Denies fatigue, weight change, polydipsia or polyurina. GENITOURINARY: Denies burning, hematuria or urgency with micturation. HEMATOLOGIC: Denies history of anemia or bleeding. PHYSICAL EXAMINATION Blood pressure 129/77 heart rate 93 afebrile and maintaining oxygen saturation on room air. CONSTITUTIONAL: No apparent distress. HEENT: Head is normocephalic. Pupils are equal, round. Sclerae anicteric. Mucous membranes of the mouth are moist. No JVD. No carotid bruit. CHEST EXAMINATION: Lungs are clear to auscultation. No chest wall tenderness is noted on palpation or with deep breathing. HEART EXAMINATION: Regular rate and rhythm. S1, S2 heard. 2/6 systolic ejection murmur at the base, no gallops or rub. ABDOMEN: Soft, nontender. EXTREMITIES: 2+ peripheral pulses, no lower extremity edema and no calf tenderness. NEUROLOGIC EXAMINATION: Patient is awake, alert and oriented x3. ASSESSMENT Aortic stenosis, moderate Altered mental status Hyponatremia Pancreatic CA Hypertension Sinus tachycardia Dyslipidemia Diabetes mellitus PLAN Aortic stenosis is moderate, however she is not in heart failure and clinically euvolemic. No indication for surgical repair at this level of stenosis. Change beta billy back to atenolol 25 mg BID as previously ordered. Decrease atorvastatin to 80 mg daily. No cardiac intervention required at this time. We will follow along as needed, thank you kindly for this consultation. Nurse Practitioner note has been reviewed, I agree with a documented findings and plan of care. Patient was seen and examined. Past Medical History Past Medical History: Cancer, Diabetes Mellitus, Hyperlipidemia, Hypertension Additional Past Medical History / Comment(s): colon polyps. PANCREATIC CANCER. History of Any Multi-Drug Resistant Organisms: None Reported Past Surgical History: Breast Surgery, Cholecystectomy, Tubal Ligation Additional Past Surgical History / Comment(s): colonoscopy, bx of mass 05/05/20, left breast lumpectomy benign 40 years ago, jaw surgery 50 years ago r/t broken jaw, eyelid surgery to "get the bags out" Past Anesthesia/Blood Transfusion Reactions: Motion Sickness Past Psychological History: No Psychological Hx Reported Additional Psychological History / Comment(s): Pt resides at home, daughter has been staying with her since April. She has been using a rollator walker. Her serena has been doing the driving. Smoking Status: Former smoker Past Alcohol Use History: Unable to Obtain Additional Past Alcohol Use History / Comment(s): Pt started smoking in 1955 and quit in 1995 but was always a lite smoker. Past Drug Use History: Unable to Obtain - Past Family History Mother Additional Family Medical History / Comment(s): addisons disease Father Family Medical History: Coronary Artery Disease (CAD) Medications and Allergies Home Medications Medication Instructions Recorded Confirmed Type Atorvastatin [Lipitor] 80 mg PO DAILY@1800 04/24/20 09/27/20 History Raloxifene [Evista] 60 mg PO DAILY@0600 04/24/20 09/27/20 History Triple Flex 1 tab PO BID@1200,0000 04/24/20 09/27/20 History Aspirin [Adult Low Dose Aspirin EC] 81 mg PO DAILY@0000 04/29/20 09/27/20 History Ondansetron Odt [Zofran ODT] 4 mg PO Q6H PRN 06/04/20 09/27/20 History Sennosides/Docusate Sodium [Senna 1 cap PO BID@0600,0000 06/04/20 09/27/20 History Plus 8.6-50 mg Softgel] Dronabinol [Marinol] 2.5 mg PO BID@0600,0000 09/08/20 09/27/20 History Famotidine [Pepcid] 20 mg PO BID@1200,1800 09/08/20 09/27/20 History Magnesium Oxide [Magox 400] 400 mg PO BID@0600,0000 09/08/20 09/27/20 History Pantoprazole Sodium 40 mg PO DAILY@0600 09/08/20 09/27/20 History atenoloL 25 mg PO BID@1200,0000 09/08/20 09/27/20 History fentaNYL 50MCG/HR PATCH [Duragesic 1 patch TRANSDERM Q72H 09/08/20 09/27/20 History 50MCG/HR] metFORMIN HCL ER [Glucophage XR] 500 mg PO DAILY@0600 09/08/20 09/27/20 History oxyCODONE HCL [OxyIR] 5 mg PO QID@0600,12,18,0000 09/08/20 09/27/20 History Ascorbic Acid [Vitamin C] 1,000 mg PO DAILY@1800 09/27/20 09/27/20 History Docusate 250mg 250 mg PO DAILY@1200 09/27/20 09/27/20 History Motion Sickness Patch 1 patch TRANSDERM Q72H PRN 09/27/20 09/27/20 History Pancreatic Enzyme 500 mg PO DAILY@0600 09/27/20 09/27/20 History Vit C/E/Zn/Coppr/Lutein/Zeaxan 1 cap PO BID@1200,0000 09/27/20 09/27/20 History [Preservision Areds 2 Softgel] Meclizine [Antivert] 25 mg PO DAILY PRN 09/28/20 09/28/20 History Allergies Allergy/AdvReac Type Severity Reaction Status Date / Time shellfish derived [Lobster] Allergy Nausea & Verified 09/08/20 21:21 Vomiting Physical Exam Vitals: Vital Signs Temp Pulse Pulse Resp BP BP BP 10/03/20 07:35 98.3 F 93 17 129/77 10/02/20 20:45 98.2 F 74 20 97/64 10/02/20 20:00 98.1 F 79 16 127/76 10/02/20 18:08 97.4 F L 78 16 109/60 10/02/20 16:58 98.1 F 80 16 99/59 10/02/20 16:46 90 16 10/02/20 16:28 97.9 F 85 16 100/61 10/02/20 16:18 98.1 F 85 16 109/66 10/02/20 14:00 100.0 F H 103 H 18 121/67 Pulse Ox 10/03/20 07:35 96 10/02/20 20:45 97 10/02/20 20:00 97 10/02/20 18:08 97 10/02/20 16:58 97 10/02/20 16:46 10/02/20 16:28 96 10/02/20 16:18 96 10/02/20 14:00 95 Intake and Output 10/02/20 10/03/20 10/03/20 22:59 06:59 14:59 Intake Total 280 200 Balance 280 200 Intake: Oral 200 Blood Product 280 Rc Pheresis 2 As3 Unit 280 [id number] Other: Voiding Method Toilet Diaper # Voids 4 Results 10/03/20 05:34 10/03/20 05:34 Cardiac Enzymes 10/02/20 Range/Units 18:31 Lactate Dehydrogenase 605 (313-618) U/L Coagulation 10/02/20 Range/Units 18:31 PT 12.5 H (9.0-12.0) sec APTT 18.1 L (22.0-30.0) sec CBC 10/02/20 10/03/20 Range/Units 06:59 05:34 WBC 10.08 H 12.7 H (4.50-10.00) X 10*3/uL RBC 2.21 L 2.72 L (4.10-5.20) X 10*6/uL Hgb 6.3 L* 8.2 L D (12.0-15.0) g/dL Hct 19.4 L* 24.3 L (37.2-46.3) % Plt Count 109 L 101 L D (140-440) X 10*3/uL Comprehensive Metabolic Panel 10/02/20 10/02/20 10/02/20 Range/Units 06:59 15:06 20:11 Sodium 126 L 121 L 124 L (137-145) mmol/L Potassium 3.5 (3.5-5.1) mmol/L Chloride 92 L (98-107) mmol/L Carbon Dioxide 26 (22-30) mmol/L BUN 11 (7-17) mg/dL Creatinine 0.34 L (0.52-1.04) mg/dL Glucose 131 H (74-99) mg/dL Calcium 8.3 L (8.4-10.2) mg/dL 10/03/20 Range/Units 05:34 Sodium 130 L (137-145) mmol/L Potassium 4.7 (3.5-5.1) mmol/L Chloride 97 L (98-107) mmol/L Carbon Dioxide 27 (22-30) mmol/L BUN 11 (7-17) mg/dL Creatinine 0.34 L (0.52-1.04) mg/dL Glucose 174 H (74-99) mg/dL Calcium 8.4 (8.4-10.2) mg/dL Current Medications Generic Name Dose Route Start Last Admin Trade Name Freq PRN Reason Stop Dose Admin Acetaminophen 650 mg 09/27/20 20:45 10/02/20 14:00 Acetaminophen Tab 325 Mg Tab PO 650 mg Q6HR PRN Administration Mild Pain or Fever > 100.5 Ascorbic Acid 1,000 mg 09/29/20 18:00 10/02/20 17:50 Ascorbic Acid 500 Mg Tab PO Not Given DAILY@1800 [facility] Aspirin 81 mg 09/29/20 00:00 10/02/20 23:46 Aspirin 81 Mg PO 81 mg DAILY@0000 ON LICENSE OF [facility] Administration Docusate Sodium 250 mg 09/29/20 12:00 10/03/20 07:41 Docusate Oral Soln 100 Mg/10 Ml Cup PO Not Given DAILY@1200 ON LICENSE OF [facility] Dronabinol 2.5 mg 09/29/20 00:00 10/03/20 05:33 Dronabinol 2.5 Mg Cap PO 2.5 mg BID@0600,0000 [facility] Administration Fentanyl 1 patch 09/29/20 09:00 10/02/20 08:07 Fentanyl 50mcg/Hr Patch TRANSDERM 1 patch Q72H [facility] Administration Protocol Levetiracetam 500 mg 10/02/20 21:00 10/03/20 07:37 Levetiracetam 500 Mg Tab PO 500 mg Q12HR [facility] Administration Magnesium Oxide 400 mg 09/29/20 00:00 10/03/20 05:31 Magnesium Oxide 400 Mg Tab PO 400 mg BID@0600,0000 [facility] Administration Meclizine HCl 25 mg 09/28/20 18:08 Meclizine 25 Mg Tab PO DAILY PRN Nausea Metformin HCl 250 mg 09/29/20 07:30 10/03/20 07:36 Metformin 500 Mg Tab PO 250 mg AC-BID [facility] Administration Miscellaneous Information 1 each 10/01/20 12:28 Magnesium Replacement Protocol 1 Each Misc MISCELLANE DAILY PRN Per Protocol Protocol Miscellaneous Information 1 each 10/02/20 14:04 Potassium Replacement Protocol 1 Each Misc MISCELLANE DAILY PRN Per Protocol Protocol Naloxone HCl 0.2 mg 09/27/20 20:45 Naloxone 0.4 Mg/Ml 1 Ml Vial IV Q2M PRN Opioid Reversal Oxycodone HCl 5 mg 10/02/20 18:00 10/03/20 07:37 Oxycodone Hcl 5 Mg Tab PO Not Given QID@0600,12,18,0000 ON LICENSE OF [facility] Pantoprazole Sodium 40 mg 09/29/20 06:00 10/03/20 05:32 Pantoprazole 40 Mg Tablet PO 40 mg DAILY@0600 [facility] Administration Raloxifene HCl 60 mg 09/29/20 06:00 10/03/20 05:32 Raloxifene 60 Mg Tab PO 60 mg DAILY@0600 [facility] Administration Senna/Docusate Sodium 1 each 09/29/20 00:00 10/03/20 05:32 Sennosides-Docusate Sodium 1 Each Tab PO 1 each BID@0600,0000 [facility] Administration Sodium Chloride 1 gm 09/29/20 13:45 10/03/20 07:36 Sodium Chloride Tab 1 Gm Tab PO 1 gm BID [facility] Administration Intake and Output 08/26/21 08/27/21 08/27/21 22:59 06:59 14:59 Intake Total 280 200 Balance 280 200 Intake: Oral 200 Blood Product 280 Rc Pheresis 2 As3 Unit 280 [id number] Other: Voiding Method Toilet Diaper # Voids 4 10/03/20 05:34 10/03/20 05:34
--- NOTE | 2020-10-03 09:28 | P.PN ---
Subjective Progress Note Date: 10/02/20 10/02/2020: Patient apparently had another similar spell. Patient's son was present. Patient was trying to get to the recliner, when suddenly she froze, had a blank stare, and then reportedly was slightly stiff, but no convulsive activity otherwise. Patient lost control of urine with this spell. No tongue bite. Patient then again became post ictal for about 30-45 minutes. Now back to normal. Patient did not feel cold or chills before this event started. Patient's vitals again continue to be stable throughout this event. 10/01/2020: Patient is a 80-year-old female initially seen by Dr. Chilango Mcdermott. Please refer to his note for details. Patient came with altered mental status. Patient has stage IV pancreatic cancer. She was found to have low sodium of 121. Her blood pressure was also low 70. When patient was examined by Dr. Mcdermott, patient was alert and oriented 3. Neurology had signed off. Neurology was reconsulted today for an acute episode of altered mental status and unresponsiveness, that occurred at around 12 noon. Patient's son and [id number] are present. They reported that patient was doing fine in the morning. She had her breakfast. Patient was later sitting in the recliner when she started shivering, shaking. She then broke out in sweat. The nurse was getting a heated blanket, the patient started having a seizure-like episode in which she stiffened up with arms flexed on the chest, and was shaking and became unresponsive. Her blood pressure at that time was systolic between 160-170, heart rate in the 150s. Patient did not bite her tongue or lost control of urine. The episode lasted for a few minutes. Stat computed tomography scan was performed, which showed no acute intracranial abnormality. Stable mild generali zed atrophy and mild burden of chronic small vessel ischemic disease. I came to see patient immediately. Patient was laying in the bed, very lethargic, somnolent. Patient would open her eyes, follows minimal commands as mentioned in the examination. Her examination was relatively nonfocal. No s eizure-like activity was noted at that time. Objective - Vital Signs Vital signs: Vital Signs Temp 98.3 F 10/03/20 07:35 Pulse 93 10/03/20 07:35 Resp 17 10/03/20 08:00 BP 129/77 10/03/20 07:35 Pulse Ox 96 10/03/20 07:35 Intake & Output 10/02/20 10/03/20 10/03/20 18:59 06:59 18:59 Intake Total 530 200 Balance 530 200 Weight 81.647 kg Intake: Oral 250 200 Blood Product 280 Rc Pheresis 2 As3 Unit 280 [id number] Other: Voiding Method Toilet Toilet Toilet Diaper Diaper Diaper # Voids 4 - Exam Patient laying in the bed, in no respiratory distress. Patient is alert and awake. Examination completely unchanged as compared to the examination from yesterday evening. - Labs CBC & Chem 7: 10/03/20 05:34 10/03/20 05:34 Labs: Abnormal Lab Results - Last 24 Hours (Table) 10/02/20 10/02/20 10/02/20 Range/Units 06:59 06:59 11:00 WBC 10.08 H (4.50-10.00) X 10*3/uL RBC 2.21 L (4.10-5.20) X 10*6/uL Hgb 6.3 L* (12.0-15.0) g/dL Hct 19.4 L* (37.2-46.3) % RDW 17.5 H (11.5-14.5) % Plt Count 109 L (140-440) X 10*3/uL Plt Count Comment DECREASED A MPV 8.4 L (9.5-12.2) fL Immature Gran # 0.09 H (0.00-0.04) X 10*3/uL Neutrophils # (1.3-7.7) k/uL Lymphocytes # (1.0-4.8) k/uL PT (9.0-12.0) sec INR (<1.2) APTT (22.0-30.0) sec Fibrinogen (200-500) mg/dL Sodium 126 L (137-145) mmol/L Chloride 92 L (98-107) mmol/L Creatinine 0.34 L (0.52-1.04) mg/dL Glucose 131 H (74-99) mg/dL POC Glucose (mg/dL) 199 H (75-99) mg/dL Calcium 8.3 L (8.4-10.2) mg/dL Crossmatch 10/02/20 10/02/20 10/02/20 Range/Units 13:34 15:06 17:43 WBC (4.50-10.00) X 10*3/uL RBC (4.10-5.20) X 10*6/uL Hgb (12.0-15.0) g/dL Hct (37.2-46.3) % RDW (11.5-14.5) % Plt Count (140-440) X 10*3/uL Plt Count Comment MPV (9.5-12.2) fL Immature Gran # (0.00-0.04) X 10*3/uL Neutrophils # (1.3-7.7) k/uL Lymphocytes # (1.0-4.8) k/uL PT (9.0-12.0) sec INR (<1.2) APTT (22.0-30.0) sec Fibrinogen (200-500) mg/dL Sodium 121 L (137-145) mmol/L Chloride (98-107) mmol/L Creatinine (0.52-1.04) mg/dL Glucose (74-99) mg/dL POC Glucose (mg/dL) 218 H (75-99) mg/dL Calcium (8.4-10.2) mg/dL Crossmatch See Detail 10/02/20 10/02/20 10/02/20 Range/Units 18:31 20:11 21:50 WBC (4.50-10.00) X 10*3/uL RBC (4.10-5.20) X 10*6/uL Hgb (12.0-15.0) g/dL Hct (37.2-46.3) % RDW (11.5-14.5) % Plt Count (140-440) X 10*3/uL Plt Count Comment MPV (9.5-12.2) fL Immature Gran # (0.00-0.04) X 10*3/uL Neutrophils # (1.3-7.7) k/uL Lymphocytes # (1.0-4.8) k/uL PT 12.5 H (9.0-12.0) sec INR 1.2 H (<1.2) APTT 18.1 L (22.0-30.0) sec Fibrinogen 503 H (200-500) mg/dL Sodium 124 L (137-145) mmol/L Chloride (98-107) mmol/L Creatinine (0.52-1.04) mg/dL Glucose (74-99) mg/dL POC Glucose (mg/dL) 184 H (75-99) mg/dL Calcium (8.4-10.2) mg/dL Crossmatch 10/03/20 10/03/20 10/03/20 Range/Units 05:34 05:34 07:23 WBC 12.7 H (4.50-10.00) X 10*3/uL RBC 2.72 L (4.10-5.20) X 10*6/uL Hgb 8.2 L D (12.0-15.0) g/dL Hct 24.3 L (37.2-46.3) % RDW 18.2 H (11.5-14.5) % Plt Count 101 L D (140-440) X 10*3/uL Plt Count Comment MPV (9.5-12.2) fL Immature Gran # (0.00-0.04) X 10*3/uL Neutrophils # 11.3 H (1.3-7.7) k/uL Lymphocytes # 0.8 L (1.0-4.8) k/uL PT (9.0-12.0) sec INR (<1.2) APTT (22.0-30.0) sec Fibrinogen (200-500) mg/dL Sodium 130 L (137-145) mmol/L Chloride 97 L (98-107) mmol/L Creatinine 0.34 L (0.52-1.04) mg/dL Glucose 174 H (74-99) mg/dL POC Glucose (mg/dL) 203 H (75-99) mg/dL Calcium (8.4-10.2) mg/dL Crossmatch Assessment and Plan Assessment: * Recurrent episodes of possible seizure/seizure-like activity. Syncope un likely, as patient's vitals were relatively normal, patient was tachycardic and blood pressure was in 160-170 systolic. Patient again back to baseline. * History of hyponatremia, but her sodium at present appears stable 126. Hyponatremia likely not the cause of current spell. * Acute on chronic hyponatremia * Abdominal pain * History of pancreatic cancer (May 2020) on chemotherapy and last dose is this past * Diabetes mellitus with sugar seems controlled * History Hypertension Plan: * Patient continues to have recurrent spells of seizure-like activity. Patient will receive Keppra 500 mg IV 1 dose now. We will increase maintenance dose of Keppra to 500 mg twice a day. * MRI of the brain with and without contrast rule out any metastatic disease. * 2-D echo shows normal left ventricular size. Mild concentric LVH. EF is between 55-60%. Aortic valve is trileaflet in is moderately thickened. Moderate aortic stenosis. * Suggest cardiology consultation for moderate aortic stenosis. * Telemetry monitoring showing sinus rhythm, with sinus tachycardia in 100s. * EEG was abnormal EEG due to background slowing of at least moderate degree. This is suggestive of generalized cerebral dysfunction as can be seen with toxic metabolic encephalopathy or related to diffuse structural brain abnormality. Triphasics waves were occasionally seen, which can be seen with hepatic encephalopathy. Clinical correlation is recommended. We will check ammonia. * Carotid Doppler showed moderate atherosclerotic changes at the bifurcation but without any hemodynamically significant ICA stenosis on either side. Antegrade flow in both vertebral arteries. * Discussed with primary team.
[2020-10-03] MEDS ORDERED: LORazepam 2 MG/ML INJ IV STA (10:00)
--- NOTE | 2020-10-03 10:02 | P.PN ---
Subjective Patient is seen in follow-up for hyponatremia. Sodium level 130 today. Oral intake is fair. Good urine output. Awake and alert. Family present at bedside. No changes overnight. Vital signs are stable. General: The patient appeared well nourished and normally developed. HEENT: Head exam is unremarkable. Neck is without jugular venous distension. LUNGS: Breath sounds decreased. HEART: Rate and Rhythm are regular. ABDOMEN: Soft, no distention. EXTREMITITES: No edema. Objective - Vital Signs Vital signs: Vital Signs Temp 98.3 F 10/03/20 07:35 Pulse 93 10/03/20 07:35 Resp 17 10/03/20 08:00 BP 129/77 10/03/20 07:35 Pulse Ox 96 10/03/20 07:35 Intake & Output 10/02/20 10/03/20 10/03/20 18:59 06:59 18:59 Intake Total 530 200 Balance 530 200 Weight 81.647 kg Intake: Oral 250 200 Blood Product 280 Rc Pheresis 2 As3 Unit 280 [id number] Other: Voiding Method Toilet Toilet Toilet Diaper Diaper Diaper # Voids 4 - Labs CBC & Chem 7: 10/03/20 05:34 10/03/20 05:34 Labs: Abnormal Lab Results - Last 24 Hours (Table) 10/02/20 10/02/20 10/02/20 Range/Units 06:59 11:00 13:34 WBC 10.08 H (4.50-10.00) X 10*3/uL RBC 2.21 L (4.10-5.20) X 10*6/uL Hgb 6.3 L* (12.0-15.0) g/dL Hct 19.4 L* (37.2-46.3) % RDW 17.5 H (11.5-14.5) % Plt Count 109 L (140-440) X 10*3/uL Plt Count Comment DECREASED A MPV 8.4 L (9.5-12.2) fL Immature Gran # 0.09 H (0.00-0.04) X 10*3/uL Neutrophils # (1.3-7.7) k/uL Lymphocytes # (1.0-4.8) k/uL PT (9.0-12.0) sec INR (<1.2) APTT (22.0-30.0) sec Fibrinogen (200-500) mg/dL Sodium (137-145) mmol/L Chloride (98-107) mmol/L Creatinine (0.52-1.04) mg/dL Glucose (74-99) mg/dL POC Glucose (mg/dL) 199 H (75-99) mg/dL Crossmatch See Detail 10/02/20 10/02/20 10/02/20 Range/Units 15:06 17:43 18:31 WBC (4.50-10.00) X 10*3/uL RBC (4.10-5.20) X 10*6/uL Hgb (12.0-15.0) g/dL Hct (37.2-46.3) % RDW (11.5-14.5) % Plt Count (140-440) X 10*3/uL Plt Count Comment MPV (9.5-12.2) fL Immature Gran # (0.00-0.04) X 10*3/uL Neutrophils # (1.3-7.7) k/uL Lymphocytes # (1.0-4.8) k/uL PT 12.5 H (9.0-12.0) sec INR 1.2 H (<1.2) APTT 18.1 L (22.0-30.0) sec Fibrinogen 503 H (200-500) mg/dL Sodium 121 L (137-145) mmol/L Chloride (98-107) mmol/L Creatinine (0.52-1.04) mg/dL Glucose (74-99) mg/dL POC Glucose (mg/dL) 218 H (75-99) mg/dL Crossmatch 10/02/20 10/02/20 10/03/20 Range/Units 20:11 21:50 05:34 WBC 12.7 H (4.50-10.00) X 10*3/uL RBC 2.72 L (4.10-5.20) X 10*6/uL Hgb 8.2 L D (12.0-15.0) g/dL Hct 24.3 L (37.2-46.3) % RDW 18.2 H (11.5-14.5) % Plt Count 101 L D (140-440) X 10*3/uL Plt Count Comment MPV (9.5-12.2) fL Immature Gran # (0.00-0.04) X 10*3/uL Neutrophils # 11.3 H (1.3-7.7) k/uL Lymphocytes # 0.8 L (1.0-4.8) k/uL PT (9.0-12.0) sec INR (<1.2) APTT (22.0-30.0) sec Fibrinogen (200-500) mg/dL Sodium 124 L (137-145) mmol/L Chloride (98-107) mmol/L Creatinine (0.52-1.04) mg/dL Glucose (74-99) mg/dL POC Glucose (mg/dL) 184 H (75-99) mg/dL Crossmatch 10/03/20 10/03/20 Range/Units 05:34 07:23 WBC (4.50-10.00) X 10*3/uL RBC (4.10-5.20) X 10*6/uL Hgb (12.0-15.0) g/dL Hct (37.2-46.3) % RDW (11.5-14.5) % Plt Count (140-440) X 10*3/uL Plt Count Comment MPV (9.5-12.2) fL Immature Gran # (0.00-0.04) X 10*3/uL Neutrophils # (1.3-7.7) k/uL Lymphocytes # (1.0-4.8) k/uL PT (9.0-12.0) sec INR (<1.2) APTT (22.0-30.0) sec Fibrinogen (200-500) mg/dL Sodium 130 L (137-145) mmol/L Chloride 97 L (98-107) mmol/L Creatinine 0.34 L (0.52-1.04) mg/dL Glucose 174 H (74-99) mg/dL POC Glucose (mg/dL) 203 H (75-99) mg/dL Crossmatch Assessment and Plan Plan: Assessment: 1. 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 Urine sodium 109 and urine osmolality 563. Sodium level 130. Status post [facility] October 02. TSH normal. Cortisol level not low. 2. Pancreatic cancer maintained on chemotherapy. 3. Diabetes mellitus. 4. Hypokalemia from poor intake. Replaced. Better. 5. Seizure. On Keppra. Neurology following. 6. Mild hypomagnesemia from poor intake. Status post IV magnesium. Also on oral magnesium oxide. Plan: 1200 mL fluid restriction. Maintain sodium chloride tabs. Encouraged oral intake, especially protein. Repeat labs in the morning.
[2020-10-03 12:16] LABS: Glucose,Whole Blood 200 mg/dL (75-99)
--- NOTE | 2020-10-03 12:18 | MR ---
EXAMINATION TYPE: MR brain wo/w con DATE OF EXAM: 10/03/2020 COMPARISON: CT brain 09/27/2020 HISTORY: Altered mental status, pancreatic cancer, Rule out mets TECHNIQUE: Multiplanar, multisequence images of the brain and brainstem is performed without and with IV contras t, utilizing 8 mL intravenous Gadavist . FINDINGS: Diffusion weighted images demonstrate no evidence of a recent infarct or other diffusion ab normality. There is no extra-axial fluid collection. Periventricular confluent and scattered hyperi ntensity is present within the white matter, some subcortical hyperintensities are also present on in version recovery T2-weighted sequences. The ventricular system and cisternal spaces are normal in siz e and appearance. The brain volume is age appropriate, there is cortical atrophy. Midline structures demonstrate normal morphology, partially empty sella. The craniocervical junction appears within normal limits. Post contrast images demonstrate no abnormal enhancement. The dural v enous sinuses appear patent. The visualized sinuses are clear and the globes are intact. Mild inflamm atory change present in the mastoid air cells on the right. IMPRESSION: Age-related changes of atrophy and chronic small vessel ischemia. No enhancing mass to pitts ggest metastatic disease.
[2020-10-03 12:53] LABS: Albumin 2.7 g/dL (3.5-5.0); Bilirubin,Unconjugated 0.7 mg/dL (0.0-1.1); Globulin 2.7 g/dL; Total Protein 5.4 g/dL (6.3-8.2)
--- NOTE | 2020-10-03 12:54 | P.OBCN ---
History of Present Illness Consult date: 10/03/20 Reason for consult: other (Postmenopausal bleeding) Chief complaint: Metastatic pancreatic cancer, hyponatremia, anemia History of present illness: The patient is an 80-year-old 2 para 2001 who was admitted to the hospital as result of a known diagnosis of metastatic pancreatic cancer with subsequent hyponatremia and anemia. All history is obtained from her son and [id number] at the bedside as the patient is currently sedated. They report that she has had routine gynecologic and well woman care through her primary care doctor, Dr. Aguero. She has no history of any postmenopausal bleeding until starting chemotherapy for her pancreatic cancer. Her medical oncologist as well aware of the vaginal bleeding and has not demonstrated any significant concern regarding it. Her son reports that the bleeding is typically more prominent at the time of acute chemotherapy treatment and then tapers off as she moves further from the initial treatment. She has minimal ongoing bleeding at this time. Week ultrasound demonstrates a thickened endometrial stripe at 1.2 cm with some cystic areas present as well. Obstetrical history: 2 para 2001 with 2 term vaginal deliveries without complications by report. Gynecologic history: Unremarkable per her son with continued routine well woman care through her primary care doctor. Review of Systems Review of systems is confined to history of present illness. Past Medical History Past Medical History: Cancer, Diabetes Mellitus, Hyperlipidemia, Hypertension Additional Past Medical History / Comment(s): colon polyps. PANCREATIC CANCER. History of Any Multi-Drug Resistant Organisms: None Reported Past Surgical History: Breast Surgery, Cholecystectomy, Tubal Ligation Additional Past Surgical History / Comment(s): colonoscopy, bx of mass 05/05/20, left breast lumpectomy benign 40 years ago, jaw surgery 50 years ago r/t broken jaw, eyelid surgery to "get the bags out" Past Anesthesia/Blood Transfusion Reactions: Motion Sickness Past Psychological History: No Psychological Hx Reported Additional Psychological History / Comment(s): Pt resides at home, daughter has been staying with her since April. She has been using a rollator walker. Her serena has been doing the driving. Smoking Status: Former smoker Past Alcohol Use History: Unable to Obtain Additional Past Alcohol Use History / Comment(s): Pt started smoking in 1954 and quit in 1995 but was always a lite smoker. Past Drug Use History: Unable to Obtain - Past Family History Mother Additional Family Medical History / Comment(s): addisons disease Father Family Medical History: Coronary Artery Disease (CAD) Medications and Allergies Home Medications Medication Instructions Recorded Confirmed Type Atorvastatin [Lipitor] 80 mg PO DAILY@1800 04/24/20 09/27/20 History Raloxifene [Evista] 60 mg PO DAILY@0600 04/24/20 09/27/20 History Triple Flex 1 tab PO BID@1200,0000 04/24/20 09/27/20 History Aspirin [Adult Low Dose Aspirin EC] 81 mg PO DAILY@0000 04/29/20 09/27/20 History Ondansetron Odt [Zofran ODT] 4 mg PO Q6H PRN 06/04/20 09/27/20 History Sennosides/Docusate Sodium [Senna 1 cap PO BID@0600,0000 06/04/20 09/27/20 History Plus 8.6-50 mg Softgel] Dronabinol [Marinol] 2.5 mg PO BID@0600,0000 09/08/20 09/27/20 History Famotidine [Pepcid] 20 mg PO BID@1200,1800 09/08/20 09/27/20 History Magnesium Oxide [Magox 400] 400 mg PO BID@0600,0000 09/08/20 09/27/20 History Pantoprazole Sodium 40 mg PO DAILY@0600 09/08/20 09/27/20 History atenoloL 25 mg PO BID@1200,0000 09/08/20 09/27/20 History fentaNYL 50MCG/HR PATCH [Duragesic 1 patch TRANSDERM Q72H 09/08/20 09/27/20 H istory 50MCG/HR] metFORMIN HCL ER [Glucophage XR] 500 mg PO DAILY@0600 09/08/20 09/27/20 History oxyCODONE HCL [OxyIR] 5 mg PO QID@0600,12,18,0000 09/08/20 09/27/20 History Ascorbic Acid [Vitamin C] 1,000 mg PO DAILY@1800 09/27/20 09/27/20 History Docusate 250mg 250 mg PO DAILY@1200 09/27/20 09/27/20 History Motion Sickness Patch 1 patch TRANSDERM Q72H PRN 09/27/20 09/27/20 History Pancreatic Enzyme 500 mg PO DAILY@0600 09/27/20 09/27/20 History Vit C/E/Zn/Coppr/Lutein/Zeaxan 1 cap PO BID@1200,0000 09/27/20 09/27/20 History [Preservision Areds 2 Softgel] Meclizine [Antivert] 25 mg PO DAILY PRN 09/28/20 09/28/20 History Allergies Allergy/AdvReac Type Severity Reaction Status Date / Time shellfish derived [Lobster] Allergy Nausea & Verified 09/08/20 21:21 Vomiting Exam Vital Signs Temp Pulse Pulse Resp BP BP BP 10/03/20 12:30 98.8 F 102 H 16 108/68 10/03/20 08:00 17 10/03/20 07:35 98.3 F 93 17 129/77 10/02/20 20:45 98.2 F 74 20 97/64 10/02/20 20:00 98.1 F 79 16 127/76 10/02/20 18:08 97.4 F L 78 16 109/60 10/02/20 16:58 98.1 F 80 16 99/59 10/02/20 16:46 90 16 10/02/20 16:28 97.9 F 85 16 100/61 10/02/20 16:18 98.1 F 85 16 109/66 10/02/20 14:00 100.0 F H 103 H 18 121/67 Pulse Ox 10/03/20 12:30 94 L 10/03/20 08:00 10/03/20 07:35 96 10/02/20 20:45 97 10/02/20 20:00 97 10/02/20 18:08 97 10/02/20 16:58 97 10/02/20 16:46 10/02/20 16:28 96 10/02/20 16:18 96 10/02/20 14:00 95 Intake and Output 10/02/20 10/03/20 10/03/20 22:59 06:59 14:59 Intake Total 280 200 Balance 280 200 Intake: Oral 200 Blood Product 280 Rc Pheresis 2 As3 Unit 280 [id number] Other: Voiding Method Toilet Toilet Diaper Diaper # Voids 4 Physical examination is essentially deferred as the patient is sedated and unresponsive at this time. Pelvic examination is unlikely to add any additional information to the findings as described in history of present illness. Results Result Diagrams: 10/03/20 05:34 10/03/20 05:34 Abnormal Lab Results - Last 24 Hours (Table) 10/02/20 10/02/20 10/02/20 Range/Units 06:59 13:34 15:06 WBC 10.08 H (4.50-10.00) X 10*3/uL RBC 2.21 L (4.10-5.20) X 10*6/uL Hgb 6.3 L* (12.0-15.0) g/dL Hct 19.4 L* (37.2-46.3) % RDW 17.5 H (11.5-14.5) % Plt Count 109 L (140-440) X 10*3/uL Plt Count Comment DECREASED A MPV 8.4 L (9.5-12.2) fL Immature Gran # 0.09 H (0.00-0.04) X 10*3/uL Neutrophils # (1.3-7.7) k/uL Lymphocytes # (1.0-4.8) k/uL PT (9.0-12.0) sec INR (<1.2) APTT (22.0-30.0) sec Fibrinogen (200-500) mg/dL Sodium 121 L (137-145) mmol/L Chloride (98-107) mmol/L Creatinine (0.52-1.04) mg/dL Glucose (74-99) mg/dL POC Glucose (mg/dL) (75-99) mg/dL Crossmatch See Detail 10/02/20 10/02/20 10/02/20 Range/Units 17:43 18:31 20:11 WBC (4.50-10.00) X 10*3/uL RBC (4.10-5.20) X 10*6/uL Hgb (12.0-15.0) g/dL Hct (37.2-46.3) % RDW (11.5-14.5) % Plt Count (140-440) X 10*3/uL Plt Count Comment MPV (9.5-12.2) fL Immature Gran # (0.00-0.04) X 10*3/uL Neutrophils # (1.3-7.7) k/uL Lymphocytes # (1.0-4.8) k/uL PT 12.5 H (9.0-12.0) sec INR 1.2 H (<1.2) APTT 18.1 L (22.0-30.0) sec Fibrinogen 503 H (200-500) mg/dL Sodium 124 L (137-145) mmol/L Chloride (98-107) mmol/L Creatinine (0.52-1.04) mg/dL Glucose (74-99) mg/dL POC Glucose (mg/dL) 218 H (75-99) mg/dL Crossmatch 10/02/20 10/03/20 10/03/20 Range/Units 21:50 05:34 05:34 WBC 12.7 H (4.50-10.00) X 10*3/uL RBC 2.72 L (4.10-5.20) X 10*6/uL Hgb 8.2 L D (12.0-15.0) g/dL Hct 24.3 L (37.2-46.3) % RDW 18.2 H (11.5-14.5) % Plt Count 101 L D (140-440) X 10*3/uL Plt Count Comment MPV (9.5-12.2) fL Immature Gran # (0.00-0.04) X 10*3/uL Neutrophils # 11.3 H (1.3-7.7) k/uL Lymphocytes # 0.8 L (1.0-4.8) k/uL PT (9.0-12.0) sec INR (<1.2) APTT (22.0-30.0) sec Fibrinogen (200-500) mg/dL Sodium 130 L (137-145) mmol/L Chloride 97 L (98-107) mmol/L Creatinine 0.34 L (0.52-1.04) mg/dL Glucose 174 H (74-99) mg/dL POC Glucose (mg/dL) 184 H (75-99) mg/dL Crossmatch 10/03/20 10/03/20 Range/Units 07:23 12:10 WBC (4.50-10.00) X 10*3/uL RBC (4.10-5.20) X 10*6/uL Hgb (12.0-15.0) g/dL Hct (37.2-46.3) % RDW (11.5-14.5) % Plt Count (140-440) X 10*3/uL Plt Count Comment MPV (9.5-12.2) fL Immature Gran # (0.00-0.04) X 10*3/uL Neutrophils # (1.3-7.7) k/uL Lymphocytes # (1.0-4.8) k/uL PT (9.0-12.0) sec INR (<1.2) APTT (22.0-30.0) sec Fibrinogen (200-500) mg/dL Sodium (137-145) mmol/L Chloride (98-107) mmol/L Creatinine (0.52-1.04) mg/dL Glucose (74-99) mg/dL POC Glucose (mg/dL) 203 H 200 H (75-99) mg/dL Crossmatch Microbiology - Last 24 Hours (Table) 10/02/20 17:45 Urine Culture - Preliminary Urine,Clean Catch Assessment and Plan (1) Pancreatic cancer Current Visit: Yes Status: Chronic Priority: Medium Code(s): C25.9 - MALIG NANT NEOPLASM OF PANCREAS, UNSPECIFIED SNOMED Code(s): 515262819 (2) Postmenopausal bleeding Current Visit: Yes Status: Acute Code(s): N95.0 - POSTMENOPAUSAL BLEEDING SNOMED Code(s): 65047833 Plan: I have reviewed the chart as well as radiographic findings and discussed the case with the patient's son and [id number] at length. The findings on ultrasound of a thickened and cystic endometrial cavity could certainly be consistent with malignancy which may be a second primary or could be metastatic. It may also only represent hyperplastic changes or precancer. It also may be the result of other medications although obvious choices are not in evidence in the chart. Regardless of the diagnosis within the endometrium, the patient is a poor surgical candidate given the progression of her disease and her ongoing secondary problems with hyponatremia and significant anemia. Endometrial biopsy in an office setting could be contemplated for diagnosis but may be of no further benefit as the patient is not a good candidate for ongoing treatment with hysterectomy. Should she continue to have any significant bleeding, the most logical treatment would be local radiation therapy to control the bleeding as the advancing state of her pancreatic cancer is significantly more likely to lead to than a relatively localized uterine cancer. I do appreciate the chance to meet this pleasant family under difficult circumstances but will otherwise sign off the case unless you need further input.
[2020-10-03 13:29] LABS: INR 1.2 (<1.2); Partial Thromboplastin Time 22.8 sec (22.0-30.0); Prothrombin Time 12.5 sec (9.0-12.0)
[2020-10-03] MEDS: ACETAMINOPHEN TAB 325 MG TAB PO PRN (16:06)
--- NOTE | 2020-10-03 16:40 | P.PN ---
Subjective Progress Note Date: 10/03/20 This is an 80-year-old female with pancreatic cancer admitted with hyponatremia, SIADH and multiple other medical issues. Sodium chloride tablets initiated yesterday as well as fluid restrictions, sodium increased up to 129. Feeling better. Consuming 50% of breakfast. Denies abdominal pain. Denies chest pain, palpitations or shortness of breath. 10/01/2020 sitting up in chair, no acute distress. Sodium maintained at 129 on sodium tablets. Later in the afternoon upon ambulating back from bathroom patient developed altered mental status, shaking, unable to follow commands but did respond to her name, heart rate increased up to the 140s to 150s for systolic blood pressure increased, received a dose of IV metoprolol with improvement. Brain CT completed reporting no acute intracranial abnormality. Evaluated further by urology, scheduled for EEG. Tremors/shaking resolved. Currently alert and conversing with family at bedside. Denies chest pain, palpitations or shortness of breath. Maintaining O2 sats in the high 90s on room air. Magnesium 1.5, replacement protocol ordered. 10/02/2020 Continues on oral sodium chloride, fluid restriction, sodium decreased to 126. Suspected seizures, Keppra initiated. Patient had another seizure-like activity later this morning, MRI ordered. Hemoglobin down to 6.3, receiving one unit of packed RBCs. Carotid Doppler reporting no significant hemodynamic stenosis. CODE STATUS discussed at bedside, patient's son stated they had already discussed this in the office with Dr. Ag and requesting a full code with no intubation. Echo pending. 10/03/20 no further seizure activity reported. Much more alert today. Denies any lightheadedness, dizziness or focal deficits. Brain MRI scheduled for today. Status post 1 unit of packed RBCs with hemoglobin up to 8.2. No further vaginal bleeding. Evaluated by COMIC ILLUSTRATOR/Vag us noted. Status post Samsca ,Sodium 130. Echo reporting normal LV function, EF 55-60%, moderate aortic stenosis. Evaluated by cardiology. Denies any chest pain, palpitations or shortness of breath. Afebrile, T-max 100, pancultured yesterday. Objective - Vital Signs Vital signs: Vital Signs Temp 100.0 F H 10/03/20 16:05 Pulse 124 H 10/03/20 16:05 Resp 16 10/03/20 12:30 BP 108/68 10/03/20 12:30 Pulse Ox 97 10/03/20 16:05 Intake & Output 10/02/20 10/03/20 10/03/20 18:59 06:59 18:59 Intake Total 530 200 Balance 530 200 Weight 81.647 kg Intake: Oral 250 200 Blood Product 280 Rc Pheresis 2 As3 Unit 280 [id number] Other: Voiding Method Toilet Toilet Toilet Diaper Diaper Diaper # Voids 4 - Exam - Exam Gen: thin, sitting up at bedside, NAD, weak, vitals reviewed CV: RRR, systolic murmur Lungs: normal effort, clear throughout Abd: soft, minimal diffuse tenderness, non distended - Labs CBC & Chem 7: 10/03/20 05:34 10/03/20 05:34 Labs: Abnormal Lab Results - Last 24 Hours (Table) 10/02/20 10/02/20 10/02/20 Range/Units 13:34 17:43 18:31 WBC (3.8-10.6) k/uL RBC (3.80-5.40) m/uL Hgb (11.4-16.0) gm/dL Hct (34.0-46.0) % RDW (11.5-15.5) % Plt Count (150-450) k/uL Neutrophils # (1.3-7.7) k/uL Lymphocytes # (1.0-4.8) k/uL PT 12.5 H (9.0-12.0) sec INR 1.2 H (<1.2) APTT 18.1 L (22.0-30.0) sec Fibrinogen 503 H (200-500) mg/dL Sodium (137-145) mmol/L Chloride (98-107) mmol/L Creatinine (0.52-1.04) mg/dL Glucose (74-99) mg/dL POC Glucose (mg/dL) 218 H (75-99) mg/dL AST (14-36) U/L ALT (4-34) U/L Alkaline Phosphatase (38-126) U/L Total Protein (6.3-8.2) g/dL Albumin (3.5-5.0) g/dL Crossmatch See Detail 10/02/20 10/02/20 10/03/20 Range/Units 20:11 21:50 05:34 WBC 12.7 H (3.8-10.6) k/uL RBC 2.72 L (3.80-5.40) m/uL Hgb 8.2 L D (11.4-16.0) gm/dL Hct 24.3 L (34.0-46.0) % RDW 18.2 H (11.5-15.5) % Plt Count 101 L D (150-450) k/uL Neutrophils # 11.3 H (1.3-7.7) k/uL Lymphocytes # 0.8 L (1.0-4.8) k/uL PT (9.0-12.0) sec INR (<1.2) APTT (22.0-30.0) sec Fibrinogen (200-500) mg/dL Sodium 124 L (137-145) mmol/L Chloride (98-107) mmol/L Creatinine (0.52-1.04) mg/dL Glucose (74-99) mg/dL POC Glucose (mg/dL) 184 H (75-99) mg/dL AST (14-36) U/L ALT (4-34) U/L Alkaline Phosphatase (38-126) U/L Total Protein (6.3-8.2) g/dL Albumin (3.5-5.0) g/dL Crossmatch 10/03/20 10/03/20 10/03/20 Range/Units 05:34 07:23 11:42 WBC (3.8-10.6) k/uL RBC (3.80-5.40) m/uL Hgb (11.4-16.0) gm/dL Hct (34.0-46.0) % RDW (11.5-15.5) % Plt Count (150-450) k/uL Neutrophils # (1.3-7.7) k/uL Lymphocytes # (1.0-4.8) k/uL PT 12.5 H (9.0-12.0) sec INR 1.2 H (<1.2) APTT (22.0-30.0) sec Fibrinogen 538 H (200-500) mg/dL Sodium 130 L (137-145) mmol/L Chloride 97 L (98-107) mmol/L Creatinine 0.34 L (0.52-1.04) mg/dL Glucose 174 H (74-99) mg/dL POC Glucose (mg/dL) 203 H (75-99) mg/dL AST (14-36) U/L ALT (4-34) U/L Alkaline Phosphatase (38-126) U/L Total Protein (6.3-8.2) g/dL Albumin (3.5-5.0) g/dL Crossmatch 10/03/20 10/03/20 Range/Units 11:42 12:10 WBC (3.8-10.6) k/uL RBC (3.80-5.40) m/uL Hgb (11.4-16.0) gm/dL Hct (34.0-46.0) % RDW (11.5-15.5) % Plt Count (150-450) k/uL Neutrophils # (1.3-7.7) k/uL Lymphocytes # (1.0-4.8) k/uL PT (9.0-12.0) sec INR (<1.2) APTT (22.0-30.0) sec Fibrinogen (200-500) mg/dL Sodium (137-145) mmol/L Chloride (98-107) mmol/L Creatinine (0.52-1.04) mg/dL Glucose (74-99) mg/dL POC Glucose (mg/dL) 200 H (75-99) mg/dL AST 38 H (14-36) U/L ALT 54 H (4-34) U/L Alkaline Phosphatase 204 H (38-126) U/L Total Protein 5.4 L (6.3-8.2) g/dL Albumin 2.7 L (3.5-5.0) g/dL Crossmatch Microbiology - Last 24 Hours (Table) 10/02/20 17:45 Urine Culture - Preliminary Urine,Clean Catch Assessment and Plan Assessment: Acute on chronic hyponatremia, 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 Family reports mental status at baseline, patient had increased weakness post chemotherapy-similar presentation with past chemotherapy. Repeat occurrence of altered mental status with additional shakes, possible seizures, possible meta stases, MRI pending. History of pancreatic cancer, maintained on chemotherapy Diabetes mellitus 2 Hypotension, hypovolemic, resolved Acute hypoxic respiratory failure, resolved Hypertension Hyperlipidemia Moderate Aortic stenosis. Postmenopausal bleeding. Plan: Continue on current medication regime ,monitoring and symptomatic treatment. Brain MRI PENDING. DIC workup in progress. Blood/urine cultures in progress. Prognosis guarded given multiple complex medical issues. The impression and plan of care has been dictated as directed. : I performed a history and examination of this patient, discussed the same with the dictator. I agree with the dictator's note ,documented as a scribe. Any additional findings or plans will be noted.
[2020-10-03] MEDS: ATORVASTATIN 40 MG TAB PO SCH (17:01)
[2020-10-03] MEDS: ASCORBIC ACID 500 MG TAB PO SCH (17:01)
[2020-10-03 17:29] LABS: Glucose,Whole Blood 204 mg/dL (75-99)
[2020-10-03 19:19] LABS: Glucose,Whole Blood 217 mg/dL (75-99)
[2020-10-03] MEDS: ENOXAPARIN 40 MG/0.4 ML SYRINGE SQ SCH (21:45)
--- NOTE | 2020-10-03 22:17 | P.PN ---
Subjective Progress Note Date: 10/03/20 Principal diagnosis: Pancreatic Cancer She is improved compared to yesterday. Labs are stable. unknown underlying cause of acute abnormalities yesterday. Objective - Vital Signs Vital signs: Vital Signs Temp 98.3 F 10/03/20 07:35 Pulse 93 10/03/20 07:35 Resp 17 10/03/20 08:00 BP 129/77 10/03/20 07:35 Pulse Ox 96 10/03/20 07:35 Intake & Output 10/02/20 10/03/20 10/03/20 18:59 06:59 18:59 Intake Total 530 200 Balance 530 200 Weight 81.647 kg Intake: Oral 250 200 Blood Product 280 Rc Pheresis 2 As3 Unit 280 [id number] Other: Voiding Method Toilet Toilet Toilet Diaper Diaper Diaper # Voids 4 - Exam - Constitutional General appearance: Present: no acute distress, thin - EENT Eyes: Present: anicteric sclerae - Respiratory Respiratory: bilateral: CTA - Cardiovascular Details: tachycardia, systolic murmur - Peripheral edema leg Peripheral Edema: bilateral: Trace - Gastrointestinal Gastrointestinal Comment(s): patient was not able to verbally response my questions about any abdominal pain, she did push her abd out when I palpated the suprapubic area General gastrointestinal: Present: normal bowel sounds, soft - Integumentary Integumentary Comment(s): pale, clammy to the touch - Psychiatric Psychiatric Comment(s): she would answer yes and no, she didn't state that she was at [facility] when asked where she was, unable to answer year, or other questions Psychiatric: Absent: appropriate affect, intact judgment & insight - Labs CBC & Chem 7: 10/03/20 05:34 10/03/20 05:34 Labs: Abnormal Lab Results - Last 24 Hours (Table) 10/02/20 10/02/20 10/02/20 Range/Units 06:59 11:00 13:34 WBC 10.08 H (4.50-10.00) X 10*3/uL RBC 2.21 L (4.10-5.20) X 10*6/uL Hgb 6.3 L* (12.0-15.0) g/dL Hct 19.4 L* (37.2-46.3) % RDW 17.5 H (11.5-14.5) % Plt Count 109 L (140-440) X 10*3/uL Plt Count Comment DECREASED A MPV 8.4 L (9.5-12.2) fL Immature Gran # 0.09 H (0.00-0.04) X 10*3/uL Neutrophils # (1.3-7.7) k/uL Lymphocytes # (1.0-4.8) k/uL PT (9.0-12.0) sec INR (<1.2) APTT (22.0-30.0) sec Fibrinogen (200-500) mg/dL Sodium (137-145) mmol/L Chloride (98-107) mmol/L Creatinine (0.52-1.04) mg/dL Glucose (74-99) mg/dL POC Glucose (mg/dL) 199 H (75-99) mg/dL Crossmatch See Detail 10/02/20 10/02/20 10/02/20 Range/Units 15:06 17:43 18:31 WBC (4.50-10.00) X 10*3/uL RBC (4.10-5.20) X 10*6/uL Hgb (12.0-15.0) g/dL Hct (37.2-46.3) % RDW (11.5-14.5) % Plt Count (140-440) X 10*3/uL Plt Count Comment MPV (9.5-12.2) fL Immature Gran # (0.00-0.04) X 10*3/uL Neutrophils # (1.3-7.7) k/uL Lymphocytes # (1.0-4.8) k/uL PT 12.5 H (9.0-12.0) sec INR 1.2 H (<1.2) APTT 18.1 L (22.0-30.0) sec Fibrinogen 503 H (200-500) mg/dL Sodium 121 L (137-145) mmol/L Chloride (98-107) mmol/L Creatinine (0.52-1.04) mg/dL Glucose (74-99) mg/dL POC Glucose (mg/dL) 218 H (75-99) mg/dL Crossmatch 10/02/20 10/02/20 10/03/20 Range/Units 20:11 21:50 05:34 WBC 12.7 H (4.50-10.00) X 10*3/uL RBC 2.72 L (4.10-5.20) X 10*6/uL Hgb 8.2 L D (12.0-15.0) g/dL Hct 24.3 L (37.2-46.3) % RDW 18.2 H (11.5-14.5) % Plt Count 101 L D (140-440) X 10*3/uL Plt Count Comment MPV (9.5-12.2) fL Immature Gran # (0.00-0.04) X 10*3/uL Neutrophils # 11.3 H (1.3-7.7) k/uL Lymphocytes # 0.8 L (1.0-4.8) k/uL PT (9.0-12.0) sec INR (<1.2) APTT (22.0-30.0) sec Fibrinogen (200-500) mg/dL Sodium 124 L (137-145) mmol/L Chloride (98-107) mmol/L Creatinine (0.52-1.04) mg/dL Glucose (74-99) mg/dL POC Glucose (mg/dL) 184 H (75-99) mg/dL Crossmatch 10/03/20 10/03/20 Range/Units 05:34 07:23 WBC (4.50-10.00) X 10*3/uL RBC (4.10-5.20) X 10*6/uL Hgb (12.0-15.0) g/dL Hct (37.2-46.3) % RDW (11.5-14.5) % Plt Count (140-440) X 10*3/uL Plt Count Comment MPV (9.5-12.2) fL Immature Gran # (0.00-0.04) X 10*3/uL Neutrophils # (1.3-7.7) k/uL Lymphocytes # (1.0-4.8) k/uL PT (9.0-12.0) sec INR (<1.2) APTT (22.0-30.0) sec Fibrinogen (200-500) mg/dL Sodium 130 L (137-145) mmol/L Chloride 97 L (98-107) mmol/L Creatinine 0.34 L (0.52-1.04) mg/dL Glucose 174 H (74-99) mg/dL POC Glucose (mg/dL) 203 H (75-99) mg/dL Crossmatch Microbiology - Last 24 Hours (Table) 10/02/20 17:45 Urine Culture - Preliminary Urine,Clean Catch Assessment and Plan Plan: Assessment and Plan (1) Altered mental status Narrative/Plan: - Likely secondary hyponatremia - Continues to improve clinically - Neurology is following, ? seizure activity Current Visit: Yes Status: Acute Priority: High Code(s): R41.82 - ALTERED MENTAL STATUS, UNSPECIFIED SNOMED Code(s): 407576992 Hyponatremia Narrative/Plan: - SIADH, treatment/cancer related. COntinue on treatment - Nephrology Management Current Visit: Yes Status: Acute Priority: High Code(s): E87.1 - HYPO- OSMOLALITY AND HYPONATREMIA SNOMED Code(s): 07224781 Pancreatic cancer Narrative/Plan: - Pt is not a surgical candidate. - Primary Onc next week to discuss further plan of care and goals of treatment in more detail after outpatient re-evaluation. Current Visit: Yes Status: Chronic Priority: Medium Code(s): C25.9 - MALIGNANT NEOPLASM OF PANCREAS, UNSPECIFIED SNOMED Code(s): 997996022 Vaginal Bleeding: - VP [employer]ELOPMENT Evaluation COmpleted - Unable to define exact etiology, with her current situation and malignancy benefit of further invasive diagnostics may preclude greater risk than benefit. - If vaginal bleeding continues may consider radiation for control of blood loss as at this time she is not a hysterectomy candidate Physician Attest: I have completed the full history and physical and agree with above dictation, dictated as a ascribe.
[2020-10-04] MEDS: SENNOSIDES-DOCUSATE SODIUM 1 EACH TAB PO SCH ×2 (02:13→05:46)
[2020-10-04] MEDS: ASPIRIN 81 MG PO SCH (02:13)
[2020-10-04] MEDS: MAGNESIUM OXIDE 400 MG TAB PO SCH ×2 (02:13→05:45)
[2020-10-04] MEDS: PANTOPRAZOLE 40 MG TABLET PO SCH (05:46)
[2020-10-04] MEDS: RALOXIFENE 60 MG TAB PO SCH (05:48)
[2020-10-04 06:32] LABS: ALT 50 U/L (4-34); AST 36 U/L (14-36); African American GFR (CKD) >90 (>60 ml/min/1.73 sqM); Albumin 2.4 g/dL (3.5-5.0); Alkaline Phosphatase 196 U/L (38-126); Anion Gap 6 mmol/L; Blood Urea Nitrogen 21 mg/dL (7-17); Calcium 8.5 mg/dL (8.4-10.2); Carbon Dioxide 28 mmol/L (22-30); Chloride 96 mmol/L (98-107); Globulin 2.5 g/dL; Glucose 143 mg/dL (74-99); INR 1.4 (<1.2); Magnesium 1.8 mg/dL (1.6-2.3); Non-African American GFR(CKD) 88 (>60 ml/min/1.73 sqM); Partial Thromboplastin Time 24.9 sec (22.0-30.0); Potassium 4.4 mmol/L (3.5-5.1); Prothrombin Time 13.8 sec (9.0-12.0); Sodium 130 mmol/L (137-145); Total Bilirubin 0.8 mg/dL (0.2-1.3); Total Protein 4.9 g/dL (6.3-8.2)
[2020-10-04 06:36] LABS: Anisocytosis Slight; Basophils % (A) 0 %; Eosinophils # (A) 0.1 k/uL (0-0.7); Eosinophils % (A) 1 %; HCT 25.1 % (34.0-46.0); HGB 8.6 gm/dL (11.4-16.0); Lymphocytes % (A) 19 %; MCH 30.5 pg (25.0-35.0); MCHC 34.4 g/dL (31.0-37.0); MCV 88.9 fL (80.0-100.0); Monocytes # (A) 0.2 k/uL (0-1.0); Monocytes % (A) 3 %; Neutrophils % (A) 75 %; Poikilocytosis Slight; RBC 2.82 m/uL (3.80-5.40); RDW 18.9 % (11.5-15.5); WBC 5.3 k/uL (3.8-10.6)
[2020-10-04 06:38] LABS: Platelet Count 69 k/uL (150-450)
[2020-10-04 07:35] LABS: Glucose,Whole Blood 128 mg/dL (75-99)
[2020-10-04] MEDS: metFORMIN 500 MG TAB PO SCH ×2 (08:49→17:03)
--- NOTE | 2020-10-04 09:08 | P.PN ---
Subjective Patient is seen in follow-up for hyponatremia. Sodium level stable at 130 today. Oral intake is fair. Good urine output. Awake and alert. No changes overnight. Vital signs are stable. General: The patient appeared well nourished and normally developed. HEENT: Head exam is unremarkable. Neck is without jugular venous distension. LUNGS: Breath sounds decreased. HEART: Rate and Rhythm are regular. ABDOMEN: Soft, no distention. EXTREMITITES: No edema. Objective - Vital Signs Vital signs: Vital Signs Temp 98.6 F 10/04/20 04:31 Pulse 80 10/04/20 04:31 Resp 18 10/04/20 04:31 BP 107/66 10/04/20 04:31 Pulse Ox 97 10/04/20 04:31 Intake & Output 10/03/20 10/04/20 10/04/20 18:59 06:59 18:59 Intake Total 480 Balance 480 Intake: Oral 480 Other: Voiding Method Toilet Diaper Diaper # Voids 2 - Labs CBC & Chem 7: 10/04/20 05:52 10/04/20 05:52 Labs: Abnormal Lab Results - Last 24 Hours (Table) 10/03/20 10/03/20 10/03/20 Range/Units 11:42 11:42 12:10 RBC (3.80-5.40) m/uL Hgb (11.4-16.0) gm/dL Hct (34.0-46.0) % RDW (11.5-15.5) % Plt Count (150-450) k/uL PT 12.5 H (9.0-12.0) sec INR 1.2 H (<1.2) Fibrinogen 538 H (200-500) mg/dL Sodium (137-145) mmol/L Chloride (98-107) mmol/L BUN (7-17) mg/dL Glucose (74-99) mg/dL POC Glucose (mg/dL) 200 H (75-99) mg/dL AST 38 H (14-36) U/L ALT 54 H (4-34) U/L Alkaline Phosphatase 204 H (38-126) U/L Total Protein 5.4 L (6.3-8.2) g/dL Albumin 2.7 L (3.5-5.0) g/dL 08/10/03/20 10/04/20 Range/Units 17:17 19:18 05:52 RBC 2.82 L (3.80-5.40) m/uL Hgb 8.6 L (11.4-16.0) gm/dL Hct 25.1 L (34.0-46.0) % RDW 18.9 H (11.5-15.5) % Plt Count 69 L (150-450) k/uL PT (9.0-12.0) sec INR (<1.2) Fibrinogen (200-500) mg/dL Sodium (137-145) mmol/L Chloride (98-107) mmol/L BUN (7-17) mg/dL Glucose (74-99) mg/dL POC Glucose (mg/dL) 204 H 217 H (75-99) mg/dL AST (14-36) U/L ALT (4-34) U/L Alkaline Phosphatase (38-126) U/L Total Protein (6.3-8.2) g/dL Albumin (3.5-5.0) g/dL 10/04/20 10/04/20 10/04/20 Range/Units 05:52 05:52 07:34 RBC (3.80-5.40) m/uL Hgb (11.4-16.0) gm/dL Hct (34.0-46.0) % RDW (11.5-15.5) % Plt Count (150-450) k/uL PT 13.8 H (9.0-12.0) sec INR 1.4 H (<1.2) Fibrinogen (200-500) mg/dL Sodium 130 L (137-145) mmol/L Chloride 96 L (98-107) mmol/L BUN 21 H (7-17) mg/dL Glucose 143 H (74-99) mg/dL POC Glucose (mg/dL) 128 H (75-99) mg/dL AST (14-36) U/L ALT 50 H (4-34) U/L Alkaline Phosphatase 196 H (38-126) U/L Total Protein 4.9 L (6.3-8.2) g/dL Albumin 2.4 L (3.5-5.0) g/dL Microbiology - Last 24 Hours (Table) 10/02/20 18:31 Blood Culture - Preliminary Blood No Growth after 24 hours 10/02/20 17:45 Urine Culture - Preliminary Urine,Clean Catch Assessment and Plan Plan: Assessment: 1. 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 Urine sodium 109 and urine osmolality 563. Sodium level 130. Status post [facility] October 02. TSH normal. Cortisol level not low. 2. Pancreatic cancer maintained on chemotherapy. 3. Diabetes mellitus. 4. Hypokalemia from poor intake. Replaced. Better. 5. Seizure. On Keppra. Neurology following. 6. Mild hypomagnesemia from poor intake. Status post IV magnesium. Also on oral magnesium oxide. Better. Plan: 1200 mL fluid restriction. Maintain sodium chloride tabs. Encouraged oral intake, especially protein. Repeat labs in the morning. No changes from nephrology standpoint today.
--- NOTE | 2020-10-04 10:18 | P.PN ---
Subjective Progress Note Date: 10/03/20 10/03/2020: Patient apparently had another similar spell. Patient received Ativan 0.5 mg for MRI at 10:30 AM. After the MRI, patient was snoring, and about 10 minutes ago, she woke up and had a similar spell, in which her arms or flexing, hence in the tight supervisor of way with some mild tremoring of the upper and lower extremities. Her head was shaking. She now again in the post ictal state. Meaghan eugene yesterday had a post ictal state that lasted for 3 hours. Then she woke up gradually and was completely back to baseline as per patient's son and [id number]. 10/02/2020: Patient apparently had another similar spell. Patient's son was present. Patient was trying to get to the recliner, when suddenly she froze, had a blank stare, and then reportedly was slightly stiff, but no convulsive activity otherwise. Patient lost control of urine with this spell. No tongue bite. Patient then again became post ictal for about 30-45 minutes. Now back to normal. Patient did not feel cold or chills before this event started. Patient's vitals again continue to be stable throughout this event. 10/01/2020: Patient is a 80-year-old female initially seen by Dr. Chilango Mcdermott. Please refer to his note for details. Patient came with altered mental status. Patient has stage IV pancreatic cancer. She was found to have low sodium of 121. Her blood pressure was also low 70. When patient was examined by Dr. Mcdermott, patient was alert and oriented 3. Neurology had signed off. Neurology was reconsulted today for an acute episode of altered mental status and unresponsiveness, that occurred at around 12 noon. Patient's son and [id number] are present. They reported that patient was doing fine in the morning. She had her breakfast. Patient was later sitting in the recliner when she started shivering, shaking. She then broke out in sweat. The nurse was getting a heated blanket, the patient started having a seizure-like episode in which she stiffened up with arms flexed on the chest, and was shaking and became unresponsive. Her blood pressure at that time was systolic between 160-170, heart rate in the 150s. Patient did not bite her tongue or lost control of urine. The episode lasted for a few minutes. Stat computed tomography scan was performed, which showed no acute intracranial abnormality. Stable mild generalized atrophy and mild burden of chronic small vessel ischemic disease. I came to see patient immediately. Patient was laying in the bed, very lethargic, somnolent. Patient would open her eyes, follows minimal commands as mentioned in the examination. Her examination was relatively nonfocal. No seizure-like activity was noted at that time. Objective - Vital Signs Vital signs: Vital Signs Temp 100.0 F H 10/03/20 16:05 Pulse 124 H 10/03/20 16:05 Resp 16 10/03/20 12:30 BP 108/68 10/03/20 12:30 Pulse Ox 97 10/03/20 16:05 Intake & Output 10/02/20 10/03/20 10/03/20 18:59 06:59 18:59 Intake Total 530 200 Balance 530 200 Weight 81.647 kg Intake: Oral 250 200 Blood Product 280 Rc Pheresis 2 As3 Unit 280 [id number] Other: Voiding Method Toilet Toilet Toilet Diaper Diaper Diaper # Voids 4 - Exam Patient laying in the bed, in no respiratory distress. Patient is post ictal. Her pupils are round and reacting. Face appears symmetric. She does minimally opens eyes, but does not communicate much. Exactly like how she was 2 days ago. - Labs CBC & Chem 7: 10/04/20 05:52 10/04/20 05:52 Labs: Abnormal Lab Results - Last 24 Hours (Table) 10/02/20 10/02/20 10/02/20 Range/Units 13:34 17:43 18:31 WBC (3.8-10.6) k/uL RBC (3.80-5.40) m/uL Hgb (11.4-16.0) gm/dL Hct (34.0-46.0) % RDW (11.5-15.5) % Plt Count (150-450) k/uL Neutrophils # (1.3-7.7) k/uL Lymphocytes # (1.0-4.8) k/uL PT 12.5 H (9.0-12.0) sec INR 1.2 H (<1.2) APTT 18.1 L (22.0-30.0) sec Fibrinogen 503 H (200-500) mg/dL Sodium (137-145) mmol/L Chloride (98-107) mmol/L Creatinine (0.52-1.04) mg/dL Glucose (74-99) mg/dL POC Glucose (mg/dL) 218 H (75-99) mg/dL AST (14-36) U/L ALT (4-34) U/L Alkaline Phosphatase (38-126) U/L Total Protein (6.3-8.2) g/dL Albumin (3.5-5.0) g/dL Crossmatch See Detail 10/02/20 10/02/20 10/03/20 Range/Units 20:11 21:50 05:34 WBC 12.7 H (3.8-10.6) k/uL RBC 2.72 L (3.80-5.40) m/uL Hgb 8.2 L D (11.4-16.0) gm/dL Hct 24.3 L (34.0-46.0) % RDW 18.2 H (11.5-15.5) % Plt Count 101 L D (150-450) k/uL Neutrophils # 11.3 H (1.3-7.7) k/uL Lymphocytes # 0.8 L (1.0-4.8) k/uL PT (9.0-12.0) sec INR (<1.2) APTT (22.0-30.0) sec Fibrinogen (200-500) mg/dL Sodium 124 L (137-145) mmol/L Chloride (98-107) mmol/L Creatinine (0.52-1.04) mg/dL Glucose (74-99) mg/dL POC Glucose (mg/dL) 184 H (75-99) mg/dL AST (14-36) U/L ALT (4-34) U/L Alkaline Phosphatase (38-126) U/L Total Protein (6.3-8.2) g/dL Albumin (3.5-5.0) g/dL Crossmatch 10/03/20 10/03/20 10/03/20 Range/Units 05:34 07:23 11:42 WBC (3.8-10.6) k/uL RBC (3.80-5.40) m/uL Hgb (11.4-16.0) gm/dL Hct (34.0-46.0) % RDW (11.5-15.5) % Plt Count (150-450) k/uL Neutrophils # (1.3-7.7) k/uL Lymphocytes # (1.0-4.8) k/uL PT 12.5 H (9.0-12.0) sec INR 1.2 H (<1.2) APTT (22.0-30.0) sec Fibrinogen 538 H (200-500) mg/dL Sodium 130 L (137-145) mmol/L Chloride 97 L (98-107) mmol/L Creatinine 0.34 L (0.52-1.04) mg/dL Glucose 174 H (74-99) mg/dL POC Glucose (mg/dL) 203 H (75-99) mg/dL AST (14-36) U/L ALT (4-34) U/L Alkaline Phosphatase (38-126) U/L Total Protein (6.3-8.2) g/dL Albumin (3.5-5.0) g/dL Crossmatch 10/03/20 10/03/20 Range/Units 11:42 12:10 WBC (3.8-10.6) k/uL RBC (3.80-5.40) m/uL Hgb (11.4-16.0) gm/dL Hct (34.0-46.0) % RDW (11.5-15.5) % Plt Count (150-450) k/uL Neutrophils # (1.3-7.7) k/uL Lymphocytes # (1.0-4.8) k/uL PT (9.0-12.0) sec INR (<1.2) APTT (22.0-30.0) sec Fibrinogen (200-500) mg/dL Sodium (137-145) mmol/L Chloride (98-107) mmol/L Creatinine (0.52-1.04) mg/dL Glucose (74-99) mg/dL POC Glucose (mg/dL) 200 H (75-99) mg/dL AST 38 H (14-36) U/L ALT 54 H (4-34) U/L Alkaline Phosphatase 204 H (38-126) U/L Total Protein 5.4 L (6.3-8.2) g/dL Albumin 2.7 L (3.5-5.0) g/dL Crossmatch Microbiology - Last 24 Hours (Table) 10/02/20 17:45 Urine Culture - Preliminary Urine,Clean Catch Assessment and Plan Assessment: * Recurrent episodes of possible seizure/seizure-like activity. Syncope unlikely, as patient's vitals were relatively normal, patient was tachycardic and blood pressure was in 160-170 systolic. Patient again back to baseline. Patient today had third similar spell, one spell happening every day. * History of hyponatremia. Hyponatremia likely not the cause of current spell. Today her sodium is 1:30. * Acute on chronic hyponatremia * Abdominal pain * History of pancreatic cancer (May 2020) on chemotherapy and last dose is this past * Diabetes mellitus * History Hypertension Plan: * Patient continues to have recurrent spells of seizure-like activity. Continue Keppra to 500 mg twice a day. * MRI of the brain with and without contrast revealed age-related changes of atrophy and chronic small vessel ischemia. No enhancing mass to suggest metastatic disease. * Patient undergoing CTA of the chest to rule out pulmonary cause of syncopal spells. Patient to be started on DVT prophylaxis with Lovenox 40 mg subcu daily. * If the CTA of chest comes back negative, would suggest transfer to [facility] for continuous video EEG monitoring, to capture any seizures during EEG monitoring. * 2-D echo shows normal left ventricular size. Mild concentric LVH. EF is between 55-60%. Aortic valve is trileaflet in is moderately thickened. Moderate aortic stenosis. * Cardiology input appreciated. Syncopal spells likely not cardiology related. * Telemetry monitoring showing sinus rhythm, with sinus tachycardia, with maximum rate in 130s. * EEG was abnormal EEG due to background slowing of at least moderate degree. This is suggestive of generalized cerebral dysfunction as can be seen with toxic metabolic encephalopathy or related to diffuse structural brain abnormality. Triphasics waves were occasionally seen, which can be seen with hepatic encephalopathy. Clinical correlation is recommended. We will check ammonia. * Serum ammonia is normal. Prolactin level 11.6, which is within normal range. * B12 557 on 08/07/2020. TFTs normal. Serum cortisol is 26.5/22.4. Hemoglobin A1c 5.5. * Carotid Doppler showed moderate atherosclerotic changes at the bifurcation but without any hemodynamically significant ICA stenosis on either side. Antegrade flow in both vertebral arteries. * Discussed with primary team.
[2020-10-04] MEDS: SODIUM CHLORIDE TAB 1 GM TAB PO SCH ×2 (10:23→21:55)
[2020-10-04] MEDS: levETIRAcetam 500 MG TAB PO SCH ×2 (10:23→21:55)
[2020-10-04] MEDS: atenoloL 25 MG TAB PO SCH (10:23)
[2020-10-04] MEDS: ENOXAPARIN 40 MG/0.4 ML SYRINGE SQ SCH (10:23)
[2020-10-04] MEDS: ACETAMINOPHEN TAB 325 MG TAB PO PRN (10:47)
--- NOTE | 2020-10-04 11:13 | CT ---
EXAMINATION TYPE: CT angio chest DATE OF EXAM: 10/04/2020 COMPARISON: Chest x-ray 09/27/2020 HISTORY: Pneumonia, pancreatic cancer and altered mental status CT DLP: 328.2 mGycm Automated exposure control for dose reduction was used. CONTRAST: CTA scan of the thorax is performed with IV Contrast, patient injected with 100 mL of Isovue 370, pul monary embolism protocol. MIP images are created and reviewed. 3D reconstructed images are created on an independent workstation and reviewed. FINDINGS: LUNGS: The lungs are remarkable for some dependent atelectatic change, there is no concerning parench ymal mass or nodule identified. There is no pleural effusion or pneumothorax seen. The tracheobron chial tree is patent. AORTA: No additional significant abnormality is seen. MEDIASTINUM: There is less than satisfactory enhancement of the pulmonary artery and its branches, th ere is poor enhancement of segmental branches. There are no greater than 1 cm hilar or mediastinal l ymph nodes. No pericardial effusion is seen. Prominence of the pulmonary artery could be due to pul monary artery hypertension. There are coronary artery calcifications present. OTHER: Patient with known pancreatic mass is post cholecystectomy. There is a port in the right pect oral region coursing via a jugular approach into the superior vena cava and extending into the right atrium. The spleen is enlarged. IMPRESSION: SUBOPTIMAL EXAM TO EXCLUDE PULMONARY EMBOLUS IN SEGMENTAL BRANCHES, NO CENTRAL PULMONARY EMBOLUS. Add itional findings above.
[2020-10-04] MEDS ORDERED: VANCOMYCIN IV PER PHARMACY 1 EACH MISC MISCELLANE PRN (11:31)
[2020-10-04] MEDS ORDERED: VANCOMYCIN 1,500 MG in SODIUM CHLORIDE 0.9% 250 ML IVPB ONE (12:00)
[2020-10-04 12:07] LABS: Glucose,Whole Blood 165 mg/dL (75-99)
[2020-10-04] MEDS: DOCUSATE ORAL SOLN 100 MG/10 ML CUP PO SCH (12:12)
--- NOTE | 2020-10-04 12:23 | P.PN ---
Subjective Progress Note Date: 10/04/20 Principal diagnosis: Hyponatremia, Metastatic pancreatic cancer In f/u today pt continues to be confused, she is repeating herself this AM, not responding to questions, Nursing reported a 101.4F temp. Objective - Vital Signs Vital signs: Vital Signs Temp 98.6 F 10/04/20 04:31 Pulse 80 10/04/20 04:31 Resp 18 10/04/20 04:31 BP 107/66 10/04/20 04:31 Pulse Ox 97 10/04/20 04:31 Intake & Output 10/03/20 10/04/20 10/04/20 18:59 06:59 18:59 Intake Total 480 Balance 480 Weight 81.647 kg Intake: Oral 480 Other: Voiding Method Toilet Diaper Diaper # Voids 2 - Constitutional General appearance: Present: average body habitus, cooperative, no acute distress - EENT EENT Comment(s): pt has trouble opening her eyes - Respiratory Respiratory: bilateral: CTA - Cardiovascular Details: tachy Heart sounds: normal: S1, S2 - Gastrointestinal General gastrointestinal: Present: decreased bowel sounds, soft - Musculoskeletal Musculoskeletal: Present: generalized weakness - Psychiatric Psychiatric: Absent: appropriate affect, intact judgment & insight - Labs CBC & Chem 7: 10/04/20 05:52 10/04/20 05:52 Labs: Abnormal Lab Results - Last 24 Hours (Table) 10/03/20 10/03/20 10/03/20 Range/Units 11:42 11:42 12:10 RBC (3.80-5.40) m/uL Hgb (11.4-16.0) gm/dL Hct (34.0-46.0) % RDW (11.5-15.5) % Plt Count (150-450) k/uL PT 12.5 H (9.0-12.0) sec INR 1.2 H (<1.2) Fibrinogen 538 H (200-500) mg/dL Sodium (137-145) mmol/L Chloride (98-107) mmol/L BUN (7-17) mg/dL Glucose (74-99) mg/dL POC Glucose (mg/dL) 200 H (75-99) mg/dL AST 38 H (14-36) U/L ALT 54 H (4-34) U/L Alkaline Phosphatase 204 H (38-126) U/L Total Protein 5.4 L (6.3-8.2) g/dL Albumin 2.7 L (3.5-5.0) g/dL 10/03/20 10/03/20 10/04/20 Range/Units 17:17 19:18 05:52 RBC 2.82 L (3.80-5.40) m/uL Hgb 8.6 L (11.4-16.0) gm/dL Hct 25.1 L (34.0-46.0) % RDW 18.9 H (11.5-15.5) % Plt Count 69 L (150-450) k/uL PT (9.0-12.0) sec INR (<1.2) Fibrinogen (200-500) mg/dL Sodium (137-145) mmol/L Chloride (98-107) mmol/L BUN (7-17) mg/dL Glucose (74-99) mg/dL POC Glucose (mg/dL) 204 H 217 H (75-99) mg/dL AST (14-36) U/L ALT (4-34) U/L Alkaline Phosphatase (38-126) U/L Total Protein (6.3-8.2) g/dL Albumin (3.5-5.0) g/dL 10/04/20 10/04/20 10/04/20 Range/Units 05:52 05:52 07:34 RBC (3.80-5.40) m/uL Hgb (11.4-16.0) gm/dL Hct (34.0-46.0) % RDW (11.5-15.5) % Plt Count (150-450) k/uL PT 13.8 H (9.0-12.0) sec INR 1.4 H (<1.2) Fibrinogen (200-500) mg/dL Sodium 130 L (137-145) mmol/L Chloride 96 L (98-107) mmol/L BUN 21 H (7-17) mg/dL Glucose 143 H (74-99) mg/dL POC Glucose (mg/dL) 128 H (75-99) mg/dL AST (14-36) U/L ALT 50 H (4-34) U/L Alkaline Phosphatase 196 H (38-126) U/L Total Protein 4.9 L (6.3-8.2) g/dL Albumin 2.4 L (3.5-5.0) g/dL 10/04/20 Range/Units 12:06 RBC (3.80-5.40) m/uL Hgb (11.4-16.0) gm/dL Hct (34.0-46.0) % RDW (11.5-15.5) % Plt Count (150-450) k/uL PT (9.0-12.0) sec INR (<1.2) Fibrinogen (200-500) mg/dL Sodium (137-145) mmol/L Chloride (98-107) mmol/L BUN (7-17) mg/dL Glucose (74-99) mg/dL POC Glucose (mg/dL) 165 H (75-99) mg/dL AST (14-36) U/L ALT (4-34) U/L Alkaline Phosphatase (38-126) U/L Total Protein (6.3-8.2) g/dL Albumin (3.5-5.0) g/dL Microbiology - Last 24 Hours (Table) 10/02/20 17:45 Urine Culture - Preliminary Urine,Clean Catch Group D Enterococcus 10/02/20 18:31 Blood Culture - Preliminary Blood No Growth after 24 hours Assessment and Plan (1) Altered mental status Narrative/Plan: Hyponatremia improved, Na+ 130 today. When seen patient still confused, lethargic. Nursing reports fever 101.4F. UA from 2 days ago, small colony of group D enterococcus. Blood cultures, one from the port and one peripherally, negative. ID consulted Current Visit: Yes Status: Acute Priority: High Code(s): R41.82 - ALTERED MENTAL STATUS, UNSPECIFIED SNOMED Code(s): 874967666 (2) Hyponatremia Narrative/Plan: SIADH, treatment/cancer related. Baseline Na+ in the mid to high 120's. Nephrology following. Pt is on fluid restrictions and started on sodium tablets. Current Visit: Yes Status: Acute Priority: High Code(s): E87.1 - HYPO- OSMOLALITY AND HYPONATREMIA SNOMED Code(s): 69655498 (3) Pancreatic cancer Narrative/Plan: Pt is not a surgical candidate. Treatment was adjusted, 1 drug dropped and pt still did not tolerate treatment. No more treatment until pt sees Primary Onc next week to discuss further plan of care. Patient and family are in agreement with this plan. They know appointment date and time. It has been documented in the chart as well Current Visit: Yes Status: Chronic Priority: Medium Code(s): C25.9 - MALIGNANT NEOPLASM OF PANCREAS, UNSPECIFIED SNOMED Code(s): 269968953 Plan: Hemoglobin is stable, plt continue to decrease. Yusuf cultures ordered, Urine +, 101.4 temp, ID consulted. DIC workup neg. CTA pending Seizure activity-Neurology following, anti-seizure meds ordered. Service Desk Director consulted for vaginal bleeding
[2020-10-04] MEDS ORDERED: SODIUM CHLORIDE 0.9% 500 ML 500 ML IV ONE (14:05)
[2020-10-04] MEDS: SODIUM CHLORIDE 0.9% 1,000 ML IV SCH (14:40)
[2020-10-04 14:51] LABS: Appearance,Urine Clear (Clear); Bilirubin,Urine Negative (Negative); Blood,Urine Small (Negative); Color,Urine Yellow; Glucose,Urine (UA) Negative (Negative); Hyaline Casts,Urine 3 /lpf (0-2); Ketones,Urine Negative (Negative); Leukocyte Esterase,Urine Negative (Negative); Mucus,Urine Rare /hpf; Nitrite,Urine Negative (Negative); Protein,Urine Trace (Negative); RBC,Urine 1 /hpf (0-5); Specific Gravity,Urine 1.019 (1.001-1.035); Urobilinogen,Urine <2.0 mg/dL (<2.0); WBC,Urine 1 /hpf (0-5)
[2020-10-04] MEDS: ASCORBIC ACID 500 MG TAB PO SCH (17:03)
[2020-10-04] MEDS: ATORVASTATIN 40 MG TAB PO SCH (17:04)
[2020-10-04] MEDS: CEFEPIME 2 GM in SODIUM CHLORIDE 0.9% 100 ML IVPB SCH (17:06)
[2020-10-04 17:48] LABS: Glucose,Whole Blood 232 mg/dL (75-99)
[2020-10-04 18:46] LABS: African American GFR (CKD) >90 (>60 ml/min/1.73 sqM); Anion Gap 6 mmol/L; Blood Urea Nitrogen 25 mg/dL (7-17); Carbon Dioxide 26 mmol/L (22-30); Chloride 98 mmol/L (98-107); Glucose 199 mg/dL (74-99); Non-African American GFR(CKD) 86 (>60 ml/min/1.73 sqM); Potassium 4.3 mmol/L (3.5-5.1); Sodium 130 mmol/L (137-145)
[2020-10-04 20:08] LABS: LD Isoenzymes 1 18 % (19-38); LD Isoenzymes 2 34 % (30-43); LD Isoenzymes 3 16 % (16-26); LD Isoenzymes 4 10 % (3-12); LD Isoenzymes 5 22 % (3-14); Lactacte Dehydrogenase(LD) ISO 265 U/L (120-250)
[2020-10-04 20:57] LABS: Glucose,Whole Blood 197 mg/dL (75-99)
--- NOTE | 2020-10-04 21:43 | P.CONS ---
History of Present Illness - Reason for Consult Consult date: 10/04/20 Fever Requesting physician: Vita Hernandez - Chief Complaint Fever x few days - History of Present Illness History of present illness : Patient is 80-year female with a past medical history sniffing for pancreatic cancer with the patient is currently undergoing chemotherapy last chemo was more than a week ago and this patient presented to hospital on 09/27/2020 for evaluation of mental status changes that apparently started an hour before presentation to the hospital patient was having some abdominal pain on and was minimally responsive patient on presentat ion to the hospital have a CT abdominal pelvis which shows large infiltrative mesenteric mass involving the pancreatic head and adjacent duodenum and stomach increase as of the nodular lesion suggestive of lymphadenopathy no bowel obstruction or free fluid patient has been in the hospital for about a week now patient on admission to the hospital was afebrile patient did have a low-grade fever on the however she did spike a fever of 101.2 F this morning that has prompted this infectious disease consultation, patient remains to be slightly lethargic and sleepy today however the patient is currently on room air and had no need for supplemental oxygen patient did have urine culture done on culture showing group D Enterococcus unfortunately no UA was done she did have blood cultures on the which are negative so far kidney function was normal [place] PCR was negative patient did have brain MRI no enhancing mass however there is evidence of small vessel disease patient is currently being treated with the cefepime and vancomycin most information has been extracted from review the chart as the patient acid was elevated good historian Review of system: Positive point has been mentioned in HPI complete review could not be obtained because of underlying mental status Past medical history : Reviewed, documented below Past surgical history : Reviewed, documented below Social history: Reviewed, documented below Medications: Reviewed, as documented below GENERAL DESCRIPTION: Elderly female male lying in bed, no distress. No tachypnea or accessory muscle of respiration use. HEENT: Shows Pallor , no scleral icterus. Oral mucous membrane is dry. NECK: Trachea central, no thyromegaly. LUNGS: Unlabored breathing. Clear to auscultation anteriorly. No wheeze or crac kle. HEART: S1, S2, regular rate and rhythm. ABDOMEN: Soft, mild tenderness ,no guarding or rigidity EXTREMITIES: No edema of feet. SKIN: No rash, no masses palpable. NEUROLOGICAL: The patient is sleepy but arousable but did not communicate LABS AND RADIOLOGY: Reviewed results see below Assessment : Patient with an episode of fever this morning in this patient has been running a low-grade fever the last 3 days admitted to the hospital with mental status changes in this patient who do have a history of pancreatic cancer on chemotherapy, patient did have a CT abdominal pelvis on admission which did show some infiltrative malignancy of the pancreatic head but no evidence of any obstruction MRI of the brain did not show any acute findings patient is showing Enterococcus in the urine with the source of fever possible UTI however other etiologies such as port infection and abdominal source need to be ruled out Plan: 1-we will obtain blood culture peripherally and from the court 2-check a UA and cultures 3-continue with the vancomycin and cefepime 4-may need to repeat CT abdominal pelvis if the UA turned out to be negative We will follow on clinical condition and cultures to further adjust medication if needed Thank you for this consultation we will follow the patient along with you Past Medical History Past Medical History: Cancer, Diabetes Mellitus, Hyperlipidemia, Hypertension Additional Past Medical History / Comment(s): colon polyps. PANCREATIC CANCER. History of Any Multi-Drug Resistant Organisms: None Reported Past Surgical History: Breast Surgery, Cholecystectomy, Tubal Ligation Additional Past Surgical History / Comment(s): colonoscopy, bx of mass 05/05/20, left breast lumpectomy benign 40 years ago, jaw surgery 50 years ago r/t broken jaw, eyelid surgery to "get the bags out" Past Anesthesia/Blood Transfusion Reactions: Motion Sickness Past Psychological History: No Psychological Hx Reported Additional Psychological History / Comment(s): Pt resides at home, daughter has been staying with her since April. She has been using a rollator walker. Her serena has been doing the driving. Smoking Status: Former smoker Past Alcohol Use History: Unable to Obtain Additional Past Alcohol Use History / Comment(s): Pt started smoking in 1955 and quit in 1995 but was always a lite smoker. Past Drug Use History: Unable to Obtain - Past Family History Mother Additional Family Medical History / Comment(s): addisons disease Father Family Medical History: Coronary Artery Disease (CAD) Medications and Allergies Home Medications Medication Instructions Recorded Confirmed Type Atorvastatin [Lipitor] 80 mg PO DAILY@1800 04/24/20 09/27/20 History Raloxifene [Evista] 60 mg PO DAILY@0600 04/24/20 09/27/20 History Triple Flex 1 tab PO BID@1200,0000 04/24/20 09/27/20 History Aspirin [Adult Low Dose Aspirin EC] 81 mg PO DAILY@0000 04/29/20 09/27/20 History Ondansetron Odt [Zofran ODT] 4 mg PO Q6H PRN 06/04/20 09/27/20 History Sennosides/Docusate Sodium [Senna 1 cap PO BID@0600,0000 06/04/20 09/27/20 Hist ory Plus 8.6-50 mg Softgel] Dronabinol [Marinol] 2.5 mg PO BID@0600,0000 09/08/20 09/27/20 History Famotidine [Pepcid] 20 mg PO BID@1200,1800 09/08/20 09/27/20 History Magnesium Oxide [Magox 400] 400 mg PO BID@0600,0000 09/08/20 09/27/20 History Pantoprazole Sodium 40 mg PO DAILY@0600 09/08/20 09/27/20 History atenoloL 25 mg PO BID@1200,0000 09/08/20 09/27/20 History fentaNYL 50MCG/HR PATCH [Duragesic 1 patch TRANSDERM Q72H 09/08/20 09/27/20 History 50MCG/HR] metFORMIN HCL ER [Glucophage XR] 500 mg PO DAILY@0600 09/08/20 09/27/20 History oxyCODONE HCL [OxyIR] 5 mg PO QID@0600,12,18,0000 09/08/20 09/27/20 History Ascorbic Acid [Vitamin C] 1,000 mg PO DAILY@1800 09/27/20 09/27/20 History Docusate 250mg 250 mg PO DAILY@1200 09/27/20 09/27/20 History Motion Sickness Patch 1 patch TRANSDERM Q72H PRN 09/27/20 09/27/20 History Pancreatic Enzyme 500 mg PO DAILY@0600 09/27/20 09/27/20 History Vit C/E/Zn/Coppr/Lutein/Zeaxan 1 cap PO BID@1200,0000 09/27/20 09/27/20 History [Preservision Areds 2 Softgel] Meclizine [Antivert] 25 mg PO DAILY PRN 09/28/20 09/28/20 History Allergies Allergy/AdvReac Type Severity Reaction Status Date / Time levofloxacin [From Levaquin] Allergy Itching Verified 10/04/20 11:28 shellfish derived [Lobster] Allergy Nausea & Verified 09/08/20 21:21 Vomiting Physical Exam Vitals: Vital Signs Temp Pulse Resp BP BP Pulse Ox 10/04/20 20:25 97.6 F 78 16 108/55 97 10/04/20 17:28 99 F 82 16 92/53 93 L 10/04/20 15:27 102/60 10/04/20 12:34 100.4 F H 63 14 80/49 94 L 10/04/20 10:30 101.2 F H 10/04/20 09:00 80 18 10/04/20 04:31 98.6 F 80 18 107/66 97 Intake and Output 10/04/20 10/04/20 10/04/20 06:59 14:59 22:59 Intake Total 400 Output Total 200 300 Balance -200 100 Intake: Oral 400 Output: Urine 200 300 Other: Voiding Method Diaper Weight 81.647 kg Results CBC & Chem 7: 10/04/20 05:52 10/04/20 18:09 Labs: Abnormal Lab Results - Last 24 Hours (Table) 10/02/20 10/03/20 10/04/20 Range/Units 06:59 22:34 05:52 RBC 2.82 L (3.80-5.40) m/uL Hgb 8.6 L (11.4-16.0) gm/dL Hct 25.1 L (34.0-46.0) % RDW 18.9 H (11.5-15.5) % Plt Count 69 L (150-450) k/uL PT (9.0-12.0) sec INR (<1.2) Sodium (137-145) mmol/L Chloride (98-107) mmol/L BUN (7-17) mg/dL Glucose (74-99) mg/dL POC Glucose (mg/dL) (75-99) mg/dL Calcium (8.4-10.2) mg/dL Ferritin 2738.9 H (10.0-291.0) ng/mL ALT (4-34) U/L Alkaline Phosphatase (38-126) U/L LD Isoenzymes 265 H (120-250) U/L LD 1 18 L (19-38) % LD 5 22 H (3-14) % Total Protein (6.3-8.2) g/dL Albumin (3.5-5.0) g/dL Urine Protein (Negative) Urine Blood (Negative) Hyaline Casts (0-2) /lpf Urine Mucus (None) /hpf 10/04/20 10/04/20 10/04/20 Range/Units 05:52 05:52 07:34 RBC (3.80-5.40) m/uL Hgb (11.4-16.0) gm/dL Hct (34.0-46.0) % RDW (11.5-15.5) % Plt Count (150-450) k/uL PT 13.8 H (9.0-12.0) sec INR 1.4 H (<1.2) Sodium 130 L (137-145) mmol/L Chloride 96 L (98-107) mmol/L BUN 21 H (7-17) mg/dL Glucose 143 H (74-99) mg/dL POC Glucose (mg/dL) 128 H (75-99) mg/dL Calcium (8.4-10.2) mg/dL Ferritin (10.0-291.0) ng/mL ALT 50 H (4-34) U/L Alkaline Phosphatase 196 H (38-126) U/L LD Isoenzymes (120-250) U/L LD 1 (19-38) % LD 5 (3-14) % Total Protein 4.9 L (6.3-8.2) g/dL Albumin 2.4 L (3.5-5.0) g/dL Urine Protein (Negative) Urine Blood (Negative) Hyaline Casts (0-2) /lpf Urine Mucus (None) /hpf 10/04/20 10/04/20 10/04/20 Range/Units 12:06 14:35 17:46 RBC (3.80-5.40) m/uL Hgb (11.4-16.0) gm/dL Hct (34.0-46.0) % RDW (11.5-15.5) % Plt Count (150-450) k/uL PT (9.0-12.0) sec INR (<1.2) Sodium (137-145) mmol/L Chloride (98-107) mmol/L BUN (7-17) mg/dL Glucose (74-99) mg/dL POC Glucose (mg/dL) 165 H 232 H (75-99) mg/dL Calcium (8.4-10.2) mg/dL Ferritin (10.0-291.0) ng/mL ALT (4-34) U/L Alkaline Phosphatase (38-126) U/L LD Isoenzymes (120-250) U/L LD 1 (19-38) % LD 5 (3-14) % Total Protein (6.3-8.2) g/dL Albumin (3.5-5.0) g/dL Urine Protein Trace H (Negative) Urine Blood Small H (Negative) Hyaline Casts 3 H (0-2) /lpf Urine Mucus Rare H (None) /hpf 10/04/20 10/04/20 Range/Units 18:09 20:56 RBC (3.80-5.40) m/uL Hgb (11.4-16.0) gm/dL Hct (34.0-46.0) % RDW (11.5-15.5) % Plt Count (150-450) k/uL PT (9.0-12.0) sec INR (<1.2) Sodium 130 L (137-145) mmol/L Chloride (98-107) mmol/L BUN 25 H (7-17) mg/dL Glucose 199 H (74-99) mg/dL POC Glucose (mg/dL) 197 H (75-99) mg/dL Calcium 8.0 L (8.4-10.2) mg/dL Ferritin (10.0-291.0) ng/mL ALT (4-34) U/L Alkaline Phosphatase (38-126) U/L LD Isoenzymes (120-250) U/L LD 1 (19-38) % LD 5 (3-14) % Total Protein (6.3-8.2) g/dL Albumin (3.5-5.0) g/dL Urine Protein (Negative) Urine Blood (Negative) Hyaline Casts (0-2) /lpf Urine Mucus (None) /hpf Microbiology - Last 24 Hours (Table) 10/02/20 18:31 Blood Culture - Preliminary Blood No Growth after 48 hours 10/02/20 17:45 Urine Culture - Preliminary Urine,Clean Catch Group D Enterococcus
[2020-10-04] MEDS: INSULIN ASPART (NovoLOG) 100 UNIT/ML VIAL SQ SCH (21:55)
--- NOTE | 2020-10-04 22:38 | P.PN ---
Subjective This is a pleasant 80 years old female with multiple medical problems including diabetes mellitus, hypertension, hyperlipidemia, also she has history of pancreatic cancer. Stage IV Originally she was admitted at 09/27 for altered mental status after chemotherapy on . 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 She was placed on Keppra, MRI of the brain showing atrophy with no mass. Neurologist recommended to transfer the patient if she has negative CT of the chest. However today she became hypotensive with a blood pressure dropped 80/49 with low-grade fever at 100.4. She was already on fluid restriction by client experience administrator, I spoke with Dr. Headley about the case and he agrees to her IV boluses of normal saline. A loss of 500 mL is provided and started on normal saline at 75 mL/h. Her blood pressure improved with systolic at 102. Patient mental improvement was noted after fluid administration however she remains lethargic and mildly encephalopathic most likely secondary to metabolic derangements. However she answers questions appropriately although she keeps her eyes closed most of the time. Sodium this morning was 103. Platelets dropped to 69 WBC is normal at 5.3. CT only of the chest: No pulmonary embolism. Atelectasis. Pancreatic mass and enlarged spleen MRI of the brain as above atrophy with no mass We checked a bladder scan and was normal retention with 100-150 mL . Repeat urinalysis was unremarkable Patient already was started this morning on vancomycin and IV cefepime with infectious disease team She kept on normal saline at 75 mL/h Family at bedside including son and all their questions were answered she is full code with no vent Objective - Vital Signs Vital signs: Vital Signs Temp 100.4 F H 10/04/20 12:34 Pulse 63 10/04/20 12:34 Resp 14 10/04/20 12:34 BP 80/49 10/04/20 12:34 Pulse Ox 94 L 10/04/20 12:34 Intake & Output 10/03/20 10/04/20 10/04/20 18:59 06:59 18:59 Intake Total 480 Balance 480 Weight 81.647 kg Intake: Oral 480 Other: Voiding Method Toilet Diaper Diaper Diaper # Voids 2 - Exam -GENERAL: The patient is awake but generally weak, lethargic and mildly drowsy, not in any acute distress. Well developed, well nourished. HEENT: Pupils are round and equally reacting to light. EOMI. No scleral icterus. No conjunctival pallor. Normocephalic, atraumatic. No pharyngeal erythema. No thyromegaly. CARDIOVASCULAR: S1 and S2 present. No murmurs, rubs, or gallops. PULMONARY: Chest is clear to auscultation, no wheezing or crackles. ABDOMEN: Soft, nontender, nondistended, normoactive bowel sounds. No palpable organomegaly. MUSCULOSKELETAL: No joint swelling or deformity. EXTREMITIES: No cyanosis, clubbing, or pedal edema. NEUROLOGICAL: Gross neurological examination did not reveal any focal deficits. SKIN: No rashes. no petechiae. - Labs CBC & Chem 7: 10/04/20 05:52 10/04/20 18:09 Labs: Abnormal Lab Results - Last 24 Hours (Table) 10/03/20 10/03/20 10/04/20 Range/Units 17:17 19:18 05:52 RBC 2.82 L (3.80-5.40) m/uL Hgb 8.6 L (11.4-16.0) gm/dL Hct 25.1 L (34.0-46.0) % RDW 18.9 H (11.5-15.5) % Plt Count 69 L (150-450) k/uL PT (9.0-12.0) sec INR (<1.2) Sodium (137-145) mmol/L Chloride (98-107) mmol/L BUN (7-17) mg/dL Glucose (74-99) mg/dL POC Glucose (mg/dL) 204 H 217 H (75-99) mg/dL ALT (4-34) U/L Alkaline Phosphatase (38-126) U/L Total Protein (6.3-8.2) g/dL Albumin (3.5-5.0) g/dL 10/04/20 10/04/20 10/04/20 Range/Units 05:52 05:52 07:34 RBC (3.80-5.40) m/uL Hgb (11.4-16.0) gm/dL Hct (34.0-46.0) % RDW (11.5-15.5) % Plt Count (150-450) k/uL PT 13.8 H (9.0-12.0) sec INR 1.4 H (<1.2) Sodium 130 L (137-145) mmol/L Chloride 96 L (98-107) mmol/L BUN 21 H (7-17) mg/dL Glucose 143 H (74-99) mg/dL POC Glucose (mg/dL) 128 H (75-99) mg/dL ALT 50 H (4-34) U/L Alkaline Phosphatase 196 H (38-126) U/L Total Protein 4.9 L (6.3-8.2) g/dL Albumin 2.4 L (3.5-5.0) g/dL 10/04/20 Range/Units 12:06 RBC (3.80-5.40) m/uL Hgb (11.4-16.0) gm/dL Hct (34.0-46.0) % RDW (11.5-15.5) % Plt Count (150-450) k/uL PT (9.0-12.0) sec INR (<1.2) Sodium (137-145) mmol/L Chloride (98-107) mmol/L BUN (7-17) mg/dL Glucose (74-99) mg/dL POC Glucose (mg/dL) 165 H (75-99) mg/dL ALT (4-34) U/L Alkaline Phosphatase (38-126) U/L Total Protein (6.3-8.2) g/dL Albumin (3.5-5.0) g/dL Microbiology - Last 24 Hours (Table) 10/02/20 17:45 Urine Culture - Preliminary Urine,Clean Catch Group D Enterococcus 10/02/20 18:31 Blood Culture - Preliminary Blood No Growth after 24 hours Assessment and Plan Assessment: Stage IV pancreatic cancer Severe sepsis, secondary to UTI versus others, urine culture was growing enterococcus Metabolic encephalopathy, improving Seizure-like activities Hyponatremia Vaginal bleeding, postmenopausal bleeding. Malignancies also suspected Thrombocytopenia, Plan: this is a pleasant 80 years old female with pancreatic cancer, possible sepsis and seizure-like activity. Continue with antibiotics with cefepime and IV vancomycin. Infectious disease team on the case Oncology team on the case for her pancreatic cancer. Neurology service recommended to transfer the patient to [facility] a CTA of the chest was negative, however. During the day her blood pressure was on the low side and now is more stabilized. We will initiate the process of transfer if he still recommended by neurologist and family agree. Patient has seizure-like activity on Keppra. Patient will need video EEG and at [facility] Continue with normal saline at 75 mL/h with close monitoring of blood pressure and sodium level Nephrology team on the case We'll keep monitoring platelet count and if her platelet count drops below 50 to hold her anticoagulation including Lovenox for DVT prophylaxis I contacted the family for transferring the patient to [facility] per neurologist recommendation for video EEG, however her family declined Labs and medication were reviewed.. Continue same treatment. Continue with symptomatic treatment. Resume home medication. Monitor lytes and vitals. DVT and GI prophylaxis. Further recommendations as per clinical course of the patient DVT prophylaxis: Subcutaneous Lovenox GI Prophylaxis: Ppi Prognosis is guarded
[2020-10-05] MEDS: VANCOMYCIN 1,500 MG in SODIUM CHLORIDE 0.9% 250 ML IVPB SCH ×3 (01:18→23:09)
[2020-10-05] MEDS: SODIUM CHLORIDE 0.9% 1,000 ML IV SCH ×2 (01:19→17:53)
[2020-10-05] MEDS: CEFEPIME 2 GM in SODIUM CHLORIDE 0.9% 100 ML IVPB SCH ×3 (01:19→16:46)
[2020-10-05] MEDS: atenoloL 25 MG TAB PO SCH ×2 (01:26→07:24)
[2020-10-05] MEDS: ASPIRIN 81 MG PO SCH (01:26)
[2020-10-05] MEDS: MAGNESIUM OXIDE 400 MG TAB PO SCH ×2 (01:27→06:22)
[2020-10-05] MEDS: SENNOSIDES-DOCUSATE SODIUM 1 EACH TAB PO SCH ×2 (01:28→06:23)
[2020-10-05] MEDS: PANTOPRAZOLE 40 MG TABLET PO SCH (06:22)
[2020-10-05] MEDS: RALOXIFENE 60 MG TAB PO SCH (06:23)
[2020-10-05 07:11] LABS: Anisocytosis Slight; Basophils % (A) 1 %; Eosinophils # (A) 0.1 k/uL (0-0.7); Eosinophils % (A) 2 %; HCT 29.7 % (34.0-46.0); HGB 9.8 gm/dL (11.4-16.0); Hypochromasia Slight; Lymphocytes # (A) 0.7 k/uL (1.0-4.8); Lymphocytes % (A) 11 %; MCH 30.5 pg (25.0-35.0); MCHC 33.1 g/dL (31.0-37.0); Mean Platelet Volume 7.5; Monocytes # (A) 0.2 k/uL (0-1.0); Monocytes % (A) 3 %; Neutrophils # (A) 5.3 k/uL (1.3-7.7); Neutrophils % (A) 82 %; Platelet Count 65 k/uL (150-450); Poikilocytosis Slight; RBC 3.23 m/uL (3.80-5.40); RDW 18.8 % (11.5-15.5); WBC 6.4 k/uL (3.8-10.6)
[2020-10-05 07:21] LABS: Glucose,Whole Blood 117 mg/dL (75-99)
[2020-10-05] MEDS: levETIRAcetam 500 MG TAB PO SCH ×2 (07:24→21:43)
[2020-10-05] MEDS: metFORMIN 500 MG TAB PO SCH ×2 (07:25→16:45)
--- NOTE | 2020-10-05 07:25 | XR ---
EXAMINATION TYPE: XR chest 2V DATE OF EXAM: 10/05/2020 COMPARISON: Chest x-ray 09/27/2020 HISTORY: Fever TECHNIQUE: Frontal and lateral views of the chest are obtained. FINDINGS: Right-sided Port-A-Cath is present as on prior, distal tip is overlying the cavoatrial jie ction level. Heart size is increased, patient is rotated. Aorta is dense. No evident pneumothorax or pleural effusion. Some minimal patchy basilar density noted. IMPRESSION: Subsegmental basilar atelectatic change
[2020-10-05] MEDS: DOCUSATE ORAL SOLN 100 MG/10 ML CUP PO SCH (07:26)
[2020-10-05] MEDS: ENOXAPARIN 40 MG/0.4 ML SYRINGE SQ SCH (07:26)
[2020-10-05] MEDS: INSULIN ASPART (NovoLOG) 100 UNIT/ML VIAL SQ SCH ×4 (07:35→21:43)
--- NOTE | 2020-10-05 08:22 | P.PN ---
Subjective Progress Note Date: 10/04/20 10/04/2020: This is a Tele-neurology follow performed on the patient today on 10/04/2020. Patient's son and [id number] were present. Patient continues to be very lethargic. Patient underwent CTA of the chest, which was suboptimal exam to exclude pulmonary embolism and segmental branches. No central pulmonary embolus. Patient has been started on DVT prophylaxis. Patient sodium is 130, hemoglobin 8.6. Patient now has developed temperatures of 101.2 Fahrenheit. Infectious disease consult has been initiated. Her antibiotics have been changed. Patient is returning no blood pressure 80/49. Patient possibly getting some infection. Her seizure-like activity could be rigors/chills from upcoming infection. 10/03/2020: Patient apparently had another similar spell. Patient received Ativan 0.5 mg for MRI at 10:30 AM. After the MRI, patient was snoring, and about 10 minutes ago, she woke up and had a similar spell, in which her arms or flexing, hence in the tight drum puller with some mild tremoring of the upper and lower extremities. Her head was shaking. She now again in the post ictal state. Patient yesterday had a post ictal state that lasted for 3 hours. Then she woke up gradually and was completely back to baseline as per patient's son and [id number]. 10/02/2020: Patient apparently had another similar spell. Patient's son was present. Patient was trying to get to the recliner, when suddenly she froze, had a blank stare, and then reportedly was slightly stiff, but no convulsive activity otherwise. Patient lost control of urine with this spell. No tongue bite. Patient then again became post ictal for about 30-45 minutes. Now back to normal. Patient did not feel cold or chills before this event started. Meaghan eugene's vitals again continue to be stable throughout this event. 10/01/2020: Patient is a 80-year-old female initially seen by Dr. Chilango Mcdermott. Please refer to his note for details. Patient came with altered mental status. Patient has stage IV pancreatic cancer. She was found to have low sodium of 121. Her blood pressure was also low 70. When patient was examined by Dr. Mcdermott, patient was alert and oriented 3. Neurology had signed off. Neurology was reconsulted today for an acute episode of altered mental status and unresponsiveness, that occurred at around 12 noon. Patient's son and [id number] are present. They reported that patient was doing fine in the morning. She had her breakfast. Patient was later sitting in the recliner when she started shivering, shaking. She then broke out in sweat. The nurse was getting a heated blanket, the patient started having a seizure-like episode in which she stiffened up with arms flexed on the chest, and was shaking and became unresponsive. Her blood pressure at that time was systolic between 160-170, heart rate in the 150s. Patient did not bite her tongue or lost control of urine. The episode lasted for a few minutes. Stat computed tomography scan was performed, which showed no acute intracranial abnormality. Stable mild generalized atrophy and mild burden of chronic small vessel ischemic disease. I came to see patient immediately. Patient was laying in the bed, very lethargic, somnolent. Patient would open her eyes, follows minimal commands as mentioned in the examination. Her examination was relatively nonfocal. No seizure-like activity was noted at that time. Objective - Vital Signs Vital signs: Vital Signs Temp 100.4 F H 10/04/20 12:34 Pulse 63 10/04/20 12:34 Resp 14 10/04/20 12:34 BP 80/49 10/04/20 12:34 Pulse Ox 94 L 10/04/20 12:34 Intake & Output 10/03/20 10/04/20 10/04/20 18:59 06:59 18:59 Intake Total 480 Balance 480 Weight 81.647 kg Intake: Oral 480 Other: Voiding Method Toilet Diaper Diaper Diaper # Voids 2 - Exam Patient laying in the bed, in no respiratory distress. Patient is lethargic. Does open her eyes, talks slowly and then goes back to sleep. Her examination has been nonfocal. Face is symmetric. Tone is equal. - Labs CBC & Chem 7: 10/05/20 06:05 10/04/20 18:09 Labs: Abnormal Lab Results - Last 24 Hours (Table) 10/03/20 10/03/20 10/03/20 Range/Units 11:42 17:17 19:18 RBC (3.80-5.40) m/uL Hgb (11.4-16.0) gm/dL Hct (34.0-46.0) % RDW (11.5-15.5) % Plt Count (150-450) k/uL PT 12.5 H (9.0-12.0) sec INR 1.2 H (<1.2) Fibrinogen 538 H (200-500) mg/dL Sodium (137-145) mmol/L Chloride (98-107) mmol/L BUN (7-17) mg/dL Glucose (74-99) mg/dL POC Glucose (mg/dL) 204 H 217 H (75-99) mg/dL ALT (4-34) U/L Alkaline Phosphatase (38-126) U/L Total Protein (6.3-8.2) g/dL Albumin (3.5-5.0) g/dL 10/04/20 10/04/20 10/04/20 Range/Units 05:52 05:52 05:52 RBC 2.82 L (3.80-5.40) m/uL Hgb 8.6 L (11.4-16.0) gm/dL Hct 25.1 L (34.0-46.0) % RDW 18.9 H (11.5-15.5) % Plt Count 69 L (150-450) k/uL PT 13.8 H (9.0-12.0) sec INR 1.4 H (<1.2) Fibrinogen (200-500) mg/dL Sodium 130 L (137-145) mmol/L Chloride 96 L (98-107) mmol/L BUN 21 H (7-17) mg/dL Glucose 143 H (74-99) mg/dL POC Glucose (mg/dL) (75-99) mg/dL ALT 50 H (4-34) U/L Alkaline Phosphatase 196 H (38-126) U/L Total Protein 4.9 L (6.3-8.2) g/dL Albumin 2.4 L (3.5-5.0) g/dL 10/04/20 10/04/20 Range/Units 07:34 12:06 RBC (3.80-5.40) m/uL Hgb (11.4-16.0) gm/dL Hct (34.0-46.0) % RDW (11.5-15.5) % Plt Count (150-450) k/uL PT (9.0-12.0) sec INR (<1.2) Fibrinogen (200-500) mg/dL Sodium (137-145) mmol/L Chloride (98-107) mmol/L BUN (7-17) mg/dL Glucose (74-99) mg/dL POC Glucose (mg/dL) 128 H 165 H (75-99) mg/dL ALT (4-34) U/L Alkaline Phosphatase (38-126) U/L Total Protein (6.3-8.2) g/dL Albumin (3.5-5.0) g/dL Microbiology - Last 24 Hours (Table) 10/02/20 17:45 Urine Culture - Preliminary Urine,Clean Catch Group D Enterococcus 10/02/20 18:31 Blood Culture - Preliminary Blood No Growth after 24 hours Assessment and Plan Assessment: * Recurrent episodes of possible seizure/seizure-like activity. Syncope unlikely, as patient's vitals were relatively normal, patient was tachycardic and blood pressure was in 160-170 systolic. Her seizure-like activity could be related to chills/rigors related to upcoming infection. Patient now has developed high fevers suggestive of an acute infection. * History of hyponatremia. Hyponatremia likely not the cause of current spell. Today her sodium is 130. * Acute on chronic hyponatremia * Abdominal pain * History of pancreatic cancer (May 2020) on chemotherapy and last dose is this past * Diabetes mellitus * History Hypertension Plan: * Patient now has developed fever, and evidence of significant infection. She is hypotensive. Her antibiotics have been changed. Infectious disease consult has been requested. I discussed with the family about potential transfer to higher level of care for continuous EEG monitoring. They want to hold off on transfer for the next 24 hours. As changing in the antibiotics, treatment of infection may prevent further "seizure type spells", and her mentation hopefully will improve. * Continue Keppra to 500 mg twice a day. * MRI of the brain with and without contrast revealed age-related changes of atrophy and chronic small vessel ischemia. No enhancing mass to suggest metastatic disease. * CTA of the chest negative for pulmonary embolism. Although it was a limited study. * 2-D echo shows normal left ventricular size. Mild concentric LVH. EF is between 55-60%. Aortic valve is trileaflet in is moderately thickened. Moderate aortic stenosis. * Cardiology input appreciated. Syncopal spells likely not cardiology related. * EEG was abnormal EEG due to background slowing of at least moderate degree. This is suggestive of generalized cerebral dysfunction as can be seen with toxic metabolic encephalopathy or related to diffuse structural brain abnormality. Triphasics waves were occasionally seen, which can be seen with hepatic encephalopathy. Clinical correlation is recommended. We will check ammonia. * Serum ammonia is normal. Prolactin level 11.6, which is within normal range. * B12 557 on 08/07/2020. TFTs normal. Serum cortisol is 26.5/22.4. Hemoglobin A1c 5.5. * Carotid Doppler showed moderate atherosclerotic changes at the bifurcation but without any hemodynamically significant ICA stenosis on either side. Antegrade flow in both vertebral arteries. * Discussed with patient's family. We will follow.
[2020-10-05] MEDS: SODIUM CHLORIDE TAB 1 GM TAB PO SCH ×2 (08:32→21:43)
--- NOTE | 2020-10-05 09:20 | P.PN ---
Subjective Patient is seen in follow-up for hyponatremia. Sodium level stable at 130 as of yesterday evening. Oral intake is fair. Good urine output. Patient became hypotensive and also had a fever yesterday. She received a liter bolus of normal saline and is now maintained on normal saline at 75 mL an hour. Blood pressure this morning is stable. Afebrile now. Vital signs are stable. General: The patient appeared well nourished and normally developed. HEENT: Head exam is unremarkable. Neck is without jugular venous distension. LUNGS: Breath sounds decreased. HEART: Rate and Rhythm are regular. ABDOMEN: Soft, no distention. EXTREMITITES: No edema. Objective - Vital Signs Vital signs: Vital Signs Temp 98.1 F 10/05/20 08:45 Pulse 75 10/05/20 08:45 Resp 18 10/05/20 08:45 BP 106/69 10/05/20 08:45 Pulse Ox 97 10/05/20 04:37 Intake & Output 10/04/20 10/05/20 10/05/20 18:59 06:59 18:59 Intake Total 400 1280 Output Total 500 Balance -100 1280 Weight 81.647 kg Intake: Intake, IV Titration 1250 Amount Cefepime 2 gm In Sodium 100 Chloride 0.9% 100 ml @ 25 mls/hr IVPB Q8HR [facility] Rx# :[id number] Sodium Chloride 0.9% 1, 900 000 ml @ 75 mls/hr IV . [id number] [facility] Rx#:[id number] Vancomycin 1,500 mg In 250 Sodium Chloride 0.9% 250 ml @ 125 mls/hr IVPB Q12H [facility] Rx#:[id number] Oral 400 30 Output: Urine 500 Other: Voiding Method Diaper Diaper - Labs CBC & Chem 7: 10/05/20 06:05 10/04/20 18:09 Labs: Abnormal Lab Results - Last 24 Hours (Table) 10/02/20 10/03/20 10/04/20 Range/Units 06:59 22:34 12:06 RBC (3.80-5.40) m/uL Hgb (11.4-16.0) gm/dL Hct (34.0-46.0) % RDW (11.5-15.5) % Plt Count (150-450) k/uL Lymphocytes # (1.0-4.8) k/uL Sodium (137-145) mmol/L BUN (7-17) mg/dL Glucose (74-99) mg/dL POC Glucose (mg/dL) 165 H (75-99) mg/dL Calcium (8.4-10.2) mg/dL Ferritin 2738.9 H (10.0-291.0) ng/mL LD Isoenzymes 265 H (120-250) U/L LD 1 18 L (19-38) % LD 5 22 H (3-14) % Urine Protein (Negative) Urine Blood (Negative) Hyaline Casts (0-2) /lpf Urine Mucus (None) /hpf 10/04/20 10/04/20 10/04/20 Range/Units 14:35 17:46 18:09 RBC (3.80-5.40) m/uL Hgb (11.4-16.0) gm/dL Hct (34.0-46.0) % RDW (11.5-15.5) % Plt Count (150-450) k/uL Lymphocytes # (1.0-4.8) k/uL Sodium 130 L (137-145) mmol/L BUN 25 H (7-17) mg/dL Glucose 199 H (74-99) mg/dL POC Glucose (mg/dL) 232 H (75-99) mg/dL Calcium 8.0 L (8.4-10.2) mg/dL Ferritin (10.0-291.0) ng/mL LD Isoenzymes (120-250) U/L LD 1 (19-38) % LD 5 (3-14) % Urine Protein Trace H (Negative) Urine Blood Small H (Negative) Hyaline Casts 3 H (0-2) /lpf Urine Mucus Rare H (None) /hpf 10/04/20 10/05/20 10/05/20 Range/Units 20:56 06:05 07:19 RBC 3.23 L (3.80-5.40) m/uL Hgb 9.8 L (11.4-16.0) gm/dL Hct 29.7 L (34.0-46.0) % RDW 18.8 H (11.5-15.5) % Plt Count 65 L (150-450) k/uL Lymphocytes # 0.7 L (1.0-4.8) k/uL Sodium (137-145) mmol/L BUN (7-17) mg/dL Glucose (74-99) mg/dL POC Glucose (mg/dL) 197 H 117 H (75-99) mg/dL Calcium (8.4-10.2) mg/dL Ferritin (10.0-291.0) ng/mL LD Isoenzymes (120-250) U/L LD 1 (19-38) % LD 5 (3-14) % Urine Protein (Negative) Urine Blood (Negative) Hyaline Casts (0-2) /lpf Urine Mucus (None) /hpf Microbiology - Last 24 Hours (Table) 10/02/20 18:31 Blood Culture - Preliminary Blood No Growth after 48 hours 10/02/20 17:45 Urine Culture - Preliminary Urine,Clean Catch Group D Enterococcus Assessment and Plan Plan: Assessment: 1. 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 Urine sodium 109 and urine osmolality 563. Sodium level 130 as of yesterday. Status post [facility] October 02. TSH normal. Cortisol level not low. 2. Pancreatic cancer maintained on chemotherapy. 3. Diabetes mellitus. 4. Hypokalemia from poor intake. Replaced. Better. 5. Seizure. On Keppra. Neurology following. 6. Mild hypomagnesemia from poor intake. Status post IV magnesium. Also on oral magnesium oxide. 7. UTI. Urine culture positive for group D enterococcus on antibiotics. Plan: 1200 mL fluid restriction. Maintain sodium chloride tabs. Encouraged oral intake, especially protein. Maintain normal saline for now. Follow-up morning labs.
[2020-10-05 09:56] LABS: African American GFR (CKD) 98.4 (60.0-200.0); Albumin 2.8 g/dL (3.80-4.90); Albumin/Globulin Ratio 1.22 (1.60-3.17); Anion Gap 9.2 mmol/L (4.00-12.00); BUN/Creat Ratio 41.67 Ratio (12.00-20.00); C Reactive Protein 8.1 mg/dL (0.0-0.8); Calcium 8.6 mg/dL (8.7-10.3); Carbon Dioxide 26.8 mmol/L (21.6-31.8); Globulin 2.3 g/dL (1.6-3.3); Magnesium 2.1 mg/dL (1.5-2.4); Non-African American GFR(CKD) 84.9 (60.0-200.0); Potassium 4.4 mmol/L (3.5-5.5); Total Bilirubin 0.8 mg/dL (0.3-1.2); Total Protein 5.1 g/dL (6.2-8.2)
--- NOTE | 2020-10-05 10:40 | P.CONS ---
History of Present Illness - Reason for Consult Consult date: 09/28/20 Syncope, low na+, pancr ca - History of Present Illness Mrs. Cruz is an 80-year-old female patient of Dr. Ag who presented to [facility] 04/27 with c/o progressive abdomen and back pain with associated anorexia and weight loss 45 pounds in 6 months. She was found to have a large 10 cm mass in the retroperitoneal space, thought to represent a pancreatic tumor. EGD was negative. 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 She ended up being admitted again at the end of May with a GI bleed, she had a prolonged hospitalization and rehabilitation at [facility]. She was finally seen for her first follow-up visit May 2020, was referred to Dr. Jang at [facility] to evaluate patient and see if she is a candidate for surgical resection, which she was. She currently has completed 3 full cycles of neoadjuvant Gemzar/Abraxane plus an additional 1 day. She has had overall poor physical tolerance to treatment, hematologically she has done ok. She was due for CT imaging and follow-up with Dr. Jang for possible Whipple procedure, in the first week of 09/27. After each cycle patient has struggled with weakness, decreased appetite and prolonged fatigue, all starting very soon after treatment (same day soon). Patient had an admission on 09/09/20, with complains of 5 days of constipation. 2 days prior, she began experiencing nausea and vomiting, her oral intake decreased substantially, she became weak in general and confused which is what prompted family to bring her in to hospital for evaluation. On admission her sodium level was 119, as of note patient's sodium level has been decreased in the mid 120 range since at least May of this year. The patient was felt to have hyponatremia both due to hypovolemia from dehydration, as well as likely SIADH from chemotherapy and thiazide diuretic. She was seen by nephrology and managed with controlled, limited hydration with improvement. She was subsequently able to be discharged. He is brought to the ER this time as she had become minimally responsive after complaining of some abdominal pain. CT of the abdomen and pelvis in the ER showed the known mass associated with the pancreas. Sodium on admission was 121 compared to 127 at her previous discharge CT of the brain did not show any specific changes. EKG was positive only for sinus tachycardia, with no new findings Review of Systems Constitutional: Reports fatigue, Reports weakness, Reports weight loss Eyes: denies blurred vision, denies pain Ears: deny: decreased hearing, ear discharge, earache, tinnitus Ears, nose, mouth and throat: Denies headache, Denies sore throat Cardiovascular: Reports decreased exercise tolerance Respiratory: Denies cough Gastrointestinal: Reports as per HPI Genitourinary: Reports urinary frequency, Denies dysuria, Denies hematuria Menstruation: Reports postmenopausal Musculoskeletal: Reports muscle weakness Integumentary: Denies pruritus, Denies rash Neurological: Reports as per HPI, Reports change in mentation, Reports weakness Psychiatric: Denies anxiety, Denies depression Endocrine: Reports as per HPI, Reports fatigue, Reports weight change Hematologic/Lymphatic: Reports as per HPI Past Medical History Past Medical History: Cancer, Diabetes Mellitus, Hyperlipidemia, Hypertension Additional Past Medical History / Comment(s): colon polyps. PANCREATIC CANCER. History of Any Multi-Drug Resistant Organisms: None Reported Past Surgical History: Breast Surgery, Cholecystectomy, Tubal Ligation Additional Past Surgical History / Comment(s): colonoscopy, bx of mass 05/05/20, left breast lumpectomy benign 40 years ago, jaw surgery 50 years ago r/t broken jaw, eyelid surgery to "get the bags out" Past Anesthesia/Blood Transfusion Reactions: Motion Sickness Past Psychological History: No Psychological Hx Reported Smoking Status: Former smoker Past Alcohol Use History: Unable to Obtain Past Drug Use History: Unable to Obtain - Past Family History Mother Additional Family Medical History / Comment(s): addisons disease Father Family Medical History: Coronary Artery Disease (CAD) Medications and Allergies Home Medications Medication Instructions Recorded Confirmed Type Atorvastatin [Lipitor] 80 mg PO DAILY@1800 04/24/20 09/27/20 History Raloxifene [Evista] 60 mg PO DAILY@0600 04/24/20 09/27/20 History Triple Flex 1 tab PO BID@1200,0000 04/24/20 09/27/20 History Aspirin [Adult Low Dose Aspirin EC] 81 mg PO DAILY@0000 04/29/20 09/27/20 History Ondansetron Odt [Zofran ODT] 4 mg PO Q6H PRN 06/04/20 09/27/20 History Sennosides/Docusate Sodium [Senna 1 cap PO BID@0600,0000 06/04/20 09/27/20 History Plus 8.6-50 mg Softgel] Dronabinol [Marinol] 2.5 mg PO BID@0600,0000 09/08/20 09/27/20 History Famotidine [Pepcid] 20 mg PO BID@1200,1800 09/08/20 09/27/20 History Magnesium Oxide [Magox 400] 400 mg PO BID@0600,0000 09/08/20 09/27/20 History Pantoprazole Sodium 40 mg PO DAILY@0600 09/08/20 09/27/20 History atenoloL 25 mg PO BID@1200,0000 09/08/20 09/27/20 History fentaNYL 50MCG/HR PATCH [Duragesic 1 patch TRANSDERM Q72H 09/08/20 09/27/20 History 50MCG/HR] metFORMIN HCL ER [Glucophage XR] 500 mg PO DAILY@0600 09/08/20 09/27/20 History oxyCODONE HCL [OxyIR] 5 mg PO QID@0600,12,18,0000 09/08/20 09/27/20 History Ascorbic Acid [Vitamin C] 1,000 mg PO DAILY@1800 09/27/20 09/27/20 History Docusate 250mg 250 mg PO DAILY@1200 09/27/20 09/27/20 History Motion Sickness Patch 1 patch TRANSDERM Q72H PRN 09/27/20 09/27/20 History Pancreatic Enzyme 500 mg PO DAILY@0600 09/27/20 09/27/20 History Vit C/E/Zn/Coppr/Lutein/Zeaxan 1 cap PO BID@1200,0000 09/27/20 09/27/20 History [Preservision Areds 2 Softgel] Meclizine [Antivert] 25 mg PO DAILY PRN 09/28/20 09/28/20 History Allergies Allergy/AdvReac Type Severity Reaction Status Date / Time levofloxacin [From Levaquin] Allergy Itching Verified 10/04/20 11:28 shellfish derived [Lobster] Allergy Nausea & Verified 09/08/20 21:21 Vomiting Physical Exam Vitals: Vital Signs Temp Pulse Resp BP Pulse Ox 09/28/20 13:07 69 17 99/41 09/28/20 11:09 65 18 110/52 09/28/20 07:00 64 19 97/49 09/28/20 03:43 64 16 87/41 100 09/28/20 00:00 67 16 79/42 100 09/27/20 18:18 98.9 F 96 16 93/49 98 Intake and Output 09/27/20 09/28/20 09/28/20 22:59 06:59 14:59 Other: Weight 81.647 kg - Constitutional General appearance: no acute distress - EENT Eyes: EOMI, PERRLA, poor dentition ENT: hearing grossly normal - Neck Neck: no lymphadenopathy Thyroid: bilateral: normal size - Respiratory Respiratory: bilateral: CTA - Cardiovascular Rhythm: regular Heart sounds: normal: S1, S2 - Gastrointestinal General gastrointestinal: normal bowel sounds, soft - Integumentary Integumentary: normal - Neurologic Neurologic: CNII-XII intact - Musculoskeletal Musculoskeletal: generalized weakness, strength equal bilaterally - Psychiatric Psychiatric: A&O x's 3, appropriate affect Results CBC & Chem 7: 10/05/20 06:05 10/05/20 06:05 Labs: Abnormal Lab Results - Last 24 Hours (Table) 09/27/20 09/27/20 09/27/20 Range/Units 18:30 18:31 18:31 WBC 15.0 H (3.8-10.6) k/uL RBC 3.33 L (3.80-5.40) m/uL Hgb 9.9 L (11.4-16.0) gm/dL Hct 29.1 L (34.0-46.0) % RDW 18.2 H (11.5-15.5) % Neutrophils # (Manual) 14.70 H (1.3-7.7) k/uL Lymphocytes # (Manual) 0.15 L (1.0-4.8) k/uL PT 13.9 H (9.0-12.0) sec INR 1.4 H (<1.2) APTT 19.7 L (22.0-30.0) sec Sodium (137-145) mmol/L Chloride (98-107) mmol/L Carbon Dioxide (22-30) mmol/L BUN (7-17) mg/dL Creatinine (0.52-1.04) mg/dL Glucose (74-99) mg/dL POC Glucose (mg/dL) 139 H (75-99) mg/dL Calcium (8.4-10.2) mg/dL AST (14-36) U/L Troponin I (0.000-0.034) ng/mL Total Protein (6.3-8.2) g/dL Albumin (3.5-5.0) g/dL 09/27/20 09/27/20 09/27/20 Range/Units 18:31 18:31 21:29 WBC (3.8-10.6) k/uL RBC (3.80-5.40) m/uL Hgb (11.4-16.0) gm/dL Hct (34.0-46.0) % RDW (11.5-15.5) % Neutrophils # (Manual) (1.3-7.7) k/uL Lymphocytes # (Manual) (1.0-4.8) k/uL PT (9.0-12.0) sec INR (<1.2) APTT (22.0-30.0) sec Sodium 121 L (137-145) mmol/L Chloride 91 L (98-107) mmol/L Carbon Dioxide 21 L (22-30) mmol/L BUN 23 H (7-17) mg/dL Creatinine (0.52-1.04) mg/dL Glucose 134 H (74-99) mg/dL POC Glucose (mg/dL) (75-99) mg/dL Calcium 8.3 L (8.4-10.2) mg/dL AST 38 H (14-36) U/L Troponin I 0.050 H* 0.043 H* (0.000-0.034) ng/mL Total Protein 5.2 L (6.3-8.2) g/dL Albumin 2.7 L (3.5-5.0) g/dL 09/28/20 Range/Units 13:13 WBC (3.8-10.6) k/uL RBC (3.80-5.40) m/uL Hgb (11.4-16.0) gm/dL Hct (34.0-46.0) % RDW (11.5-15.5) % Neutrophils # (Manual) (1.3-7.7) k/uL Lymphocytes # (Manual) (1.0-4.8) k/uL PT (9.0-12.0) sec INR (<1.2) APTT (22.0-30.0) sec Sodium 123 L (137-145) mmol/L Chloride 96 L (98-107) mmol/L Carbon Dioxide 21 L (22-30) mmol/L BUN 25 H (7-17) mg/dL Creatinine 0.50 L (0.52-1.04) mg/dL Glucose 121 H (74-99) mg/dL POC Glucose (mg/dL) (75-99) mg/dL Calcium 7.8 L (8.4-10.2) mg/dL AST (14-36) U/L Troponin I (0.000-0.034) ng/mL Total Protein (6.3-8.2) g/dL Albumin (3.5-5.0) g/dL Comments: EKG image /report reviewed Chest x-ray: report reviewed CT scan - abdomen: report reviewed CT Scan - head: report reviewed CT scan - pelvis: report reviewed Assessment and Plan (1) Altered mental status Narrative/Plan: Patient is presenting with sudden change in mentation essentially syncopal episode on detailed questioning for and her family. Most of the history was obtained from the family as the patient was still feeling somewhat weak, and did not remember much of the episode - The family stated the patient had been doing reasonably well since her hospital discharge. After her last chemo she had not had significant nausea and vomiting. While oral intake was somewhat diminished according to the but was still adequate. The episode occurred immediately after the patient had been living down sleeping, for about 2-3 hours and then got out of bed to go to the bathroom. - At this time therefore the most likely etiology appears to be an orthostatic episode related to the patient getting up after sleeping, in association with a drop in sodium from baseline probably from her recent chemotherapy. This is further supported by the fact that the patient responded very well to IV hydration, which further increase her sodium also. - Maintain IV hydration - Monitor labs including labs for tomorrow with electrolytes and se osm - Consult nephrology to evaluate for need for possible ongoing anti-SIADH therapy Current Visit: Yes Status: Acute Priority: High Code(s): R41.82 - ALTERED MENTAL STATUS, UNSPECIFIED SNOMED Code(s): 373252321 (2) Pancreatic cancer Narrative/Plan: The patient was determined to be inoperable, and is currently day with gemcitabine alone. She is having some intolerance issues mostly related to the sodium. Therefore if this can be controlled the patient can potentially continue with treatment assuming that her performance status recovers with improvement in her sodium and hydration. - Monitor counts while in hospital, given her recent chemotherapy as the counts can decline further over the next few days as the patient approaches were negative Current Visit: Yes Status: Chronic Priority: Medium Code(s): C25.9 - MALIG NANT NEOPLASM OF PANCREAS, UNSPECIFIED SNOMED Code(s): 237210137 Plan: Defer to the admitting service for management of other medical problems
--- NOTE | 2020-10-05 11:42 | P.PN ---
Subjective This is a pleasant 80 years old female with multiple medical problems including diabetes mellitus, hypertension, hyperlipidemia, also she has history of pancreatic cancer. Stage IV Originally she was admitted at 09/27 for altered mental status after chemotherapy on . Patient also has been followed by several consultants including oncology, nephrology and [employer] Patient also followed closely by neurology for different seizure-like spells. She was placed on Keppra, MRI of the brain showing atrophy with no mass. Neurologist recommended to transfer the patient if she has negative CT of the chest. However today she became hypotensive with a blood pressure dropped 80/49 with low-grade fever at 100.4. She was already on fluid restriction by car servicer, I spoke with Dr. Headley about the case and he agrees to her IV boluses of normal saline. A loss of 500 mL is provided and started on normal saline at 75 mL/h. Her blood pressure improved with systolic at 102. Patient mental improvement was noted after fluid administration however she remains lethargic and mildly encephalopathic most likely secondary to metabolic derangements. However she answers questions appropriately although she keeps her eyes closed most of the time. Sodium this morning was 103. Platelets dropped to 69 WBC is normal at 5.3. CT only of the chest: No pulmonary embolism. Atelectasis. Pancreatic mass and enlarged spleen MRI of the brain as above atrophy with no mass We checked a bladder scan and was normal retention with 100-150 mL . Repeat urinalysis was unremarkable Patient already was started this morning on vancomycin and IV cefepime with infectious disease team She kept on normal saline at 75 mL/h Family at bedside including son and all their questions were answered she is full code with no vent 10/05/2020 Patient still lethargic but is improving compared to yesterday. She is awake and alert and answers questions appropriately, confirmed with staff. No more seizure-like activity She is breathing quietly, no much urinary symptoms. She's hemodynamically better today blood pressure improved 115/67 and 106/69. She has no fever today. Her sodium actually came back normal at 135. Platelets count still 65, the drops less than 50 then we will discontinue Lovenox and all anticoagulations. Hemoglobin is 9.8 and WBC is 6.4K which is normal. Repeat urinalysis is not suspicious of infection. C-reactive protein is elevated at 8.1. Infectious disease team on the case. Again I talked with her son at bedside and he does not want the patient to be transferred to a tertiary care center because they don't want the video EEG Objective - Vital Signs Vital signs: Vital Signs Temp 98.1 F 10/05/20 08:45 Pulse 75 10/05/20 08:45 Resp 18 10/05/20 08:45 BP 106/69 10/05/20 08:45 Pulse Ox 97 10/05/20 04:37 Intake & Output 10/04/20 10/05/20 10/05/20 18:59 06:59 18:59 Intake Total 400 1280 Output Total 500 Balance -100 1280 Weight 81.647 kg Intake: Intake, IV Titration 1250 Amount Cefepime 2 gm In Sodium 100 Chloride 0.9% 100 ml @ 25 mls/hr IVPB Q8HR [facility] Rx# :[id number] Sodium Chloride 0.9% 1, 900 000 ml @ 75 mls/hr IV . [id number] [facility] Rx#:[id number] Vancomycin 1,500 mg In 250 Sodium Chloride 0.9% 250 ml @ 125 mls/hr IVPB Q12H [facility] Rx#:[id number] Oral 400 30 Output: Urine 500 Other: Voiding Method Diaper Diaper External Catheter - Exam -GENERAL: The patient is awake but generally weak, lethargic and mildly drowsy, not in any acute distress. Well developed, well nourished. HEENT: Pupils are round and equally reacting to light. EOMI. No scleral icterus. No conjunctival pallor. Normocephalic, atraumatic. No pharyngeal erythema. No thyromegaly. CARDIOVASCULAR: S1 and S2 present. No murmurs, rubs, or gallops. PULMONARY: Chest is clear to auscultation, no wheezing or crackles. ABDOMEN: Soft, nontender, nondistended, normoactive bowel sounds. No palpable organomegaly. MUSCULOSKELETAL: No joint swelling or deformity. EXTREMITIES: No cyanosis, clubbing, or pedal edema. NEUROLOGICAL: Gross neurological examination did not reveal any focal deficits. SKIN: No rashes. no petechiae. - Labs CBC & Chem 7: 10/05/20 06:05 10/05/20 06:05 Labs: Abnormal Lab Results - Last 24 Hours (Table) 0810/03/20 10/04/20 Range/Units 06:59 22:34 12:06 RBC (3.80-5.40) m/uL Hgb (11.4-16.0) gm/dL Hct (34.0-46.0) % RDW (11.5-15.5) % Plt Count (150-450) k/uL Lymphocytes # (1.0-4.8) k/uL Sodium (137-145) mmol/L BUN (7-17) mg/dL BUN/Creatinine Ratio (12.00-20.00) Ratio Glucose (74-99) mg/dL POC Glucose (mg/dL) 165 H (75-99) mg/dL Calcium (8.4-10.2) mg/dL Ferritin 2738.9 H (10.0-291.0) ng/mL ALT (8-44) U/L Alkaline Phosphatase (41-126) U/L LD Isoenzymes 265 H (120-250) U/L LD 1 18 L (19-38) % LD 5 22 H (3-14) % C-Reactive Protein (0.0-0.8) mg/dL Total Protein (6.2-8.2) g/dL Albumin (3.80-4.90) g/dL Albumin/Globulin Ratio (1.60-3.17) g/dL Urine Protein (Negative) Urine Blood (Negative) Hyaline Casts (0-2) /lpf Urine Mucus (None) /hpf 10/04/20 10/04/20 10/04/20 Range/Units 14:35 17:46 18:09 RBC (3.80-5.40) m/uL Hgb (11.4-16.0) gm/dL Hct (34.0-46.0) % RDW (11.5-15.5) % Plt Count (150-450) k/uL Lymphocytes # (1.0-4.8) k/uL Sodium 130 L (137-145) mmol/L BUN 25 H (7-17) mg/dL BUN/Creatinine Ratio (12.00-20.00) Ratio Glucose 199 H (74-99) mg/dL POC Glucose (mg/dL) 232 H (75-99) mg/dL Calcium 8.0 L (8.4-10.2) mg/dL Ferritin (10.0-291.0) ng/mL ALT (8-44) U/L Alkaline Phosphatase (41-126) U/L LD Isoenzymes (120-250) U/L LD 1 (19-38) % LD 5 (3-14) % C-Reactive Protein (0.0-0.8) mg/dL Total Protein (6.2-8.2) g/dL Albumin (3.80-4.90) g/dL Albumin/Globulin Ratio (1.60-3.17) g/dL Urine Protein Trace H (Negative) Urine Blood Small H (Negative) Hyaline Casts 3 H (0-2) /lpf Urine Mucus Rare H (None) /hpf 10/04/20 10/05/20 10/05/20 Range/Units 20:56 06:05 06:05 RBC 3.23 L (3.80-5.40) m/uL Hgb 9.8 L (11.4-16.0) gm/dL Hct 29.7 L (34.0-46.0) % RDW 18.8 H (11.5-15.5) % Plt Count 65 L (150-450) k/uL Lymphocytes # 0.7 L (1.0-4.8) k/uL Sodium (137-145) mmol/L BUN (7-17) mg/dL BUN/Creatinine Ratio 41.67 H (12.00-20.00) Ratio Glucose (74-99) mg/dL POC Glucose (mg/dL) 197 H (75-99) mg/dL Calcium 8.6 L (8.4-10.2) mg/dL Ferritin (10.0-291.0) ng/mL ALT 58 H (8-44) U/L Alkaline Phosphatase 260 H (41-126) U/L LD Isoenzymes (120-250) U/L LD 1 (19-38) % LD 5 (3-14) % C-Reactive Protein 8.1 H (0.0-0.8) mg/dL Total Protein 5.1 L (6.2-8.2) g/dL Albumin 2.80 L (3.80-4.90) g/dL Albumin/Globulin Ratio 1.22 L (1.60-3.17) g/dL Urine Protein (Negative) Urine Blood (Negative) Hyaline Casts (0-2) /lpf Urine Mucus (None) /hpf 10/05/20 Range/Units 07:19 RBC (3.80-5.40) m/uL Hgb (11.4-16.0) gm/dL Hct (34.0-46.0) % RDW (11.5-15.5) % Plt Count (150-450) k/uL Lymphocytes # (1.0-4.8) k/uL Sodium (137-145) mmol/L BUN (7-17) mg/dL BUN/Creatinine Ratio (12.00-20.00) Ratio Glucose (74-99) mg/dL POC Glucose (mg/dL) 117 H (75-99) mg/dL Calcium (8.4-10.2) mg/dL Ferritin (10.0-291.0) ng/mL ALT (8-44) U/L Alkaline Phosphatase (41-126) U/L LD Isoenzymes (120-250) U/L LD 1 (19-38) % LD 5 (3-14) % C-Reactive Protein (0.0-0.8) mg/dL Total Protein (6.2-8.2) g/dL Albumin (3.80-4.90) g/dL Albumin/Globulin Ratio (1.60-3.17) g/dL Urine Protein (Negative) Urine Blood (Negative) Hyaline Casts (0-2) /lpf Urine Mucus (None) /hpf Microbiology - Last 24 Hours (Table) 10/02/20 18:31 Blood Culture - Preliminary Blood No Growth after 48 hours 10/02/20 17:45 Urine Culture - Preliminary Urine,Clean Catch Group D Enterococcus Assessment and Plan Assessment: Stage IV pancreatic cancer Severe sepsis, secondary to UTI versus others, urine culture was growing enterococcus Metabolic encephalopathy, improving Seizure-like activities Hyponatremia Vaginal bleeding, postmenopausal bleeding. Malignancies also suspected Thrombocytopenia, Plan: this is a pleasant 80 years old female with pancreatic cancer, possible sepsis and seizure-like activity. Continue with antibiotics with cefepime and IV vancomycin. Infectious disease team on the case recommend CT of the abdomen and pelvis, we will defer the decision about the CT to infectious disease team and whether with contrast or no Oncology team on the case for her pancreatic cancer. Neurology service recommended to transfer the patient to [facility] if CTA of the chest was negative, however. Patient and Family refused transfer Continue with normal saline at 75 mL/h with close monitoring of blood pressure and sodium level. Nephrology team on the case We'll keep monitoring platelet count and if her platelet count drops below 50 to hold her anticoagulation including Lovenox for DVT prophylaxis Labs and medication were reviewed.. Continue same treatment. Continue with symptomatic treatment. Resume home medication. Monitor lytes and vitals. DVT and GI prophylaxis. Further recommendations as per clinical course of the patient DVT prophylaxis: Subcutaneous Lovenox GI Prophylaxis: Ppi Prognosis is guarded Discussed with family at bedside, son and all questions answered
[2020-10-05 12:04] LABS: Glucose,Whole Blood 181 mg/dL (75-99)
--- NOTE | 2020-10-05 15:23 | P.PN ---
Subjective Progress Note Date: 10/05/20 10/05/2020: This is a Tele-neurology follow up performed on the patient today on 10/05/2020. Patient's son and [id number] were present. Patient has much improved since yesterday. No further seizure type spells. Her temperature is down. Patient had breakfast today. She is more alert and awake. She ate all gross turn up. Per patient's family, she is much more talkative. She does have a Méndez's catheter. Infectious disease has seen the patient, started patient on vancomycin and cefepime. Patient's white cells have improved. 10/04/2020: This is a Tele-neurology follow performed on the patient today on 10/04/2020. Patient's son and [id number] were present. Patient continues to be very lethargic. Patient underwent CTA of the chest, which was suboptimal exam to exclude pulmonary embolism and segmental branches. No central pulmonary embolus. Patient has been started on DVT prophylaxis. Patient sodium is 130, hemoglobin 8.6. Patient now has developed temperatures of 101.2 Fahrenheit. Infectious disease consult has been initiated. Her antibiotics have been changed. Patient is returning no blood pressure 80/49. Patient possibly getting some infection. Her seizure-like activity could be rigors/chills from upcoming infection. 10/03/2020: Patient apparently had another similar spell. Patient received Ativan 0.5 mg for MRI at 10:30 AM. After the MRI, patient was snoring, and about 10 minutes ago, she woke up and had a similar spell, in which her arms or flexing, hence in the tight sports official with some mild tremoring of the upper and lower extremities. Her head was shaking. She now again in the post ictal state. Patient yesterday had a post ictal state that lasted for 3 hours. Then she woke up gradually and was completely back to baseline as per patient's son and [id number]. 10/02/2020: Patient apparently had another similar spell. Patient's son was present. Patient was trying to get to the recliner, when suddenly she froze, had a blank stare, and then reportedly was slightly stiff, but no convulsive activity otherwise. Patient lost control of urine with this spell. No tongue bite. Patient then again became post ictal for about 30-45 minutes. Now back to normal. Patient did not feel cold or chills before this event started. Patient's vitals again continue to be stable throughout this event. 10/01/2020: Patient is a 80-year-old female initially seen by Dr. Chilango Mcdermott. Please refer to his note for details. Patient came with altered mental status. Patient has stage IV pancreatic cancer. She was found to have low sodium of 121. Her blood pressure was also low 70. When patient was examined by Dr. Mcdermott, patient was alert and oriented 3. Neurology had signed off. Neurology was reconsulted today for an acute episode of altered mental status and unresponsiveness, that occurred at around 12 noon. Patient's son and [id number] are present. They reported that patient was doing fine in the morning. She had her breakfast. Patient was later sitting in the recliner when she started shivering, shaking. She then broke out in sweat. The nurse was getting a heated blanket, the patient started having a seizure-like episode in which she stiffened up with arms flexed on the chest, and was shaking and became unresponsive. Her blood pressure at that time was systolic between 160-170, heart rate in the 150s. Patient did not bite her tongue or lost control of urine. The episode lasted for a few minutes. Stat computed tomography scan was performed, which showed no acute intracranial abnormality. Stable mild generalized atrophy and mild burden of chronic small vessel ischemic disease. I came to see patient immediately. Patient was laying in the bed, very lethargic, somnolent. Patient would open her eyes, follows minimal commands as mentioned in the examination. Her examination was relatively nonfocal. No seizure-like activity was noted at that time. Objective - Vital Signs Vital signs: Vital Signs Temp 98.1 F 10/05/20 08:45 Pulse 75 10/05/20 08:45 Resp 18 10/05/20 08:45 BP 106/69 10/05/20 08:45 Pulse Ox 97 10/05/20 04:37 Intake & Output 10/04/20 10/05/20 10/05/20 18:59 06:59 18:59 Intake Total 400 1280 Output Total 500 Balance -100 1280 Weight 81.647 kg Intake: Intake, IV Titration 1250 Amount Cefepime 2 gm In Sodium 100 Chloride 0.9% 100 ml @ 25 mls/hr IVPB Q8HR [facility] Rx# :[id number] Sodium Chloride 0.9% 1, 900 000 ml @ 75 mls/hr IV . [id number] [facility] Rx#:[id number] Vancomycin 1,500 mg In 250 Sodium Chloride 0.9% 250 ml @ 125 mls/hr IVPB Q12H [facility] Rx#:[id number] Oral 400 30 Output: Urine 500 Other: Voiding Method Diaper Diaper External Catheter - Exam Patient laying in the bed, in no respiratory distress. Patient is lethargic. Does open her eyes, talks slowly and then goes back to sleep. However she is answering appropriately today. She made 2 thumbs up for how she is feeling. She moves all 4 extremities. Her examination is completely nonfocal. Face is symmetric. Tone is equal. - Labs CBC & Chem 7: 10/05/20 06:05 10/05/20 06:05 Labs: Abnormal Lab Results - Last 24 Hours (Table) 10/02/20 10/03/20 10/04/20 Range/Units 06:59 22:34 12:06 RBC (3.80-5.40) m/uL Hgb (11.4-16.0) gm/dL Hct (34.0-46.0) % RDW (11.5-15.5) % Plt Count (150-450) k/uL Lymphocytes # (1.0-4.8) k/uL Sodium (137-145) mmol/L BUN (7-17) mg/dL BUN/Creatinine Ratio (12.00-20.00) Ratio Glucose (74-99) mg/dL POC Glucose (mg/dL) 165 H (75-99) mg/dL Calcium (8.4-10.2) mg/dL Ferritin 2738.9 H (10.0-291.0) ng/mL ALT (8-44) U/L Alkaline Phosphatase (41-126) U/L LD Isoenzymes 265 H (120-250) U/L LD 1 18 L (19-38) % LD 5 22 H (3-14) % C-Reactive Protein (0.0-0.8) mg/dL Total Protein (6.2-8.2) g/dL Albumin (3.80-4.90) g/dL Albumin/Globulin Ratio (1.60-3.17) g/dL Urine Protein (Negative) Urine Blood (Negative) Hyaline Casts (0-2) /lpf Urine Mucus (None) /hpf 10/04/20 10/04/20 10/04/20 Range/Units 14:35 17:46 18:09 RBC (3.80-5.40) m/uL Hgb (11.4-16.0) gm/dL Hct (34.0-46.0) % RDW (11.5-15.5) % Plt Count (150-450) k/uL Lymphocytes # (1.0-4.8) k/uL Sodium 130 L (137-145) mmol/L BUN 25 H (7-17) mg/dL BUN/Creatinine Ratio (12.00-20.00) Ratio Glucose 199 H (74-99) mg/dL POC Glucose (mg/dL) 232 H (75-99) mg/dL Calcium 8.0 L (8.4-10.2) mg/dL Ferritin (10.0-291.0) ng/mL ALT (8-44) U/L Alkaline Phosphatase (41-126) U/L LD Isoenzymes (120-250) U/L LD 1 (19-38) % LD 5 (3-14) % C-Reactive Protein (0.0-0.8) mg/dL Total Protein (6.2-8.2) g/dL Albumin (3.80-4.90) g/dL Albumin/Globulin Ratio (1.60-3.17) g/dL Urine Protein Trace H (Negative) Urine Blood Small H (Negative) Hyaline Casts 3 H (0-2) /lpf Urine Mucus Rare H (None) /hpf 10/04/20 10/05/20 10/05/20 Range/Units 20:56 06:05 06:05 RBC 3.23 L (3.80-5.40) m/uL Hgb 9.8 L (11.4-16.0) gm/dL Hct 29.7 L (34.0-46.0) % RDW 18.8 H (11.5-15.5) % Plt Count 65 L (150-450) k/uL Lymphocytes # 0.7 L (1.0-4.8) k/uL Sodium (137-145) mmol/L BUN (7-17) mg/dL BUN/Creatinine Ratio 41.67 H (12.00-20.00) Ratio Glucose (74-99) mg/dL POC Glucose (mg/dL) 197 H (75-99) mg/dL Calcium 8.6 L (8.4-10.2) mg/dL Ferritin (10.0-291.0) ng/mL ALT 58 H (8-44) U/L Alkaline Phosphatase 260 H (41-126) U/L LD Isoenzymes (120-250) U/L LD 1 (19-38) % LD 5 (3-14) % C-Reactive Protein 8.1 H (0.0-0.8) mg/dL Total Protein 5.1 L (6.2-8.2) g/dL Albumin 2.80 L (3.80-4.90) g/dL Albumin/Globulin Ratio 1.22 L (1.60-3.17) g/dL Urine Protein (Negative) Urine Blood (Negative) Hyaline Casts (0-2) /lpf Urine Mucus (None) /hpf 10/05/20 Range/Units 07:19 RBC (3.80-5.40) m/uL Hgb (11.4-16.0) gm/dL Hct (34.0-46.0) % RDW (11.5-15.5) % Plt Count (150-450) k/uL Lymphocytes # (1.0-4.8) k/uL Sodium (137-145) mmol/L BUN (7-17) mg/dL BUN/Creatinine Ratio (12.00-20.00) Ratio Glucose (74-99) mg/dL POC Glucose (mg/dL) 117 H (75-99) mg/dL Calcium (8.4-10.2) mg/dL Ferritin (10.0-291.0) ng/mL ALT (8-44) U/L Alkaline Phosphatase (41-126) U/L LD Isoenzymes (120-250) U/L LD 1 (19-38) % LD 5 (3-14) % C-Reactive Protein (0.0-0.8) mg/dL Total Protein (6.2-8.2) g/dL Albumin (3.80-4.90) g/dL Albumin/Globulin Ratio (1.60-3.17) g/dL Urine Protein (Negative) Urine Blood (Negative) Hyaline Casts (0-2) /lpf Urine Mucus (None) /hpf Microbiology - Last 24 Hours (Table) 10/02/20 18:31 Blood Culture - Preliminary Blood No Growth after 48 hours 10/02/20 17:45 Urine Culture - Preliminary Urine,Clean Catch Group D Enterococcus Assessment and Plan Assessment: * Recurrent episodes of possible seizure/seizure-like activity. Syncope unlikely, as patient's vitals were relatively normal, patient was tachycardic and blood pressure was in 160-170 systolic. Her seizure-like activity could b e related to chills/rigors related to acute UTI. * History of hyponatremia. Hyponatremia likely not the cause of current spell. Today her sodium is 135. * Acute on chronic hyponatremia, now resolved. * Anemia, much improved hemoglobin 9.8. * Abdominal pain * History of pancreatic cancer (May 2020) on chemotherapy and last dose is this past * Diabetes mellitus * History Hypertension Plan: * Patient has significantly improved since since started on antibiotics for probable UTI. Patient has not had any seizure type spells/rigors since yesterday afternoon. ID input appreciated. Patient on vancomycin and cefepime. Recommend checking prolonged EEG for 2.5 hours tomorrow. If negative, then would rapidly taper off Keppra, as I do not believe she has seizures. * Continue Keppra to 500 mg twice a day for now. * MRI of the brain with and without contrast revealed age-related changes of atrophy and chronic small vessel ischemia. No enhancing mass to suggest metastatic disease. * CTA of the chest negative for pulmonary embolism. Although it was a limited study. * 2-D echo shows normal left ventricular size. Mild concentric LVH. EF is between 55-60%. Aortic valve is trileaflet in is moderately thickened. Moderate aortic stenosis. * Cardiology input appreciated. Syncopal spells likely not cardiology related. * EEG was abnormal EEG due to background slowing of at least moderate degree. This is suggestive of generalized cerebral dysfunction as can be seen with toxic metabolic encephalopathy or related to diffuse structural brain abnormality. Triphasics waves were occasionally seen, which can be seen with hepatic encephalopathy. Clinical correlation is recommended. We will check ammonia. * Serum ammonia is normal. Prolactin level 11.6, which is within normal range. * B12 557 on 08/07/2020. TFTs normal. Serum cortisol is 26.5/22.4. Hemoglobin A1c 5.5. * Carotid Doppler showed moderate atherosclerotic changes at the bifurcation but without any hemodynamically significant ICA stenosis on either side. Antegrad e flow in both vertebral arteries. * Discussed with patient's family. * Dr. Chilango Mcdermott Will resume neurology service from the morning.
[2020-10-05] MEDS: ASCORBIC ACID 500 MG TAB PO SCH (16:38)
[2020-10-05] MEDS: ATORVASTATIN 40 MG TAB PO SCH (16:38)
[2020-10-05 17:34] LABS: Glucose,Whole Blood 191 mg/dL (75-99)
--- NOTE | 2020-10-05 19:27 | PN ---
PROGRESS NOTE DATE OF SERVICE: 10/05/2020 REASON FOR FOLLOWUP: Fever. INTERVAL HISTORY: The patient is currently afebrile. The patient is feeling better. She is breathing comfortably on room air. No chest pain or cough. No abdominal pain. No vomiting or diarrhea has been reported. PHYSICAL EXAMINATION: Blood pressure 112/67, pulse 81, temperature 98.9. She is 93% on room air. GENERAL DESCRIPTION: General description is an elderly female lying in bed in no distress. RESPIRATORY SYSTEM: Unlabored breathing. Decreased breath sounds at the bases. No wheeze. HEART: S1, S2. Regular rate and rhythm. ABDOMEN: Soft. No tenderness. LABS: Hemoglobin 9.1, white count 6.4, BUN of 25, creatinine 0.6. DIAGNOSTIC IMPRESSION AND PLAN: Patient with a fever. Concern for possible urinary tract infection versus abdominal source. Urine is showing Enterococcus faecalis and is currently covered with antibiotics. Patient's fever has resolved. Will wait for the blood culture to finalize and monitor clinical course closely. Family at the bedside. Their questions were answered. MMODL / IJN: [id number] /
[2020-10-05 20:58] LABS: Glucose,Whole Blood 183 mg/dL (75-99)
[2020-10-06] MEDS: CEFEPIME 2 GM in SODIUM CHLORIDE 0.9% 100 ML IVPB SCH ×2 (00:39→09:17)
[2020-10-06] MEDS: atenoloL 25 MG TAB PO SCH ×2 (00:40→12:07)
[2020-10-06] MEDS: SENNOSIDES-DOCUSATE SODIUM 1 EACH TAB PO SCH ×2 (00:40→05:52)
[2020-10-06] MEDS: MAGNESIUM OXIDE 400 MG TAB PO SCH ×2 (00:40→05:52)
[2020-10-06] MEDS: SODIUM CHLORIDE 0.9% 1,000 ML IV SCH ×2 (00:40→20:54)
[2020-10-06] MEDS: ASPIRIN 81 MG PO SCH (00:40)
[2020-10-06] MEDS: PANTOPRAZOLE 40 MG TABLET PO SCH (05:52)
[2020-10-06] MEDS: RALOXIFENE 60 MG TAB PO SCH (05:52)
[2020-10-06 07:42] LABS: Glucose,Whole Blood 138 mg/dL (75-99)
[2020-10-06] MEDS: INSULIN ASPART (NovoLOG) 100 UNIT/ML VIAL SQ SCH ×4 (08:32→21:29)
[2020-10-06] MEDS: metFORMIN 500 MG TAB PO SCH ×3 (09:16→17:52)
[2020-10-06] MEDS: ENOXAPARIN 40 MG/0.4 ML SYRINGE SQ SCH (09:16)
[2020-10-06] MEDS: SODIUM CHLORIDE TAB 1 GM TAB PO SCH ×3 (09:16→22:29)
[2020-10-06] MEDS: levETIRAcetam 500 MG TAB PO SCH ×2 (09:16→20:55)
--- NOTE | 2020-10-06 09:31 | P.PN ---
Subjective Patient is seen in follow-up for hyponatremia. Sodium level 135 yesterday. Oral intake is fair. Good urine output. Daughter present at bedside. Hospice being considered. Vital signs are stable. General: The patient appeared well nourished and normally developed. HEENT: Head exam is unremarkable. Neck is without jugular venous distension. LUNGS: Breath sounds decreased. HEART: Rate and Rhythm are regular. ABDOMEN: Soft, no distention. EXTREMITITES: No edema. Objective - Vital Signs Vital signs: Vital Signs Temp 98.3 F 10/06/20 05:00 Pulse 86 10/06/20 05:00 Resp 18 10/06/20 05:00 BP 151/83 10/06/20 05:00 Pulse Ox 95 10/06/20 05:00 Intake & Output 10/05/20 10/06/20 10/06/20 18:59 06:59 18:59 Intake Total 360 1310 Output Total 400 Balance -40 1310 Intake: Intake, IV Titration 950 Amount Cefepime 2 gm In Sodium 100 Chloride 0.9% 100 ml @ 25 mls/hr IVPB Q8HR [facility] Rx# :[id number] Sodium Chloride 0.9% 1, 600 000 ml @ 75 mls/hr IV . [id number] [facility] Rx#:[id number] Vancomycin 1,500 mg In 250 Sodium Chloride 0.9% 250 ml @ 125 mls/hr IVPB Q12H [facility] Rx#:[id number] Oral 360 360 Output: Urine 400 Other: Voiding Method External Catheter External Catheter - Labs CBC & Chem 7: 10/05/20 06:05 10/05/20 06:05 Labs: Abnormal Lab Results - Last 24 Hours (Table) 10/05/20 10/05/20 10/05/20 Range/Units 06:05 06:05 12:03 BUN/Creatinine Ratio 41.67 H (12.00-20.00) Ratio POC Glucose (mg/dL) 181 H (75-99) mg/dL Calcium 8.6 L (8.7-10.3) mg/dL ALT 58 H (8-44) U/L Alkaline Phosphatase 260 H (41-126) U/L C-Reactive Protein 8.1 H (0.0-0.8) mg/dL Total Protein 5.1 L (6.2-8.2) g/dL Albumin 2.80 L (3.80-4.90) g/dL Albumin/Globulin Ratio 1.22 L (1.60-3.17) g/dL Procalcitonin 51.87 H (0.02-0.09) ng/mL 10/05/20 10/05/20 10/06/20 Range/Units 17:32 20:56 07:40 BUN/Creatinine Ratio (12.00-20.00) Ratio POC Glucose (mg/dL) 191 H 183 H 138 H (75-99) mg/dL Calcium (8.7-10.3) mg/dL ALT (8-44) U/L Alkaline Phosphatase (41-126) U/L C-Reactive Protein (0.0-0.8) mg/dL Total Protein (6.2-8.2) g/dL Albumin (3.80-4.90) g/dL Albumin/Globulin Ratio (1.60-3.17) g/dL Procalcitonin (0.02-0.09) ng/mL Microbiology - Last 24 Hours (Table) 10/04/20 22:08 Blood Culture - Preliminary Blood No Growth after 24 hours 10/02/20 18:31 Blood Culture - Preliminary Blood No Growth after 72 hours 10/02/20 17:45 Urine Culture - Final Urine,Clean Catch Enterococcus faecalis Assessment and Plan Plan: Assessment: 1. 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 Urine sodium 109 and urine osmolality 563. Sodium level 135 as of yesterday. Status post [facility] October 02. TSH normal. Cortisol level not low. 2. Pancreatic cancer maintained on chemotherapy. 3. Diabetes mellitus. 4. Hypokalemia from poor intake. Replaced. Better. 5. Seizure. On Keppra. Neurology following. 6. Mild hypomagnesemia from poor intake. Status post IV magnesium. Also on oral magnesium oxide. Improved. 7. UTI. Urine culture positive for group D enterococcus on antibiotics. Plan: 1200 mL fluid restriction. Maintain sodium chloride tabs. Encouraged oral intake, especially protein. Maintain normal saline for now. Follow-up morning labs.
[2020-10-06] MEDS ORDERED: GLYCERIN ADULT SUPPOSITORY 1 EACH RECTAL STA (10:54)
[2020-10-06] MEDS ORDERED: VANCOMYCIN TROUGH DUE 1 EACH MISC MISCELLANE ONE (11:00)
[2020-10-06] MEDS: DOCUSATE ORAL SOLN 100 MG/10 ML CUP PO SCH ×2 (11:46→16:18)
[2020-10-06 11:52] LABS: Glucose,Whole Blood 178 mg/dL (75-99)
[2020-10-06] MEDS: AMOXIC-POT CLAV 875-125MG 1 EACH TAB PO SCH ×4 (12:08→20:55)
[2020-10-06 13:12] VITALS: RESP 16
--- NOTE | 2020-10-06 14:05 | PN ---
PROGRESS NOTE DATE OF SERVICE: 10/06/2020 REASON FOR FOLLOWUP: Fever; possible UTI versus abdominal source. INTERVAL HISTORY: The patient is afebrile. The patient is more awake and alert today. She is breathing comfortably. Has been complaining of some abdominal pain, mostly in the upper abdominal area. No vomiting, though. No chest pain, shortness of breath or cough and no diarrhea. PHYSICAL EXAMINATION: Blood pressure 151/83 with a pulse of 83, temperature 98.3. She is 95% on room air. GENERAL DESCRIPTION: General description is an elderly female lying in bed in no distress. RESPIRATORY SYSTEM: Unlabored breathing. Clear to auscultation anteriorly. HEART: S1, S2. Regular rate and rhythm. ABDOMEN: Soft. Mildly tender. No guarding or rigidity. LABS: Blood culture negative. Urine showing Enterococcus. DIAGNOSTIC IMPRESSION AND PLAN: Patient with a fever. Concern for possible Enterococcus UTI versus abdominal source in this patient who seems to have shown overall improvement on current antibiotic. Blood culture negative. That will make port infection to be less likely. Consider a short course of oral Augmentin on discharge, especially if the patient is going into hospice. This was discussed in detail with the nurse practitioner for Oncology, who is working on discharge, and multiple family members at the bedside at the time of evaluation. MMODL / IJN: [id number] /
[2020-10-06] MEDS ORDERED: NA PHOS,M-B/NA PHOS,DI-BA 133 ML ENEMA RECTAL STA (15:09)
--- NOTE | 2020-10-06 15:20 | P.PN ---
Subjective Progress Note Date: 10/06/20 This is a pleasant 80 years old female with multiple medical problems including diabetes mellitus, hypertension, hyperlipidemia, also she has history of pancreatic cancer. Stage IV Originally she was admitted at 09/27 for altered mental status after chemotherapy on . Patient also has been followed by several consultants including oncology, nephrology and CLIMBING GUIDE Patient also followed closely by neurology for different seizure-like spells. She was placed on Keppra, MRI of the brain showing atrophy with no mass. Neurologist recommended to transfer the patient if she has negative CT of the c hest. However today she became hypotensive with a blood pressure dropped 80/49 with low-grade fever at 100.4. She was already on fluid restriction by childrens club attendant, I spoke with Dr. Headley about the case and he agrees to her IV boluses of normal saline. A loss of 500 mL is provided and started on normal saline at 75 mL/h. Her blood pressure improved with systolic at 102. Patient mental improvement was noted after fluid administration however she remains lethargic and mildly encephalopathic most likely secondary to metabolic derangements. However she answers questions appropriately although she keeps her eyes closed most of the time. Sodium this morning was 103. Platelets dropped to 69 WBC is normal at 5.3. CT only of the chest: No pulmonary embolism. Atelectasis. Pancreatic mass and enlarged spleen MRI of the brain as above atrophy with no mass We checked a bladder scan and was normal retention with 100-150 mL . Repeat urinalysis was unremarkable Patient already was started this morning on vancomycin and IV cefepime with infectious disease team She kept on normal saline at 75 mL/h Family at bedside including son and all their questions were answered she is full code with no vent 10/05/2020 Patient still lethargic but is improving compared to yesterday. She is awake and alert and answers questions appropriately, confirmed with staff. No more seizure-like activity She is breathing quietly, no much urinary symptoms. She's hemodynamically better today blood pressure improved 115/67 and 106/69. She has no fever today. Her sodium actually came back normal at 135. Platelets count still 65, the drops less than 50 then we will discontinue Lovenox and all anticoagulations. Hemoglobin is 9.8 and WBC is 6.4K which is normal. Repeat urinalysis is not suspicious of infection. C-reactive protein is elevated at 8.1. Infectious disease team on the case. Again I talked with her son at bedside and he does not want the patient to be transferred to a tertiary care center because they don't want the video EEG 10/06/2020 Patient is seen and evaluated in follow-up this morning with multiple family members at the bedside. She continues with abdominal discomfort and requesting a suppository which oncology is ordering. Patient continues on IV antibiotics in the form of cefepime and vancomycin although patient is refusing further blood draws and does not want a repeat Vanco trough which have been canceled and IV vancomycin also being canceled. Discussed with infectious disease team along with oncology and will be transitioning over to oral Augmentin twice daily for the next 10 days. Per nursing staff and family, the treatment plan is for possible hospice in the home and arrangements are being made for necessary equipment to accommodate this. Patient is extremely lethargic although awake and conversing minimally with family at the bedside. Patient is alert and oriented 2. Review of systems: Constitutional: Reports fatigue, no reports of fever, or chills Cardiovascular: No reports of chest pain or palpitations Respiratory: No reports of shortness of breath or cough GI: No reports of nausea, vomiting, reports feeling of abdominal distention and bloating with constipation : No reports of dysuria or retention Neurovascular: Reports generalized weakness All medications have been reviewed Active Medications Acetaminophen (Acetaminophen Tab 325 Mg Tab) 650 mg PO Q6HR PRN PRN Reason: Mild Pain or Fever > 100.5 Last Admin: 10/04/20 10:47 Dose: 650 mg Documented by: Amoxicillin/Clavulanate Potassium (Amoxic-Pot Clav 875-125mg 1 Each Tab) 1 each PO Q12HR [facility] Last Admin: 10/06/20 12:56 Dose: 1 each Documented by: Ascorbic Acid (Ascorbic Acid 500 Mg Tab) 1,000 mg PO DAILY@1800 [facility] Last Admin: 10/05/20 16:38 Dose: Not Given Documented by: Aspirin (Aspirin 81 Mg) 81 mg PO DAILY@0000 [facility] Last Admin: 10/06/20 00:40 Dose: 81 mg Documented by: Atenolol (Atenolol 25 Mg Tab) 25 mg PO BID@1200,0000 [facility] Last Admin: 10/06/20 12:07 Dose: 25 mg Documented by: Atorvastatin Calcium (Atorvastatin 40 Mg Tab) 40 mg PO DAILY@1800 [facility] Last Admin: 10/05/20 16:38 Dose: Not Given Documented by: Docusate Sodium (Docusate Oral Soln 100 Mg/10 Ml Cup) 250 mg PO DAILY@1200 [facility] Last Admin: 10/06/20 11:46 Dose: Not Given Documented by: Dronabinol (Dronabinol 2.5 Mg Cap) 2.5 mg PO BID@0600,0000 [facility] Last Admin: 10/06/20 05:52 Dose: 2.5 mg Documented by: Enoxaparin Sodium (Enoxaparin 40 Mg/0.4 Ml Syringe) 40 mg SQ DAILY [facility] Last Admin: 10/06/20 09:16 Dose: 40 mg Documented by: Fentanyl (Fentanyl 50mcg/Hr Patch) 1 patch TRANSDERM Q72H [facility]; Protocol Last Admin: 10/05/20 07:33 Dose: 1 patch Documented by: Sodium Chloride (Saline 0.9%) 1,000 mls @ 75 mls/hr IV .[id number] [facility] Last Admin: 10/06/20 00:40 Dose: 75 mls/hr Documented by: Insulin Aspart (Insulin Aspart (Novolog) 100 Unit/Ml Vial) 0 unit SQ ACHS [facility]; Protocol Last Admin: 10/06/20 12:08 Dose: 2 unit Documented by: Levetiracetam (Levetiracetam 500 Mg Tab) 500 mg PO Q12HR [facility] Last Admin: 10/06/20 09:16 Dose: 500 mg Documented by: Magnesium Oxide (Magnesium Oxide 400 Mg Tab) 400 mg PO BID@0600,0000 [facility] Last Admin: 10/06/20 05:52 Dose: 400 mg Documented by: Meclizine HCl (Meclizine 25 Mg Tab) 25 mg PO DAILY PRN PRN Reason: Nausea Metformin HCl (Metformin 500 Mg Tab) 250 mg PO AC-BID [facility] Last Admin: 10/06/20 09:39 Dose: Not Given Documented by: Miscellaneous Information (Magnesium Replacement Protocol 1 Each Misc) 1 each MISCELLANE DAILY PRN; Protocol PRN Reason: Per Protocol Miscellaneous Information (Potassium Replacement Protocol 1 Each Misc) 1 each MISCELLANE DAILY PRN; Protocol PRN Reason: Per Protocol Naloxone HCl (Naloxone 0.4 Mg/Ml 1 Ml Vial) 0.2 mg IV Q2M PRN PRN Reason: Opioid Reversal Oxycodone HCl (Oxycodone Hcl 5 Mg Tab) 10 mg PO Q3HR PRN PRN Reason: Pain/Discomfort Pantoprazole Sodium (Pantoprazole 40 Mg Tablet) 40 mg PO DAILY@0600 [facility] Last Admin: 10/06/20 05:52 Dose: 40 mg Documented by: Raloxifene HCl (Raloxifene 60 Mg Tab) 60 mg PO DAILY@0600 [facility] Last Admin: 10/06/20 05:52 Dose: 60 mg Documented by: Senna/Docusate Sodium (Sennosides-Docusate Sodium 1 Each Tab) 1 each PO BID@0600,0000 [facility] Last Admin: 10/06/20 05:52 Dose: 1 each Documented by: Sodium Chloride (Sodium Chloride Tab 1 Gm Tab) 1 gm PO BID [facility] Last Admin: 10/06/20 09:39 Dose: Not Given Documented by: Objective - Vital Signs Vital signs: Vital Signs Temp 98.3 F 10/06/20 05:00 Pulse 86 10/06/20 05:00 Resp 18 10/06/20 05:00 BP 151/83 10/06/20 05:00 Pulse Ox 95 10/06/20 05:00 Intake & Output 10/05/20 10/06/20 10/06/20 18:59 06:59 18:59 Intake Total 360 1310 Output Total 400 Balance -40 1310 Intake: Intake, IV Titration 950 Amount Cefepime 2 gm In Sodium 100 Chloride 0.9% 100 ml @ 25 mls/hr IVPB Q8HR [facility] Rx# :[id number] Sodium Chloride 0.9% 1, 600 000 ml @ 75 mls/hr IV . [id number] [facility] Rx#:[id number] Vancomycin 1,500 mg In 250 Sodium Chloride 0.9% 250 ml @ 125 mls/hr IVPB Q12H [facility] Rx#:[id number] Oral 360 360 Output: Urine 400 Other: Voiding Method External Catheter External Catheter - Exam GENERAL: The patient is awake but weak, lethargic and mildly drowsy, ill- appearing. Temp is 98.3F, pulse is 86, respirations are 18, blood pressure is 151/83, oxygen saturation is 95% on room air. HEENT: Pupils are round and equally reacting to light. EOMI. No scleral icterus. No conjunctival pallor. Normocephalic, atraumatic. No pharyngeal erythema. No thyromegaly. CARDIOVASCULAR: S1 and S2 muffled PULMONARY: Diminished breath sounds bilaterally with some scattered rhonchi noted. ABDOMEN: Soft, nontender, nondistended, normoactive bowel sounds. No palpable organomegaly. MUSCULOSKELETAL: No joint swelling or deformity. EXTREMITIES: No cyanosis, clubbing, or pedal edema. NEUROLOGICAL: Gross neurological examination did not reveal any focal deficits. Diffusely weak SKIN: No rashes. no petechiae. Pale. - Labs CBC & Chem 7: 10/05/20 06:05 10/05/20 06:05 Labs: Abnormal Lab Results - Last 24 Hours (Table) 10/05/20 10/05/20 10/05/20 Range/Units 06:05 06:05 12:03 BUN/Creatinine Ratio 41.67 H (12.00-20.00) Ratio POC Glucose (mg/dL) 181 H (75-99) mg/dL Calcium 8.6 L (8.7-10.3) mg/dL ALT 58 H (8-44) U/L Alkaline Phosphatase 260 H (41-126) U/L C-Reactive Protein 8.1 H (0.0-0.8) mg/dL Total Protein 5.1 L (6.2-8.2) g/dL Albumin 2.80 L (3.80-4.90) g/dL Albumin/Globulin Ratio 1.22 L (1.60-3.17) g/dL Procalcitonin 51.87 H (0.02-0.09) ng/mL 10/05/20 10/05/20 10/06/20 Range/Units 17:32 20:56 07:40 BUN/Creatinine Ratio (12.00-20.00) Ratio POC Glucose (mg/dL) 191 H 183 H 138 H (75-99) mg/dL Calcium (8.7-10.3) mg/dL ALT (8-44) U/L Alkaline Phosphatase (41-126) U/L C-Reactive Protein (0.0-0.8) mg/dL Total Protein (6.2-8.2) g/dL Albumin (3.80-4.90) g/dL Albumin/Globulin Ratio (1.60-3.17) g/dL Procalcitonin (0.02-0.09) ng/mL Microbiology - Last 24 Hours (Table) 10/04/20 22:08 Blood Culture - Preliminary Blood No Growth after 24 hours 10/02/20 18:31 Blood Culture - Preliminary Blood No Growth after 72 hours 10/02/20 17:45 Urine Culture - Final Urine,Clean Catch Enterococcus faecalis Assessment and Plan Assessment: Stage IV pancreatic cancer Severe sepsis, secondary to UTI versus others, urine culture growing enterococcus Metabolic encephalopathy, improving Seizure-like activities Hyponatremia Vaginal bleeding, postmenopausal bleeding. Malignancies also suspected Thrombocytopenia GI prophylaxis DVT prophylaxis Full code with no intubation Recommendations and discussion: Recommend to continue with current medications, management, and symptomatic treatment. Oncology along with infectious disease following. Neurology has evaluated the patient. Discussed the plan of care with oncology along with infectious disease and we'll continue with oral Augmentin twice daily for the next 10 days. Patient was maintained on IV cefepime along with vancomycin for enterococcus in the urine and the patient is refusing any further blood draws and vancomycin being discontinued as we cannot monitor the trough. Multiple family members at the bedside would like these lab draws discontinued. Nephrology also following and recommended to continue with 1200 mL fluid restriction along with sodium chloride tablets and continue to encourage oral intake as tolerated. Plan is for possible hospice in the home and arrangements along with necessary equipment is being planned. Due to multiple complex medical issues, prognosis is extremely guarded and poor. Further recommendations to follow based on the clinical course of the patient. Possible discharge in 24-48 hours. Time with Patient: Greater than 30
[2020-10-06 16:33] LABS: African American GFR (CKD) 104.5 (60.0-200.0); Anion Gap 10.6 mmol/L (4.00-12.00); Calcium 8.4 mg/dL (8.7-10.3); Carbon Dioxide 21.4 mmol/L (21.6-31.8); Magnesium 1.9 mg/dL (1.5-2.4); Non-African American GFR(CKD) 90.1 (60.0-200.0); Potassium 4.7 mmol/L (3.5-5.5)
[2020-10-06] MEDS: LACTULOSE 20 GM/30 ML CUP PO PRN (16:39)
--- NOTE | 2020-10-06 17:05 | P.PN ---
Subjective Progress Note Date: 10/06/20 Principal diagnosis: Hyponatremia, Metastatic pancreatic cancer In f/u today pt is more alert, c/o pain in back, abd. Family wanted to discuss prognosis as pt is not tolerating treatment. Objective - Vital Signs Vital signs: Vital Signs Temp 98.3 F 10/06/20 05:00 Pulse 86 10/06/20 05:00 Resp 18 10/06/20 05:00 BP 151/83 10/06/20 05:00 Pulse Ox 95 10/06/20 05:00 Intake & Output 10/05/20 10/06/20 10/06/20 18:59 06:59 18:59 Intake Total 360 1310 Output Total 400 Balance -40 1310 Intake: Intake, IV Titration 950 Amount Cefepime 2 gm In Sodium 100 Chloride 0.9% 100 ml @ 25 mls/hr IVPB Q8HR [facility] Rx# :[id number] Sodium Chloride 0.9% 1, 600 000 ml @ 75 mls/hr IV . [id number] [facility] Rx#:[id number] Vancomycin 1,500 mg In 250 Sodium Chloride 0.9% 250 ml @ 125 mls/hr IVPB Q12H [facility] Rx#:[id number] Oral 360 360 Output: Urine 400 Other: Voiding Method External Catheter External Catheter Toilet External Catheter - Constitutional General appearance: Present: cooperative, mild distress, thin - EENT Eyes: Present: anicteric sclerae, EOMI ENT: Present: hearing grossly normal - Respiratory Details: resp even and unlabored - Gastrointestinal General gastrointestinal: Present: tenderness - Integumentary Integumentary: Present: pale - Musculoskeletal Musculoskeletal: Present: generalized weakness - Psychiatric Psychiatric: Present: A&O x's 3, appropriate affect - Labs CBC & Chem 7: 10/05/20 06:05 10/06/20 04:44 Labs: Abnormal Lab Results - Last 24 Hours (Table) 10/05/20 10/05/20 10/05/20 Range/Units 06:05 12:03 17:32 POC Glucose (mg/dL) 181 H 191 H (75-99) mg/dL Procalcitonin 51.87 H (0.02-0.09) ng/mL 10/05/20 10/06/20 Range/Units 20:56 07:40 POC Glucose (mg/dL) 183 H 138 H (75-99) mg/dL Procalcitonin (0.02-0.09) ng/mL Microbiology - Last 24 Hours (Table) 10/04/20 22:08 Blood Culture - Preliminary Blood No Growth after 24 hours 10/02/20 18:31 Blood Culture - Preliminary Blood No Growth after 72 hours 10/02/20 17:45 Urine Culture - Final Urine,Clean Catch Enterococcus faecalis Assessment and Plan (1) Altered mental status Narrative/Plan: Hyponatremia improved, Na+ normal today. Pt is alert and oriented today. She is on abx for fever a few days ago. Discussed case with ID, plan for augmentin for 10 days. Current Visit: Yes Status: Acute Priority: High Code(s): R41.82 - ALTERED MENTAL STATUS, UNSPECIFIED SNOMED Code(s): 315810339 (2) Hyponatremia Current Visit: Yes Status: Resolved Priority: High Code(s): E87.1 - HYPO- OSMOLALITY AND HYPONATREMIA SNOMED Code(s): 84802208 (3) Pancreatic cancer Narrative/Plan: Pt is not a surgical candidate. Treatment was adjusted, 1 drug dropped and pt still did not tolerate treatment. Pt family would like results of high resolution CT of the abd done at [facility]-will have primary Onc contact pt daughter with that Current Visit: Yes Status: Chronic Priority: Medium Code(s): C25.9 - MALIGNANT NEOPLASM OF PANCREAS, UNSPECIFIED SNOMED Code(s): 373406734 Plan: Hemoglobin is stable, plt continue to decrease. Yusuf cultures ordered, Urine +, 101.4 temp, ID consulted. DIC workup neg. CTA pending Seizure activity-Neurology following, anti-seizure meds ordered. Haircutter consulted for vaginal bleeding Pt and family have opted not to pursue further cancer treatment, they would prefer to pursue comfort. Pt is refusing labs and scans. All questions were answered to the best of my ability. >30 min spent counseling and coordinating care. Home with hospice in the next 24-48 hours. Time with Patient: Greater than 30
--- NOTE | 2020-10-06 17:40 | P.PN ---
Progress Note - Text Progress Note Date: 10/06/20 I am seeing this patient and was last seen by me on 09/28/2020. Please refer to Dr. Gill's noted for further details. She was scheduled to have 2 1/2 hours EEG but family opted out of test and decided to pursue comfort care. Neurology will sign off. Please reconsult if needed.
[2020-10-06 17:42] LABS: Glucose,Whole Blood 197 mg/dL (75-99)
[2020-10-06] MEDS: ASCORBIC ACID 500 MG TAB PO SCH (17:51)
[2020-10-06] MEDS: ATORVASTATIN 40 MG TAB PO SCH (17:52)
[2020-10-06 21:24] LABS: Glucose,Whole Blood 165 mg/dL (75-99)
[2020-10-07] MEDS: SENNOSIDES-DOCUSATE SODIUM 1 EACH TAB PO SCH ×2 (00:01→05:43)
[2020-10-07] MEDS: MAGNESIUM OXIDE 400 MG TAB PO SCH ×2 (00:01→05:42)
[2020-10-07] MEDS: atenoloL 25 MG TAB PO SCH ×2 (00:01→11:42)
[2020-10-07] MEDS: ASPIRIN 81 MG PO SCH (00:01)
[2020-10-07] MEDS: LACTULOSE 20 GM/30 ML CUP PO PRN (00:05)
[2020-10-07 04:57] VITALS: BP 159/84; PULSE 96; TEMP 98.2
[2020-10-07] MEDS: SODIUM CHLORIDE 0.9% 1,000 ML IV SCH (05:38)
[2020-10-07] MEDS: RALOXIFENE 60 MG TAB PO SCH (05:42)
[2020-10-07] MEDS: PANTOPRAZOLE 40 MG TABLET PO SCH (05:42)
[2020-10-07 07:24] LABS: Glucose,Whole Blood 148 mg/dL (75-99)
[2020-10-07] MEDS ORDERED: POTASSIUM CHLORIDE ER 20 MEQ TAB.ER PO STA (07:59)
[2020-10-07] MEDS: SODIUM CHLORIDE TAB 1 GM TAB PO SCH (08:02)
[2020-10-07] MEDS: metFORMIN 500 MG TAB PO SCH (08:02)
[2020-10-07] MEDS: INSULIN ASPART (NovoLOG) 100 UNIT/ML VIAL SQ SCH ×2 (10:02→11:43)
[2020-10-07] MEDS: AMOXIC-POT CLAV 875-125MG 1 EACH TAB PO SCH (10:03)
[2020-10-07] MEDS: levETIRAcetam 500 MG TAB PO SCH (10:03)
[2020-10-07] MEDS: ENOXAPARIN 40 MG/0.4 ML SYRINGE SQ SCH (10:03)
[2020-10-07] MEDS: DOCUSATE ORAL SOLN 100 MG/10 ML CUP PO SCH (11:42)
--- NOTE | 2020-10-07 14:20 | P.PN ---
Subjective Progress Note Date: 10/07/20 This is a pleasant 80 years old female with multiple medical problems including diabetes mellitus, hypertension, hyperlipidemia, also she has history of pancreatic cancer. Stage IV Originally she was admitted at 09/27 for altered mental status after chemotherapy on . 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 She was placed on Keppra, MRI of the brain showing atrophy with no mass. Neurologist recommended to transfer the patient if she has negative CT of the c hest. However today she became hypotensive with a blood pressure dropped 80/49 with low-grade fever at 100.4. She was already on fluid restriction by sign board erector, I spoke with Dr. Headley about the case and he agrees to her IV boluses of normal saline. A loss of 500 mL is provided and started on normal saline at 75 mL/h. Her blood pressure improved with systolic at 102. Patient mental improvement was noted after fluid administration however she remains lethargic and mildly encephalopathic most likely secondary to metabolic derangements. However she answers questions appropriately although she keeps her eyes closed most of the time. Sodium this morning was 103. Platelets dropped to 69 WBC is normal at 5.3. CT only of the chest: No pulmonary embolism. Atelectasis. Pancreatic mass and enlarged spleen MRI of the brain as above atrophy with no mass We checked a bladder scan and was normal retention with 100-150 mL . Repeat urinalysis was unremarkable Patient already was started this morning on vancomycin and IV cefepime with infectious disease team She kept on normal saline at 75 mL/h Family at bedside including son and all their questions were answered she is full code with no vent 10/05/2020 Patient still lethargic but is improving compared to yesterday. She is awake and alert and answers questions appropriately, confirmed with staff. No more seizure-like activity She is breathing quietly, no much urinary symptoms. She's hemodynamically better today blood pressure improved 115/67 and 106/69. She has no fever today. Her sodium actually came back normal at 135. Platelets count still 65, the drops less than 50 then we will discontinue Lovenox and all anticoagulations. Hemoglobin is 9.8 and WBC is 6.4K which is normal. Repeat urinalysis is not suspicious of infection. C-reactive protein is elevated at 8.1. Infectious disease team on the case. Again I talked with her son at bedside and he does not want the patient to be transferred to a tertiary care center because they don't want the video EEG 10/06/2020 Patient is seen and evaluated in follow-up this morning with multiple family members at the bedside. She continues with abdominal discomfort and requesting a suppository which oncology is ordering. Patient continues on IV antibiotics in the form of cefepime and vancomycin although patient is refusing further blood draws and does not want a repeat Vanco trough which have been canceled and IV vancomycin also being canceled. Discussed with infectious disease team along with oncology and will be transitioning over to oral Augmentin twice daily for the next 10 days. Per nursing staff and family, the treatment plan is for possible hospice in the home and arrangements are being made for necessary equipment to accommodate this. Patient is extremely lethargic although awake and conversing minimally with family at the bedside. Patient is alert and oriented 2. 10/07/2020 Patient is seen and evaluated this morning with family at the bedside and [facility] following. Patient overall clinical status continues to deteriorate and patient is barely responsive and not eating and extremely lethargic. [facility] plans to make the patient inpatient hospice with comfort measures and daughter is agreeable to this. Discussed with oncology about treatment plan moving forward. Review of systems: Unable to obtain as patient is extremely lethargic and unresponsive Active Medications Acetaminophen (Acetaminophen Tab 325 Mg Tab) 650 mg PO Q6HR PRN PRN Reason: Mild Pain or Fever > 100.5 Last Admin: 10/04/20 10:47 Dose: 650 mg Documented by: Amoxicillin/Clavulanate Potassium (Amoxic-Pot Clav 875-125mg 1 Each Tab) 1 each PO Q12HR [facility] Last Admin: 10/07/20 10:03 Dose: Not Given Documented by: Ascorbic Acid (Ascorbic Acid 500 Mg Tab) 1,000 mg PO DAILY@1800 [facility] Last Admin: 10/06/20 17:51 Dose: Not Given Documented by: Aspirin (Aspirin 81 Mg) 81 mg PO DAILY@0000 [facility] Last Admin: 10/07/20 00:01 Dose: 81 mg Documented by: Atenolol (Atenolol 25 Mg Tab) 25 mg PO BID@1200,0000 [facility] Last Admin: 10/07/20 11:42 Dose: Not Given Documented by: Atorvastatin Calcium (Atorvastatin 40 Mg Tab) 40 mg PO DAILY@1800 [facility] Last Admin: 10/06/20 17:52 Dose: 40 mg Documented by: Docusate Sodium (Docusate Oral Soln 100 Mg/10 Ml Cup) 250 mg PO DAILY@1200 [facility] Last Admin: 10/07/20 11:42 Dose: Not Given Documented by: Dronabinol (Dronabinol 2.5 Mg Cap) 2.5 mg PO BID@0600,0000 [facility] Last Admin: 10/07/20 05:42 Dose: Not Given Documented by: Enoxaparin Sodium (Enoxaparin 40 Mg/0.4 Ml Syringe) 40 mg SQ DAILY [facility] Last Admin: 10/07/20 10:03 Dose: Not Given Documented by: Fentanyl (Fentanyl 50mcg/Hr Patch) 1 patch TRANSDERM Q72H [facility]; Protocol Last Admin: 10/05/20 07:33 Dose: 1 patch Documented by: Sodium Chloride (Saline 0.9%) 1,000 mls @ 75 mls/hr IV .[id number] [facility] Last Admin: 10/07/20 05:38 Dose: 75 mls/hr Documented by: Insulin Aspart (Insulin Aspart (Novolog) 100 Unit/Ml Vial) 0 unit SQ ACHS [facility]; Protocol Last Admin: 10/07/20 11:43 Dose: Not Given Documented by: Lactulose (Lactulose 20 Gm/30 Ml Cup) 20 gm PO TID PRN PRN Reason: Constipation Last Admin: 10/07/20 00:05 Dose: 20 gm Documented by: Levetiracetam (Levetiracetam 500 Mg Tab) 500 mg PO Q12HR [facility] Last Admin: 10/07/20 10:03 Dose: Not Given Documented by: Magnesium Oxide (Magnesium Oxide 400 Mg Tab) 400 mg PO BID@0600,0000 [facility] Last Admin: 10/07/20 05:42 Dose: Not Given Documented by: Meclizine HCl (Meclizine 25 Mg Tab) 25 mg PO DAILY PRN PRN Reason: Nausea Metformin HCl (Metformin 500 Mg Tab) 250 mg PO AC-BID [facility] Last Admin: 10/07/20 08:02 Dose: Not Given Documented by: Miscellaneous Information (Magnesium Replacement Protocol 1 Each Misc) 1 each MISCELLANE DAILY PRN; Protocol PRN Reason: Per Protocol Miscellaneous Information (Potassium Replacement Protocol 1 Each Misc) 1 each MISCELLANE DAILY PRN; Protocol PRN Reason: Per Protocol Naloxone HCl (Naloxone 0.4 Mg/Ml 1 Ml Vial) 0.2 mg IV Q2M PRN PRN Reason: Opioid Reversal Oxycodone HCl (Oxycodone Hcl 5 Mg Tab) 10 mg PO Q3HR PRN PRN Reason: Pain/Discomfort Last Admin: 10/07/20 05:38 Dose: 10 mg Documented by: Pantoprazole Sodium (Pantoprazole 40 Mg Tablet) 40 mg PO DAILY@0600 [facility] Last Admin: 10/07/20 05:42 Dose: Not Given Documented by: Raloxifene HCl (Raloxifene 60 Mg Tab) 60 mg PO DAILY@0600 [facility] Last Admin: 10/07/20 05:42 Dose: Not Given Documented by: Senna/Docusate Sodium (Sennosides-Docusate Sodium 1 Each Tab) 1 each PO BID@0600,0000 [facility] Last Admin: 10/07/20 05:43 Dose: Not Given Documented by: Sodium Chloride (Sodium Chloride Tab 1 Gm Tab) 1 gm PO BID [facility] Last Admin: 10/07/20 08:02 Dose: Not Given Documented by: Objective - Vital Signs Vital signs: Vital Signs Temp 98.2 F 10/07/20 04:56 Pulse 96 10/07/20 04:56 Resp 16 10/07/20 04:56 BP 159/84 10/07/20 04:56 Pulse Ox 94 L 10/07/20 04:56 Intake & Output 10/06/20 10/07/20 10/07/20 18:59 06:59 18:59 Intake Total 900 120 Output Total 200 Balance 900 -80 Intake: Intake, IV Titration 900 Amount Sodium Chloride 0.9% 1, 900 000 ml @ 75 mls/hr IV . [id number] [facility] Rx#:[id number] Oral 120 Output: Urine 200 Other: Voiding Method Toilet Toilet External Catheter External Catheter External Catheter # Voids 1 # Bowel Movements 1 - Exam GENERAL: The patient is very weak, lethargic and difficult to arouse, ill- appearing. Temp is 98.2F, pulse is 96, respirations are 16, blood pressure is 159/84, oxygen saturation is 94 % on room air. HEENT: Pupils are round and equally reacting to light. EOMI. No scleral icterus. No conjunctival pallor. Normocephalic, atraumatic. No pharyngeal erythema. No thyromegaly. CARDIOVASCULAR: S1 and S2 muffled PULMONARY: Diminished breath sounds bilaterally with some scattered rhonchi noted. ABDOMEN: Soft, nontender, nondistended, normoactive bowel sounds. No palpable organomegaly. MUSCULOSKELETAL: No joint swelling or deformity. EXTREMITIES: No cyanosis, clubbing, or pedal edema. NEUROLOGICAL: Gross neurological examination did not reveal any focal deficits. Diffusely weak SKIN: No rashes. no petechiae. Pale. - Labs CBC & Chem 7: 10/05/20 06:05 10/06/20 04:44 Labs: Abnormal Lab Results - Last 24 Hours (Table) 10/06/20 10/06/20 10/06/20 Range/Units 04:44 11:51 17:41 Carbon Dioxide 21.4 L (21.6-31.8) mmol/L Creatinine 0.5 L (0.6-1.5) mg/dL BUN/Creatinine Ratio 44.00 H (12.00-20.00) Ratio Glucose 129 H (70-110) mg/dL POC Glucose (mg/dL) 178 H 197 H (75-99) mg/dL Calcium 8.4 L (8.7-10.3) mg/dL 10/06/20 10/07/20 Range/Units 21:23 07:23 Carbon Dioxide (21.6-31.8) mmol/L Creatinine (0.6-1.5) mg/dL BUN/Creatinine Ratio (12.00-20.00) Ratio Glucose (70-110) mg/dL POC Glucose (mg/dL) 165 H 148 H (75-99) mg/dL Calcium (8.7-10.3) mg/dL Microbiology - Last 24 Hours (Table) 10/04/20 22:08 Blood Culture - Preliminary Blood No Growth after 48 hours 10/02/20 18:31 Blood Culture - Preliminary Blood No Growth after 96 hours Assessment and Plan Assessment: Stage IV pancreatic cancer Severe sepsis, secondary to UTI versus others, urine culture growing enterococcus Metabolic encephalopathy, improving Seizure-like activities Hyponatremia Vaginal bleeding, postmenopausal bleeding. Malignancies also suspected Thrombocytopenia GI prophylaxis DVT prophylaxis Full code with no intubation Recommendations and discussion: Recommend continue with current supportive management and symptomatic treatment. Oncology and infectious disease following and plans moving forward are for [facility] and being made inpatient. Family is now agreeable at the bedside in meeting with [facility] for contract information today. Patient clinical status is deteriorating and minimally responsive and family would like to receive with comfort measures only. [facility] following and will c ontinue to monitor closely. Prognosis remains extremely poor and guarded.
--- NOTE | 2020-10-07 16:23 | P.PN ---
Subjective Progress Note Date: 10/07/20 Principal diagnosis: Hyponatremia, Metastatic pancreatic cancer In f/u today pt is no longer alert, family concerned about constipation and pain. Family wanted to discuss results of CT from [facility]. Objective - Vital Signs Vital signs: Vital Signs Temp 98.2 F 10/07/20 04:56 Pulse 96 10/07/20 04:56 Resp 16 10/07/20 04:56 BP 159/84 10/07/20 04:56 Pulse Ox 94 L 10/07/20 04:56 Intake & Output 10/06/20 10/07/20 10/07/20 18:59 06:59 18:59 Intake Total 900 120 Output Total 200 Balance 900 -80 Intake: Intake, IV Titration 900 Amount Sodium Chloride 0.9% 1, 900 000 ml @ 75 mls/hr IV . [id number] [facility] Rx#:[id number] Oral 120 Output: Urine 200 Other: Voiding Method Toilet Toilet External Catheter External Catheter External Catheter # Voids 1 # Bowel Movements 1 - Exam Only responding to voice and touch of family - Labs CBC & Chem 7: 10/05/20 06:05 10/06/20 04:44 Labs: Abnormal Lab Results - Last 24 Hours (Table) 10/06/20 10/06/20 10/06/20 Range/Units 04:44 17:41 21:23 Carbon Dioxide 21.4 L (21.6-31.8) mmol/L Creatinine 0.5 L (0.6-1.5) mg/dL BUN/Creatinine Ratio 44.00 H (12.00-20.00) Ratio Glucose 129 H (70-110) mg/dL POC Glucose (mg/dL) 197 H 165 H (75-99) mg/dL Calcium 8.4 L (8.7-10.3) mg/dL 10/07/20 Range/Units 07:23 Carbon Dioxide (21.6-31.8) mmol/L Creatinine (0.6-1.5) mg/dL BUN/Creatinine Ratio (12.00-20.00) Ratio Glucose (70-110) mg/dL POC Glucose (mg/dL) 148 H (75-99) mg/dL Calcium (8.7-10.3) mg/dL Microbiology - Last 24 Hours (Table) 10/04/20 22:08 Blood Culture - Preliminary Blood No Growth after 48 hours 10/02/20 18:31 Blood Culture - Preliminary Blood No Growth after 96 hours Assessment and Plan (1) Altered mental status Status: Acute Priority: High Code(s): R41.82 - ALTERED MENTAL STATUS, UNSPECIFIED SNOMED Code(s): 419195310 (2) Hyponatremia Status: Resolved Priority: High Code(s): E87.1 - HYPO-OSMOLALITY AND HYPONATREMIA SNOMED Code(s): 85865750 (3) Pancreatic cancer Status: Chronic Priority: Medium Code(s): C25.9 - MALIGNANT NEOPLASM OF PANCREAS, UNSPECIFIED SNOMED Code(s): 021298531 Plan: Reviewed CT scan from [facility] with Dr. Ag, unfortunately disease progression. This was discussed with daughter at bedside. She verbalized understanding Pt and family have opted for treatment of symptoms, pain magmt and end of life care. Discussed with CM who is working with [facility] for GIP Discussed with [facility], recommended morphine drip >30 min spent counseling and coordinating care. Time with Patient: Greater than 30
--- NOTE | 2020-11-10 08:42 | P.DS ---
Providers Date of admission: 09/27/20 20:47 Expected date of discharge: 10/07/20 Attending physician: Raymond Coleman MD Consults: 09/27/20 20:46 Consult Physician Routine Consulting Provider: Chilango Mcdermott Consult Reason/Comments: AMS Do you want consulting provider notified?: Yes 09/27/20 20:49 Consult Physician Routine Consulting Provider: Deepak Ag Consult Reason/Comments: Pancreatic cancer, altered mental status Do you want consulting provider notified?: Yes 09/29/20 09:24 Consult Physician Routine Consulting Provider: Radha Lamas Consult Reason/Comments: Hyponatremia hypovolemic and SIADH Do you want consulting provider notified?: Yes 10/01/20 18:27 Consult Physician Routine Consulting Provider: Yolis Benson Consult Reason/Comments: vaginal bleeding Do you want consulting provider notified?: Yes 10/02/20 13:28 Consult Physician Routine Consulting Provider: [facility] Consult Reason/Comments: abnormal echo Do you want consulting provider notified?: Yes 10/04/20 10:59 Consult Physician Urgent Consulting Provider: Mike Hartley Consult Reason/Comments: Increase temps, antibiotic recommendations Do you want consulting provider notified?: Yes Primary care physician: Ely Aguero [facility] Course: This is a pleasant 80 years old female with multiple medical problems including diabetes mellitus, hypertension, hyperlipidemia, also she has history of pancreatic cancer. Stage IV Originally she was admitted at 09/27 for altered mental status after chemotherapy on . Patient also has been followed by several consultants including oncology, nephrology and [employer]RATION [employer]GER Patient also followed closely by neurology for different seizure-like spells. She was placed on Keppra, MRI of the brain showing atrophy with no mass. Neurologist recommended to transfer the patient if she has negative CT of the chest. However today she became hypotensive with a blood pressure dropped 80/49 with low-grade fever at 100.4. She was already on fluid restriction by vehicle assembler, I spoke with Dr. Headley about the case and he agrees to her IV boluses of normal saline. A loss of 500 mL is provided and started on normal saline at 75 mL/h. Her blood pressure improved with systolic at 102. Patient mental improvement was noted after fluid administration however she remains lethargic and mildly encephalopathic most likely secondary to metabolic derangements. However she answers questions appropriately although she keeps her eyes closed most of the time. Sodium this morning was 103. Platelets dropped to 69 WBC is normal at 5.3. CT only of the chest: No pulmonary embolism. Atelectasis. Pancreatic mass and enlarged spleen MRI of the brain as above atrophy with no mass We checked a bladder scan and was normal retention with 100-150 mL . Repeat urinalysis was unremarkable Patient already was started this morning on vancomycin and IV cefepime with infectious disease team She kept on normal saline at 75 mL/h Family at bedside including son and all their questions were answered she is full code with no vent 10/05/2020 Patient still lethargic but is improving compared to yesterday. She is awake and alert and answers questions appropriately, confirmed with staff. No more seizure-like activity She is breathing quietly, no much urinary symptoms. She's hemodynamically better today blood pressure improved 115/67 and 106/69. She has no fever today. Her sodium actually came back normal at 135. Platelets count still 65, the drops less than 50 then we will discontinue Lovenox and all anticoagulations. Hemoglobin is 9.8 and WBC is 6.4K which is normal. Repeat urinalysis is not suspicious of infection. C-reactive protein is elevated at 8.1. Infectious disease team on the case. Again I talked with her son at bedside and he does not want the patient to be transferred to a tertiary care center because they don't want the video EEG 10/06/2020 Patient is seen and evaluated in follow-up this morning with multiple family members at the bedside. She continues with abdominal discomfort and requesting a suppository which oncology is ordering. Patient continues on IV antibiotics in the form of cefepime and vancomycin although patient is refusing further blood draws and does not want a repeat Vanco trough which have been canceled and IV vancomycin also being canceled. Discussed with infectious disease team along with oncology and will be transitioning over to oral Augmentin twice daily for the next 10 days. Per nursing staff and family, the treatment plan is for possible hospice in the home and arrangements are being made for necessary equipment to accommodate this. Patient is extremely lethargic although awake and conversing minimally with family at the bedside. Patient is alert and oriented 2. 10/07/2020 Patient is seen and evaluated this morning with family at the bedside and [facility] following. Patient overall clinical status continues to deteriorate and patient is barely responsive and not eating and extremely lethargic. [facility] plans to make the patient inpatient hospice with comfort measures and daughter is agreeable to this. Pt on hospice. Patient Condition at Discharge: Undetermined Plan - Discharge Summary Discharge Rx Participant: Yes New Discharge Prescriptions: No Action Raloxifene [Evista] 60 mg PO DAILY@0600 Atorvastatin [Lipitor] 80 mg PO DAILY@1800 Triple Flex 1 tab PO BID@1200,0000 Aspirin [Adult Low Dose Aspirin EC] 81 mg PO DAILY@0000 fentaNYL 50MCG/HR PATCH [Duragesic 50MCG/HR] 1 patch TRANSDERM Q72H atenoloL 25 mg PO BID@1200,0000 Vit C/E/Zn/Coppr/Lutein/Zeaxan [Preservision Areds 2 Softgel] 1 cap PO BID@1200,0000 Docusate 250mg 250 mg PO DAILY@1200 Ascorbic Acid [Vitamin C] 1,000 mg PO DAILY@1800 Meclizine [Antivert] 25 mg PO DAILY PRN PRN Reason: Nausea Sennosides/Docusate Sodium [Senna Plus 8.6-50 mg Softgel] 1 cap PO BID@0600,0000 Ondansetron Odt [Zofran ODT] 4 mg PO Q6H PRN PRN Reason: Nausea oxyCODONE HCL [OxyIR] 5 mg PO QID@0600,12,18,0000 metFORMIN HCL ER [Glucophage XR] 500 mg PO DAILY@0600 Magnesium Oxide [Magox 400] 400 mg PO BID@0600,0000 Famotidine [Pepcid] 20 mg PO BID@1200,1800 Dronabinol [Marinol] 2.5 mg PO BID@0600,0000 Pantoprazole Sodium 40 mg PO DAILY@0600 Pancreatic Enzyme 500 mg PO DAILY@0600 Motion Sickness Patch 1 patch TRANSDERM Q72H PRN PRN Reason: Vertigo Discharge Medication List Atorvastatin [Lipitor] 80 mg PO DAILY@1800 04/24/20 [History] Raloxifene [Evista] 60 mg PO DAILY@0600 04/24/20 [History] Triple Flex 1 tab PO BID@1200,0000 04/24/20 [History] Aspirin [Adult Low Dose Aspirin EC] 81 mg PO DAILY@0000 04/29/20 [History] Ondansetron Odt [Zofran ODT] 4 mg PO Q6H PRN 06/04/20 [History] Sennosides/Docusate Sodium [Senna Plus 8.6-50 mg Softgel] 1 cap PO BID@0600,0000 06/04/20 [History] Dronabinol [Marinol] 2.5 mg PO BID@0600,0000 09/08/20 [History] Famotidine [Pepcid] 20 mg PO BID@1200,1800 09/08/20 [History] Magnesium Oxide [Magox 400] 400 mg PO BID@0600,0000 09/08/20 [History] Pantoprazole Sodium 40 mg PO DAILY@0600 09/08/20 [History] atenoloL 25 mg PO BID@1200,0000 09/08/20 [History] fentaNYL 50MCG/HR PATCH [Duragesic 50MCG/HR] 1 patch TRANSDERM Q72H 09/08/20 [History] metFORMIN HCL ER [Glucophage XR] 500 mg PO DAILY@0600 09/08/20 [History] oxyCODONE HCL [OxyIR] 5 mg PO QID@0600,12,18,0000 09/08/20 [History] Ascorbic Acid [Vitamin C] 1,000 mg PO DAILY@1800 09/27/20 [History] Docusate 250mg 250 mg PO DAILY@1200 09/27/20 [History] Motion Sickness Patch 1 patch TRANSDERM Q72H PRN 09/27/20 [History] Pancreatic Enzyme 500 mg PO DAILY@0600 09/27/20 [History] Vit C/E/Zn/Coppr/Lutein/Zeaxan [Preservision Areds 2 Softgel] 1 cap PO BID@1200,0000 09/27/20 [History] Meclizine [Antivert] 25 mg PO DAILY PRN 09/28/20 [History] Follow up Appointment(s)/Referral(s): [facility], [NON-STAFF] - 1 Week Deepak Ag MD [STAFF PHYSICIAN] - 10/08/20 10:00 am Ely Aguero DO [Primary Care Provider] - 1-2 days Discharge Disposition: HOME WITH HOSPICE
== END 2020-10-07 11:58 | disposition hospice, home (50) | DRG 643 ==
LOC: EC 18:15 → 4SSUR 20:47 → 5NMEDONC 10-02 15:50
PROVIDERS: ADMIT Family Medicine; ATTEND Family Medicine
DX: E22.2 Syndrome of inappropriate secretion of antidiuretic hormone (principal); G93.41 Metabolic encephalopathy; J96.01 Acute respiratory failure with hypoxia; A41.9 Sepsis, unspecified organism; R65.20 Severe sepsis without septic shock; C25.9 Malignant neoplasm of pancreas, unspecified; J98.11 Atelectasis; N39.0 Urinary tract infection, site not specified; Z20.822 Contact with and (suspected) exposure to COVID-19; Z51.5 Encounter for palliative care; B95.2 Enterococcus as the cause of diseases classified elsewhere; D64.9 Anemia, unspecified; E09.9 Drug or chemical induced diabetes mellitus without complications; T45.1X5A Adverse effect of antineoplastic and immunosuppressive drugs, initial encounter; E78.5 Hyperlipidemia, unspecified; E83.42 Hypomagnesemia; N95.0 Postmenopausal bleeding; E86.1 Hypovolemia; E87.6 Hypokalemia; I08.3 Combined rheumatic disorders of mitral, aortic and tricuspid valves; I10 Essential (primary) hypertension; G31.89 Other specified degenerative diseases of nervous system; K59.00 Constipation, unspecified; I95.9 Hypotension, unspecified; R56.9 Unspecified convulsions; X58.XXXA Exposure to other specified factors, initial encounter; Z79.82 Long term (current) use of aspirin; Z79.84 Long term (current) use of oral hypoglycemic drugs; Z79.899 Other long term (current) drug therapy; Z87.19 Personal history of other diseases of the digestive system; Z87.891 Personal history of nicotine dependence; Z92.21 Personal history of antineoplastic chemotherapy; Z88.1 Allergy status to other antibiotic agents; Z91.013 Allergy to seafood; Z90.49 Acquired absence of other specified parts of digestive tract; Z98.51 Tubal ligation status; Z85.07 Personal history of malignant neoplasm of pancreas
CPT/HCPCS: 36415; 70450; 70553; 71046; 71275; 74176; 76830; 80048; 80053; 80076; 81001; 82140; 82533; 82728; 83010; 83605; 83615; 83625; 83735; 83930; 83935; 84145; 84146; 84295; 84300; 84443; 84484; 85025; 85384; 85610; 85730; 86140; 86850; 86900; 86901; 86920; 87040; 87077; 87086; 87186; 87635; 93005; 93306; 93880; 94760; 95816; 96360; 96361; 99285

== ENCOUNTER 2020-10-07 11:49 | Inpatient (IN) | payer MEDICAID ==
[2020-10-07] MEDS ORDERED: GLYCOPYRROLATE 0.2 MG/ML 2 ML VIAL IVP PRN (11:51)
[2020-10-07] MEDS ORDERED: MORPHINE SULFATE 2 MG/ML SYRINGE IV PRN (11:51)
[2020-10-07] MEDS ORDERED: ACETAMINOPHEN SUPPOSITORY 650 MG SUPP RECTAL PRN (11:51)
[2020-10-07] MEDS ORDERED: ONDANSETRON 4 MG/2 ML VIAL IVP PRN (11:51)
[2020-10-07] MEDS: MORPHINE SULFATE (100 MG/2 ML) 100 MG in SODIUM CHLORIDE 0.9% 100 ML IV SCH (12:41)
[2020-10-07 13:49] VITALS: BMI 27.3
[2020-10-07] MEDS: SCOPOLAMINE 1.5MG/72HR PATCH TRANSDERM SCH (13:55)
[2020-10-08] MEDS: MORPHINE SULFATE (100 MG/2 ML) 100 MG in SODIUM CHLORIDE 0.9% 100 ML IV SCH (16:24)
--- NOTE | 2020-10-09 02:06 | P.PN ---
Subjective Progress Note Date: 10/08/20 Please refer to previous chart dictation for todays progress note prior to chart being flipped to inpatient GIP with [facility]. Objective - Vital Signs Vital signs: Vital Signs Temp Pulse Resp BP Pulse Ox 94 L 10/08/20 08:48 Intake & Output 10/07/20 10/08/20 10/08/20 18:59 06:59 18:59 Intake Total 0 6.545 38.590 Balance 0 6.545 38.590 Weight 81.6 kg Intake: Intake, IV Titration 6.545 38.590 Amount Morphine Sulfate (100 mg/ 6.545 38.590 2 ml) 100 mg In Sodium Chloride 0.9% 100 ml @ 1 MG/HR 1.02 mls/hr IV . Q24H [facility] Rx#:[id number] Oral 0 0 Other: Voiding Method External Catheter
[2020-10-09] MEDS: MORPHINE SULFATE (100 MG/2 ML) 100 MG in SODIUM CHLORIDE 0.9% 100 ML IV SCH ×2 (10:43→23:10)
--- NOTE | 2020-10-10 01:41 | P.PN ---
Subjective Progress Note Date: 10/09/20 This is a pleasant 80 years old female with multiple medical problems including diabetes mellitus, hypertension, hyperlipidemia, also she has history of pancreatic cancer. Stage IV Originally she was admitted at 09/27 for altered mental status after chemotherapy on . 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 She was placed on Keppra, MRI of the brain showing atrophy with no mass. Neurologist recommended to transfer the patient if she has negative CT of the chest. However today she became hypotensive with a blood pressure dropped 80/49 with low-grade fever at 100.4. She was already on fluid restriction by measuring machine tender, I spoke with Dr. Headley about the case and he agrees to her IV boluses of normal saline. A loss of 500 mL is provided and started on normal saline at 75 mL/h. Her blood pressure improved with systolic at 102. Patient mental improvement was noted after fluid administration however she remains lethargic and mildly encephalopathic most likely secondary to metabolic derangements. However she answers questions appropriately although she keeps her eyes closed most of the time. Sodium this morning was 103. Platelets dropped to 69 WBC is normal at 5.3. CT only of the chest: No pulmonary embolism. Atelectasis. Pancreatic mass and enlarged spleen MRI of the brain as above atrophy with no mass We checked a bladder scan and was normal retention with 100-150 mL . Repeat urinalysis was unremarkable Patient already was started this morning on vancomycin and IV cefepime with infectious disease team She kept on normal saline at 75 mL/h Family at bedside including son and all their questions were answered she is full code with no vent 10/09/2020 patient seen and evaluated this morning with multiple family members at the bed side. Patient is unresponsive and maintained on morphine drip and comfort measures with [facility] following. At times patient continues to appear in distress and morphine drip being titrated. Objective - Vital Signs Vital signs: Vital Signs Temp Pulse Resp 14 10/08/20 18:32 BP Pulse Ox 94 L 10/08/20 08:48 Intake & Output 10/08/20 10/09/20 10/09/20 18:59 06:59 18:59 Intake Total 52.530 35.275 48.96 Balance 52.530 35.275 48.96 Intake: Intake, IV Titration 52.530 35.275 48.96 Amount Morphine Sulfate (100 mg/ 52.530 35.275 48.96 2 ml) 100 mg In Sodium Chloride 0.9% 100 ml @ 1 MG/HR 1.02 mls/hr IV . Q24H [facility] Rx#:[id number] Other: Voiding Method Indwelling Catheter Indwelling Catheter - Exam GENERAL: The patient is unresponsive, ill-appearing. oxygen saturation is 94 % on room air. HEENT: Pupils are round and equally reacting to light. EOMI. No scleral icterus. No conjunctival pallor. Normocephalic, atraumatic. No pharyngeal erythema. No thyromegaly. oral mucosa is dry CARDIOVASCULAR: S1 and S2 muffled PULMONARY: Diminished breath sounds bilaterally with some scattered rhonchi noted. ABDOMEN: Soft, nontender, nondistended, normoactive bowel sounds. No palpable organomegaly. MUSCULOSKELETAL: No joint swelling or deformity. EXTREMITIES: No cyanosis, clubbing, or pedal edema. NEUROLOGICAL: unresponsive on morphine drip SKIN: No rashes. no petechiae. Assessment and Plan Assessment: Stage IV pancreatic cancer Severe sepsis, secondary to UTI versus others, urine culture growing enterococcus Metabolic encephalopathy Seizure-like activities Hyponatremia Vaginal bleeding, postmenopausal bleeding. Malignancies also suspected Thrombocytopenia No code Recommendations: Continue with comfort care measures only. [facility] following. Will continue to monitor. Morphine drip currently being titrated for some grimacing noted and foot twitching.
[2020-10-10] MEDS: MORPHINE SULFATE (100 MG/2 ML) 100 MG in SODIUM CHLORIDE 0.9% 100 ML IV SCH ×2 (08:44→18:00)
[2020-10-10 08:58] VITALS: RESP 10
[2020-10-10] MEDS: GLYCOPYRROLATE 0.2 MG/ML 2 ML VIAL IVP SCH ×2 (11:43→17:10)
[2020-10-10] MEDS: SCOPOLAMINE 1.5MG/72HR PATCH TRANSDERM SCH (11:45)
--- NOTE | 2020-10-10 15:24 | P.PN ---
Subjective Progress Note Date: 10/10/20 This is a pleasant 80 years old female with multiple medical problems including diabetes mellitus, hypertension, hyperlipidemia, also she has history of pancreatic cancer. Stage IV Originally she was admitted at 09/27 for altered mental status after chemotherapy on . 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 She was placed on Keppra, MRI of the brain showing atrophy with no mass. Neurologist recommended to transfer the patient if she has negative CT of the chest. However today she became hypotensive with a blood pressure dropped 80/49 with low-grade fever at 100.4. She was already on fluid restriction by fellmongery worker, I spoke with Dr. Headley about the case and he agrees to her IV boluses of normal saline. A loss of 500 mL is provided and started on normal saline at 75 mL/h. Her blood pressure improved with systolic at 102. Patient mental improvement was noted after fluid administration however she remains lethargic and mildly encephalopathic most likely secondary to metabolic derangements. However she answers questions appropriately although she keeps her eyes closed most of the time. Sodium this morning was 103. Platelets dropped to 69 WBC is normal at 5.3. CT only of the chest: No pulmonary embolism. Atelectasis. Pancreatic mass and enlarged spleen MRI of the brain as above atrophy with no mass We checked a bladder scan and was normal retention with 100-150 mL . Repeat urinalysis was unremarkable Patient already was started this morning on vancomycin and IV cefepime with infectious disease team She kept on normal saline at 75 mL/h Family at bedside including son and all their questions were answered she is full code with no vent 10/09/2020 patient seen and evaluated this morning with multiple family members at the bed side. Patient is unresponsive and maintained on morphine drip and comfort measures with [facility] following. At times patient continues to appear in distress and morphine drip being titrated. 10/10/2020 Patient being closely monitored and continues on morphine drip currently at 12 mL per hour [facility] following closely. Multiple family members at the bedside. Patient is unresponsive. Will continue with comfort measures only with further recommendations to follow as needed. Objective - Vital Signs Vital signs: Vital Signs Temp Pulse Resp 10 L 10/10/20 08:00 BP Pulse Ox 94 L 10/08/20 08:48 Intake & Output 10/09/20 10/10/20 10/10/20 18:59 06:59 18:59 Intake Total 95.472 73.253 135.183 Output Total 400 400 Balance -304.528 -326.747 135.183 Intake: Intake, IV Titration 95.472 73.253 135.183 Amount Morphine Sulfate (100 mg/ 95.472 73.253 135.183 2 ml) 100 mg In Sodium Chloride 0.9% 100 ml @ 1 MG/HR 1.02 mls/hr IV . Q24H [facility] Rx#:[id number] Oral 0 Output: Urine 400 400 Other: Voiding Method Indwelling Catheter Indwelling Catheter Indwelling Catheter # Bowel Movements 0 0 - Exam GENERAL: The patient is unresponsive, ill-appearing. on room air. respirations are 8 HEENT: Pupils are round and pinpoint. EOMI. No scleral icterus. No conjunctival pallor. Normocephalic, atraumatic. No pharyngeal erythema. No thyromegaly. oral mucosa is dry CARDIOVASCULAR: S1 and S2 muffled PULMONARY: Diminished breath sounds bilaterally with some scattered rhonchi noted. ABDOMEN: Soft, nontender, nondistended MUSCULOSKELETAL: No joint swelling or deformity. EXTREMITIES: No cyanosis, clubbing, or pedal edema. NEUROLOGICAL: unresponsive on morphine drip SKIN: No rashes. no petechiae. Assessment and Plan Assessment: Stage IV pancreatic cancer Severe sepsis, secondary to UTI versus others, urine culture growing enterococcus Metabolic encephalopathy Seizure-like activities Hyponatremia Vaginal bleeding, postmenopausal bleeding. Malignancies also suspected Thrombocytopenia No code Recommendations: Continue with comfort care measures only. [facility] following. Will continue to monitor. Morphine drip currently being titrated for comfort.
[2020-10-11] MEDS: GLYCOPYRROLATE 0.2 MG/ML 2 ML VIAL IVP SCH ×5 (00:03→23:25)
[2020-10-11] MEDS: MORPHINE SULFATE (100 MG/2 ML) 100 MG in SODIUM CHLORIDE 0.9% 100 ML IV SCH ×3 (02:34→19:54)
[2020-10-11] MEDS: LORazepam 2 MG/ML INJ IV PRN ×2 (15:30→21:26)
--- NOTE | 2020-10-11 16:58 | PN ---
PROGRESS NOTE DATE OF SERVICE: 10/11/2020 This 80-year-old woman who was admitted with stage IV pancreatic cancer was on comfort measures. The patient is on morphine drip. The patient is comfortable and sedated. EXAM: Respirations 10. CARDIOVASCULAR: S1, S2, muffled. No S3, no S4, RESPIRATORY: Diminished breath sounds at the bases. A few scattered rhonchi. ABDOMEN: Soft. NERVOUS SYSTEM: Patient is sedated. LABS: Not available. ASSESSMENT: 1. Stage IV pancreatic cancer. 2. Severe sepsis secondary to urinary tract infection possibly and urine culture growing Enterococcus, present on admission. 3. Acute metabolic encephalopathy. 4. Seizure-like activity. 5. Hyponatremia. 6. Vaginal bleeding. 7. Thrombocytopenia. 8. NO CODE, NO CPR, NO VENT. 9. Hospice care. RECOMMENDATIONS AND DISCUSSION: Recommend to continue current management and continue symptomatic treatment. Continue with hospice measures. Otherwise, continue with morphine drip, titrated for morphine drip up to comfort. Discussed at length with the patient's family who understands. Prognosis guarded. MMODL / IJN: [id number] /
[2020-10-12] MEDS: MORPHINE SULFATE (100 MG/2 ML) 100 MG in SODIUM CHLORIDE 0.9% 100 ML IV SCH ×3 (00:47→13:07)
[2020-10-12] MEDS: GLYCOPYRROLATE 0.2 MG/ML 2 ML VIAL IVP SCH ×2 (05:29→13:23)
[2020-10-12] MEDS: LORazepam 2 MG/ML INJ IV PRN (13:31)
== END 2020-10-12 16:07 | disposition expired | DRG 951 ==
LOC: 5NMEDONC 12:02
PROVIDERS: ADMIT Family Medicine; ATTEND Family Medicine
DX: Z51.5 Encounter for palliative care (principal); A41.81 Sepsis due to Enterococcus; G93.41 Metabolic encephalopathy; R65.20 Severe sepsis without septic shock; C25.9 Malignant neoplasm of pancreas, unspecified; E87.1 Hypo-osmolality and hyponatremia; J98.11 Atelectasis; N39.0 Urinary tract infection, site not specified; N95.0 Postmenopausal bleeding; E11.9 Type 2 diabetes mellitus without complications; G31.89 Other specified degenerative diseases of nervous system; D69.6 Thrombocytopenia, unspecified; E78.5 Hyperlipidemia, unspecified; I10 Essential (primary) hypertension; Z88.1 Allergy status to other antibiotic agents; Z91.013 Allergy to seafood; Z92.21 Personal history of antineoplastic chemotherapy; Z79.84 Long term (current) use of oral hypoglycemic drugs; Z79.899 Other long term (current) drug therapy
CPT/HCPCS: 94760